=== PATIENT | male | born 1945 | race Caucasian/White ===

== ENCOUNTER 2017-08-16 15:27 | Inpatient (IN) | payer MEDICARE, OTHER ==
[~2017-08-16] VITALS: Ht 177.8 cm; Wt 101.3 kg
[~2017-08-16 15:27] MED LIST: CPR500T PO; HYDR-2997 PO; PHN100C; SIMV40TA4 PO
[2017-08-16 16:07] LABS: BASOPHILS % (AUTO) 0 % (0-10); EOSINOPHILS % (AUTO) 0 % (0-10); LYMPHOCYTES # (AUTO) 1.4 X 10^3 (1.0-4.0); LYMPHOCYTES % (AUTO) 12 % (12-44); MEAN CORPUSCULAR HEMOGLOBIN 36 PG (25-34); MEAN CORPUSCULAR HGB CONC 34 G/DL (32-36); MEAN CORPUSCULAR VOLUME 105 FL (80-99); MEAN PLATELET VOLUME 9.5 FL (7.4-10.4); MONOCYTES # (AUTO) 1.2 X 10^3 (0.0-1.0); MONOCYTES % (AUTO) 10 % (0-12); NEUTROPHILS # (AUTO) 9.4 X 10^3 (1.8-7.8); NEUTROPHILS % (AUTO) 78 % (42-75); PLATELET COUNT 225 10^3/uL (130-400); RED BLOOD COUNT 4.05 10^6/uL (4.35-5.85); RED CELL DISTRIBUTION WIDTH 15.3 % (10.0-14.5); WHITE BLOOD COUNT 12.1 10^3/uL (4.3-11.0)
[2017-08-16 16:14] LABS: INR 1.1 (0.8-1.4); PROTHROMBIN TIME PATIENT 13.9 SEC (12.2-14.7)
[2017-08-16 16:21] LABS: ALANINE AMINOTRANSFERASE 90 U/L (0-55); ALBUMIN 3.1 GM/DL (3.2-4.5); ANION GAP 14 MMOL/L (5-14); ASPARTATE AMINO TRANSFERASE 183 U/L (5-34); BILIRUBIN,TOTAL 1.4 MG/DL (0.1-1.0); BLOOD UREA NITROGEN 30 MG/DL (7-18); BUN/CREATININE RATIO 38; CALCIUM 8.8 MG/DL (8.5-10.1); CARBON DIOXIDE 30 MMOL/L (21-32); CHLORIDE 95 MMOL/L (98-107); CREATINE KINASE 189 U/L (30-200); CREATININE SERUM 0.78 MG/DL (0.60-1.30); GFR ESTIMATED > 60; GLUCOSE 107 MG/DL (70-105); POTASSIUM 2.8 MMOL/L (3.6-5.0); SODIUM 139 MMOL/L (135-145)
[2017-08-16] MEDS ORDERED: NS IV 1000 ML 1,000 ML IV ONE (16:32)
--- NOTE | 2017-08-16 16:48 | Diagnostic Imaging Report ---
INDICATION: Injury from a fall. Portable chest at 4:32 PM FINDINGS: Heart size and pulmonary vascularity are normal. Lungs are clear. There are no effusions or pneumothoraces. IMPRESSION: Negative chest. Dictated by: Dictated on workstation # [id number]
--- NOTE | 2017-08-16 18:46 | ED General ---
General Chief Complaint: Neurological Problems Stated Complaint: WEAKNESS,DIZZINESS Nursing Triage Note: ARRIVED VIA EMS FROM HOME. PT STATES HE FELL AND HAS BEEN ON THE FLOOR FOR 8 DAYS. PT STATES HE HAS BEEN FALLING ALOT RECENTLY. COMPLAINS OF LEFT WRIST PAIN. LEFT WRIST AREA BRUISED. BILAT ABRASIONS NOTED ON KNEES AND ABRASION NOTED RIGHT FOOT. PT A/OX3. Nursing Sepsis Screen: No Definite Risk Source of Information: Patient Exam Limitations: No Limitations (BRANDON CORADO MD) History of Present Illness Time Seen by Provider: 16:00 Initial Comments Here by EMS with report of fall at home and apparently standing on the floor for 8 days. Patient reports that he had to crawl around on his hands and knees. He comes and covered in urine. He states that he was able to access his tea for a while and then bottled water that he had in the refrigerator but has been out of fluids for 2 days. He was able to crawl to different places to eat a little bit in that amount of time as well. Denies any significant medical problems. Arrives with moderate amount of ecchymosis to the area of the left wrist as well as multiple bruises to the elbows and knees in a few scattered abrasions to the knees and elbows and head. Denied loss of consciousness but does report this initially was a result of a fall. This is when he hurt his wrist. Timing/Duration: 1 Week Severity: Moderate Modifying Factors: worse with Movement, improves with Rest Associated Systoms: No Chest Pain, No Cough, No Fever/Chills, No Nausea/ Vomiting, No Shortness of Air, Weakness (BRANDON CORADO MD) Allergies and Home Medications Allergies Coded Allergies: NKANo Known Allergies (Verified Allergy, Unknown, 04/19/06) Home Medications Phenytoin Sodium 100 Mg Cap, (Reported) Simvastatin 40 Mg Tablet, 40 MG PO DAILY, (Reported) Constitutional: see HPI, No chills, No fever EENTM: no symptoms reported Respiratory: no symptoms reported, No cough, No short of breath Cardiovascular: No edema, No palpitations Gastrointestinal: No nausea, No vomiting Genitourinary: decreased output, No dysuria Musculoskeletal: joint pain, muscle pain, muscle stiffness, muscle weakness Skin: see HPI, change in color, lesions, lumps Psychiatric/Neurological: Denies Headache, Weakness Hematologic/Lymphatic: No Symptoms Reported (BRANDON CORADO MD) All Other Systems Reviewed Negative Unless Noted: Yes (BRANDON CORADO MD) Past Zgahkrm-Odaudk-Gvokio Hx Patient Social History Alcohol Use: Rarely Uses Recreational Drug Use: No Smoking Status: Former Smoker Recent Foreign Travel: No Contact w/Someone Who Travel: No Recent Infectious Disease Expo: No Recent Hopitalizations: No (BRANDON CORADO MD) Immunizations Up To Date Date of Pneumonia Vaccine: Sep 01, 2008 Date of Influenza Vaccine: Aug 01, 2012 (BRANDON CORADO MD) Surgeries History of Surgeries: No (BRANDON CORADO MD) Respiratory History of Respiratory Disorde: No (BRANDON CORADO MD) Cardiovascular History of Cardiac Disorders: No (BRANDON CORADO MD) Neurological History of Neurological Disord: Yes Neurological Disorders: Seizure Disorder (BRANDON CORADO MD) Genitourinary History of Genitourinary Disor: No (BRANDON CORADO MD) Gastrointestinal History of Gastrointestinal Di: No (BRANDON CORADO MD) Musculoskeletal History of Musculoskeletal Dis: Yes (ARTHRITIS) (BRANDON CORADO MD) Endocrine History of Endocrine Disorders: No (BRANDON CORADO MD) HEENT History of HEENT Disorders: No (BRANDON CORADO MD) Cancer History of Cancer: No (BRANDON CORADO MD) Psychosocial History of Psychiatric Problem: No (BRANDON CORADO MD) Reviewed Nursing Assessment Reviewed/Agree w Nursing PMH: Yes (BRANDON CORADO MD) Family Medical History Significant Family History: No Pertinent Family Hx (BRANDON CORADO MD) Physical Exam Vital Signs Vital Sign - Last 12Hours 08/16/17 15:27 Temp 98.0 Pulse 120 Resp 18 B/P (MAP) 142/83 Pulse Ox 98 (DEMARIO DAWN) Vital Signs Capillary Refill : Less Than 3 Seconds (BRANDON CORADO MD) General Appearance: WD/WN, Other (moderate overall weakness) HEENT: PERRL/EOMI, TMs Normal, Other (mucous membranes dry. Several abrasions to the forehead.) Neck: Full Range of Motion, Normal Inspection, Non Tender, Supple Respiratory: Lungs Clear, Normal Breath Sounds Cardiovascular: No Murmur, Tachycardia Gastrointestinal: Non Tender, Soft Back: Normal Inspection, No CVA Tenderness, No Vertebral Tenderness Extremity: No Calf Tenderness, No Pedal Edema, Other (several scattered abrasions to the elbows and knees. Multiple contusions to the elbows and knees. Left forearm with moderate ecchymosis from the mid forearm to the wrist with deformity at the left wrist. Distal circulation and sensation intact.) Neurologic/Psychiatric: Alert, Oriented x3, Motor Weakness (global) Skin: Warm/Dry, Ecchymosis (ecchymosis as described above.), Other (multiple abrasions as described above as well as on the forehead.) (BRANDON CORADO MD ) Focused Exam Evaluation Lactate Level Laboratory Tests 08/16/17 15:09: Lactic Acid Level 1.60 (DEMARIO DAWN) Splinting and Joint Reduction : Location: left wrist Pre-Proc Neuro Vasc Exam: normal Post-Proc Neuro Vasc Exam: normal Hand-Made Type: orthoglass Splint Application: Short Arm (sugar tong splint) (DEMARIO DAWN) Progress/Results/Core Measures Results/Orders Lab Results Laboratory Tests Test 08/16/17 15:09 08/16/17 15:38 08/16/17 18:40 Range/Units Lactic Acid Level 1.60 0.50-2.00 MMOL/L White Blood Count 12.1 H 4.3-11.0 10^3/uL Red Blood Count 4.05 L 4.35-5.85 10^6/uL Hemoglobin 14.7 13.3-17.7 G/DL Hematocrit 43 40-54 % Mean Corpuscular Volume 105 H 80-99 FL Mean Corpuscular Hemoglobin 36 H 25-34 PG Mean Corpuscular Hemoglobin Concent 34 32-36 G/DL Red Cell Distribution Width 15.3 H 10.0-14.5 % Platelet Count 225 130-400 10^3/uL Mean Platelet Volume 9.5 7.4-10.4 FL Neutrophils (%) (Auto) 78 H 42-75 % Lymphocytes (%) (Auto) 12 12-44 % Monocytes (%) (Auto) 10 0-12 % Eosinophils (%) (Auto) 0 0-10 % Basophils (%) (Auto) 0 0-10 % Neutrophils # (Auto) 9.4 H 1.8-7.8 X 10^3 Lymphocytes # (Auto) 1.4 1.0-4.0 X 10^3 Monocytes # (Auto) 1.2 H 0.0-1.0 X 10^3 Eosinophils # (Auto) 0.0 0.0-0.3 10^3/uL Basophils # (Auto) 0.0 0.0-0.1 10^3/uL Prothrombin Time 13.9 12.2-14.7 SEC INR Comment 1.1 0.8-1.4 Activated Partial Thromboplast Time 25 24-35 SEC Sodium Level 139 135-145 MMOL/L Potassium Level 2.8 L 3.6-5.0 MMOL/L Chloride Level 95 L 98-107 MMOL/L Carbon Dioxide Level 30 21-32 MMOL/L Anion Gap 14 5-14 MMOL/L Blood Urea Nitrogen 30 H 7-18 MG/DL Creatinine 0.78 0.60-1.30 MG/DL Estimat Glomerular Filtration Rate > 60 BUN/Creatinine Ratio 38 Glucose Level 107 H 70-105 MG/DL Calcium Level 8.8 8.5-10.1 MG/DL Total Bilirubin 1.4 H 0.1-1.0 MG/DL Aspartate Amino Transf (AST/SGOT) 183 H 5-34 U/L Alanine Aminotransferase (ALT/SGPT) 90 H 0-55 U/L Alkaline Phosphatase 75 40-136 U/L Total Creatine Kinase 189 30-200 U/L Total Protein 7.0 6.4-8.2 GM/DL Albumin 3.1 L 3.2-4.5 GM/DL Phenytoin (Dilantin) Level 0.7 L 10.0-20.0 UG/ML Urine Color YELLOW Urine Clarity CLEAR Urine pH 6 5-9 [address] [place] 1.015 L 1.016-1.022 Urine Protein 3+ H NEGATIVE Urine Glucose (UA) NEGATIVE NEGATIVE Urine Ketones 2+ H NEGATIVE Urine Nitrite POSITIVE H NEGATIVE Urine Bilirubin 1+ H NEGATIVE Urine Urobilinogen 8 H NORMAL MG/DL Urine Leukocyte Esterase 3+ H NEGATIVE Urine RBC (Auto) 5+ H NEGATIVE Urine RBC 5-10 H /HPF Urine WBC TNTC H /HPF Urine Crystals NONE /LPF Urine Bacteria LARGE H /HPF Urine Casts NONE /LPF Urine Mucus NEGATIVE /LPF Urine Culture Indicated YES (DEMARIO DAWN) Medications Given in ED Current Medications Medications Dose Ordered Sig/Andrea Route Start Time Stop Time Status Last Admin Dose Admin Ceftriaxone Sodium 1000 mg/ Sodium Chloride 50 ml @ 100 mls/hr ONCE ONCE IV 08/16/17 19:30 08/16/17 19:59 DC 08/16/17 19:34 100 MLS/HR Phenytoin Sodium 400 mg ONCE ONCE PO 08/16/17 19:45 08/16/17 19:46 DC 08/16/17 19:44 400 MG Sodium Chloride 1,000 ml @ 0 mls/hr Q0M ONCE IV 08/16/17 16:32 08/16/17 16:34 DC 08/16/17 16:56 1,000 MLS/HR (DEMARIO DAWN) Vital Signs/I&O Vital Sign - Last 12Hours 08/16/17 15:27 Temp 98.0 Pulse 120 Resp 18 B/P (MAP) 142/83 Pulse Ox 98 Intake and Output 08/17/17 00:00 Intake Total 1000 ml Balance 1000 ml (DEMARIO DAWN) Blood Pressure Mean: 102 Progress Note : Progress Note Seen and evaluated. IV, labs, UA, blood cultures, lactic acid, chest x-ray and left wrist x-ray. EMS initiated 1 L normal saline IV bolus and this was completed. Repeat 1 L normal saline IV bolus. Left wrist fracture noted. This was splinted by MAUREEN Calabrese. CT head ordered. 1907: Significant urinary tract infection noted. Rocephin 1 g IV ordered. I did discuss the case with Dr. Galicia, on-call for hospitalist. She accepts patient for admission, inpatient status. Patient is on Dilantin and reports she has not taken his dose in several days. Dilantin 400 mg every afternoon is his normal dosing. This was ordered. We will continue this. Admit, inpatient status. Patient agrees with plan. (BRANDON CORADO MD) Diagnostic Imaging Diagonstic Imaging: Xray Plain Films/CT/US/NM/MRI: chest Comments NAME: LIZ JUNIOR [facility] REC#: [id number] PT STATUS: REG ER : 1945 PHYSICIAN: BRANDON CORADO MD ADMIT DATE: 08/16/17/ER Signed Date of Exam: 08/16/17 CHEST 1 VIEW, AP/PA ONLY INDICATION: Injury from a fall. Portable chest at 4:32 PM FINDINGS: Heart size and pulmonary vascularity are normal. Lungs are clear. There are no effusions or pneumothoraces. IMPRESSION: Negative chest. Dictated by: Dictated on workstation # [id number] Dict: 08/16/17 1643 Trans: 08/16/171651 Interpreted by: BRANDON HARRIS MD Electronically signed by: BRANDON HARRIS MD 08/16/171651 Diagonstic Imaging: Xray Plain Films/CT/US/NM/MRI: other (wrist) Comments NAME: LIZ JUNIOR [facility] REC#: [id number] PT STATUS: REG ER : 1945 PHYSICIAN: BRANDON CORADO MD ADMIT DATE: 08/16/17/ER Signed Date of Exam: 08/16/17 WRIST, LEFT, 3 VIEWS OR MORE INDICATION: Fall. Pain. COMPARISON: None. EXAMINATION: Three views of the left wrist were obtained. FINDINGS: There is an impacted angulated fracture of the distal radius with intra-articular extension. There is moderate dorsal angulation of the distal fragments. There is also a nondisplaced fracture through the distal ulna. IMPRESSION: Comminuted angulated nondisplaced intra-articular fracture of the distal radius and nondisplaced fracture the distal ulna. Report was called to Dr. Brandon Corado in the [facility], [place] ER at 6:44 p.m., by blake. Dictated by: Dictated on workstation # [id number] Dict: 08/16/171835 Trans: 08/16/171849 Interpreted by: HORTENCIA MALONEY DO Electronically signed by: HORTENCIA MALONEY DO 08/16/171849 Diagonstic Imaging: CT Plain Films/CT/US/NM/MRI: head Comments VIA [facility]. [place], [place] NAME: LIZ JUNIOR [facility] REC#: [id number] PT STATUS: REG ER : 1945 PHYSICIAN: BRANDON CORADO MD ADMIT DATE: 08/16/17/ER Draft Date of Exam:08/16/17 CT HEAD WO PROCEDURE: CT head without contrast. TECHNIQUE: Multiple contiguous axial images were obtained through the brain without the use of intravenous contrast. INDICATION: Head injury/found down. COMPARISON: Correlation is made with MRI of the brain dated 02/21/2014. FINDINGS: Ventricles and sulci are diffusely prominent. Encephalomalacia is again seen within the inferior temporal lobe on the left. No hemorrhage is identified. There is no evidence of an acute infarct. There is mild mural thickening in the right maxillary sinus. The calvarium is intact. 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 There is no CT evidence of an acute intracranial abnormality. Dictated on workstation # [id number] Dict: 08/16/179 Trans: 08/16/171912 [id number] Interpreted by: RAMIN CHOI MD Electronically signed by: (BRANDON CORADO MD) Departure Impression Impression: Primary Impression: Urinary tract infection Qualified Codes: N30.00 - Acute cystitis without hematuria Additional Impressions: Dehydration Closed fracture of left distal radius and ulna Qualified Codes: S52.502A - Unspecified fracture of the lower end of left radius, initial encounter for closed fracture; S52.602A - Unspecified fracture of lower end of left ulna, initial encounter for closed fracture Multiple abrasions Multiple contusions Disposition: ADMITTED INPATIENT Condition: Stable Admissions Decision to Admit Reason: Admit from ER (General) Decision to Admit/Date: Aug 16, 2017 Time/Decision to Admit Time: 19:08 (BRANDON CORADO MD) Departure-Patient Inst. Referrals: MAXWELL ARREOLA (PCP) Primary Care Physician BRANDON CORADO MD Aug 16, 2017 18:46 DEMARIO DAWN Aug 16, 2017 20:06
[2017-08-16 18:49] LABS: KETONES,URINE 2+ (NEGATIVE); LEUKOCYTE ESTERASE ,URINE 3+ (NEGATIVE); NITRITE,URINE POSITIVE (NEGATIVE); PH,URINE 6 (5-9); PROTEIN,URINE 3+ (NEGATIVE); UROBILINOGEN,URINE 8 MG/DL (NORMAL)
[2017-08-16 18:57] LABS: BILIRUBIN,URINE 1+ (NEGATIVE); WBC,URINE TNTC /HPF
--- NOTE | 2017-08-16 19:14 | Diagnostic Imaging Report ---
PROCEDURE: CT head without contrast. TECHNIQUE: Multiple contiguous axial images were obtained through the brain without the use of intravenous contrast. INDICATION: Head injury/found down. COMPARISON: Correlation is made with MRI of the brain dated 02/21/2014. FINDINGS: Ventricles and sulci are diffusely prominent. Encephalomalacia is again seen within the inferior temporal lobe on the left. No hemorrhage is identified. There is no evidence of an acute infarct. There is mild mural thickening in the right maxillary sinus. The calvarium is intact. 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 There is no CT evidence of an acute intracranial abnormality. Dictated by: Dictated on workstation # [id number]
[2017-08-16] MEDS ORDERED: cefTRIAXone INJECTION 1,000 MG in NS (IVPB) 50 ML IV ONE (19:30)
[2017-08-16] MEDS ORDERED: PHENYTOIN 100 MG (DILANTIN) CAP PO ONE (19:45)
[2017-08-16] MEDS ORDERED: CATHETER FLUSH 10 ML SYR IV PRN (21:30)
[2017-08-16] MEDS: POTASSIUM CL 10 MEQ/50 ML IVPB (PRE-MIX) IV SCH ×3 (21:39→23:56)
[2017-08-16] MEDS: NS IV 1000 ML 1,000 ML IV SCH (21:39)
[2017-08-16] MEDS: CATHETER FLUSH 10 ML SYR IV SCH (21:39)
[2017-08-17] VITALS: BP 147/79
[2017-08-17] MEDS: POTASSIUM CL 10 MEQ/50 ML IVPB (PRE-MIX) IV SCH (01:13)
[2017-08-17 04:00] VITALS: BP 138/80
[2017-08-17] MEDS: NS IV 1000 ML 1,000 ML IV SCH ×4 (04:47→23:58)
[2017-08-17] MEDS: CATHETER FLUSH 10 ML SYR IV SCH ×3 (04:47→20:26)
[2017-08-17 05:49] LABS: BASOPHILS % (AUTO) 0 % (0-10); EOSINOPHILS # (AUTO) 0.1 10^3/uL (0.0-0.3); EOSINOPHILS % (AUTO) 1 % (0-10); LYMPHOCYTES # (AUTO) 1.3 X 10^3 (1.0-4.0); LYMPHOCYTES % (AUTO) 12 % (12-44); MEAN CORPUSCULAR HEMOGLOBIN 37 PG (25-34); MEAN CORPUSCULAR HGB CONC 35 G/DL (32-36); MEAN CORPUSCULAR VOLUME 106 FL (80-99); MEAN PLATELET VOLUME 9.1 FL (7.4-10.4); MONOCYTES # (AUTO) 1.2 X 10^3 (0.0-1.0); MONOCYTES % (AUTO) 11 % (0-12); NEUTROPHILS # (AUTO) 8.3 X 10^3 (1.8-7.8); NEUTROPHILS % (AUTO) 77 % (42-75); PLATELET COUNT 206 10^3/uL (130-400); RED BLOOD COUNT 2.81 10^6/uL (4.35-5.85); RED CELL DISTRIBUTION WIDTH 14.9 % (10.0-14.5); WHITE BLOOD COUNT 10.8 10^3/uL (4.3-11.0)
[2017-08-17 06:16] LABS: ALANINE AMINOTRANSFERASE 72 U/L (0-55); ALBUMIN 2.5 GM/DL (3.2-4.5); ANION GAP 10 MMOL/L (5-14); ASPARTATE AMINO TRANSFERASE 153 U/L (5-34); BILIRUBIN,TOTAL 0.9 MG/DL (0.1-1.0); BLOOD UREA NITROGEN 19 MG/DL (7-18); BUN/CREATININE RATIO 31; CALCIUM 7.4 MG/DL (8.5-10.1); CARBON DIOXIDE 24 MMOL/L (21-32); CHLORIDE 99 MMOL/L (98-107); CREATININE SERUM 0.62 MG/DL (0.60-1.30); GFR ESTIMATED > 60; GLUCOSE 99 MG/DL (70-105); POTASSIUM 2.9 MMOL/L (3.6-5.0); SODIUM 133 MMOL/L (135-145); TOTAL PROTEIN 5.7 GM/DL (6.4-8.2)
[2017-08-17] MEDS ORDERED: INFLUENZA TRIvalent 2017-2018 0.5 ML/45 MCG SYR IM ONE (07:30)
[2017-08-17 08:00] VITALS: BP 128/72
--- NOTE | 2017-08-17 09:18 | History & Physical-Hospitalist ---
HPI History of Present Illness: HPI/Chief Complaint this is a 71-year-old white male who had had a severe concussion about 18 years ago. Since that time he has had a precarious loss of balance. Approximately 8 days ago he fell hurting his left wrist and was unable to get up. He was able to get to the refrigerator to get water and tea but has not eaten in 8 days. Blood cultures have grown out gram-negative rods and urine looks like it's Escherichia coli. He has a left fractured wrist as well. otherwise he is without complaint. Source: patient Exam Limitations: no limitations Date Seen 08/17/17 Time Seen by Provider: 09:00 Attending Physician Joseluis Canela MD PCP Krystian Referring Physician Date of Admission Aug 16, 2017 at 20:13 Home Medications & Allergies Home Medications Reviewed patient Home Medication Reconciliation Form Allergies Allergies Coded Allergies NKANo Known Allergies (Verified Allergy, Unknown, 04/19/06) Past Tvbxojs-Qbmnir-Hkmcwl Hx Patient Social History Marrital Status: single Employed/Student: retired Alcohol Use: Rarely Uses Number of Drinks Today: 0 Alcohol Beverage of Choice: Wine Recreational Drug Use: No Smoking Status: Former Smoker Physical Abuse Screen: No Sexual Abuse: No Recent Foreign Travel: No Contact w/other who traveled: No Recent Hopitalizations: No Recent Infectious Disease Expo: No Immunizations Up To Date Date of Pneumonia Vaccine: Sep 01, 2008 Date of Influenza Vaccine: Aug 01, 2012 Seasonal Allergies Seasonal Allergies: No Surgeries No Respiratory No Cardiovascular No Neurological Yes (controlled by Dilantin) Seizure Disorder Reproductive System HIV/AIDS: No Genitourinary No Gastrointestinal No Musculoskeletal Yes (ARTHRITIS) Fractures Endocrine History of Endocrine Disorders: No HEENT History of HEENT Disorders: No Loss of Vision: Denies Hearing Impairment: Denies Cancer No Psychosocial History of Psychiatric Problem: No Integumentary History of Skin or Integumenta: Yes (scalp) Reviewed Nursing Assessment Reviewed/Agree w Nursing PMH: Yes Family Medical History Significant Family History: No Pertinent Family Hx Family Hx: Dementia 19 MOTHER, Onset:Unknown FHx: leukemia 19 FATHER, Onset:Unknown Review of Systems Constitutional: weakness EENTM: no symptoms reported Respiratory: no symptoms reported Cardiovascular: no symptoms reported Gastrointestinal: constipation Genitourinary: decreased output Musculoskeletal: joint swelling (left wrist) Skin: no symptoms reported Psychiatric/Neurological: Seizure, Weakness Physical Exam Physical Exam Vital Signs Vital Sign - Last 12Hours 08/16/17 08/16/17 15:27 20:45 Temp 98.0 Pulse 120 Resp 18 B/P (MAP) 142/83 Pulse Ox 98 O2 Delivery Room Air Capillary Refill : Less Than 3 SecondsLess Than 3 Seconds General Appearance: No Apparent Distress, Other (several bruises and excoriations on his forehead.) Neck: Limited Range of Motion Respiratory: Lungs Clear, Normal Breath Sounds, No Accessory Muscle Use, No Respiratory Distress Cardiovascular: Regular Rate, Rhythm, No Gallop, No Murmur Gastrointestinal: Soft, Abnormal Bowel Sounds, Distended Rectal: Deferred Back: Normal Inspection Extremity: No Calf Tenderness, No Pedal Edema Neurologic/Psychiatric: Alert, Oriented x3, No Motor/Sensory Deficits, Normal Mood/Affect, Other (occasionally slow to answer) Skin: Pallor Lymphatic: No Adenopathy Results Results/Procedures Lab Laboratory Tests 08/16/17 15:38 08/17/17 05:40 Radiology IMPRESSION: Comminuted angulated nondisplaced intra-articular fracture of the distal radius and nondisplaced fracture the distal ulna. Assessment/Plan Admission Diagnosis 1. septicemia secondary to urinary tract infection 2. Urinary Tract infection secondary to Escherichia coli 3. Left wrist fracture 4. Previous concussion with recent decreased functional status 5. Hypokalemia 6. Anemia of uncertain etiology This is day number 2 of Rocephin which should cover the septicemia and urinary tract infection. We'll begin PT and OT to increase the patient's functional status. Orthopedic surgery to see this patient regarding his wrist. Copy Copies To 1: GEOFFREY ESCALERA MD Clinical Quality Measures DVT/VTE Risk/Contraindication: Risk Factor Score Per Nursin RFS Level Per Nursing on Admit: 4+=Very High JOSELUIS CANELA MD Aug 17, 2017 09:18
[2017-08-17] MEDS ORDERED: PHEN100C11 PO (09:20)
[2017-08-17] MEDS: ENOXAPARIN 40 MG/0.4 ML (LOVENOX) SYR SC SCH (09:53)
[2017-08-17] MEDS: KCL 20 MEQ TAB (K-DUR) PO SCH ×3 (09:53→17:06)
[2017-08-17] MEDS ORDERED: ATOR20TA49 PO (10:42)
[2017-08-17] MEDS ORDERED: LISI1TAB10 PO (10:57)
[2017-08-17] MEDS ORDERED: HYDROCHLOROTHIAZIDE 25 MG (HCTZ) TAB PO PRN (11:30)
[2017-08-17 12:00] VITALS: BP 125/61
[2017-08-17] MEDS: PHENYTOIN 100 MG (DILANTIN) CAP PO SCH (12:07)
--- NOTE | 2017-08-17 13:43 | Physical Therapy Evaluation ---
PT Evaluation-General Medical Diagnosis Admission Date Aug 16, 2017 at 20:13 Medical Diagnosis: UTI/DEHYDRATION/LEFT WRIST FRACTURE Onset Date: Aug 09, 2017 Therapy Diagnosis Therapy Diagnosis: impaired mobility/weakness Height/Weight Height (Feet): 5 Height (Inches): 10.00 Weight (Pounds): 223 Weight (Ounces): 4.0 Precautions Precautions/Isolations: Fall Prevention, Standard Precautions Weight Bear Status Right Lower Extremity: Right Full Weight Bearing Left Lower Extremity: Left Full Weight Bearing Referral Physician: Grayson Reason for Referral: Evaluation/Treatment Medical History Pertinent Medical History: Arthritis Additional Medical History seizure disorder severe concussion 19 yrs ago Current History per patient report, he fell 8 days ago resulting in left wrist fracture unable to get up from floor crawled on hands and knees Reviewed History: Yes Social History Home: Single Level Current Living Status: Alone Prior/Core FIM Prior Level of Function Functional [place] Measure 0=Not Assessed/NA 4=Minimal Assistance 1=Total Assistance 5=Supervision or Setup 2=Maximal Assistance 6=Modified Lyons 3=Moderate Assistance 7=Complete Lyons Bed Mobility: 6 Transfers (B,C,W/C) (FIM): 6 Gait: 6 PT Evaluation-Current Subjective Patient states he is very weak and fearful of falling. Pain Numeric Pain Scale: 5-Moderate Pain Location: Left Location Body Site: Wrist Pain Description: Acute Objective Patient Orientation: Normal For Age Problem Solving: Good Attachments: IV ROM/Strength ROM Lower Extremities bilateral LE WNL Strength Lower Extremities left knee flexion/extension 3-/5; hip flexion 3-/5; DF/PF 3-/5 right knee flexion/extension 3-/5; hip flexion 3-/5; DF/PF 3-/5 Integumentary/Posture Integumentary multiple abrasions and contusions Bowel Incontinence: No Bladder Incontinence: No Posture WNL Neuromuscular (Tone, Coordination, Reflexes) diminished coordination with all mobility Sensory Vision: Functional Hearing: Functional Sensation Right Lower Extremit: Intact Sensation Left Lower Extremity: Intact Transfers Functional [place] Measure 0=Not Assessed/NA 4=Minimal Assistance 1=Total Assistance 5=Supervision or Setup 2=Maximal Assistance 6=Modified [place] 3=Moderate Assistance 7=Complete [place] Transfers (B, C, W/C) (FIM): 3 Scootin Rollin Supine to/from Sit: 3 Sit to/from Stand: 3 Gait Mode of Locomotion: Walk Anticipated Mode of Locomotion: Walk Gait (FIM): 2 Distance (FIM): 9=467-66 ft Distance: 75' Gait Level of Assist: 3 Gait Persons Needed: 1 Gait Assistive Device: Walker Victor M Comments/Gait Description antalgic left knee/step to gait sequence Balance Sitting Static: Fair Sitting Dynamic: Fair Standing Static: Fair Standing Dynamic: Fair Assessment/Needs 71 y.o severely debilitated male, will benefit from skilled PT to address functional strength and mobility to improve current LOF. Patient is limited with all gross motor skills and is unsafe to return to home at this time and would benefit from aggressive/intense therapy. From a PT standpoint, patient would benefit from ARU to ensure safe return to home. Rehab Potential: Good PT Resaw Carriage Operator Goals Resaw Carriage Operator Goals PT Resaw Carriage Operator Goals Time Frame: Sep 08, 2017 Transfers (B,C,W/C) (FIM): 6 Gait (FIM): 6 Gait distance (FIM): 3=150 ft Gait Level of Assist: 6 Gait Assistive Device: Walker Platform PT Plan Problem List Problem List: Activity Tolerance, Functional Strength, Safety, Balance, Gait, Transfer, Bed Mobility Treatment/Plan Treatment Plan: Continue Plan of Care Treatment Plan: Bed Mobility, Education, Functional Activity Carlita, Functional Strength, Gait, Safety, Therapeutic Exercise, Transfers Treatment Duration: Sep 08, 2017 Frequency: 11 times per week Estimated Hrs Per Day: .5 hour per day (or PRN) Patient and/or Family Agrees t: Yes Safety Risks/Education Patient Education: Safety Issues Teaching Recipient: Patient Teaching Methods: Discussion Response to Teaching: Return Demonstration Discharge Recommendations Therapy D/C Recommendations: Acute Rehab Time/GCodes Time In: 1255 Time Out: 1314 Total Billed Treatment Time: 19 Total Billed Treatment 1 visit EVMod 19 min G Codes Necessary: GALINA Brower PT Aug 17, 2017 13:43
[2017-08-17 16:16] VITALS: BP 129/70
--- NOTE | 2017-08-17 16:25 | Consultation ---
History of Present Illness History of Present Illness Patient Consulted On(nicola/time) 08/17/17 16:21 Date Seen by Provider: Aug 17, 2017 Time Seen by Provider: 16:00 Reason for Visit: fall History of Present Illness Consult for left wrist pain and fracture after fall. Patient fell undetermined number of days ago secondary to weakness in lower extremities. Hospitalized for dehydration. Deformity of left wrist warranted xrays. Distal left radius and ulna fracture was identified. splints applied. Dr. Dietz was consulted for orthopedic care. Allergies and Home Medications Allergies Coded Allergies: NKANo Known Allergies (Verified Allergy, Unknown, 04/19/06) Home Medications Atorvastatin Calcium 20 Mg Tablet, 10 MG PO HS, (Reported) LAST FILLED #45 04-25-17 TAKES 1/2 (20MG) TABLET Lisinopril/Hydrochlorothiazide 1 Each Tablet, 1 TAB PO DAILY PRN for BLOOD PRESSURE, (Reported) Phenytoin Sodium Extended 100 Mg Capsule, 400 MG PO DAILY, (Reported) TAKES 4 (100MG) CAPSULES Past Lpyjfhm-Rrzszy-Hjijfv Hx Patient Social History Alcohol Use: Rarely Uses Number of Drinks Today: 0 Alcohol Beverage of Choice: Wine Recreational Drug Use: No Smoking Status: Former Smoker Recent Foreign Travel: No Contact w/Someone Who Travel: No Recent Infectious Disease Expo: No Recent Hopitalizations: No Immunizations Up To Date Date of Pneumonia Vaccine: Sep 01, 2008 Date of Influenza Vaccine: Aug 01, 2012 Seasonal Allergies Seasonal Allergies: No Surgeries History of Surgeries: No Respiratory History of Respiratory Disorde: No Cardiovascular History of Cardiac Disorders: No Neurological History of Neurological Disord: Yes (controlled by Dilantin) Neurological Disorders: Seizure Disorder Reproductive System HIV/AIDS: No Genitourinary History of Genitourinary Disor: No Gastrointestinal History of Gastrointestinal Di: No Musculoskeletal History of Musculoskeletal Dis: Yes (ARTHRITIS) Musculoskeletal Disorders: Fractures Endocrine History of Endocrine Disorders: No HEENT History of HEENT Disorders: No Loss of Vision: Denies Hearing Impairment: Denies Cancer History of Cancer: No Psychosocial History of Psychiatric Problem: No Integumentary History of Skin or Integumenta: Yes (scalp) Reviewed Nursing Assessment Reviewed/Agree w Nursing PMH: Yes Family Medical History Significant Family History: No Pertinent Family Hx Family Medial History: Dementia 19 MOTHER, Onset:Unknown FHx: leukemia 19 FATHER, Onset:Unknown Physical Exam-General Problems Physical Exam Vital Signs Vital Sign - Last 12Hours 10/4/17 10/4/17 15:27 20:45 Temp 98.0 Pulse 120 Resp 18 B/P (MAP) 142/83 Pulse Ox 98 O2 Delivery Room Air Capillary Refill : Less Than 3 SecondsLess Than 3 Seconds General Appearance: WD/WN, no apparent distress Extremities: no pedal edema, no calf tenderness, normal capillary refill, other (splint to left wrist) Neurologic/Psychiatric: alert, normal mood/affect, oriented x 3 Skin: normal color, warm/dry Assessment/Plan Assessment/Plan Admission Diagnosis/Plan A: Comminuted angulated displaced intra-articular left distal radius fracture, traumatic nondisplaced ulnar styloid fracture, fall, dehydration P: Continue splint, once medically stable would recommend open reduction internal fixation of left distal radius and ulna fractures. Clinical Quality Measures DVT/VTE Risk/Contraindication: Risk Factor Score Per Nursin RFS Level Per Nursing on Admit: 4+=Very High FARZANA ALCANTAR APRN Aug 17, 2017 4:25 pm
[2017-08-17 20:13] VITALS: BP 133/77
[2017-08-17] MEDS: cefTRIAXone 1 GM/NS 50 ML IVPB IV SCH ×2 (20:26)
[2017-08-17] MEDS: ATORVASTATIN 10 MG (LIPITOR) TABLET PO SCH (20:27)
[2017-08-17] MEDS ORDERED: PHENYTOIN 100 MG (DILANTIN) CAP PO SCH (21:00)
[2017-08-18 00:42] VITALS: BP 132/59
[2017-08-18] MEDS: NS IV 1000 ML 1,000 ML IV SCH ×4 (01:25→23:52)
[2017-08-18 04:30] VITALS: BP 130/58
[2017-08-18 06:03] LABS: BASOPHILS # (AUTO) 0.1 10^3/uL (0.0-0.1); BASOPHILS % (AUTO) 1 % (0-10); EOSINOPHILS # (AUTO) 0.1 10^3/uL (0.0-0.3); EOSINOPHILS % (AUTO) 1 % (0-10); LYMPHOCYTES # (AUTO) 1.4 X 10^3 (1.0-4.0); LYMPHOCYTES % (AUTO) 13 % (12-44); MEAN CORPUSCULAR HEMOGLOBIN 37 PG (25-34); MEAN CORPUSCULAR HGB CONC 35 G/DL (32-36); MEAN CORPUSCULAR VOLUME 107 FL (80-99); MEAN PLATELET VOLUME 9.6 FL (7.4-10.4); MONOCYTES # (AUTO) 1.4 X 10^3 (0.0-1.0); MONOCYTES % (AUTO) 13 % (0-12); NEUTROPHILS # (AUTO) 7.9 X 10^3 (1.8-7.8); NEUTROPHILS % (AUTO) 73 % (42-75); PLATELET COUNT 259 10^3/uL (130-400); RED BLOOD COUNT 3.07 10^6/uL (4.35-5.85); WHITE BLOOD COUNT 10.8 10^3/uL (4.3-11.0)
[2017-08-18 06:13] LABS: INR 1.1 (0.8-1.4); PROTHROMBIN TIME PATIENT 14.5 SEC (12.2-14.7)
[2017-08-18 06:30] LABS: ALANINE AMINOTRANSFERASE 60 U/L (0-55); ALBUMIN 2.5 GM/DL (3.2-4.5); ANION GAP 11 MMOL/L (5-14); ASPARTATE AMINO TRANSFERASE 107 U/L (5-34); BILIRUBIN,TOTAL 0.6 MG/DL (0.1-1.0); BLOOD UREA NITROGEN 9 MG/DL (7-18); BUN/CREATININE RATIO 15; CALCIUM 7.4 MG/DL (8.5-10.1); CARBON DIOXIDE 22 MMOL/L (21-32); CHLORIDE 103 MMOL/L (98-107); GFR ESTIMATED > 60; GLUCOSE 76 MG/DL (70-105); POTASSIUM 2.8 MMOL/L (3.6-5.0); SODIUM 136 MMOL/L (135-145); TOTAL PROTEIN 5.6 GM/DL (6.4-8.2)
[2017-08-18] MEDS: CATHETER FLUSH 10 ML SYR IV SCH ×3 (06:36→22:22)
[2017-08-18] MEDS: KCL 20 MEQ TAB (K-DUR) PO SCH ×4 (06:40→17:12)
[2017-08-18] MEDS ORDERED: KCL 20 MEQ TAB (K-DUR) PO NR (07:30)
[2017-08-18 07:55] VITALS: BP 127/70
[2017-08-18] MEDS: PHENYTOIN 100 MG (DILANTIN) CAP PO SCH (08:17)
[2017-08-18] MEDS: ENOXAPARIN 40 MG/0.4 ML (LOVENOX) SYR SC SCH (08:17)
[2017-08-18] MEDS ORDERED: lisINopril 20 MG (ZESTRIL) TAB PO PRN (09:00)
--- NOTE | 2017-08-18 09:44 | Physical Therapy Daily Note ---
PT Daily Note-Current Subjective Patient reports he is feeling much better today and agrees to PT. Pain Numeric Pain Scale: 0-No Pain Location: No Pain Reported Mental Status Patient Orientation: Normal For Age Transfers Functional [place] Measure 0=Not Assessed/NA 4=Minimal Assistance 1=Total Assistance 5=Supervision or Setup 2=Maximal Assistance 6=Modified [place] 3=Moderate Assistance 7=Complete IndependenceIRFPAI Quality Coding Scale 6 Independent with activity with or without an assistive device 5 Patient requires set up or clean up by helper. Patient completes activity by themselves 4 Supervision or touching assist (CGA). [place] provide cues , steadying assist 3 The helper provides less than half the effort to complete the activity 2 The helper provides more than half the effort to complete the activity 1 Dependent. The helper does all the effort to complete an activity 7 Patient refused to complete or attempt activity 9 The patient did not perform the activity before the current illness or injury 88 Not attempted due to Medical conditions or safety concerns Transfers (B, C, W/C) (FIM): 4 Sit to/from Stand: 4 CGA for safety Weight Bearing Right Lower Extremity: Right Full Weight Bearing Left Lower Extremity: Left Full Weight Bearing Gait Training Gait (FIM): 4 Distance (FIM): 3=150 ft Distance: 175' Gait Level of Assist: 4 Gait Persons Needed: 1 Gait Assistive Device: Walker Victor M slightly unsteady gait sequence, however, improved from yesterday. Step to gait sequence Exercises Seated Therapy Exercises: Ankle pumps, Long arc quads Seated Reps: 20 Assessment Patient ceased treatment due to breakfast. PT to increase activity as tolerated by patient. PT Precision Instrument Maker Goals Longterm Goals PT Precision Instrument Maker Goals Time Frame: Sep 08, 2017 Transfers (B,C,W/C) (FIM): 6 Gait (FIM): 6 Gait distance (FIM): 3=150 ft Gait Level of Assist: 6 Gait Assistive Device: Walker Platform PT Plan Treatment/Plan Treatment Plan: Continue Plan of Care Treatment Plan: Bed Mobility, Education, Functional Activity Carlita, Functional Strength, Gait, Safety, Therapeutic Exercise, Transfers Treatment Duration: Sep 08, 2017 Frequency: 11 times per week Estimated Hrs Per Day: .5 hour per day (or PRN) Patient and/or Family Agrees t: Yes Time/GCodes Time In: 903 Time Out: 915 Total Billed Treatment Time: 12 Total Billed Treatment 1 visit GT 12 min GALINA PICKARD PT Aug 18, 2017 09:44
--- NOTE | 2017-08-18 12:39 | Progress Note-Hospitalist ---
Subjective HPI/CC On Admission Date Seen by Provider: Aug 18, 2017 Time Seen by Provider: 07:30 this is a 71-year-old white male who had had a severe concussion about 18 years ago. Since that time he has had a precarious loss of balance. Approximately 8 days ago he fell hurting his left wrist and was unable to get up. He was able to get to the refrigerator to get water and tea but has not eaten in 8 days. Blood cultures have grown out gram-negative rods and urine looks like it's Escherichia coli. He has a left fractured wrist as well. otherwise he is without complaint. Subjective/Events-last exam Mr. Allen denies forearm pain dysuria or increased urinary frequency or sensation of incomplete evacuation. He denies night sweats fever or shortness of breath or abdominal pain. He does report fear of falling and is very uncomfortable about the prospects of going home and his current condition due to his fear of falling. Objective Exam Vital Signs Vital Sign - Last 12Hours 08/16/17 08/16/17 15:27 20:45 Temp 98.0 Pulse 120 Resp 18 B/P (MAP) 142/83 Pulse Ox 98 O2 Delivery Room Air Capillary Refill : Less Than 3 SecondsLess Than 3 Seconds General Appearance: Anxious, Chronically ill, Obese Respiratory: Chest Non Tender, Lungs Clear, Normal Breath Sounds, No Accessory Muscle Use, No Respiratory Distress Cardiovascular: Regular Rate, Rhythm, No Edema, No Gallop, No JVD, No Murmur, Normal Peripheral Pulses Gastrointestinal: Normal Bowel Sounds, No Organomegaly, No Pulsatile Mass, Non Tender, Soft Extremity: Other (trace edema on the left skin crinkling suggesting it used to be a lot worse. No significant dermatitis is noted. There is hyperpigmentation compatible with chronic venous insufficiency change no edema is noted on the right.) Results/Procedures Lab Laboratory Tests 08/18/17 05:35 Assessment/Plan Assessment and Plan Assess & Plan/Chief Complaint 1. Urinary tract infection due to Escherichia coli sensitive to everything but ampicillin with secondary sepsis improving continue IV antibiotics. 2. Comminuted angulated fracture of the distal forearm orthopedics discussing possibility of reduction. 3. 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 This has been quiescent for many years typical Dilantin levels in the 5-10 range over the years without seizure recurrence. 4. 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 5. Deconditioning multifactorial in my view as well as physical therapy he would be an ideal candidate for acute rehabilitation and is in the process of evaluation. I will tentatively put discharge orders and for Monday and would continue oral antibiotics to at least total of a week of antibiotic therapy. Continue IV Rocephin over the weekend. GEOFFREY SECALERA MD Aug 18, 2017 12:39
[2017-08-18] MEDS ORDERED: ACET325T38 PO (12:44)
[2017-08-18] MEDS ORDERED: CEPH500C PO (12:44)
[2017-08-18] MEDS: POTASSIUM CL 10MEQ/50ML IVPB 50 ML IV SCH ×4 (13:40→16:07)
--- NOTE | 2017-08-18 14:48 | Physical Therapy Daily Note ---
PT Daily Note-Current Subjective Patient agrees to PT. Pain Numeric Pain Scale: 0-No Pain Location: No Pain Reported Mental Status Patient Orientation: Normal For Age Attachments: IV Transfers Functional [place] Measure 0=Not Assessed/NA 4=Minimal Assistance 1=Total Assistance 5=Supervision or Setup 2=Maximal Assistance 6=Modified [place] 3=Moderate Assistance 7=Complete IndependenceIRFPAI Quality Coding Scale 6 Independent with activity with or without an assistive device 5 Patient requires set up or clean up by helper. Patient completes activity by themselves 4 Supervision or touching assist (CGA). [place] provide cues , steadying assist 3 The helper provides less than half the effort to complete the activity 2 The helper provides more than half the effort to complete the activity 1 Dependent. The helper does all the effort to complete an activity 7 Patient refused to complete or attempt activity 9 The patient did not perform the activity before the current illness or injury 88 Not attempted due to Medical conditions or safety concerns Transfers (B, C, W/C) (FIM): 4 Scootin Sit to/from Stand: 4 Weight Bearing Right Lower Extremity: Right Full Weight Bearing Left Lower Extremity: Left Full Weight Bearing Gait Training Gait (FIM): 4 Distance (FIM): 3=150 ft Distance: 175' Gait Level of Assist: 4 Gait Persons Needed: 1 Gait Assistive Device: Walker Victor M slightly unsteady, step to gait sequence Assessment Current Status: Good Progress Patient to have surgery to repair left wrist fracture on 08/21/17 PT Pharmacist'S Aide Goals Fpc Goals PT Fpc Goals Time Frame: Sep 08, 2017 Transfers (B,C,W/C) (FIM): 6 Gait (FIM): 6 Gait distance (FIM): 3=150 ft Gait Level of Assist: 6 Gait Assistive Device: Walker Platform PT Plan Treatment/Plan Treatment Plan: Continue Plan of Care Treatment Plan: Bed Mobility, Education, Functional Activity Carlita, Functional Strength, Gait, Safety, Therapeutic Exercise, Transfers Treatment Duration: Sep 08, 2017 Frequency: 11 times per week Estimated Hrs Per Day: .5 hour per day (or PRN) Patient and/or Family Agrees t: Yes Time/GCodes Time In: 1415 Time Out: 1425 Total Billed Treatment Time: 10 Total Billed Treatment 1 visit GT 10 min GALINA PICKARD PT Aug 18, 2017 14:48
[2017-08-18 16:15] VITALS: BP 123/69
[2017-08-18] MEDS: cefTRIAXone 1 GM/NS 50 ML IVPB IV SCH ×2 (20:39)
[2017-08-18] MEDS: ATORVASTATIN 10 MG (LIPITOR) TABLET PO SCH (20:39)
[2017-08-19] VITALS: BP 117/67
[2017-08-19 04:28] LABS: BASOPHILS # (AUTO) 0.2 10^3/uL (0.0-0.1); BASOPHILS % (AUTO) 2 % (0-10); EOSINOPHILS # (AUTO) 0.2 10^3/uL (0.0-0.3); EOSINOPHILS % (AUTO) 1 % (0-10); LYMPHOCYTES # (AUTO) 1.7 X 10^3 (1.0-4.0); LYMPHOCYTES % (AUTO) 15 % (12-44); MEAN CORPUSCULAR HEMOGLOBIN 37 PG (25-34); MEAN CORPUSCULAR HGB CONC 35 G/DL (32-36); MEAN CORPUSCULAR VOLUME 107 FL (80-99); MEAN PLATELET VOLUME 9.2 FL (7.4-10.4); MONOCYTES # (AUTO) 1.4 X 10^3 (0.0-1.0); MONOCYTES % (AUTO) 12 % (0-12); NEUTROPHILS # (AUTO) 7.8 X 10^3 (1.8-7.8); NEUTROPHILS % (AUTO) 70 % (42-75); PLATELET COUNT 349 10^3/uL (130-400); RED BLOOD COUNT 3.08 10^6/uL (4.35-5.85); RED CELL DISTRIBUTION WIDTH 15.2 % (10.0-14.5); WHITE BLOOD COUNT 11.2 10^3/uL (4.3-11.0)
[2017-08-19 04:46] LABS: ANION GAP 11 MMOL/L (5-14); BLOOD UREA NITROGEN 6 MG/DL (7-18); BUN/CREATININE RATIO 11; CALCIUM 7.3 MG/DL (8.5-10.1); CARBON DIOXIDE 20 MMOL/L (21-32); CHLORIDE 108 MMOL/L (98-107); CREATININE SERUM 0.54 MG/DL (0.60-1.30); GFR ESTIMATED > 60; GLUCOSE 90 MG/DL (70-105); POTASSIUM 3.3 MMOL/L (3.6-5.0); SODIUM 139 MMOL/L (135-145)
[2017-08-19] MEDS: CATHETER FLUSH 10 ML SYR IV SCH ×3 (05:08→20:02)
[2017-08-19] MEDS: KCL 20 MEQ TAB (K-DUR) PO SCH ×2 (06:12→17:04)
[2017-08-19] MEDS: NS IV 1000 ML 1,000 ML IV SCH (06:16)
[2017-08-19 08:00] VITALS: BP 155/67
[2017-08-19] MEDS: ENOXAPARIN 40 MG/0.4 ML (LOVENOX) SYR SC SCH (09:17)
[2017-08-19] MEDS: PHENYTOIN 100 MG (DILANTIN) CAP PO SCH (09:17)
--- NOTE | 2017-08-19 09:45 | Progress Note-Hospitalist ---
Subjective HPI/CC On Admission Date Seen by Provider: Aug 19, 2017 Time Seen by Provider: 09:30 this is a 71-year-old white male who had had a severe concussion about 18 years ago. Since that time he has had a precarious loss of balance. Approximately 8 days ago he fell hurting his left wrist and was unable to get up. He was able to get to the refrigerator to get water and tea but has not eaten in 8 days. Blood cultures have grown out gram-negative rods and urine looks like it's Escherichia coli. He has a left fractured wrist as well. otherwise he is without complaint. Subjective/Events-last exam reports feeling well. Has minimal pain in wrist, mostly soreness. No other concerns. Objective Exam Vital Signs Vital Sign - Last 12Hours 08/16/17 08/16/17 15:27 20:45 Temp 98.0 Pulse 120 Resp 18 B/P (MAP) 142/83 Pulse Ox 98 O2 Delivery Room Air Capillary Refill : Less Than 3 SecondsLess Than 3 Seconds General Appearance: No Apparent Distress, WD/WN Respiratory: Lungs Clear, Normal Breath Sounds, No Accessory Muscle Use Cardiovascular: Regular Rate, Rhythm, No Murmur Gastrointestinal: Normal Bowel Sounds, Non Tender, Soft Extremity: Other (left wrist wrapped in [place] bandages, sensation in tact in fingers/cap refill <2s) Neurologic/Psychiatric: Alert, Oriented x3 Results/Procedures Lab Laboratory Tests 08/19/17 04:12 Assessment/Plan Assessment and Plan Assess & Plan/Chief Complaint E coli bacteremia Diagnosis/Problems Diagnosis/Problems (1) Bacteremia due to Escherichia coli Assessment & Plan: Urine culture grew e coli as well Continue on Rocephin, day 4 (sensitive) (2) Closed fracture of left distal radius and ulna Status: Acute Assessment & Plan: Dr. Dietz consulted, appreciate recs Plan for OR early next week Qualifiers: Qualified Codes: S52.502A - Unspecified fracture of the lower end of left radius, initial encounter for closed fracture; S52.602A - Unspecified fracture of lower end of left ulna, initial encounter for closed fracture (3) Metabolic acidosis Status: Acute Assessment & Plan: [place], likley iatrogenic from IVF Will DC fluids as tolerating diet (4) Normocytic anemia Assessment & Plan: Very mild, trend (5) Essential (primary) hypertension Status: Chronic Assessment & Plan: Continue on home meds (6) Prophylactic measure Assessment & Plan: Lovenox Reg Diet Saline Lock HERVE MENESES MD Aug 19, 2017 09:45
--- NOTE | 2017-08-19 10:07 | Physical Therapy Daily Note ---
PT Daily Note-Current Subjective Pt. up in chair, agrees to therapy and has no c/o pain. He reports he is having surgery on his wrist on Monday. Mental Status Patient Orientation: Person, Place, Time, Situation Attachments: IV Transfers Functional [place] Measure 0=Not Assessed/NA 4=Minimal Assistance 1=Total Assistance 5=Supervision or Setup 2=Maximal Assistance 6=Modified [place] 3=Moderate Assistance 7=Complete IndependenceIRFPAI Quality Coding Scale 6 Independent with activity with or without an assistive device 5 Patient requires set up or clean up by helper. Patient completes activity by themselves 4 Supervision or touching assist (CGA). [place] provide cues , steadying assist 3 The helper provides less than half the effort to complete the activity 2 The helper provides more than half the effort to complete the activity 1 Dependent. The helper does all the effort to complete an activity 7 Patient refused to complete or attempt activity 9 The patient did not perform the activity before the current illness or injury 88 Not attempted due to Medical conditions or safety concerns Transfers (B, C, W/C) (FIM): 4 Sit to/from Stand: 4 Weight Bearing Right Lower Extremity: Right Full Weight Bearing Left Lower Extremity: Left Full Weight Bearing Gait Training Gait (FIM): 4 Distance (FIM): 3=150 ft Distance: 250 ft Gait Level of Assist: 4 Gait Persons Needed: 1 Gait Assistive Device: Walker Victor M Treatments gait Assessment Current Status: Good Progress Pt. did well with ambulation, able to increase distance without issue but fatigued post session. Pt. needed min A with sit to stand from chair today. He returned to chair post session with call light and all needs met. PT Front End Java Developer Goals Nursing Home Goals PT Front End Java Developer Goals Time Frame: Sep 08, 2017 Transfers (B,C,W/C) (FIM): 6 Gait (FIM): 6 Gait distance (FIM): 3=150 ft Gait Level of Assist: 6 Gait Assistive Device: Walker Platform PT Plan Treatment/Plan Treatment Plan: Continue Plan of Care Treatment Plan: Bed Mobility, Education, Functional Activity Carlita, Functional Strength, Gait, Safety, Therapeutic Exercise, Transfers Treatment Duration: Sep 08, 2017 Frequency: 11 times per week Estimated Hrs Per Day: .5 hour per day (or PRN) Patient and/or Family Agrees t: Yes Time/GCodes Time In: 846 Time Out: 900 Total Billed Treatment Time: 14 Total Billed Treatment 1, GT 14' HAMIDA,NHI PT Aug 19, 2017 10:07
--- NOTE | 2017-08-19 12:44 | Occupational Therapy Eval ---
OT Evaluation-General/PLF Medical Diagnosis Admission Date Aug 16, 2017 at 20:13 Medical Diagnosis: UTI/DEHYDRATION/LEFT WRIST FRACTURE Onset Date: Aug 09, 2017 Therapy Diagnosis Therapy Diagnosis: decreased self care skills Height/Weight Height (Feet): 5 Height (Inches): 10.00 Weight (Pounds): 223 Weight (Ounces): 4.0 Precautions Precautions/Isolations: Fall Prevention, Standard Precautions Safety Interventions: None Referral Physician: Gr[place] Medical History Pertinent Medical History: Arthritis Additional Medical History Severe concussion, seizures Current History Pt admitted with UTI, left wrist fracture, and dehydration. Pt to go to OR on Monday for surgical intervention on left wrist. Reviewed History: Yes Social History Home: Single Level Current Living Status: Alone Entry Into Home: Stairs With Railing Steps Into Home: 5 ADL-Prior Level of Function ADL PLOF Comments Pt reports being independent with self care and mobility. States he uses a cane first thing in the morning, but then does not use an AD for the rest of the day. DME/Equipment: Bath Chair, Grab Bars, Tub/Shower Drive Self: Yes OT Current Status Subjective Pt sitting in chair, agrees to treatment. Pt has no c/o pain. Mental Status/Objective Patient Orientation: Person, Place, Situation Attachments: IV Current Glasses/Contacts: Yes Hearing Aids: No Dentures/Partials: Yes (partial) Upper Extremity ROM Right UE WFL Left UE not formally assessed. Pt actively moves left shoulder, but elbow and wrist are splinted secondary to fracture Upper Extremity Coordination Right UE grossly functional Upper Extremity Strength Right UE grossly 4/5. Left UE not assessed. ADL-Treatment ADL-Current Pt sit to stand with minimal assistance. Pt had smear of BM on pad in chair. Pt stood with CGA for balance while pad was changed. Pt then performed hygiene with SBA. Pt demonstrated ability to perform transfers with minimal assistance using ana walker. Pt returned to chair, sitting with needs met after session. Pt states he will be going to rehab next week after surgery prior to return home. Functional [place] Measure 0=Not Assessed/NA 4=Minimal Assistance 1=Total Assistance 5=Supervision or Setup 2=Maximal Assistance 6=Modified [place] 3=Moderate Assistance 7=Complete IndependenceIRFPAI Quality Coding Scale 6 Independent with activity with or without an assistive device 5 Patient requires set up or clean up by helper. Patient completes activity by themselves 4 Supervision or touching assist (CGA). [place] provide cues , steadying assist 3 The helper provides less than half the effort to complete the activity 2 The helper provides more than half the effort to complete the activity 1 Dependent. The helper does all the effort to complete an activity 7 Patient refused to complete or attempt activity 9 The patient did not perform the activity before the current illness or injury 88 Not attempted due to Medical conditions or safety concerns Education OT Patient Education: Rehab process Teaching Recipient: Patient Teaching Methods: Discussion Response to Teaching: Verbalize Understanding OT Short Term Goals Short Term Goals 1=Demonstrate adherence to instructed precautions during ADL tasks. 2=Patient will verbalize/demonstrate understanding of assistive devices/ modifications for ADL. 3=Patient will improve strength/tolerance for activity to enable patient to perform ADL's. OT Fdc Goals Fdc Goals Time Frame: Sep 09, 2017 Eating (FIM): 6 Grooming(FIM): 6 Bathing(FIM): 5 Upper Body Dressing(FIM): 6 Lower Body Dressing(FIM): 6 Toileting(FIM): 6 Toilet/Commode Transfer(FIM): 6 Additional Goals: 1-Demonstrate ADL Tasks, 2-Verbalize Understanding, 3- ImproveStrength/Carlita 1=Demonstrate adherence to instructed precautions during ADL tasks. 2=Patient will verbalize/demonstrate understanding of assistive devices/ modifications for ADL. 3=Patient will improve strength/tolerance for activity to enable patient to perform ADL's. OT Education/Plan Problem List/Assessment Assessment: Decreased UE Strength, Dependent Transfers, Impaired Funct Balance , Impaired I ADL's, Impaired Self-Care Skills Pt to benefit from skilled OT intervention for ADL training, transfers, strengthening, and safety education to maximize level of function and allow safe return home. Discharge Recommendations Plan/Recommendations: Continue POC Treatment Plan/Plan of Care Treatment,Training & Education: Yes Patient would benefit from OT for education, treatment and training to promote independence in ADL's, mobility, safety and/or upper extremity function for ADL' s. Plan of Care: ADL Retraining, Functional Mobility, UE Funct Exercise/Act Treatment Duration: Sep 09, 2017 Frequency: 5 times per week Estimated Hrs Per Day: .25 hour per day Rehab Potential: Good Time/GCodes Start Time: 12:10 Stop Time: 12:30 Total Time Billed (hr/min): 20 Billed Treatment Time 1 visit, EVL(20minutes) RACIEL MARSHALL OT Aug 19, 2017 12:44
[2017-08-19 16:00] VITALS: BP 128/72
[2017-08-19] MEDS: ATORVASTATIN 10 MG (LIPITOR) TABLET PO SCH (20:02)
[2017-08-19] MEDS: cefTRIAXone 1 GM/NS 50 ML IVPB IV SCH ×2 (20:02)
[2017-08-19 23:40] VITALS: BP 136/78
[2017-08-20 05:16] LABS: BASOPHILS # (AUTO) 0.2 10^3/uL (0.0-0.1); BASOPHILS % (AUTO) 2 % (0-10); EOSINOPHILS # (AUTO) 0.2 10^3/uL (0.0-0.3); EOSINOPHILS % (AUTO) 1 % (0-10); LYMPHOCYTES # (AUTO) 1.9 X 10^3 (1.0-4.0); LYMPHOCYTES % (AUTO) 17 % (12-44); MEAN CORPUSCULAR HEMOGLOBIN 37 PG (25-34); MEAN CORPUSCULAR HGB CONC 34 G/DL (32-36); MEAN CORPUSCULAR VOLUME 107 FL (80-99); MEAN PLATELET VOLUME 8.9 FL (7.4-10.4); MONOCYTES # (AUTO) 1.3 X 10^3 (0.0-1.0); MONOCYTES % (AUTO) 11 % (0-12); NEUTROPHILS # (AUTO) 7.7 X 10^3 (1.8-7.8); NEUTROPHILS % (AUTO) 69 % (42-75); PLATELET COUNT 503 10^3/uL (130-400); RED BLOOD COUNT 3.27 10^6/uL (4.35-5.85); RED CELL DISTRIBUTION WIDTH 15.5 % (10.0-14.5); WHITE BLOOD COUNT 11.2 10^3/uL (4.3-11.0)
[2017-08-20] MEDS: CATHETER FLUSH 10 ML SYR IV SCH ×3 (05:54→20:29)
[2017-08-20] MEDS: KCL 20 MEQ TAB (K-DUR) PO SCH ×3 (05:54→17:34)
[2017-08-20 06:03] LABS: ANION GAP 10 MMOL/L (5-14); BLOOD UREA NITROGEN 5 MG/DL (7-18); BUN/CREATININE RATIO 9; CALCIUM 7.5 MG/DL (8.5-10.1); CARBON DIOXIDE 24 MMOL/L (21-32); CHLORIDE 107 MMOL/L (98-107); CREATININE SERUM 0.55 MG/DL (0.60-1.30); GFR ESTIMATED > 60; GLUCOSE 101 MG/DL (70-105); POTASSIUM 2.8 MMOL/L (3.6-5.0); SODIUM 141 MMOL/L (135-145)
[2017-08-20] MEDS: PHENYTOIN 100 MG (DILANTIN) CAP PO SCH (08:05)
[2017-08-20 08:34] VITALS: BP 148/82
[2017-08-20] MEDS: ENOXAPARIN 40 MG/0.4 ML (LOVENOX) SYR SC SCH ×2 (08:36→09:24)
--- NOTE | 2017-08-20 10:03 | Progress Note-Hospitalist ---
Subjective HPI/CC On Admission Date Seen by Provider: Aug 20, 2017 Time Seen by Provider: 09:45 this is a 71-year-old white male who had had a severe concussion about 18 years ago. Since that time he has had a precarious loss of balance. Approximately 8 days ago he fell hurting his left wrist and was unable to get up. He was able to get to the refrigerator to get water and tea but has not eaten in 8 days. Blood cultures have grown out gram-negative rods and urine looks like it's Escherichia coli. He has a left fractured wrist as well. otherwise he is without complaint. Subjective/Events-last exam Reports feeling okay today. Ready for OR tomorrow. Discussed with nurse. Lovenox already held. NPO tonight. Objective Exam Vital Signs Vital Sign - Last 12Hours 08/16/17 08/16/17 15:27 20:45 Temp 98.0 Pulse 120 Resp 18 B/P (MAP) 142/83 Pulse Ox 98 O2 Delivery Room Air Capillary Refill : Less Than 3 SecondsLess Than 3 Seconds General Appearance: No Apparent Distress, WD/WN Respiratory: Lungs Clear, Normal Breath Sounds, No Accessory Muscle Use Cardiovascular: Regular Rate, Rhythm, No JVD, No Murmur Gastrointestinal: Normal Bowel Sounds, Non Tender, Soft Extremity: Non Tender, No Calf Tenderness Neurologic/Psychiatric: Alert, Oriented x3, No Motor/Sensory Deficits, Normal Mood/Affect Results/Procedures Lab Laboratory Tests 08/20/17 04:50 Assessment/Plan Assessment and Plan Assess & Plan/Chief Complaint E coli bacteremia Diagnosis/Problems Diagnosis/Problems (1) Bacteremia due to Escherichia coli Assessment & Plan: Urine culture grew e coli as well Continue on Rocephin, day 5/7 (sensitive) (2) Closed fracture of left distal radius and ulna Status: Acute Assessment & Plan: Dr. Dietz consulted, appreciate recs Plan for OR tomorrow NPO after midinight, will hold Lovenox Qualifiers: Qualified Codes: S52.502A - Unspecified fracture of the lower end of left radius, initial encounter for closed fracture; S52.602A - Unspecified fracture of lower end of left ulna, initial encounter for closed fracture (3) Hypokalemia Status: Chronic Assessment & Plan: Potassium decreased Monday but remains low, will increase to 20meq TID Will check Mag (4) Normocytic anemia Assessment & Plan: Very mild, trend (5) Essential (primary) hypertension Status: Chronic Assessment & Plan: Continue on home meds (6) Metabolic acidosis Status: Resolved Assessment & Plan: Resolved with DCing fluids (7) Prophylactic measure Assessment & Plan: Lovenox, hold tomorrow's dose Reg Diet, NPO after midnight Saline Lock HERVE MENESES MD Aug 20, 2017 10:03
[2017-08-20] MEDS: MAGNESIUM 1 GM/100 ML IVPB 100 ML IV SCH ×2 (13:46→14:45)
[2017-08-20 16:00] VITALS: BP 107/65
[2017-08-20] MEDS: cefTRIAXone 1 GM/NS 50 ML IVPB IV SCH ×2 (20:29)
[2017-08-20] MEDS: ATORVASTATIN 10 MG (LIPITOR) TABLET PO SCH (20:29)
[2017-08-21] VITALS: BP 137/63
[2017-08-21 06:23] LABS: BASOPHILS # (AUTO) 0.2 10^3/uL (0.0-0.1); BASOPHILS % (AUTO) 2 % (0-10); EOSINOPHILS # (AUTO) 0.1 10^3/uL (0.0-0.3); EOSINOPHILS % (AUTO) 1 % (0-10); LYMPHOCYTES % (AUTO) 18 % (12-44); MEAN CORPUSCULAR HEMOGLOBIN 37 PG (25-34); MEAN CORPUSCULAR HGB CONC 35 G/DL (32-36); MEAN CORPUSCULAR VOLUME 106 FL (80-99); MONOCYTES # (AUTO) 1.4 X 10^3 (0.0-1.0); MONOCYTES % (AUTO) 12 % (0-12); NEUTROPHILS # (AUTO) 7.6 X 10^3 (1.8-7.8); NEUTROPHILS % (AUTO) 68 % (42-75); PLATELET COUNT 624 10^3/uL (130-400); RED BLOOD COUNT 3.25 10^6/uL (4.35-5.85); RED CELL DISTRIBUTION WIDTH 15.5 % (10.0-14.5); WHITE BLOOD COUNT 11.2 10^3/uL (4.3-11.0)
[2017-08-21 06:32] LABS: PROTHROMBIN TIME PATIENT 13.1 SEC (12.2-14.7)
[2017-08-21] MEDS: KCL 20 MEQ TAB (K-DUR) PO SCH ×3 (06:35→15:32)
[2017-08-21] MEDS: CATHETER FLUSH 10 ML SYR IV SCH ×3 (06:35→22:46)
[2017-08-21 06:43] LABS: ANION GAP 10 MMOL/L (5-14); BLOOD UREA NITROGEN 4 MG/DL (7-18); BUN/CREATININE RATIO 7; CALCIUM 8.2 MG/DL (8.5-10.1); CARBON DIOXIDE 25 MMOL/L (21-32); CHLORIDE 105 MMOL/L (98-107); CREATININE SERUM 0.59 MG/DL (0.60-1.30); GFR ESTIMATED > 60; GLUCOSE 94 MG/DL (70-105); SODIUM 140 MMOL/L (135-145)
[2017-08-21 06:53] LABS: ANISOCYTOSIS SLIGHT; BAND NEUTROPHILS 9 %; EOSINOPHILS % (MANUAL) 1 %; LYMPHOCYTES % (MANUAL) 5 %; METAMYELOCYTES % 7 %; NEUTROPHILS % (MANUAL) 68 %
[2017-08-21 08:00] VITALS: BP 117/56
--- NOTE | 2017-08-21 08:16 | Progress Note-Hospitalist ---
Subjective HPI/CC On Admission Date Seen by Provider: Aug 21, 2017 Time Seen by Provider: 08:00 this is a 71-year-old white male who had had a severe concussion about 18 years ago. Since that time he has had a precarious loss of balance. Approximately 8 days ago he fell hurting his left wrist and was unable to get up. He was able to get to the refrigerator to get water and tea but has not eaten in 8 days. Blood cultures have grown out gram-negative rods and urine looks like it's Escherichia coli. He has a left fractured wrist as well. otherwise he is without complaint. Subjective/Events-last exam Pt reports feeling well. Ready to go to OR this morning. No other concerns. Objective Exam Vital Signs Vital Sign - Last 12Hours 08/16/17 08/16/17 15:27 20:45 Temp 98.0 Pulse 120 Resp 18 B/P (MAP) 142/83 Pulse Ox 98 O2 Delivery Room Air Capillary Refill : Less Than 3 SecondsLess Than 3 Seconds General Appearance: No Apparent Distress, WD/WN Respiratory: Lungs Clear, No Respiratory Distress Cardiovascular: Regular Rate, Rhythm, No Murmur Gastrointestinal: Normal Bowel Sounds, Non Tender, Soft Extremity: Other (left wrist wrapped in bandage, sensation intact) Neurologic/Psychiatric: Alert, Oriented x3 Results/Procedures Lab Laboratory Tests 08/21/17 05:49 Assessment/Plan Assessment and Plan Assess & Plan/Chief Complaint E coli bacteremia Diagnosis/Problems Diagnosis/Problems (1) Bacteremia due to Escherichia coli Assessment & Plan: Urine culture grew e coli as well Continue on Rocephin, day 6/7 (sensitive) Afebrile (2) Closed fracture of left distal radius and ulna Status: Acute Assessment & Plan: Dr. Ditez consulted, appreciate recs Plan for OR today Lovenox held, NPO Qualifiers: Qualified Codes: S52.502A - Unspecified fracture of the lower end of left radius, initial encounter for closed fracture; S52.602A - Unspecified fracture of lower end of left ulna, initial encounter for closed fracture (3) Hypokalemia Status: Chronic Assessment & Plan: Potassium decreased Monday but remains low, will increase to 30meq TID mag was low yesterday so replaced, normal today (4) Normocytic anemia Assessment & Plan: Very mild, trend (5) Essential (primary) hypertension Status: Chronic Assessment & Plan: Continue on home meds (6) Metabolic acidosis Status: Resolved Assessment & Plan: Resolved with DCing fluids (7) Prophylactic measure Assessment & Plan: SCDs for OR today NPO Saline Lock Place to DC to IRU tomorrow HERVE MENESES MD Aug 21, 2017 08:15
[2017-08-21] MEDS: PHENYTOIN 100 MG (DILANTIN) CAP PO SCH (09:11)
[2017-08-21] MEDS ORDERED: BUPIVACAINE 0.5% 30 ML (SENSORCAINE) VIAL ONE (09:38)
[2017-08-21] MEDS ORDERED: NEO/POLY/BAC (NEOSPORIN) OINT 15 GM TUBE ONE (09:38)
[2017-08-21] MEDS ORDERED: proPOfol 200 MG/20 ML (DIPRIVAN) VIAL IV ONE (09:58)
[2017-08-21] MEDS ORDERED: fentaNYL INJECTION 250 MCG/5 ML AMP ONE (09:58)
[2017-08-21] MEDS: LACTATED RINGERS 1,000 ML IV PRN ×2 (10:50→12:38)
[2017-08-21] MEDS ORDERED: ceFAZolin 1,000 MG (ANCEF) VIAL ONE (11:05)
--- NOTE | 2017-08-21 11:12 | Progress Note-Pre Operative ---
Pre-Operative Progress Note H&P Reviewed The H&P was reviewed, patient examined and no changes noted. Date Seen by Provider: Aug 21, 2017 Time Seen by Provider: 11:10 Date H&P Reviewed: Aug 21, 2017 Time H&P Reviewed: 11:10 Pre-Operative Diagnosis: Displaced comminuted left distal radius fracture CHARLA MCKEON DO Aug 21, 2017 11:12 am
--- NOTE | 2017-08-21 11:51 | Physical Therapy Progress Note ---
Therapy Progress Note Surgery to repair left wrist fracture this fei PT to resume in p.ranjan. GALINA PICKARD PT Aug 21, 2017 11:51
[2017-08-21] MEDS ORDERED: LACTATED RINGERS 1,000 ML IV SCH (12:00)
[2017-08-21] MEDS ORDERED: DEXAMETHASONE 10 MG/ML (DECADRON) 1 ML VIAL ONE ×2 (12:22)
[2017-08-21] MEDS ORDERED: ONDANSETRON 4 MG/2 ML (SDV) Z0FRAN ONE (12:22)
[2017-08-21] MEDS ORDERED: SEVOFLURANE (ULTANE) 15 ML INHAL SOLN ONE ×3 (12:22→12:53)
--- NOTE | 2017-08-21 13:08 | Progress Note-Post Operative ---
Post-Operative Progess Note Surgeon (s)/Wildlife Refuge Manager (s) Surgeon CHARLA MCKEON DO Wildlife Refuge Manager: Dariusz Anthony FUEL CELL TECHNICIANJose Martin Pre-Operative Diagnosis Displaced comminuted left distal radius fracture Post-Operative Diagnosis same Procedure & Operative Findings Date of Procedure 08/21/17 Procedure Performed/Findings ORIF displaced left distal radius fracture Anesthesia Type General Estimated Blood Loss Estimated blood loss (mL): minimal Specimens/Packing Specimens Removed none CHARLA MCKEON DO Aug 21, 2017 1:08 pm
--- NOTE | 2017-08-21 13:28 | Occ Therapy Progress Note ---
Therapy Progress Note Pt had surgery to repair left wrist fracture this date. OT to check on pt tomorrow. LAST TERRAZAS FORMULA MAKER Aug 21, 2017 13:28
[2017-08-21] MEDS ORDERED: ONDANSETRON 4 MG/2 ML (SDV) Z0FRAN IVP PRN (13:30)
[2017-08-21] MEDS ORDERED: HYDROmorphone (DILAUDID) 2 MG/ML VIAL IVP PRN (13:30)
[2017-08-21] MEDS ORDERED: morphine INJ 10 MG/ML 1ML (SYR OR VIAL) IVP PRN (13:30)
[2017-08-21] MEDS ORDERED: KETOROLAC 30 MG/ML VIAL IVP ONE (13:30)
[2017-08-21] MEDS ORDERED: morphine INJ 10 MG/ML 1ML (SYR OR VIAL) ONE (13:32)
--- NOTE | 2017-08-21 13:36 | Diagnostic Imaging Report ---
EXAMINATION: Intraoperative radiographs of the left forearm. INDICATION: Internal fixation of the radius fracture. FLUOROSCOPY TIME: 26 seconds of fluoroscopy time was provided to the OR. IMPRESSION: The provided images demonstrate internal fixation with a plate and screws through the distal radius fracture in good alignment. Dictated by: Dictated on workstation # [id number]
[2017-08-21 14:15] VITALS: BP 131/59
--- NOTE | 2017-08-21 14:47 | Physical Therapy Progress Note ---
Therapy Progress Note Patient just returned from surgery and is too sedated for safe, OOB activity at this time. PT to resume. Probable admit to ARU in a.m. 1 visit GALINA PICKARD PT Aug 21, 2017 14:47
[2017-08-21 15:42] VITALS: BP 115/55
[2017-08-21] MEDS: cefTRIAXone 1 GM/NS 50 ML IVPB IV SCH ×2 (19:55)
[2017-08-21] MEDS: ATORVASTATIN 10 MG (LIPITOR) TABLET PO SCH (19:55)
[2017-08-22 00:40] VITALS: BP 134/64
[2017-08-22] MEDS: CATHETER FLUSH 10 ML SYR IV SCH (05:29)
[2017-08-22] MEDS: KCL 20 MEQ TAB (K-DUR) PO SCH (05:30)
[2017-08-22 08:00] VITALS: BP 138/78
[2017-08-22] MEDS: PHENYTOIN 100 MG (DILANTIN) CAP PO SCH (08:50)
[2017-08-22] MEDS: ENOXAPARIN 40 MG/0.4 ML (LOVENOX) SYR SC SCH (08:54)
--- NOTE | 2017-08-22 09:37 | Discharge Summary-Hospitalist ---
Diagnosis/Chief Complaint Date of Admission Aug 16, 2017 at 20:13 Date of Discharge Discharge Date: Aug 22, 2017 Admission Diagnosis 1. septicemia secondary to urinary tract infection 2. Urinary Tract infection secondary to Escherichia coli 3. Left wrist fracture 4. Previous concussion with recent decreased functional status 5. Hypokalemia 6. Anemia of uncertain etiology This is day number 2 of Rocephin which should cover the septicemia and urinary tract infection. We'll begin PT and OT to increase the patient's functional status. Orthopedic surgery to see this patient regarding his wrist. Discharge Diagnosis 1. Urinary tract infection due to Escherichia coli sensitive to everything but ampicillin with secondary sepsis improving continue IV antibiotics. 2. Comminuted angulated fracture of the distal forearm orthopedics discussing possibility of reduction. 3. 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 This has been quiescent for many years typical Dilantin levels in the 5-10 range over the years without seizure recurrence. 4. 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 5. Deconditioning multifactorial in my view as well as physical therapy he would be an ideal candidate for acute rehabilitation and is in the process of evaluation. I will tentatively put discharge orders and for Monday and would continue oral antibiotics to at least total of a week of antibiotic therapy. Continue IV Rocephin over the weekend. (1) Bacteremia due to Escherichia coli Assessment & Plan: Urine culture grew e coli as well Continue on Rocephin, day 04/19 (sensitive) Afebrile (2) Closed fracture of left distal radius and ulna Status: Acute Assessment & Plan: Dr. Dietz consulted, appreciate recs Plan for OR today Lovenox held, NPO (3) Hypokalemia Status: Chronic Assessment & Plan: Potassium decreased Monday but remains low, will increase to 30meq TID mag was low yesterday so replaced, normal today (4) Normocytic anemia Assessment & Plan: Very mild, trend (5) Essential (primary) hypertension Status: Chronic Assessment & Plan: Continue on home meds (6) Metabolic acidosis Status: Resolved Assessment & Plan: Resolved with DCing fluids (7) Prophylactic measure Assessment & Plan: SCDs for OR today NPO Saline Lock [facility] to DC to IRU tomorrow Discharge Summary Discharge Physical Examination Allergies: Coded Allergies: NKANo Known Allergies (Verified Allergy, Unknown, 04/19/06) Vitals & I&Os Vital Signs Date Time Temp Pulse Resp B/P (MAP) Pulse Ox O2 Delivery O2 Flow Rate FiO2 08/22/17 08:00 98.3 80 20 138/78 100 Room Air Hospital Course Mr. Allen is a frail 71-year-old white male who is fallen a week prior to discharge. He was likely confused at the time due to urinary tract infection. He presented emergency room with hypotension in a confused state and ultimately found to have urinary tract infection with sepsis due to Escherichia coli. The organism is sensitive to all antibiotics except for ampicillin. He was noted to have a left Colles' fracture as result of this fall as well it was comminuted significant angulated and closed. Rocephin and IV fluid resuscitation was initiated with rather quick improvement in condition considering his frail stature. He has a past history of mild cognitive impairment at baseline due to previous traumatic brain injury as a result of a fall many years ago. He is still quite weak and unstable aggravated by his fracture. On the he did undergo open reduction and internal fixation with hardware as he is left handed.he is being discharged today to acute rehabilitation where he will continue oral antibiotics physical and occupational therapy with reasonable goal of returning home to independent living. Secondary to his traumatic brain injury he also has history of seizure disorder despite the fact that he is been subtherapeutic on Dilantin his level is coming up and it is been many years since his last seizure. Labs (last 24 hrs) Microbiology 08/16/17 Blood Culture - Final, Complete Escherichia Coli 08/20/17 MRSA Screen - Final, Complete MRSA not isolated 08/16/17 Urine Culture - Final, Complete Escherichia Coli Discharge Home Medications: Active Scripts Active Tylenol (Acetaminophen) 325 Mg Tablet 650 Mg PO Q6H PRN 7 Days Cephalexin 500 Mg Capsule 500 Mg PO QIDACHS 5 Days Reported Lisinopril-Hctz 20-25 mg Tab (Lisinopril/Hydrochlorothiazide) 1 Each Tablet 1 Tab PO DAILY PRN Lipitor (Atorvastatin Calcium) 20 Mg Tablet 10 Mg PO HS LAST FILLED #45 04-25-17 TAKES 1/2 (20MG) TABLET Phenytoin Sodium Extended 100 Mg Capsule 400 Mg PO DAILY TAKES 4 (100MG) CAPSULES Instructions to patient/family Please see electronic discharge instructions given to patient. Clinical Quality Measures DVT/VTE Risk/Contraindication: Risk Factor Score Per Nursin RFS Level Per Nursing on Admit: 4+=Very High Problem Qualifiers (1) Closed fracture of left distal radius and ulna: Encounter type: initial encounter Qualified Codes: S52.502A - Unspecified fracture of the lower end of left radius, initial encounter for closed fracture ; S52.602A - Unspecified fracture of lower end of left ulna, initial encounter for closed fracture GEOFFREY ESCALERA MD Aug 22, 2017 09:37
--- NOTE | 2017-08-23 18:14 | OPERATIVE REPORT ---
DATE OF SERVICE: 08/21/2017 PREOPERATIVE DIAGNOSIS: Comminuted displaced intraarticular left distal radius fracture. POSTOPERATIVE DIAGNOSIS: Comminuted displaced intraarticular left distal radius fracture. PROCEDURES: Open reduction and internal fixation, comminuted intraarticular and displaced left distal radius fracture. SURGEON: Maninder Mckeon DO CONSTRUCTION RECRUITER: MAIA Evangelista. FIREFIGHTING EQUIPMENT SPECIALIST DUTIES: Dariusz Anthony, surgical first aid attendant and was utilized throughout the entire procedure for patient positioning, retraction of soft tissues, placement of metallic implants, wound closure, splint application, and patient transfer. ANESTHESIA: General. INDICATIONS: The patient is a 71-year-old male who was found in home unresponsive. He had slipped and fallen days prior to his hospital admission. On admission, he had a deformity of his left wrist. X-rays were obtained. A comminuted displaced intraarticular fracture of the left distal radius was noted along with the ulnar styloid avulsion fracture. The patient was splinted. He was stabilized in the hospital. He was taken to surgery on today's date where an open reduction and internal fixation of his left distal radius fracture was performed utilizing Synthes distal radius plate. This plate was a 2 column 2.4 mm distal radius plate. Four locking screws were placed in the distal fracture fragment and three bicortical screws were placed in the proximal fracture fragment. PROCEDURE IN DETAIL: The patient was transferred to the operating room, placed supine upon the operating table and a general inhalation anesthetic was administered down. The patient's long arm splints were removed. The volar surface on the left forearm was shaved and the entire arm was cleansed with alcohol. A well-padded pneumatic tourniquet was placed about the upper aspect of the left arm. A ChloraPrep and sterile drape of left upper extremity was performed. The left arm was elevated, exsanguinated, and the tourniquet was inflated to 250 mmHg pressure. A longitudinal incision was made over the volar radial aspect of the wrist, adjust radial to the flexor carpi radialis tendon. Incision was deepened under loupe magnification visualization through the FTR sheath. Incision was deepened down to the pronator quadratus, which was reflected from the radial aspect of the distal radius with periosteal elevator. There was a comminuted fracture extending into the joint along with the longitudinal fracture involving the joint of radial styloid. The fracture hematoma was irrigated throughout and the fracture was reduced. A guide pin was placed fluoroscopically through the tip of the radial styloid into the shaft of the distal radius. The distal radius plate was then obtained. This was secured with K wires over the bony surface of the distal radius and a C-arm again was used to verify satisfactory fracture reduction and satisfactory positioning of the plate over the volar cortex of the distal radius. Using locking screw, 2 screws were placed in the radial styloid, 2 screws were placed in the distal radius including one screw through the intraarticular fragment along the ulnar aspect of the distal radius fracture. The plate was then sutured to the proximal radial fracture with 2 bicortical screws. The pin was removed from radial styloid. Repeat x-rays shows satisfactory position alignment with a fracture reduction plate and screw fixation. The tourniquet was released. The wound was irrigated extensively with normal saline solution. The subcutaneous tissues were closed with interrupted 3-0 Vicryl suture. The skin was closed with a running suture of 0 nylon and a Neosporin bulky dressing was placed over the left wrist with dorsal fiberglass short-arm splint incorporated within the dressing. The patient was awakened and was transported to postop recovery with anesthesia personnel present in satisfactory condition. Job ID: [id number] DocumentID: [id number] Dictated Date: 08/22/2017 17:02:00 Automation Tech Date: 08/23/2017 05:33:50 Dictated By: MANINDER MCKEON DO
== END 2017-08-22 11:18 | DRG 854 ==
LOC: ER 15:27 → EDUNIT# 15:27 → 4TH 20:13
PROVIDERS: ADMIT Internal Medicine; ATTEND Internal Medicine
PROC: 0PSJ04Z Reposition Left Radius with Internal Fixation Device, Open Approach (ICD-10-PCS; principal; 2017-08-21 11:16)
DX: A41.51 Sepsis due to Escherichia coli [E. coli] (principal); N39.0 Urinary tract infection, site not specified; E86.0 Dehydration; S52.502A Unspecified fracture of the lower end of left radius, initial encounter for closed fracture; S52.612A Displaced fracture of left ulna styloid process, initial encounter for closed fracture; S90.811A Abrasion, right foot, initial encounter; S00.81XA Abrasion of other part of head, initial encounter; S50.01XA Contusion of right elbow, initial encounter; S50.02XA Contusion of left elbow, initial encounter; S80.01XA Contusion of right knee, initial encounter; S80.02XA Contusion of left knee, initial encounter; G40.909 Epilepsy, unspecified, not intractable, without status epilepticus; E87.6 Hypokalemia; D64.9 Anemia, unspecified; G31.84 Mild cognitive impairment of uncertain or unknown etiology; S09.90XS Unspecified injury of head, sequela; E87.2 Acidosis; I10 Essential (primary) hypertension; W19.XXXA Unspecified fall, initial encounter; Y92.009 Unspecified place in unspecified non-institutional (private) residence as the place of occurrence of the external cause; X58.XXXS Exposure to other specified factors, sequela
CPT/HCPCS: 29125; 36415; 70450; 71010; 73110; 80048; 80053; 80185; 81000; 82550; 83605; 83735; 85007; 85025; 85027; 85610; 85730; 87040; 87077; 87081; 87088; 87186; 96361; 96365

== ENCOUNTER 2017-08-22 11:19 | Inpatient (IN) | payer MEDICARE, OTHER ==
[~2017-08-22] VITALS: Ht 177.8 cm; Wt 103.2 kg
[~2017-08-22 11:19] MED LIST changes: +ACET325T38 PO; +ATOR20TA49 PO; +CEPH500C PO; +LISI1TAB10 PO; +PHEN100C11 PO
[2017-08-22 12:28] VITALS: BP 142/76
--- NOTE | 2017-08-22 12:51 | Anesthesia-General Post-Op ---
General Patient Condition Mental Status/LOC: Same as Preop Cardiovascular: Satisfactory Nausea/Vomiting: Absent Respiratory: Satisfactory Pain: Controlled Complications: Absent Post Op Complications Complications None Follow Up Care/Instructions Patient Instructions None needed. Anesthesia/Patient Condition Patient Condition Patient is doing well, no complaints, stable vital signs, no apparent adverse anesthesia problems. No complications reported per nursing. D/C home per [facility] Criteria: No SHANEKA SHELL CRNA Aug 22, 2017 12:51
--- NOTE | 2017-08-22 13:05 | PM&R Post Admission Assessment ---
Post Admission Physician Asses The preadmission screen agrees with the post admission assessment that the patient is a good candidate for inpatient rehabilitation. The patient will have a comprehensive program of inpatient rehabilitation with a goal of maximizing level of functional independence prior to discharge home with [facility]. The patient will have PT/OT ninety minutes per day, each discipline , five days a week for gait, strengthening, conditioning, balance, ADLs, any patient/family/caregiver training as necessary. Speech therapy to do cognitive assessment and treat as indicated. Rehabilitation nursing to assist with bowel, bladder, skin, wound care/cast care, medication administration, pain management. Marine Services Technician to assist with discharge planning, community reentry. SCD's for DVT prophylaxis. He appears to be well motivated to participate in three hours of therapy a day. He should be able to tolerate three hours of therapy a day from a medical and surgical standpoint. He should benefit from the three hours of therapy a day. He has a reasonable discharge plan, reasonable discharge rehabilitation goals and a supportive family. He has various comorbidities that need to be closely monitored with medications and treatments adjusted on a daily basis as needed. 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, so as to lessen the burden of the caregivers. Risks for this patient include: 1. Fall 2. Fracture 3. DVT 4. Pulmonary embolism 5. Wound infection 6. Skin breakdown 7. Contractures 8. Poorly controlled pain 9. Urinary retention 10. Recurrent UTI 11. Respiratory infection 12. Aspiration Estimated Length of Stay: 14 days Prognosis: Rehab prognosis appears good for goal of discharge home with [facility] modified independent to supervision for ADLs and mobility skills. TRE BRANNON MD Aug 22, 2017 13:05
[2017-08-22] MEDS ORDERED: INFLUENZA TRIvalent 2017-2018 0.5 ML/45 MCG SYR IM ONE (13:15)
--- NOTE | 2017-08-22 13:29 | HISTORY AND PHYSICAL ---
DATE OF SERVICE: CHIEF COMPLAINT: Difficulty with walking. HISTORY OF PRESENT ILLNESS: The patient is a 71-year-old male who fell at home and sustained a left wrist fracture. He had repair with orthopedics after being admitted to [facility] on 08/16. He was found to have sepsis secondary to UTI, which delayed his orthopedic operation somewhat. That has now improved. He has a history of balance disorder with a prior concussion when he fell off some sort of golf cart while at [employer] in [place], [place] with a resulting concussion and coma with rehab at [facility] in [place], [place] years ago. Since that time he has had problems with his balance. He was also found to have hypokalemia and anemia of uncertain etiology. This was treated. His H and H on 08/17 was 10.4/30, WBC 10.8, platelet count 206k, potassium level 2.9. The patient is being followed by the hospitalist service and orthopedics as well as his PCP Dr. Boland, who is also a hospitalist. Currently he requires assistance for his ADLs and ability skills and has a cast on the left wrist. He had been living alone and was independent. He is now referred to inpatient rehabilitation here for ongoing therapies.Please see OT and PT for current functional level Prior level of function modified independent with a cane or walker. PAST MEDICAL HISTORY: Concussion, coma with long-standing balance issues since then. PAST SURGICAL HISTORY: As per above. ALLERGIES: No known medication allergies. FAMILY HISTORY: Noncontributory. 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 He lives in [place], [place]. REVIEW OF SYSTEMS: A ten-point review of systems is significant for gait imbalance, falls. MEDICATIONS: He has just been weaned from O2 postoperatively. Lipitor 10 mg p.o. at bedtime. Dilantin 400 mg p.o. daily. Lisinopril 20 mg p.o. daily p.r.n. elevated blood pressure. KCl 20 mEq p.o. t.i.d. a.c. Cephalexin 500 mg p.o. q.i.d. x5 days. Tylenol 650 mg p.o. q. 6 hours p.r.n. pain. PHYSICAL EXAMINATION: GENERAL: Significant for a pleasant, somewhat obese male appearing his stated age, sitting up in chair in no acute distress. VITAL SIGNS: He is afebrile, pulse 101, respirations 18, blood pressure 142/76. O2 sat 99% on room air. HEENT: Vision, speech and hearing grossly intact. No oral lesion is noted. NECK: Supple without mass. HEART: Regular rhythm. LUNGS: Clear. ABDOMEN: Soft and nontender. Bowel sounds present. EXTREMITIES: No leg edema, no calf tenderness. MUSCULOSKELETAL: The patient has functional and active range of motion both lower extremities and right upper extremity, left wrist in cast. He is able to move his fingers. He has functional strength at the elbow and shoulder. NEUROLOGIC: Sensation is grossly intact to touch. He has mildly impaired dynamic standing balance. Strength is functional other than at the left wrist. Cognition appears intact. IMPRESSION: 1. Ambulatory dysfunction secondary to fall with resulting left wrist fracture status post repair by orthopedics, in cast. 2. Long-standing gait imbalance due to a concussion and coma from head injury, treated at [facility] in [place], [place] several years ago. 3. Obesity. 4. Hypokalemia, treated. 5. Anemia. 6. Urinary tract infection, completing course of p.o. antibiotic. PLAN: The patient will undergo a comprehensive program of inpatient rehabilitation and goal of maximizing level of functional independence prior to discharge home with home health care. The patient will have PT and OT 90 minutes per day each discipline 5 days a week for 2 weeks for gait, strengthening and conditioning balance. ADLs and any patient, family caregiver training as necessary.ANY Adaptive equipment and training as necessary. Speech therapy to do cognitive assessment and treat as indicated. Rehabilitation nursing to assist with bowel, bladder, skin care, medications administration, cast care and pain management. youth services specialist to assist with discharge planning and community reentry: Followup with hospitalist service Dr Bryant and orthopedics as per their schedule. DIET: Regular. CODE STATUS: Full code. ESTIMATED LENGTH OF STAY: Two weeks. PROGNOSIS: Rehab prognosis appears good for goal of discharging home modified independent to supervision with home health care. Job ID: [id number] DocumentID: [id number] Dictated Date: 08/22/2017 13:01:57 Kettle Chipper Date: 08/22/2017 13:28:32 Dictated By: TRE BRANNON MD [facility]
--- NOTE | 2017-08-22 14:44 | Occupational Therapy Eval ---
OT Evaluation-General/PLF Medical Diagnosis Admission Date Aug 22, 2017 at 11:19 Medical Diagnosis: fx L distal radius and ulna, septicemia, UTI Onset Date: Aug 16, 2017 Therapy Diagnosis Therapy Diagnosis: decr self care, decr funct mobility, decr activity andreina, decr funct use L UE Height/Weight Height (Feet): 5 Height (Inches): 10.00 Weight (Pounds): 223 Weight (Ounces): 4.0 Precautions Precautions/Isolations: Fall Prevention, Standard Precautions Referral Physician: Ronak Referral Reason: Evaluation/Treatment Medical History Pertinent Medical History: Arthritis Additional Medical History Seizure disorder after "concussion" 18 years ago. Pt reported he has not had a seizure in 10 years. Decreased balance Current History Pt fell at home and was on the floor 8 days. Fx L distal radius and ulna, with ORIF on 08-21-17. Reviewed History: Yes Social History Home: Single Level Current Living Status: Alone Steps Into Home: 5 ADL-Prior Level of Function ADL PLOF Comments Pt reported that he has been able to manage his basic self care needs and drive. 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 He likes to play golf. He is retired from [employer] Undergar[employer] DME/Equipment: Bath Chair, Grab Bars, Shower Hose Fund Development Manager, Tub/Shower Occupation: retired from [employer] Drive Self: Yes OT Current Status Subjective Pt seen in room, up in recliner, agreeable to OT. Pt reported he doesn't have any pain but has some discomfort now and then. Appearance Alert, cooperative. Mental Status/Objective Patient Orientation: Person, Place, Time, Situation Attachments: Saline Lock, Other-See Comments (plaster cast with jon wraps L forearm) Current Glasses/Contacts: Yes Hearing Aids: No Dentures/Partials: Yes (partial) Hand Dominance: Left Upper Extremity ROM Grossly WFL bilat (did not assess L forearm). L wrist is positioned in flexion which makes it difficult for him to make full fist Upper Extremity Strength Grossly 4/5 on R UE and L UE at shoulder and elbow. Unable to assess L forearm, wrist and hand Edema: Pt has mild edema in L fingers, distal to plaster cast. Jon wrap adjusted ADL-Treatment Functional [place] Measure 0=Not Assessed/NA 4=Minimal Assistance 1=Total Assistance 5=Supervision or Setup 2=Maximal Assistance 6=Modified [place] 3=Moderate Assistance 7=Complete IndependenceIRFPAI Quality Coding Scale 6 Independent with activity with or without an assistive device 5 Patient requires set up or clean up by helper. Patient completes activity by themselves 4 Supervision or touching assist (CGA). [place]en provide cues , steadying assist 3 The helper provides less than half the effort to complete the activity 2 The helper provides more than half the effort to complete the activity 1 Dependent. The helper does all the effort to complete an activity 7 Patient refused to complete or attempt activity 9 The patient did not perform the activity before the current illness or injury 88 Not attempted due to Medical conditions or safety concerns Eating (FIM): 5 (setup. Pt reported that he is able to eat anything without his partial) Eating (QC): 5 Toileting (FIM): 3 (Pt able to get pants down but needed help to get them up on L side. Able to manage hygiene. 67%) Toileting Hygiene (QC): 3 Toilet/Commode Transfer (FIM): 3 (Struggled to pull up with R hand on grab bar which is on his L side. Min assist up. Unable to grasp bar with L hand) Toilet Transfer (QC): 3 Other Treatments Pt left up in recliner, all needs met. Education OT Patient Education: Modified ADL techniques, Purpose of tx/functional activities, Rehab process, Transfer techniques Teaching Recipient: Patient Teaching Methods: Discussion Response to Teaching: Verbalize Understanding OT Short Term Goals Short Term Goals Time Frame: Aug 29, 2017 Eating(FIM): 7 Toilet/Commode Transfer(FIM): 5 Additional Short Term Goals: 2-Verbalize Understanding, 3-ImproveStrength/Carlita 1=Demonstrate adherence to instructed precautions during ADL tasks. 2=Patient will verbalize/demonstrate understanding of assistive devices/ modifications for ADL. 3=Patient will improve strength/tolerance for activity to enable patient to perform ADL's. OT Tinning Machine Set Up Operator Goals Tinning Machine Set Up Operator Goals Time Frame: Sep 12, 2017 Eating (FIM): 7 Eating (QC): 6 Groomin Oral Hygiene (QC): 6 Bathing(FIM): 6 Shower/Bathe Self (QC): 6 Upper Body Dressing(FIM): 6 Upper Body Dressing (QC): 6 Lower Body Dressing(FIM): 6 Lower Body Dressing (QC): 6 On/Off Footwear (QC): 6 Toileting(FIM): 66 Toileting Hygiene (QC): 6 Toilet/Commode Transfer(FIM): 6 Toilet/Commode Transfer (QC): 6 Shower Transfer(FIM): 6 Additional Goals: 2-Verbalize Understanding, 3-ImproveStrength/Carlita 1=Demonstrate adherence to instructed precautions during ADL tasks. 2=Patient will verbalize/demonstrate understanding of assistive devices/ modifications for ADL. 3=Patient will improve strength/tolerance for activity to enable patient to perform ADL's. OT Education/Plan Problem List/Assessment Assessment: Decreased Activ Tolerance, Decreased UE Strength, Dependent Transfers, Impaired Funct Balance, Impaired Self-Care Skills, Restricted Funct UE ROM Pt would benefit from skilled OT to increase his independence in basic self care to allow him to safely return to his home to live alone. Discharge Recommendations Plan/Recommendations: Continue POC Target Placement home Treatment Plan/Plan of Care Treatment,Training & Education: Yes Patient would benefit from OT for education, treatment and training to promote independence in ADL's, mobility, safety and/or upper extremity function for ADL' s. Plan of Care: ADL Retraining, Functional Mobility, Group Exercise/Act as Ind ( exercise, education, activ tolerance, funct mobility, socialization), UE Funct Exercise/Act, UE Neuromus Re-Ed/Coord Treatment Duration: Sep 12, 2017 Frequency: At least 5 of 7 days/Wk (IRF) Estimated Hrs Per Day: 1.5 hours per day Agreement: Yes Rehab Potential: Good Time/GCodes Start Time: 11:20 Stop Time: 12:05 Total Time Billed (hr/min): 45 Billed Treatment Time visit, evaluation moderate intensity 20 minutes, ADL 25 minutes DANIELA HOLDER OT Aug 22, 2017 14:44
--- NOTE | 2017-08-22 14:44 | Occupational Ther Daily Note ---
OT Current Status-Daily Note Subjective Pt seen in room, up in recliner, agreeable to OT. Reports zero pain. Appearance Alert, cooperative. Mental Status/Objective Functional [place] Measure 0=Not Assessed/NA 4=Minimal Assistance 1=Total Assistance 5=Supervision or Setup 2=Maximal Assistance 6=Modified [place] 3=Moderate Assistance 7=Complete [place] Pt was reported impulsive in acute care and had chair alarm ADL-Treatment Pt instructed that he needed to call for helep to go to the bathroom due to unsteadiness with gait. Chair alarm in place and on at end of tx. Pt left up in recliner, L forearm elevated on pillow. Pt educ on techniques to help decr edema and increase funct use L UE. All needs met. Functional [place] Measure 0=Not Assessed/NA 4=Minimal Assistance 1=Total Assistance 5=Supervision or Setup 2=Maximal Assistance 6=Modified [place] 3=Moderate Assistance 7=Complete IndependenceIRFPAI Quality Coding Scale 6 Independent with activity with or without an assistive device 5 Patient requires set up or clean up by helper. Patient completes activity by themselves 4 Supervision or touching assist (CGA). [place] provide cues , steadying assist 3 The helper provides less than half the effort to complete the activity 2 The helper provides more than half the effort to complete the activity 1 Dependent. The helper does all the effort to complete an activity 7 Patient refused to complete or attempt activity 9 The patient did not perform the activity before the current illness or injury 88 Not attempted due to Medical conditions or safety concerns Grooming (FIM): 5 (SBA to stand at sink to brush teeth and hair. Washed face and R hand in shower (L hand covered due to cast)) Oral Hygiene (QC): 4 Bathing (FIM): 5 (Pt was able to wash and dry all parts except back (L forearm covered in plastic due to cast). Shower bench, grab bar, hand held shower) Shower/Bathe Self (QC): 5 Lower Body Dressing (FIM): 3 (Unable to get slipper socks on and difficulty getting them off. Help to get R foot into pants leg. Help to pull pants up over L hip and to tie them.) Lower Body Dressing (QC): 3 On/Off Footwear (QC): 3 Toilet/Commode Transfer (FIM): 5 (BSC placed over toilet and he was able to push up from arm rest. SBA) Toilet Transfer (QC): 5 Shower Transfer(FIM): 5 (Shower bench, grab bar) Education OT Patient Education: Instructions don/doff splint/brace, Other (edema management) Teaching Methods: Demonstration, Discussion Response to Teaching: Verbalize Understanding, Return Demonstration OT Short Term Goals Short Term Goals 1=Demonstrate adherence to instructed precautions during ADL tasks. 2=Patient will verbalize/demonstrate understanding of assistive devices/ modifications for ADL. 3=Patient will improve strength/tolerance for activity to enable patient to perform ADL's. OT [facility] Goals [facility] Goals Eating (FIM): 6 Toileting(FIM): 6 1=Demonstrate adherence to instructed precautions during ADL tasks. 2=Patient will verbalize/demonstrate understanding of assistive devices/ modifications for ADL. 3=Patient will improve strength/tolerance for activity to enable patient to perform ADL's. OT Education/Plan Discharge Recommendations Plan/Recommendations: Continue POC Treatment Plan/Plan of Care Patient would benefit from OT for education, treatment and training to promote independence in ADL's, mobility, safety and/or upper extremity function for ADL' s. Treatment Duration: Sep 12, 2017 Frequency: At least 5 of 7 days/Wk (IRF) Estimated Hrs Per Day: 1.5 hours per day Agreement: Yes Rehab Potential: Good Time/GCodes Start Time: 13:45 Stop Time: 14:35 Total Time Billed (hr/min): 50 Billed Treatment Time visit, 50 minutes ADL DANIELA HOLDER OT Aug 22, 2017 14:44
[2017-08-22] MEDS ORDERED: lisINopril 20 MG (ZESTRIL) TAB PO PRN (14:47)
[2017-08-22] MEDS ORDERED: HYDROCHLOROTHIAZIDE 25 MG (HCTZ) TAB PO PRN (14:47)
--- NOTE | 2017-08-22 14:57 | ST Cognitive Linguistic Eval ---
Speech Evaluation-General Medical Diagnosis Left Upper Extremity Fx Therapy Diagnosis Therapy Diagnosis: Cognitive Linguistic Skills WNL Precautions Precautions/Isolations: Fall Prevention, Standard Precautions Referral Referring Physician: Dr. Masood Simons Reason for Referral: Evaluation/Treatment Cognitive Evaluation Medical History Pertinent Medical History: Arthritis Reviewed History: Yes Speech PLF-Current Status Prior Level of Function The patient denied prior challenges with speech, language, or cognition before recent admission. Subjective The patient was recently admitted to [facility] with a diagnosis of left upper extremity fracture. The patient greeted the clinician appropriately and was agreeable to participation in the cognitive evaluation. Language Eval: Auditory Comprehends Simple Yes/No Ques: Functional Indent/Objects Multiple [place]: Functional Ident/Pics in Multiple Thomas: Functional Follows 1-Step Commands: Functional Follows Complex Directions: Functional Follows General Conversations: Functional Language Eval: Verbal Language Completes Spontaneous Greeting: Functional Produces Auto, Serial Info: Functional Imitates Simple Words/Phrases: Functional Word Finding: Functional Requests Basic Needs: Functional States Basic Personal Info: Functional Expresses Complex Ideas: Functional Cognitive Patient Orientation The patient is oriented to month, date, day of week, and year (independently). Objective Cognitive Domain Attention: WNL Memory: WNL Problem Solving: Functional Executive Functions: WNL Objective Impression The patient displayed cognitive linguistic skills WNL and appropriate for completion of ADL's. Communication/Social Cognition Comprehension: 6 Expression: 6 Social Interaction: 7 Problem Solvin Memory: 6 Speech Patient Assess Expression of Ideas/Wants: Expression (4) Understanding [place] Content: Understands (4) Brief Interview-Mental Status: Yes Repetition of Three Words: Three (3) Temporal Orientation: Year: Correct (3) Temporal Orientation: Month: Accurate within 5 days(2) Temporal Orientation: Day: Correct (1) Recall : Wear to say "Sock": No, could not recall (0) Recall : Color: Yes, no cue required (2) Recall : Bed: Yes, no cue required (2) Speech-Plan Treatment Plan Speech Therapy Treatment Plan: Discontinue ST Evaluation, only. Frequency: Modified Program (IRF) (Evaluation, only.) Estimated Hrs Per Day: Other (Evaluation, only.) Rehab Potential: Good Safety Risks/Education Teaching Recipient: Patient Teaching Methods: Discussion Response to Teaching: Verbalize Understanding Education Topics Provided: Results, Recommendations, Plan of Care Time Speech Therapy Time In: 14:35 Speech Therapy Time Out: 14:50 Total Billed Time: 15 Billed Treatment Time 1, KARLA LEDBETTER Aug 22, 2017 14:57
[2017-08-22] MEDS ORDERED: ACETAMINOPHEN 325 MG TABLET/CAPLET (TYLENOL) PO PRN (15:00)
--- NOTE | 2017-08-22 15:07 | Physical Therapy Evaluation ---
PT Evaluation-General Medical Diagnosis Admission Date Aug 22, 2017 at 11:19 Medical Diagnosis: Left wrist fracture Onset Date: Aug 09, 2017 Therapy Diagnosis Therapy Diagnosis: generalized weakness Height/Weight Height (Feet): 5 Height (Inches): 10.00 Weight (Pounds): 223 Weight (Ounces): 4.0 Precautions Precautions/Isolations: Fall Prevention, Standard Precautions Weight Bear Status Right Lower Extremity: Right Full Weight Bearing Left Lower Extremity: Left Full Weight Bearing Referral Physician: Ronak Reason for Referral: Evaluation/Treatment Medical History Pertinent Medical History: Arthritis Current History Patient fell in home and fractured left wrist. Reviewed History: Yes Social History Home: Single Level Current Living Status: Alone Entry Into Home: Stairs With Railing PT Steps Into Home: 5 PT Steps Inside Home: 0 Prior/Core FIM Prior Level of Function Functional [place] Measure 0=Not Assessed/NA 4=Minimal Assistance 1=Total Assistance 5=Supervision or Setup 2=Maximal Assistance 6=Modified [place] 3=Moderate Assistance 7=Complete [place] Bed Mobility: 6 Transfers (B,C,W/C) (FIM): 6 Gait: 6 Locomotion: 6 Pt states he used cane/walker sometimes in the morning "until he got woken up". Patient was driving and walking short distances out in the community prior to admission. PT Evaluation-Current Subjective Pt was in hospital room prior to tx, pt was just discharged from hospital and is being admitted into ARU. Pt reports no current pain, but general feelings of soreness/weakness. Pain Numeric Pain Scale: 0-No Pain Location: No Pain Reported Pt/Family Goals to return home with prior level of function Objective Patient Orientation: Normal For Age cast left arm/wrist ROM/Strength ROM Lower Extremities WFL Strenght Lower Extremities Right (dorsiflexion 4+/5, knee extension 4/5, knee flexion 3+/5, hip flexion 3+/ 5) Left (dorsiflexion 4+/5, knee extension 4-/5, knee flexion 3+/5, hip flexion 3+/ 5) Integumentary/Posture Integumentary refer to nursing note Neuromuscular (Tone, Coordination, Reflexes) not tested Sensory Vision: Functional Hearing: Functional Sensation Right Upper Extremit: Intact Sensation Left Upper Extremity: Intact Sensation Right Lower Extremit: Intact Sensation Left Lower Extremity: Intact Sensation Lower Extremities Pt reports he can feel light touch in LEs bilaterally, but that his sensation in his feet has decreased over the last few years. Transfers Functional [place] Measure 0=Not Assessed/NA 4=Minimal Assistance 1=Total Assistance 5=Supervision or Setup 2=Maximal Assistance 6=Modified [place] 3=Moderate Assistance 7=Complete IndependenceIRFPAI Quality Coding Scale 6 Independent with activity with or without an assistive device 5 Patient requires set up or clean up by helper. Patient completes activity by themselves 4 Supervision or touching assist (CGA). [place] provide cues , steadying assist 3 The helper provides less than half the effort to complete the activity 2 The helper provides more than half the effort to complete the activity 1 Dependent. The helper does all the effort to complete an activity 7 Patient refused to complete or attempt activity 9 The patient did not perform the activity before the current illness or injury 88 Not attempted due to Medical conditions or safety concerns Transfers (B, C, W/C) (FIM): 4 Scootin Rollin Roll Left to Right (QC): 4 Supine to/from Sit: 5 Sit to/from Stand: 4 Sit to Lying (QC): 4 Lying to Sitting/Side of Bed(Q: 4 Sit to Stand (QC): 4 Chair/Bvf-br-Umwwk Xfer(QC): 4 Pt can completes bed mobility (rolling, scooting, sit<>supine) with supervision for safety. Pt completes stand pivot transfers with CGA for safety. Pt requires verbal cues for safety. Gait Does the Patient Walk?: Yes Mode of Locomotion: Walk Anticipated Mode of Locomotion: Walk Gait (FIM): 4 Distance (FIM): 3=150 ft Walk 10 feet (QC): 4 Walk 50 ft with 2 Turns(QC): 4 Walk 150 ft (QC): 4 Walking 10ft/uneven surface-QC: 4 Distance: 150'x2 Gait Level of Assist: 4 Gait Persons Needed: 1 Gait Assistive Device: Cane Large Base Quad Comments/Gait Description Pt ambulates with LQB cane and CGA for safety. Pt takes small steps, appears steady on feet and has no LOB. Wheelchair Training Does the Pt Use a Wheelchair?: No Stairs Stairs (FIM): 2 #of Steps: 4 Level of Assist: 4 1 Step (curb) (QC): 4 4 Steps (QC): 4 12 Steps (QC): 88 Pt completes 4 stairs with 1 handrail and close CGA for safety using a step to pattern. Balance Sitting Static: Good Sitting Dynamic: Good Standing Static: Good Standing Dynamic: Fair Picking up an Object (QC): 4 Treatment Pt completes gait training and tx on Nustep (15 minutes, workload of 6) to increase functional LE strength and endurance. Assessment/Needs Pt is slightly anxious with movements, reports he gets nervous with stairs. Pt also reports he has difficulty ambulating on uneven terrain outside. Pt has decreased activity tolerance, gait, transfers, and bed mobility, decreased strength, balance, and safety. Rehab Potential: Good PT Short Term Goals Short Term Goals Time Frame: Aug 29, 2017 Transfers (B,C,W/C) (FIM): 5 Gait (FIM): 5 Distance (FIM): 3=150 ft Gait Distance Comment: 200' Gait Level of Assist: 5 Gait Assistive Device: Cane Single Point PT Detention Goals Dry Box Operator Goals PT Detention Goals Time Frame: Sep 12, 2017 Transfers (B,C,W/C) (FIM): 6 Sit to Lying (QC): 6 Lying-Sitting on Side/Bed(QC): 6 Sit to Stand (QC): 6 Rollin Roll Left to Right (QC): 6 Chair/Mtp-zg-Hxige Xfer(QC): 6 Car Transfer (QC): 4 Does the Patient Walk: Yes Gait (FIM): 6 Gait distance (FIM): 3=150 ft Distance: 300' Walk 10 feet (QC): 6 Walk 10ft-Uneven Surface(QC): 6 Walk 50ft with 2 Turns (QC): 6 Walk 150 ft (QC): 6 Gait Level of Assist: 6 Gait Assistive Device: Cane Single Point Stairs (FIM): 4 # of Steps: 12 1 Step (curb) (QC): 4 4 Steps (QC): 4 12 Steps (QC): 4 Stairs Level Of Assist: 4 Picking up an Object (QC): 4 PT Plan Problem List Problem List: Activity Tolerance, Functional Strength, Safety, Balance, Gait, Transfer, Bed Mobility, ROM Treatment/Plan Treatment Plan: Continue Plan of Care Treatment Plan: Bed Mobility, Education, Functional Activity Carlita, Functional Strength, Group Therapy, Gait, Safety, Therapeutic Exercise, Transfers Treatment Duration: Sep 12, 2017 Frequency: At least 5 of 7 days/Wk (IRF) Estimated Hrs Per Day: 1.5 hours per day Patient and/or Family Agrees t: Yes Safety Risks/Education Patient Education: Gait Training, Transfer Techniques, Steps, Reviewed Precautions, Correct Positioning, Safety Issues Teaching Recipient: Patient Teaching Methods: Demonstration, Discussion Response to Teaching: Verbalize Understanding, Reinforcement Needed Discharge Recommendations Plan Patient will perform bed mobility and transfer training, balance and endurance training, functional strengthening, stair training, gait training, and education , to improve functional mobility and independence at home. Therapy D/C Recommendations: Home w/ Family Support Time/GCodes Time In: 1035 Time Out: 1120 Total Billed Treatment Time: 45 Total Billed Treatment 1 visit 15 EVL 15 GT 15 EX SU BUSH PT Aug 22, 2017 15:07
--- NOTE | 2017-08-22 15:27 | Physical Therapy Daily Note ---
PT Daily Note-Current Subjective Pt is sitting in chair prior to tx and agreeable to PT. Pt has no complaints of pain. Pt is sitting in chair with nurse call, phone, tray, all needs met post tx. Pain Numeric Pain Scale: 0-No Pain Location: No Pain Reported Mental Status Patient Orientation: Normal For Age Transfers Functional [place] Measure 0=Not Assessed/NA 4=Minimal Assistance 1=Total Assistance 5=Supervision or Setup 2=Maximal Assistance 6=Modified [place] 3=Moderate Assistance 7=Complete IndependenceIRFPAI Quality Coding Scale 6 Independent with activity with or without an assistive device 5 Patient requires set up or clean up by helper. Patient completes activity by themselves 4 Supervision or touching assist (CGA). [place] provide cues , steadying assist 3 The helper provides less than half the effort to complete the activity 2 The helper provides more than half the effort to complete the activity 1 Dependent. The helper does all the effort to complete an activity 7 Patient refused to complete or attempt activity 9 The patient did not perform the activity before the current illness or injury 88 Not attempted due to Medical conditions or safety concerns Transfers (B, C, W/C) (FIM): 4 Sit to/from Stand: 4 Pt completes sit<>stand with CGA. Pt requires verbal cues for hand placement and safety. Gait Training Does the Patient Walk?: Yes Gait (FIM): 4 Distance (FIM): 3=150 ft Distance: 75', 150' Gait Level of Assist: 4 Gait Persons Needed: 1 Gait Assistive Device: Cane Single Point Pt ambulates with single point cane and CGA for safety. Pt gets fatigued at end of gait training and has decreased safety and left knee instability, tries to sit in chair hurriedly, requires verbal cues for positioning and safety. Exercises Seated Therapy Exercises: Ankle pumps, Long arc quads, Hip flexion, Hamstring Curls, Hip abd/add Seated Reps: 15 Standing: Sit to Stand (10x3), Stepping over objects Standing Reps: 10 Treatments Pt completes gait training with emphasis on stepping over objects to increase functional mobility. Pt completes seated exercises with theraband for functional LE strengthening. Pt completes sit<>stands and stepping up on step for functional mobility and strengthening. Assessment Current Status: Good Progress Pt ambulation is increasing. PT Short Term Goals Short Term Goals Time Frame: Aug 29, 2017 Transfers (B,C,W/C) (FIM): 5 Gait (FIM): 5 Distance (FIM): 3=150 ft Gait Distance Comment: 200' Gait Level of Assist: 5 Gait Assistive Device: Cane Single Point PT [facility] Goals Combat Control Manager Goals PT Combat Control Manager Goals Time Frame: Sep 12, 2017 Transfers (B,C,W/C) (FIM): 6 Sit to Lying (QC): 6 Lying-Sitting on Side/Bed(QC): 6 Sit to Stand (QC): 6 Rollin Roll Left to Right (QC): 6 Chair/Vvr-eo-Lkihk Xfer(QC): 6 Does the Patient Walk: Yes Gait (FIM): 6 Gait distance (FIM): 3=150 ft Distance: 300' Walk 10 feet (QC): 6 Walk 10ft-Uneven Surface(QC): 6 Walk 50ft with 2 Turns (QC): 6 Walk 150 ft (QC): 6 Gait Level of Assist: 6 Gait Assistive Device: Cane Single Point Stairs (FIM): 2 # of Steps: 8 Stairs Level Of Assist: 4 PT Plan Problem List Problem List: Activity Tolerance, Functional Strength, Safety, Balance, Gait, Transfer, Bed Mobility, ROM Treatment/Plan Treatment Plan: Continue Plan of Care Treatment Plan: Bed Mobility, Education, Functional Activity Carlita, Functional Strength, Group Therapy, Gait, Safety, Therapeutic Exercise, Transfers Treatment Duration: Sep 12, 2017 Frequency: At least 5 of 7 days/Wk (IRF) Estimated Hrs Per Day: 1.5 hours per day Patient and/or Family Agrees t: Yes Safety Risks/Education Patient Education: Gait Training, Transfer Techniques, Reviewed Precautions, Correct Positioning, Safety Issues Teaching Recipient: Patient Teaching Methods: Demonstration, Discussion Response to Teaching: Verbalize Understanding, Reinforcement Needed Time/GCodes Time In: 1300 Time Out: 1345 Total Billed Treatment Time: 45 Total Billed Treatment 1 visit 15 EX 15 GT 15 FA SU BUSH PT Aug 22, 2017 15:27
[2017-08-22] MEDS: CEPHALEXIN 250 MG (KEFLEX) CAP PO SCH ×2 (16:09→20:13)
[2017-08-22] MEDS: KCL 20 MEQ TAB (K-DUR) PO SCH (16:09)
[2017-08-22 18:24] VITALS: BP 104/56
[2017-08-22] MEDS: ATORVASTATIN 10 MG (LIPITOR) TABLET PO SCH (20:13)
[2017-08-23 05:01] VITALS: BP 145/77
[2017-08-23] MEDS: KCL 20 MEQ TAB (K-DUR) PO SCH ×3 (06:19→17:29)
[2017-08-23] MEDS: CEPHALEXIN 250 MG (KEFLEX) CAP PO SCH ×4 (08:11→20:51)
[2017-08-23] MEDS: PHENYTOIN 100 MG (DILANTIN) CAP PO SCH (08:11)
--- NOTE | 2017-08-23 09:44 | Occupational Ther Daily Note ---
OT Current Status-Daily Note Subjective Pt seen in room, up in recliner, agreeable to OT. No pain reported. Pt had L UE elevated on pillow to help decrease edema. Appearance Alert, cooperative Mental Status/Objective Functional [place] Measure 0=Not Assessed/NA 4=Minimal Assistance 1=Total Assistance 5=Supervision or Setup 2=Maximal Assistance 6=Modified [place] 3=Moderate Assistance 7=Complete [place] ADL-Treatment Pt was moved to a different room because this newer room has grab bars on the right side of the toilet instead of the left side and he can use them with his good R UE. He also doesn't need the BSC over toilet and finds the taller toilet seat more comfortable. Pt was able to walk to bathroom with close SBA (he said that he is more unsteady in the mornings), stand at the sink to brush his teeth and wash face and hands, then toilet with SBA, getting on and off tall toilet with SBA and grab bar. Functional [place] Measure 0=Not Assessed/NA 4=Minimal Assistance 1=Total Assistance 5=Supervision or Setup 2=Maximal Assistance 6=Modified [place] 3=Moderate Assistance 7=Complete IndependenceIRFPAI Quality Coding Scale 6 Independent with activity with or without an assistive device 5 Patient requires set up or clean up by helper. Patient completes activity by themselves 4 Supervision or touching assist (CGA). [place] provide cues , steadying assist 3 The helper provides less than half the effort to complete the activity 2 The helper provides more than half the effort to complete the activity 1 Dependent. The helper does all the effort to complete an activity 7 Patient refused to complete or attempt activity 9 The patient did not perform the activity before the current illness or injury 88 Not attempted due to Medical conditions or safety concerns Grooming (FIM): 5 (SBA, standing at the sink, using the countertop for balance. ) Toileting (FIM): 5 (Able to manage clothing and hygiene, standing SBA with grab bar for balance if needed) Toilet/Commode Transfer (FIM): 5 (On/off tall toilet with SBA, using grab bar on R side) Other Treatment Pt walked with SBA and SPC to gym and was able to sit in chair with arms with SBA. No LOB observed. Pt did 12 minutes of bilat UE exercise on arm bike set at 15W resistance, taking only one brief recovery break about midpoint. This is to work on activity tolerance as well as strengthen R arm to be more secure with SPC. He was unable to grasp handle of arm bike with L hand due to position of wrist. Pt also did 15 sets intrinsic exercises with L hand, to prevent contractures and stiffness. He was able to lift his L thumb and flex it a little but unable to oppose any fingers due to position in cast. Pt provided with pink foam sponge (medium resistance) which he was able to hold into place with R hand and squeeze X 15 reps L hand. Gentle retrograde massage done to fingers for about 3 minutes to help mobilize edema in fingers. Edge of splint adjusted slightly where it was pressing on thumb. Care transferred to PT. Education OT Patient Education: Exercise program (intrinsic exercises), Other (edema massage) Teaching Recipient: Patient Teaching Methods: Demonstration, Discussion Response to Teaching: Verbalize Understanding, Return Demonstration, Reinforcement Needed OT Short Term Goals Short Term Goals Time Frame: Aug 29, 2017 Eating(FIM): 7 Transfers (B,C,W/C) (FIM): 5 Toilet/Commode Transfer(FIM): 5 Additional Short Term Goals: 2-Verbalize Understanding, 3-ImproveStrength/Carlita 1=Demonstrate adherence to instructed precautions during ADL tasks. 2=Patient will verbalize/demonstrate understanding of assistive devices/ modifications for ADL. 3=Patient will improve strength/tolerance for activity to enable patient to perform ADL's. OT [facility] Goals Bridge Design Engineer Goals Time Frame: Sep 12, 2017 Eating (FIM): 7 Eating (QC): 6 Groomin Oral Hygiene (QC): 6 Bathing(FIM): 6 Shower/Bathe Self (QC): 6 Upper Body Dressing(FIM): 6 Upper Body Dressing (QC): 6 Lower Body Dressing(FIM): 6 Lower Body Dressing (QC): 6 On/Off Footwear (QC): 6 Toileting(FIM): 66 Toileting Hygiene (QC): 6 Toilet/Commode Transfer(FIM): 6 Toilet/Commode Transfer (QC): 6 Shower Transfer(FIM): 6 Additional Goals: 2-Verbalize Understanding, 3-ImproveStrength/Carlita 1=Demonstrate adherence to instructed precautions during ADL tasks. 2=Patient will verbalize/demonstrate understanding of assistive devices/ modifications for ADL. 3=Patient will improve strength/tolerance for activity to enable patient to perform ADL's. OT Education/Plan Problem List/Assessment Pt would benefit from skilled OT to increase his independence in basic self care to allow him to safely return to his home to live alone. Discharge Recommendations Plan/Recommendations: Continue POC Treatment Plan/Plan of Care Patient would benefit from OT for education, treatment and training to promote independence in ADL's, mobility, safety and/or upper extremity function for ADL' s. Plan of Care: ADL Retraining, Functional Mobility, Group Exercise/Act as Ind ( exercise, education, activ tolerance, funct mobility, socialization), UE Funct Exercise/Act, UE Neuromus Re-Ed/Coord Treatment Duration: Sep 12, 2017 Frequency: At least 5 of 7 days/Wk (IRF) Estimated Hrs Per Day: 1.5 hours per day Agreement: Yes Rehab Potential: Good Time/GCodes Start Time: 08:30 Stop Time: 09:30 Total Time Billed (hr/min): 60 Billed Treatment Time visit, ADL 30 minutes, 30 minutes exercise DANIELA HOLDER OT Aug 23, 2017 09:44
--- NOTE | 2017-08-23 10:33 | Physical Therapy Daily Note ---
PT Daily Note-Current Subjective Pt sitting in Therapy Gym with OT just finishing upon arrival. Pt agrees to PT. Pain Location: No Pain Reported Comment: Pt reports no pain, just weakness in BLE. Mental Status Patient Orientation: Person, Place, Time, Situation Transfers Functional [place] Measure 0=Not Assessed/NA 4=Minimal Assistance 1=Total Assistance 5=Supervision or Setup 2=Maximal Assistance 6=Modified [place] 3=Moderate Assistance 7=Complete IndependenceIRFPAI Quality Coding Scale 6 Independent with activity with or without an assistive device 5 Patient requires set up or clean up by helper. Patient completes activity by themselves 4 Supervision or touching assist (CGA). [place] provide cues , steadying assist 3 The helper provides less than half the effort to complete the activity 2 The helper provides more than half the effort to complete the activity 1 Dependent. The helper does all the effort to complete an activity 7 Patient refused to complete or attempt activity 9 The patient did not perform the activity before the current illness or injury 88 Not attempted due to Medical conditions or safety concerns Scootin Sit to/from Stand: 5 Sit to Stand (QC): 5 Weight Bearing Right Lower Extremity: Right Full Weight Bearing Left Lower Extremity: Left Full Weight Bearing Gait Training Does the Patient Walk?: Yes Distance (FIM): 3=150 ft Distance: 200' Walk 10 feet (QC): 5 Walk 50 ft with 2 Turns(QC): 5 Walk 150 ft (QC): 5 Gait Level of Assist: 5 Gait Persons Needed: 1 Gait Assistive Device: Cane Single Point Pt walks with slow but steady moshe, no LOB. Pt fatigues easy and needs rest breaks due to weakness in LE. Wheelchair Training Does the Pt Use a Wheelchair?: No Exercises Seated Therapy Exercises: Ankle pumps, Long arc quads, Hip flexion, Kicking activity Seated Reps: 20 Treatments Pt transfers from chair and ambulates using SPC to NuStep and completes 15m at Workload 5. Pt then completes Seated Ex before short rest and ambulation in hallway using SPC at close SBA. Pt returns to room at end of tx to use restroom and rest in recliner with all needs met. Assessment Current Status: Good Progress Pt is improving with independence and safety of transfers and ambulation. PT Short Term Goals Short Term Goals Time Frame: Aug 29, 2017 Transfers (B,C,W/C) (FIM): 5 Gait (FIM): 5 Distance (FIM): 3=150 ft Gait Distance Comment: 200' Gait Level of Assist: 5 Gait Assistive Device: Cane Single Point PT Engraving Press Operator Goals Prison Goals PT Engraving Press Operator Goals Time Frame: Sep 12, 2017 Transfers (B,C,W/C) (FIM): 6 Sit to Lying (QC): 6 Lying-Sitting on Side/Bed(QC): 6 Sit to Stand (QC): 6 Rollin Roll Left to Right (QC): 6 Chair/Izr-vx-Imlip Xfer(QC): 6 Car Transfer (QC): 4 Does the Patient Walk: Yes Gait (FIM): 6 Gait distance (FIM): 3=150 ft Distance: 300' Walk 10 feet (QC): 6 Walk 10ft-Uneven Surface(QC): 6 Walk 50ft with 2 Turns (QC): 6 Walk 150 ft (QC): 6 Gait Level of Assist: 6 Gait Assistive Device: Cane Single Point Stairs (FIM): 4 # of Steps: 12 1 Step (curb) (QC): 4 4 Steps (QC): 4 12 Steps (QC): 4 Stairs Level Of Assist: 4 Picking up an Object (QC): 4 PT Plan Problem List Problem List: Activity Tolerance, Functional Strength, Gait Treatment/Plan Treatment Plan: Continue Plan of Care Treatment Plan: Bed Mobility, Education, Functional Activity Carlita, Functional Strength, Group Therapy, Gait, Safety, Therapeutic Exercise, Transfers Treatment Duration: Sep 12, 2017 Frequency: At least 5 of 7 days/Wk (IRF) Estimated Hrs Per Day: 1.5 hours per day Patient and/or Family Agrees t: Yes Safety Risks/Education Patient Education: Gait Training, Transfer Techniques, Correct Positioning, Safety Issues Teaching Recipient: Patient Teaching Methods: Discussion Response to Teaching: Verbalize Understanding Time/GCodes Time In: 930 Time Out: 1028 Total Billed Treatment Time: 58 Total Billed Treatment visit, EX x2 (30m), GT (15m) & FA (13m) INA BORREGO CHRISTIAN COUNSELOR Aug 23, 2017 10:33
--- NOTE | 2017-08-23 14:35 | Therapy Group Daily Note ---
Therapy Daily Group Note Patient Education Topic Fall Prevention Exercises LE Seated Exercise, UE Exercise Other/Notes Pt was an active participant in OT/PT group. He introduced himself by sharing a story about a personal fall. He contributed to education/discussion about fall risks and ways to prevent falls. At the end of the group, he was able to identify steps he will take to be safer from falls when he goes home. He also did seated UE and LE exercises to strengthen arms and legs for decreasing risks of falling. He walked back to his room with SBA, SPC and was left up in recliner , chair alarm on, all needs met.. Start Time: 13:00 Stop Time: 14:20 Total Billed Treatment Time: 80 Total Billed Treatment visit, 80 minutes group DANIELA HOLDER OT Aug 23, 2017 14:34
--- NOTE | 2017-08-23 16:52 | Individualized Plan of Care ---
Individualized Plan of Care Rehab Nursing IPOC Order Admission Date Aug 22, 2017 at 11:19 Current Orders Orders General/Regular (08/22/17 Lunch) Admission (Physician Order) (08/22/17 12:08) Code/Resuscitation (08/22/17 12:08) Initiate Admission Nursing Pro .admission (08/22/17 12:08) Isolation Central Supply Req (08/22/17 12:08) Request Ot Evaluate & Treat (08/22/17 12:16) Code/Resuscitation (08/22/17 12:22) Initiate Admission Nursing Pro .admission (08/22/17 12:22) Oxygen-Administer 07,19 (08/22/17 12:22) Sequential Compression Device 08,20 (08/22/17 12:22) Vital Signs: Routine 08,16,00 (08/22/17 12:22) Weight Bearing Status (08/22/17 12:22) Consult Physician (08/22/17 12:22) Influenza Vac Order Indicated (08/22/17 12:22) Rt Request For Service (08/22/17 12:22) Ambulate TID (08/22/17 12:31) Dvt/Vte Risk - Notifiy Physici (08/22/17 12:31) Influenza Trivalent [id number] (Afluria (08/22/17 13:15) Consult Physician (08/22/17 14:34) Atorvastatin Tablet (Lipitor Tablet) (08/22/17 14:47) Phenytoin Capsule (Dilantin Capsule) (08/22/17 14:47) Lisinopril Tablet (Zestril Tablet) (08/22/17 14:47) Hydrochlorothiazide Cap/Tablet (Hctz Cap (08/22/17 14:47) Potassium Chloride (Tablet) (K Dur Table (08/22/17 14:47) Cephalexin Capsule (Keflex Capsule) (08/22/17 17:00) Acetaminophen Tablet/Caplet (Tylenol T (08/22/17 15:00) Patient Visit (08/22/17 ) Speech Sound Lang Comp (08/22/17 ) Patient Visit (08/22/17 ) Pt Eval Low Complexity (08/22/17 ) Gait Training, Ea 15 Min (08/22/17 ) Exercise Therap, Ea 15 Min (08/22/17 ) Functional Activities, Ea 15 (08/22/17 ) Transfer - Room Transfer (08/22/17 16:36) Pt Evaluate/Treat Request (08/23/17 10:53) Request For Cognitive Services (08/23/17 10:53) Patient Visit (08/23/17 ) Exercise Therap, Ea 15 Min (08/23/17 ) Gait Training, Ea 15 Min (08/23/17 ) Functional Activities, Ea 15 (08/23/17 ) Other Nursing Orders: Monitor for any postop constipation or urinary retention Intensity of Therapy to be met Patient to be seen: Min.3h per day/5 of 7d PT IPOC Problem List: Activity Tolerance, Functional Strength, Gait Treatment Plan: Continue Plan of Care Bed Mobility, Education, Functional Activity Carlita, Functional Strength, Group Therapy, Gait, Safety, Therapeutic Exercise, Transfers Treatment Duration: Sep 12, 2017 Frequency: At least 5 of 7 days/Wk (IRF) Estimated Hrs Per Day: 1.5 hours per day OT IPOC Problems: Decreased Activ Tolerance, Decreased UE Strength, Dependent Transfers , Impaired Funct Balance, Impaired Self-Care Skills, Restricted Funct UE ROM OT Treatment, Training and Edu: Yes OT Problems Pt would benefit from skilled OT to increase his independence in basic self care to allow him to safely return to his home to live alone. Plan of Care: ADL Retraining, Functional Mobility, Group Exercise/Act as Ind ( exercise, education, activ tolerance, funct mobility, socialization), UE Funct Exercise/Act, UE Neuromus Re-Ed/Coord Treatment Duration: Sep 12, 2017 Frequency: At least 5 of 7 days/Wk (IRF) Estimated Hrs Per Day: 1.[address] IPOC Speech Therapy Treatment Plan: Discontinue ST Treatment Duration: Aug 23, 2017 Frequency: Modified Program (IRF) (Evaluation, only.) Estimated Hrs Per Day: Other (Evaluation, only.) Gerontology Aide/Case Mgmt Gerontology Aide/Case Managemen: Discharge Planning, Patient/Family Counseling Physician IPOC Medical Issues being managed closely and that require the 24 hour availability of a physician:pain management UTI Medical Issues: Bowel/Bladder Function, DVT Prophylaxis, Falls Precautions, Infection Protection, Pain Management, Weight Bearing Precautions, Wound Care, Other (List) (as per above) Brief Synthesis of Preadmission Screen, Post-Admission Evaluation, and Therapy Evaluations:71 yo male who haad been living modified independent with cane due to balance issues secondary to head trauma several years ago who fwll sustaing a left wrist fractrue whic was associated with confusion due to an uTi under treatment. Medical Prognosis: good Anticipated Length of Stay: 09-12-17 Rehab Goals Modified Independent to supervision for adls and mobility skills Anticipated discharge destinat: Home with [facility] TRE BRANNON MD Aug 23, 2017 16:52
[2017-08-23 17:58] VITALS: BP 119/72
[2017-08-23] MEDS: ATORVASTATIN 10 MG (LIPITOR) TABLET PO SCH (20:51)
[2017-08-24 04:44] VITALS: BP 145/72
[2017-08-24] MEDS: KCL 20 MEQ TAB (K-DUR) PO SCH ×3 (05:49→18:20)
[2017-08-24] MEDS: PHENYTOIN 100 MG (DILANTIN) CAP PO SCH (08:53)
[2017-08-24] MEDS: CEPHALEXIN 250 MG (KEFLEX) CAP PO SCH ×4 (08:53→20:22)
[2017-08-24 09:50] VITALS: BP 122/74
--- NOTE | 2017-08-24 10:49 | Occupational Ther Daily Note ---
OT Current Status-Daily Note Subjective Pt seen in room, up in recliner, agreeable to OT. No pain mentioned. Appearance Alert, cooperative Mental Status/Objective Functional [place] Measure 0=Not Assessed/NA 4=Minimal Assistance 1=Total Assistance 5=Supervision or Setup 2=Maximal Assistance 6=Modified [place] 3=Moderate Assistance 7=Complete [place] ADL-Treatment Pt was pleased that he was able to use fingers on L hand more - has gross grasp but only a little lateral pinch due to thumb position in cast. L hand covered with glove and L forearm covered with plastic. IV covered. Functional [place] Measure 0=Not Assessed/NA 4=Minimal Assistance 1=Total Assistance 5=Supervision or Setup 2=Maximal Assistance 6=Modified [place] 3=Moderate Assistance 7=Complete IndependenceIRFPAI Quality Coding Scale 6 Independent with activity with or without an assistive device 5 Patient requires set up or clean up by helper. Patient completes activity by themselves 4 Supervision or touching assist (CGA). [place] provide cues , steadying assist 3 The helper provides less than half the effort to complete the activity 2 The helper provides more than half the effort to complete the activity 1 Dependent. The helper does all the effort to complete an activity 7 Patient refused to complete or attempt activity 9 The patient did not perform the activity before the current illness or injury 88 Not attempted due to Medical conditions or safety concerns Grooming (FIM): 5 (SBA at sink to brush teeth and comb hair. Washed face and hands in shower. balanced with countertop) Bathing (FIM): 5 (Pt washed and dried all parts except back, with setup to cover cast on L forearm and IV in R UE. Pt turned water on and off and retrieved towel from bar. Shower bench, grab bar, hand held shower) Upper Body (FIM): 5 (Pt doffed and donned shirt with setup) Lower Body Dressing (FIM): 5 (Doffed socks with dressing stick, put shoes on without help (velcro closures). Doffed and donned shorts with SBA and was able to pull them up on both sides.) Shower Transfer(FIM): 5 (On and off shower bench, using grab bar) Other Treatment Pt walked to and from bathroom with SBA, SPC, with no LOB. Also walked to gym. Pt observed to use modified technique for getting up from chair by pushing L arm on L thigh and pushing up from arm on chair with R UE. In gym, he did 14 minutes bilat UE exercise with arm bike set at 15-20W resistance, taking one brief recovery period about midpoint. Used R arm for about half the time and both UEs for the rest. Able to lightly grasp arm bike handle with L hand. Did arc activity x 2 sets with short extension with 1# weight on R UE but no added resistance on L. Also did 1 set with medium extension. Did nuts and bolts with both hands, using available lateral pinch on L Hand. Exercise to strengthen arms to help with transfers and ADLs and to increase functional use L UE within its restrictions. Pt walked back to room with SBA, SPC, with no LOB. left up in recliner, all needs met, chair alarm on. Education OT Patient Education: Exercise program, Progress toward Goal/Update tx plan, Purpose of tx/functional activities, Transfer techniques, Use of adapted equipment Teaching Recipient: Patient Teaching Methods: Discussion Response to Teaching: Verbalize Understanding OT Short Term Goals Short Term Goals Time Frame: Aug 29, 2017 Eating(FIM): 7 Transfers (B,C,W/C) (FIM): 5 Toilet/Commode Transfer(FIM): 5 Additional Short Term Goals: 2-Verbalize Understanding, 3-ImproveStrength/Carlita 1=Demonstrate adherence to instructed precautions during ADL tasks. 2=Patient will verbalize/demonstrate understanding of assistive devices/ modifications for ADL. 3=Patient will improve strength/tolerance for activity to enable patient to perform ADL's. OT Diversity Specialist Goals Prison Goals Time Frame: Sep 12, 2017 Eating (FIM): 7 Eating (QC): 6 Groomin Oral Hygiene (QC): 6 Bathing(FIM): 6 Shower/Bathe Self (QC): 6 Upper Body Dressing(FIM): 6 Upper Body Dressing (QC): 6 Lower Body Dressing(FIM): 6 Lower Body Dressing (QC): 6 On/Off Footwear (QC): 6 Toileting(FIM): 66 Toileting Hygiene (QC): 6 Toilet/Commode Transfer(FIM): 6 Toilet/Commode Transfer (QC): 6 Shower Transfer(FIM): 6 Additional Goals: 2-Verbalize Understanding, 3-ImproveStrength/Carlita 1=Demonstrate adherence to instructed precautions during ADL tasks. 2=Patient will verbalize/demonstrate understanding of assistive devices/ modifications for ADL. 3=Patient will improve strength/tolerance for activity to enable patient to perform ADL's. OT Education/Plan Problem List/Assessment Pt would benefit from skilled OT to increase his independence in basic self care to allow him to safely return to his home to live alone. Discharge Recommendations Plan/Recommendations: Continue POC Treatment Plan/Plan of Care Patient would benefit from OT for education, treatment and training to promote independence in ADL's, mobility, safety and/or upper extremity function for ADL' s. Plan of Care: ADL Retraining, Functional Mobility, Group Exercise/Act as Ind ( exercise, education, activ tolerance, funct mobility, socialization), UE Funct Exercise/Act, UE Neuromus Re-Ed/Coord Treatment Duration: Sep 12, 2017 Frequency: At least 5 of 7 days/Wk (IRF) Estimated Hrs Per Day: 1.5 hours per day Agreement: Yes Rehab Potential: Good Time/GCodes Start Time: 09:00 Stop Time: 10:30 Total Time Billed (hr/min): 90 Billed Treatment Time visit, 50 minutes ADL, 40 minutes exercise DANIELA HOLDER OT Aug 24, 2017 10:49
--- NOTE | 2017-08-24 10:49 | Physical Therapy Daily Note ---
PT Daily Note-Current Subjective Pt sitting in recliner upon arrival. Pt agrees to PT. Mental Status Patient Orientation: Person, Place, Time, Situation Transfers Functional [place] Measure 0=Not Assessed/NA 4=Minimal Assistance 1=Total Assistance 5=Supervision or Setup 2=Maximal Assistance 6=Modified [place] 3=Moderate Assistance 7=Complete IndependenceIRFPAI Quality Coding Scale 6 Independent with activity with or without an assistive device 5 Patient requires set up or clean up by helper. Patient completes activity by themselves 4 Supervision or touching assist (CGA). [place] provide cues , steadying assist 3 The helper provides less than half the effort to complete the activity 2 The helper provides more than half the effort to complete the activity 1 Dependent. The helper does all the effort to complete an activity 7 Patient refused to complete or attempt activity 9 The patient did not perform the activity before the current illness or injury 88 Not attempted due to Medical conditions or safety concerns Scootin Sit to/from Stand: 5 Sit to Stand (QC): 5 Weight Bearing Right Lower Extremity: Right Full Weight Bearing Left Lower Extremity: Left Full Weight Bearing Gait Training Does the Patient Walk?: Yes Distance (FIM): 3=150 ft Distance: 200' Walk 10 feet (QC): 5 Walk 50 ft with 2 Turns(QC): 5 Walk 150 ft (QC): 5 Gait Level of Assist: 5 Gait Persons Needed: 1 Gait Assistive Device: Cane Single Point Wheelchair Training Does the Pt Use a Wheelchair?: No Stair Training Stair Training: Handrails/: 2 handrails #of Steps: 8 1 Step (curb) (QC): 5 4 Steps (QC): 5 Stairs: Pattern: Step to Level of Assist: 5 Exercises Standing: Hamstring curls, 3 way Ex=Flex, Abd, Ext, Weight shifts Standing Reps: 15 NuStep Minutes: 15 NuStep Workload: 5 Treatments Pt transfers from recliner to standing using SPC at SBA. Pt ambulates using Cane at SBA. Pt uses NuStep for 15m at Workload 5. Pt also completes Standing Ex at //bars. Pt returns to room to use restroom and rest in recliner end of tx with all needs met. Assessment Current Status: Good Progress Pt is making improvements with independence and safety of transfers and ambulation. PT Short Term Goals Short Term Goals Time Frame: Aug 29, 2017 Transfers (B,C,W/C) (FIM): 5 Gait (FIM): 5 Distance (FIM): 3=150 ft Gait Distance Comment: 200' Gait Level of Assist: 5 Gait Assistive Device: Cane Single Point PT Alf Goals Reconciliation Specialist Goals PT Reconciliation Specialist Goals Time Frame: Sep 12, 2017 Transfers (B,C,W/C) (FIM): 6 Sit to Lying (QC): 6 Lying-Sitting on Side/Bed(QC): 6 Sit to Stand (QC): 6 Rollin Roll Left to Right (QC): 6 Chair/Ghh-lq-Rrnbh Xfer(QC): 6 Car Transfer (QC): 4 Does the Patient Walk: Yes Gait (FIM): 6 Gait distance (FIM): 3=150 ft Distance: 300' Walk 10 feet (QC): 6 Walk 10ft-Uneven Surface(QC): 6 Walk 50ft with 2 Turns (QC): 6 Walk 150 ft (QC): 6 Gait Level of Assist: 6 Gait Assistive Device: Cane Single Point Stairs (FIM): 4 # of Steps: 12 1 Step (curb) (QC): 4 4 Steps (QC): 4 12 Steps (QC): 4 Stairs Level Of Assist: 4 Picking up an Object (QC): 4 PT Plan Problem List Problem List: Activity Tolerance, Functional Strength, Gait Treatment/Plan Treatment Plan: Continue Plan of Care Treatment Plan: Bed Mobility, Education, Functional Activity Carlita, Functional Strength, Group Therapy, Gait, Safety, Therapeutic Exercise, Transfers Treatment Duration: Sep 12, 2017 Frequency: At least 5 of 7 days/Wk (IRF) Estimated Hrs Per Day: 1.5 hours per day Patient and/or Family Agrees t: Yes Safety Risks/Education Patient Education: Gait Training, Transfer Techniques, Correct Positioning, Safety Issues Teaching Recipient: Patient Teaching Methods: Discussion Response to Teaching: Verbalize Understanding Time/GCodes Time In: 815 Time Out: 900 Total Billed Treatment Time: 45 Total Billed Treatment visit, GT (15m) & EX x2 (30m) IAN BORREGO TUBE LANCER Aug 24, 2017 10:49
[2017-08-24] MEDS ORDERED: POLYETHYLENE GLYCOL 17 GM (MIRALAX) PACK PO NR (12:00)
--- NOTE | 2017-08-24 13:58 | Physical Therapy Daily Note ---
PT Daily Note-Current Subjective Pt sitting in recliner upon arrival. Pt agrees to PT. Pain Location: No Pain Reported Mental Status Patient Orientation: Person, Place, Time, Situation Transfers Functional [place] Measure 0=Not Assessed/NA 4=Minimal Assistance 1=Total Assistance 5=Supervision or Setup 2=Maximal Assistance 6=Modified [place] 3=Moderate Assistance 7=Complete IndependenceIRFPAI Quality Coding Scale 6 Independent with activity with or without an assistive device 5 Patient requires set up or clean up by helper. Patient completes activity by themselves 4 Supervision or touching assist (CGA). [place] provide cues , steadying assist 3 The helper provides less than half the effort to complete the activity 2 The helper provides more than half the effort to complete the activity 1 Dependent. The helper does all the effort to complete an activity 7 Patient refused to complete or attempt activity 9 The patient did not perform the activity before the current illness or injury 88 Not attempted due to Medical conditions or safety concerns Scootin Sit to/from Stand: 5 Sit to Stand (QC): 5 Weight Bearing Right Lower Extremity: Right Full Weight Bearing Left Lower Extremity: Left Full Weight Bearing Gait Training Does the Patient Walk?: Yes Distance (FIM): 3=150 ft Distance: 250' Walk 10 feet (QC): 5 Walk 50 ft with 2 Turns(QC): 5 Walk 150 ft (QC): 5 Gait Level of Assist: 5 Gait Persons Needed: 1 Gait Assistive Device: Cane Single Point Exercises Seated Therapy Exercises: Ankle pumps, Long arc quads, Hip flexion, Kicking activity Seated Reps: 15 Treatments Pt transfers from recliner to standing using SPC at [facility]. Pt uses restroom then ambulates in hallway using SPC at [facility]. Pt takes a couple of rest breaks. Pt returns to room and completes Seated Ex in recliner. Pt rests at end of tx with all needs met. Assessment Current Status: Good Progress Pt has improved with transfers and ambulation. PT Short Term Goals Short Term Goals Time Frame: Aug 29, 2017 Transfers (B,C,W/C) (FIM): 5 Gait (FIM): 5 Distance (FIM): 3=150 ft Gait Distance Comment: 200' Gait Level of Assist: 5 Gait Assistive Device: Cane Single Point PT Manual Training Teacher Goals Nursing Home Goals PT Manual Training Teacher Goals Time Frame: Sep 12, 2017 Transfers (B,C,W/C) (FIM): 6 Sit to Lying (QC): 6 Lying-Sitting on Side/Bed(QC): 6 Sit to Stand (QC): 6 Rollin Roll Left to Right (QC): 6 Chair/Vxl-tz-Hnfpl Xfer(QC): 6 Car Transfer (QC): 4 Does the Patient Walk: Yes Gait (FIM): 6 Gait distance (FIM): 3=150 ft Distance: 300' Walk 10 feet (QC): 6 Walk 10ft-Uneven Surface(QC): 6 Walk 50ft with 2 Turns (QC): 6 Walk 150 ft (QC): 6 Gait Level of Assist: 6 Gait Assistive Device: Cane Single Point Stairs (FIM): 4 # of Steps: 12 1 Step (curb) (QC): 4 4 Steps (QC): 4 12 Steps (QC): 4 Stairs Level Of Assist: 4 Picking up an Object (QC): 4 PT Plan Problem List Problem List: Activity Tolerance, Functional Strength, Gait Treatment/Plan Treatment Plan: Continue Plan of Care Treatment Plan: Bed Mobility, Education, Functional Activity Carlita, Functional Strength, Group Therapy, Gait, Safety, Therapeutic Exercise, Transfers Treatment Duration: Sep 12, 2017 Frequency: At least 5 of 7 days/Wk (IRF) Estimated Hrs Per Day: 1.5 hours per day Patient and/or Family Agrees t: Yes Safety Risks/Education Patient Education: Gait Training, Transfer Techniques, Correct Positioning, Safety Issues Teaching Recipient: Patient Teaching Methods: Discussion Response to Teaching: Verbalize Understanding Time/GCodes Time In: 1130 Time Out: 1215 Total Billed Treatment Time: 45 Total Billed Treatment visit, GT x2 (30m) & FA (15m) INA B[employer]REGO [employer]ICAL [employer] WORKER Aug 24, 2017 13:58
--- NOTE | 2017-08-24 15:43 | Progress Note-Hospitalist ---
Subjective HPI/CC On Admission Date Seen by Provider: Aug 24, 2017 Time Seen by Provider: 15:20 Subjective/Events-last exam Pt reports doing well. Able to move fingers much more freely. Pain controlled. Only 1 BM since admission. Objective Exam Vital Signs Vital Sign - Last 12Hours 08/22/17 12:28 Temp 97.6 Pulse 101 Resp 18 B/P (MAP) 142/76 Pulse Ox 99 O2 Delivery Room Air Capillary Refill : Less Than 3 Seconds General Appearance: No Apparent Distress, WD/WN Respiratory: Lungs Clear, No Respiratory Distress Cardiovascular: No Murmur Gastrointestinal: Normal Bowel Sounds, Non Tender, Soft Extremity: Non Tender, No Calf Tenderness, Other (left forearm wrapped in splint) Neurologic/Psychiatric: Alert, Oriented x3 Assessment/Plan Assessment and Plan Assess & Plan/Chief Complaint Left Wrist Fracture Diagnosis/Problems Diagnosis/Problems (1) Bacteremia due to Escherichia coli Assessment & Plan: Continue on Keflex until 08/27 Symptoms resolved, afebrile Doing well (2) Essential (primary) hypertension Status: Chronic Assessment & Plan: Within goal for age Continue Lisinopril/HCTZ (3) TBI (traumatic brain injury) Status: Chronic Assessment & Plan: Remote history On Dilantin for seizures 2/2 TBI Continue current dose Level on 08/21 2.8 (up from 0.7 on 08/16) will not adjust Qualifiers: Qualified Codes: S06.9X9S - Unspecified intracranial injury with loss of consciousness of unspecified duration, sequela (4) Left wrist fracture Status: Acute Assessment & Plan: Continue rehab per primary team Qualifiers: Qualified Codes: S62.102D - Fracture of unspecified carpal bone, left wrist , subsequent encounter for fracture with routine healing HERVE MENESES MD Aug 24, 2017 15:43
[2017-08-24 18:34] VITALS: BP 115/70
--- NOTE | 2017-08-24 19:03 | Progress Note (SOAP) ---
Subjective Time Seen by Provider: 19:00 Subjective/Events-last exam UTI. Dehydration. Fractured left wrist. Constipation. Impaired balance. Decreased safety awareness Objective Exam Vital Signs Date Time Temp Pulse Resp B/P (MAP) Pulse Ox O2 Delivery O2 Flow Rate FiO2 08/24/17 18:34 99.2 88 16 115/70 100 Room Air 08/24/17 09:50 89 20 122/74 08/24/17 04:44 98.6 77 18 145/72 96 Room Air I & O 08/25/17 07:00 Intake Total 1050 ml Balance 1050 ml Capillary Refill : Less Than 3 Seconds General Appearance: No Apparent Distress, WD/WN HEENT: Normal ENT Inspection Neck: Full Range of Motion, Normal Inspection Respiratory: Chest Non Tender, Lungs Clear, No Accessory Muscle Use, No Respiratory Distress Cardiovascular: Regular Rate, Rhythm, No Murmur Assessment/Plan Assessment/Plan Assess & Plan/Chief Complaint UTI. Fractured left wrist. Constipation. Impaired balance. Clinical Quality Measures DVT/VTE Risk/Contraindication: Risk Factor Score Per Nursin RFS Level Per Nursing on Admit: 4+=Very High DARCI REDD DO Aug 24, 2017 19:03
[2017-08-24] MEDS: ATORVASTATIN 10 MG (LIPITOR) TABLET PO SCH (20:22)
[2017-08-24] MEDS: POLYETHYLENE GLYCOL 17 GM (MIRALAX) PACK PO SCH (20:22)
[2017-08-25 05:05] VITALS: BP 144/75
[2017-08-25 05:09] LABS: BILIRUBIN,URINE NEGATIVE (NEGATIVE); KETONES,URINE NEGATIVE (NEGATIVE); LEUKOCYTE ESTERASE ,URINE 2+ (NEGATIVE); NITRITE,URINE NEGATIVE (NEGATIVE); PH,URINE 8 (5-9); PROTEIN,URINE NEGATIVE (NEGATIVE); UROBILINOGEN,URINE NORMAL (NORMAL)
[2017-08-25 05:20] LABS: SQUAMOUS EPITHELIAL CELL,UR RARE /HPF
[2017-08-25 05:20] LABS: MEAN PLATELET VOLUME 8.8 FL (7.4-10.4); RED BLOOD COUNT 3.37 10^6/uL (4.35-5.85); RED CELL DISTRIBUTION WIDTH 15.1 % (10.0-14.5); WHITE BLOOD COUNT 11.1 10^3/uL (4.3-11.0)
[2017-08-25] MEDS: KCL 20 MEQ TAB (K-DUR) PO SCH ×3 (05:37→16:40)
[2017-08-25 06:09] LABS: ALANINE AMINOTRANSFERASE 35 U/L (0-55); ALBUMIN 3.2 GM/DL (3.2-4.5); ANION GAP 11 MMOL/L (5-14); ASPARTATE AMINO TRANSFERASE 51 U/L (5-34); BILIRUBIN,TOTAL 0.5 MG/DL (0.1-1.0); BLOOD UREA NITROGEN 7 MG/DL (7-18); BUN/CREATININE RATIO 10; CALCIUM 9.4 MG/DL (8.5-10.1); CARBON DIOXIDE 25 MMOL/L (21-32); CHLORIDE 102 MMOL/L (98-107); CREATININE SERUM 0.68 MG/DL (0.60-1.30); GFR ESTIMATED > 60; GLUCOSE 93 MG/DL (70-105); POTASSIUM 3.8 MMOL/L (3.6-5.0); SODIUM 138 MMOL/L (135-145); TOTAL PROTEIN 7.6 GM/DL (6.4-8.2)
--- NOTE | 2017-08-25 08:19 | Progress Note (SOAP) ---
Subjective Time Seen by Provider: 08:15 Subjective/Events-last exam UTI. Dehydration. Left wrist fracture. Patient feels he is doing better and getting stronger and getting around better Objective Exam Vital Signs Date Time Temp Pulse Resp B/P (MAP) Pulse Ox O2 Delivery O2 Flow Rate FiO2 08/25/17 05:05 97.9 96 16 144/75 96 Room Air 08/24/17 18:34 99.2 88 16 115/70 100 Room Air 08/24/17 09:50 98.1 89 20 122/74 97 Room Air Capillary Refill : Less Than 3 Seconds General Appearance: No Apparent Distress, WD/WN Results Lab Laboratory Tests 08/25/17 04:50: Urine Color YELLOW, Urine Clarity CLEAR, Urine pH 8, Urine Specific [place] 1.010L, Urine Protein NEGATIVE, Urine Glucose (UA) NEGATIVE, Urine Ketones NEGATIVE, Urine Nitrite NEGATIVE, Urine Bilirubin NEGATIVE, Urine Urobilinogen NORMAL, Urine Leukocyte Esterase 2+H, Urine RBC (Auto) NEGATIVE, Urine RBC NONE , Urine WBC 2-5, Urine Squamous Epithelial Cells RARE, Urine Crystals NONE, Urine Bacteria TRACE, Urine Casts NONE, Urine Mucus NEGATIVE, Urine Culture Indicated NO 08/25/17 05:07: White Blood Count 11.1H, Red Blood Count 3.37L, Hemoglobin 12.5L, Hematocrit 36L , Mean Corpuscular Volume 107H, Mean Corpuscular Hemoglobin 37H, Mean Corpuscular Hemoglobin Concent 35, Red Cell Distribution Width 15.1H, Platelet Count 601H, Mean Platelet Volume 8.8, Sodium Level 138, Potassium Level 3.8, Chloride Level 102, Carbon Dioxide Level 25, Anion Gap 11, Blood Urea Nitrogen 7 , Creatinine 0.68, Estimat Glomerular Filtration Rate > 60, BUN/Creatinine Ratio 10, Glucose Level 93, Calcium Level 9.4, Total Bilirubin 0.5, Aspartate Amino Transf (AST/SGOT) 51H, Alanine Aminotransferase (ALT/SGPT) 35, Alkaline Phosphatase 120, Total Protein 7.6, Albumin 3.2 Assessment/Plan Assessment/Plan Assess & Plan/Chief Complaint UTI. Fractured left wrist. Constipation. Impaired balance.. . 08/25/17. UTI. Fractured left wrist. constipation. Impaired balance. Patient feels he is getting stronger and doing better Clinical Quality Measures DVT/VTE Risk/Contraindication: Risk Factor Score Per Nursin RFS Level Per Nursing on Admit: 4+=Very High DARCI REDD DO Aug 25, 2017 08:19
[2017-08-25] MEDS: PHENYTOIN 100 MG (DILANTIN) CAP PO SCH (08:58)
[2017-08-25] MEDS: CEPHALEXIN 250 MG (KEFLEX) CAP PO SCH ×4 (08:59→20:56)
--- NOTE | 2017-08-25 09:00 | Physical Therapy Daily Note ---
PT Daily Note-Current Subjective Pt is sitting in chair prior to tx and agreeable to PT. Pt has no complaints of pain. Pt is sitting in chair with nurse call, phone, tray, all needs met post tx. Pain Numeric Pain Scale: 0-No Pain Location: No Pain Reported Mental Status Patient Orientation: Normal For Age Transfers Functional [place] Measure 0=Not Assessed/NA 4=Minimal Assistance 1=Total Assistance 5=Supervision or Setup 2=Maximal Assistance 6=Modified [place] 3=Moderate Assistance 7=Complete IndependenceIRFPAI Quality Coding Scale 6 Independent with activity with or without an assistive device 5 Patient requires set up or clean up by helper. Patient completes activity by themselves 4 Supervision or touching assist (CGA). [place] provide cues , steadying assist 3 The helper provides less than half the effort to complete the activity 2 The helper provides more than half the effort to complete the activity 1 Dependent. The helper does all the effort to complete an activity 7 Patient refused to complete or attempt activity 9 The patient did not perform the activity before the current illness or injury 88 Not attempted due to Medical conditions or safety concerns Transfers (B, C, W/C) (FIM): 5 Sit to/from Stand: 5 Pt transfers with supervision for safety. Needs occasional verbal cues for hand placement with sit<>stand. Gait Training Does the Patient Walk?: Yes Gait (FIM): 4 Distance (FIM): 1=096-96 ft Distance: 150'x2 Gait Level of Assist: 4 Gait Persons Needed: 1 Gait Assistive Device: Cane Single Point Pt ambulates with single point cane and CGA for safety. Pt tends to not use cane , lifts and carries it beside him, requires verbal cues for safety. Stair Training Stair Training: Handrails/: 1 handrail #of Steps: 8 Stairs: Pattern: Step to Level of Assist: 4 CGA for safety Exercises Seated Therapy Exercises: Ankle pumps, Long arc quads, Hip flexion, Hamstring Curls, Hip abd/add Seated Reps: 20 Standing: Mini squats, Sit to Stand Standing Reps: 25 NuStep Minutes: 15 NuStep Workload: 7 Treatments Pt completes seated and standing exercises in parallel bars and on Nustep to increase functional LE strengthening using theraband for resistance. Pt completes stair and gait training to increase functional mobility and independence. Assessment Current Status: Fair Progress Pt endurance and strength are increasing. PT Short Term Goals Short Term Goals Time Frame: Aug 29, 2017 Transfers (B,C,W/C) (FIM): 5 Gait (FIM): 5 Distance (FIM): 3=150 ft Gait Distance Comment: 200' Gait Level of Assist: 5 Gait Assistive Device: Cane Single Point PT Shirt Folding Machine Operator Goals Jail Goals PT Jail Goals Time Frame: Sep 12, 2017 Transfers (B,C,W/C) (FIM): 6 Sit to Lying (QC): 6 Lying-Sitting on Side/Bed(QC): 6 Sit to Stand (QC): 6 Rollin Roll Left to Right (QC): 6 Chair/Cyk-np-Piuqb Xfer(QC): 6 Car Transfer (QC): 4 Does the Patient Walk: Yes Gait (FIM): 6 Gait distance (FIM): 3=150 ft Distance: 300' Walk 10 feet (QC): 6 Walk 10ft-Uneven Surface(QC): 6 Walk 50ft with 2 Turns (QC): 6 Walk 150 ft (QC): 6 Gait Level of Assist: 6 Gait Assistive Device: Cane Single Point Stairs (FIM): 4 # of Steps: 12 1 Step (curb) (QC): 4 4 Steps (QC): 4 12 Steps (QC): 4 Stairs Level Of Assist: 4 Picking up an Object (QC): 4 PT Plan Problem List Problem List: Activity Tolerance, Functional Strength, Safety, Balance, Gait, Transfer, Bed Mobility, ROM Treatment/Plan Treatment Plan: Continue Plan of Care Treatment Plan: Bed Mobility, Education, Functional Activity Carlita, Functional Strength, Group Therapy, Gait, Safety, Therapeutic Exercise, Transfers Treatment Duration: Sep 12, 2017 Frequency: At least 5 of 7 days/Wk (IRF) Estimated Hrs Per Day: 1.5 hours per day Patient and/or Family Agrees t: Yes Safety Risks/Education Patient Education: Gait Training, Transfer Techniques, Steps, Reviewed Precautions, Correct Positioning, Safety Issues Teaching Recipient: Patient Teaching Methods: Demonstration, Discussion Response to Teaching: Verbalize Understanding, Reinforcement Needed Time/GCodes Time In: 800 Time Out: 859 Total Billed Treatment Time: 59 Total Billed Treatment 1 visit 44 EX 15 GT SU BUSH PT Aug 25, 2017 09:00
[2017-08-25] MEDS: MILK OF MAGNESIA 400 MG/5 ML 30 ML UDC PO PRN (09:58)
--- NOTE | 2017-08-25 11:10 | Occupational Ther Daily Note ---
OT Current Status-Daily Note Subjective Pt seen in room, up in recliner, agreeable to OT. No pain reported. Mental Status/Objective Functional [place] Measure 0=Not Assessed/NA 4=Minimal Assistance 1=Total Assistance 5=Supervision or Setup 2=Maximal Assistance 6=Modified [place] 3=Moderate Assistance 7=Complete [place] ADL-Treatment Pt declined showering and changing clothes today. Pt encouraged to do ADLs over weekend with nursing SBA. Functional [place] Measure 0=Not Assessed/NA 4=Minimal Assistance 1=Total Assistance 5=Supervision or Setup 2=Maximal Assistance 6=Modified [place] 3=Moderate Assistance 7=Complete IndependenceIRFPAI Quality Coding Scale 6 Independent with activity with or without an assistive device 5 Patient requires set up or clean up by helper. Patient completes activity by themselves 4 Supervision or touching assist (CGA). [place] provide cues , steadying assist 3 The helper provides less than half the effort to complete the activity 2 The helper provides more than half the effort to complete the activity 1 Dependent. The helper does all the effort to complete an activity 7 Patient refused to complete or attempt activity 9 The patient did not perform the activity before the current illness or injury 88 Not attempted due to Medical conditions or safety concerns Other Treatment Pt walked to gym with SBA for safety, SPC. Able to get up and down from chair with arms with occas cue for hand placement and SBA. Can only push up from chair with R arm due to cast on L forearm and wrist. He did 15 minutes exercise on arm bike set at 20W resistance (increased time and resistance), with L UE helping at times. Took only one brief recovery break and otherwise worked at steady pace. Also did peg activity and graded clothespins with 1# weight on R arm. With L UE worked on grasping, holding and placing pegs but had some difficulty due to limited wrist movement and ability to position peg. Also able to pinch graded clothespins with lateral pinch L hand (10 reps, working on yellow, red and green ones with increasing resistance), with R hand assisting with placement of pin. Did 10 reps at shoulder and 15 reps elbow, forearm and wrist R UE exercise with 2# weight. 10 reps at shoulder, 15 at elbow L UE with 1 # weight on forearm. Unable to hold theraband with L hand but did R UE theraband exercises x 15 reps, working on shoulder and elbow. All exercisers are to strengthen R UE to help with transfers and ADLs, increase functional use L UE and increase activity tolerance for ADLs. Pt walked back to room with SBA for safety, SPC, no LOB observed. Pt left up in recliner, all needs met. Education OT Patient Education: Exercise program, Progress toward Goal/Update tx plan, Purpose of tx/functional activities Teaching Recipient: Patient Teaching Methods: Discussion Response to Teaching: Verbalize Understanding OT Short Term Goals Short Term Goals Time Frame: Aug 29, 2017 Eating(FIM): 7 Transfers (B,C,W/C) (FIM): 5 Toilet/Commode Transfer(FIM): 5 Additional Short Term Goals: 2-Verbalize Understanding, 3-ImproveStrength/Carlita 1=Demonstrate adherence to instructed precautions during ADL tasks. 2=Patient will verbalize/demonstrate understanding of assistive devices/ modifications for ADL. 3=Patient will improve strength/tolerance for activity to enable patient to perform ADL's. OT Teacher Hearing Impaired Goals Halfway Goals Time Frame: Sep 12, 2017 Eating (FIM): 7 Eating (QC): 6 Groomin Oral Hygiene (QC): 6 Bathing(FIM): 6 Shower/Bathe Self (QC): 6 Upper Body Dressing(FIM): 6 Upper Body Dressing (QC): 6 Lower Body Dressing(FIM): 6 Lower Body Dressing (QC): 6 On/Off Footwear (QC): 6 Toileting(FIM): 66 Toileting Hygiene (QC): 6 Toilet/Commode Transfer(FIM): 6 Toilet/Commode Transfer (QC): 6 Shower Transfer(FIM): 6 Additional Goals: 2-Verbalize Understanding, 3-ImproveStrength/Carlita 1=Demonstrate adherence to instructed precautions during ADL tasks. 2=Patient will verbalize/demonstrate understanding of assistive devices/ modifications for ADL. 3=Patient will improve strength/tolerance for activity to enable patient to perform ADL's. OT Education/Plan Problem List/Assessment Pt would benefit from skilled OT to increase his independence in basic self care to allow him to safely return to his home to live alone. Discharge Recommendations Plan/Recommendations: Continue POC Treatment Plan/Plan of Care Patient would benefit from OT for education, treatment and training to promote independence in ADL's, mobility, safety and/or upper extremity function for ADL' s. Plan of Care: ADL Retraining, Functional Mobility, Group Exercise/Act as Ind ( exercise, education, activ tolerance, funct mobility, socialization), UE Funct Exercise/Act, UE Neuromus Re-Ed/Coord Treatment Duration: Sep 12, 2017 Frequency: At least 5 of 7 days/Wk (IRF) Estimated Hrs Per Day: 1.5 hours per day Agreement: Yes Rehab Potential: Good Time/GCodes Start Time: 09:00 Stop Time: 10:30 Total Time Billed (hr/min): 90 Billed Treatment Time visit, 90 minutes exercise DANIELA HOLDER OT Aug 25, 2017 11:10
--- NOTE | 2017-08-25 14:01 | Physical Therapy Daily Note ---
PT Daily Note-Current Subjective Pt is sitting in chair prior to tx and agreeable to PT. Pt reports no pain. Pt is sitting in chair with nurse call, phone, tray in reach, all needs met post tx. Pain Numeric Pain Scale: 0-No Pain Location: No Pain Reported Mental Status Patient Orientation: Normal For Age Transfers Functional [place] Measure 0=Not Assessed/NA 4=Minimal Assistance 1=Total Assistance 5=Supervision or Setup 2=Maximal Assistance 6=Modified [place] 3=Moderate Assistance 7=Complete IndependenceIRFPAI Quality Coding Scale 6 Independent with activity with or without an assistive device 5 Patient requires set up or clean up by helper. Patient completes activity by themselves 4 Supervision or touching assist (CGA). [place] provide cues , steadying assist 3 The helper provides less than half the effort to complete the activity 2 The helper provides more than half the effort to complete the activity 1 Dependent. The helper does all the effort to complete an activity 7 Patient refused to complete or attempt activity 9 The patient did not perform the activity before the current illness or injury 88 Not attempted due to Medical conditions or safety concerns Transfers (B, C, W/C) (FIM): 5 Scootin Rollin Supine to/from Sit: 4 Sit to/from Stand: 5 Pt completes bed mobility and sit<>stand with supervision for safety. Pt requires min assist with sit<>supine. Gait Training Does the Patient Walk?: Yes Gait (FIM): 4 Distance (FIM): 3=150 ft Distance: 150'x2 Gait Level of Assist: 4 Gait Persons Needed: 1 Gait Assistive Device: Cane Single Point Pt ambulates 150'x2 with SPC and CGA for safety. Pt is steady on feet, takes short steps. Exercises Supine Ex: Bridging, Ankle pumps, Quad Set, Glut sets, Heel Slides, Short Arc Quads, Resisted flex/ext, Straight leg raise, Hip abd/add Supine Reps: 20 Treatments Pt completes supine exercises on mat to increase functional LE strength. Pt completes gait training to increase mobility and independence. Assessment Current Status: Good Progress Pt ambulation is increasing. PT Short Term Goals Short Term Goals Time Frame: Aug 29, 2017 Transfers (B,C,W/C) (FIM): 5 Gait (FIM): 5 Distance (FIM): 3=150 ft Gait Distance Comment: 200' Gait Level of Assist: 5 Gait Assistive Device: Cane Single Point PT Geothermal Installer Goals Retirement Goals PT Retirement Goals Time Frame: Sep 12, 2017 Transfers (B,C,W/C) (FIM): 6 Sit to Lying (QC): 6 Lying-Sitting on Side/Bed(QC): 6 Sit to Stand (QC): 6 Rollin Roll Left to Right (QC): 6 Chair/Bvx-sw-Xydfk Xfer(QC): 6 Car Transfer (QC): 4 Does the Patient Walk: Yes Gait (FIM): 6 Gait distance (FIM): 3=150 ft Distance: 300' Walk 10 feet (QC): 6 Walk 10ft-Uneven Surface(QC): 6 Walk 50ft with 2 Turns (QC): 6 Walk 150 ft (QC): 6 Gait Level of Assist: 6 Gait Assistive Device: Cane Single Point Stairs (FIM): 4 # of Steps: 12 1 Step (curb) (QC): 4 4 Steps (QC): 4 12 Steps (QC): 4 Stairs Level Of Assist: 4 Picking up an Object (QC): 4 PT Plan Problem List Problem List: Activity Tolerance, Functional Strength, Safety, Balance, Gait, Transfer, Bed Mobility, ROM Treatment/Plan Treatment Plan: Continue Plan of Care Treatment Plan: Bed Mobility, Education, Functional Activity Carlita, Functional Strength, Group Therapy, Gait, Safety, Therapeutic Exercise, Transfers Treatment Duration: Sep 12, 2017 Frequency: At least 5 of 7 days/Wk (IRF) Estimated Hrs Per Day: 1.5 hours per day Patient and/or Family Agrees t: Yes Safety Risks/Education Patient Education: Gait Training, Transfer Techniques, Reviewed Precautions, Correct Positioning, Safety Issues Teaching Recipient: Patient Teaching Methods: Demonstration, Discussion Response to Teaching: Verbalize Understanding, Reinforcement Needed Time/GCodes Time In: 1330 Time Out: 1401 Total Billed Treatment Time: 31 Total Billed Treatment 1 visit 16 EX 15 GT SU BUSH PT Aug 25, 2017 14:01
[2017-08-25 18:43] VITALS: BP 129/73
[2017-08-25] MEDS: ATORVASTATIN 10 MG (LIPITOR) TABLET PO SCH (20:56)
[2017-08-25] MEDS: POLYETHYLENE GLYCOL 17 GM (MIRALAX) PACK PO SCH (20:59)
[2017-08-26 06:07] VITALS: BP 129/59
[2017-08-26] MEDS: KCL 20 MEQ TAB (K-DUR) PO SCH ×3 (06:27→16:53)
[2017-08-26] MEDS: MILK OF MAGNESIA 400 MG/5 ML 30 ML UDC PO PRN (06:27)
[2017-08-26] MEDS: PHENYTOIN 100 MG (DILANTIN) CAP PO SCH (08:15)
[2017-08-26] MEDS: CEPHALEXIN 250 MG (KEFLEX) CAP PO SCH ×4 (08:16→20:55)
--- NOTE | 2017-08-26 12:47 | Physical Therapy Daily Note ---
PT Daily Note-Current Subjective Pt in good spirits and eager to get out of his room. He requests to have more freedom to move about the rehab without supervision. Mental Status Patient Orientation: Person, Place, Time, Situation Transfers Functional [place] Measure 0=Not Assessed/NA 4=Minimal Assistance 1=Total Assistance 5=Supervision or Setup 2=Maximal Assistance 6=Modified [place] 3=Moderate Assistance 7=Complete IndependenceIRFPAI Quality Coding Scale 6 Independent with activity with or without an assistive device 5 Patient requires set up or clean up by helper. Patient completes activity by themselves 4 Supervision or touching assist (CGA). [place] provide cues , steadying assist 3 The helper provides less than half the effort to complete the activity 2 The helper provides more than half the effort to complete the activity 1 Dependent. The helper does all the effort to complete an activity 7 Patient refused to complete or attempt activity 9 The patient did not perform the activity before the current illness or injury 88 Not attempted due to Medical conditions or safety concerns Gait Training Gait Assistive Device: Cane Single Point Ambulated 4 trials of 150ft using a single point cane. Pt instructed on safety during turns and monitoring surroundings. Assessment Pt is showing progress with gait stability and activity tolerance. PT Short Term Goals Short Term Goals Time Frame: Aug 29, 2017 Transfers (B,C,W/C) (FIM): 5 Gait (FIM): 5 Distance (FIM): 3=150 ft Gait Distance Comment: 200' Gait Level of Assist: 5 Gait Assistive Device: Cane Single Point PT Cigar Making Machine Supervisor Goals Cigar Making Machine Supervisor Goals PT Cigar Making Machine Supervisor Goals Time Frame: Sep 12, 2017 Transfers (B,C,W/C) (FIM): 6 Sit to Lying (QC): 6 Lying-Sitting on Side/Bed(QC): 6 Sit to Stand (QC): 6 Rollin Roll Left to Right (QC): 6 Chair/Wdf-xo-Zadzj Xfer(QC): 6 Car Transfer (QC): 4 Does the Patient Walk: Yes Gait (FIM): 6 Gait distance (FIM): 3=150 ft Distance: 300' Walk 10 feet (QC): 6 Walk 10ft-Uneven Surface(QC): 6 Walk 50ft with 2 Turns (QC): 6 Walk 150 ft (QC): 6 Gait Level of Assist: 6 Gait Assistive Device: Cane Single Point Stairs (FIM): 4 # of Steps: 12 1 Step (curb) (QC): 4 4 Steps (QC): 4 12 Steps (QC): 4 Stairs Level Of Assist: 4 Picking up an Object (QC): 4 PT Plan Treatment/Plan Treatment Plan: Continue Plan of Care Treatment Plan: Bed Mobility, Education, Functional Activity Carlita, Functional Strength, Group Therapy, Gait, Safety, Therapeutic Exercise, Transfers Treatment Duration: Sep 12, 2017 Frequency: At least 5 of 7 days/Wk (IRF) Estimated Hrs Per Day: 1.5 hours per day Patient and/or Family Agrees t: Yes Time/GCodes Time In: 917 Time Out: 09 Total Billed Treatment Time: 17 Total Billed Treatment visit, gait 17 minutes PAULA BECK PT Aug 26, 2017 12:47
--- NOTE | 2017-08-26 14:02 | Progress Note-Hospitalist ---
Progress Note Progress Notes/Assess & Plan Date Seen 08/26/17 VERA PRICE DO Aug 26, 2017 14:02
[2017-08-26 17:52] VITALS: BP 118/71
[2017-08-26] MEDS: ATORVASTATIN 10 MG (LIPITOR) TABLET PO SCH (20:55)
[2017-08-26] MEDS: POLYETHYLENE GLYCOL 17 GM (MIRALAX) PACK PO SCH (20:55)
[2017-08-27 05:25] VITALS: BP 129/77
[2017-08-27] MEDS: KCL 20 MEQ TAB (K-DUR) PO SCH ×3 (06:31→15:31)
[2017-08-27] MEDS: PHENYTOIN 100 MG (DILANTIN) CAP PO SCH (08:16)
[2017-08-27] MEDS: CEPHALEXIN 250 MG (KEFLEX) CAP PO SCH ×2 (08:16→12:47)
[2017-08-27 17:56] VITALS: BP 128/74
[2017-08-27] MEDS: ATORVASTATIN 10 MG (LIPITOR) TABLET PO SCH (20:57)
[2017-08-27] MEDS: POLYETHYLENE GLYCOL 17 GM (MIRALAX) PACK PO SCH (20:57)
[2017-08-28 05:54] VITALS: BP 135/79
[2017-08-28] MEDS: KCL 20 MEQ TAB (K-DUR) PO SCH ×3 (06:11→16:50)
--- NOTE | 2017-08-28 08:14 | Progress Note (SOAP) ---
Subjective Time Seen by Provider: 08:11 Subjective/Events-last exam Patient feels he is doing better. Weakness and fatigue is improving. Left wrist fracture. UTI history. Dehydration. Patient walking by himself Objective Exam Vital Signs Date Time Temp Pulse Resp B/P (MAP) Pulse Ox O2 Delivery O2 Flow Rate FiO2 08/28/17 05:54 99.2 103 18 135/79 96 Room Air 08/27/17 17:56 98.7 79 16 128/74 97 Room Air 08/27/17 08:18 Room Air Capillary Refill : Less Than 3 Seconds General Appearance: No Apparent Distress, WD/WN Assessment/Plan Assessment/Plan Assess & Plan/Chief Complaint UTI. Fractured left wrist. Constipation. Impaired balance.. . 08/25/17. UTI. Fractured left wrist. constipation. Impaired balance. Patient feels he is getting stronger and doing better. . 08/28/17. UTI. Fractured left wrist. Impaired balance improving. Patient getting stronger and walking by himself today Clinical Quality Measures DVT/VTE Risk/Contraindication: Risk Factor Score Per Nursin RFS Level Per Nursing on Admit: 4+=Very High DARCI REDD DO Aug 28, 2017 08:14
[2017-08-28] MEDS: PHENYTOIN 100 MG (DILANTIN) CAP PO SCH (08:30)
--- NOTE | 2017-08-28 09:01 | Physical Therapy Daily Note ---
PT Daily Note-Current Subjective Pt sitting in recliner upon arrival. Pt reports feeling a little tight and would like to walk since didn't get to much this weekend. Pt agreed to PT. Pain Location: No Pain Reported Mental Status Patient Orientation: Person, Place, Time, Situation Transfers Functional [place] Measure 0=Not Assessed/NA 4=Minimal Assistance 1=Total Assistance 5=Supervision or Setup 2=Maximal Assistance 6=Modified [place] 3=Moderate Assistance 7=Complete IndependenceIRFPAI Quality Coding Scale 6 Independent with activity with or without an assistive device 5 Patient requires set up or clean up by helper. Patient completes activity by themselves 4 Supervision or touching assist (CGA). [place] provide cues , steadying assist 3 The helper provides less than half the effort to complete the activity 2 The helper provides more than half the effort to complete the activity 1 Dependent. The helper does all the effort to complete an activity 7 Patient refused to complete or attempt activity 9 The patient did not perform the activity before the current illness or injury 88 Not attempted due to Medical conditions or safety concerns Scootin Sit to/from Stand: 5 Sit to Stand (QC): 5 Weight Bearing Right Lower Extremity: Right Full Weight Bearing Left Lower Extremity: Left Full Weight Bearing Gait Training Does the Patient Walk?: Yes Distance (FIM): 3=150 ft Distance: 350' Walk 10 feet (QC): 5 Walk 50 ft with 2 Turns(QC): 5 Walk 150 ft (QC): 5 Gait Level of Assist: 5 Gait Persons Needed: 1 Gait Assistive Device: None Pt walked w/o AD today. Pt fatigues but recognizes it and rest occasionally when needed. Pt walks with normalized gait, no LOB. Wheelchair Training Does the Pt Use a Wheelchair?: No Stair Training Stair Training: Handrails/: 2 handrails #of Steps: 8 1 Step (curb) (QC): 5 4 Steps (QC): 5 Stairs: Pattern: Step to Exercises NuStep Minutes: 15 NuStep Workload: 6 Treatments Pt transfers from recliner to standing using SPC at SBA. Pt ambulates at SBA and tries w/o AD. Pt uses NuStep for 15m at Workload 6 as well as 2 sets of 4 stairs. Pt ambulates more in hallway before returning to room to rest in recliner at end of tx. Pt has all needs met and Nurse is given meds at end of tx. Assessment Current Status: Good Progress Pt is improving on independence and safety of transfers and especially with ambulation. Pt was able to walk w/o AD today and maintain good balance. PT Short Term Goals Short Term Goals Time Frame: Aug 29, 2017 Transfers (B,C,W/C) (FIM): 5 Gait (FIM): 5 Distance (FIM): 3=150 ft Gait Distance Comment: 200' Gait Level of Assist: 5 Gait Assistive Device: Cane Single Point PT Shelter Goals Fitness Services Manager Goals PT Fitness Services Manager Goals Time Frame: Sep 12, 2017 Transfers (B,C,W/C) (FIM): 6 Sit to Lying (QC): 6 Lying-Sitting on Side/Bed(QC): 6 Sit to Stand (QC): 6 Rollin Roll Left to Right (QC): 6 Chair/Vyc-jp-Eexjz Xfer(QC): 6 Car Transfer (QC): 4 Does the Patient Walk: Yes Gait (FIM): 6 Gait distance (FIM): 3=150 ft Distance: 300' Walk 10 feet (QC): 6 Walk 10ft-Uneven Surface(QC): 6 Walk 50ft with 2 Turns (QC): 6 Walk 150 ft (QC): 6 Gait Level of Assist: 6 Gait Assistive Device: Cane Single Point Stairs (FIM): 4 # of Steps: 12 1 Step (curb) (QC): 4 4 Steps (QC): 4 12 Steps (QC): 4 Stairs Level Of Assist: 4 Picking up an Object (QC): 4 PT Plan Problem List Problem List: Activity Tolerance, Functional Strength Treatment/Plan Treatment Plan: Continue Plan of Care Treatment Plan: Bed Mobility, Education, Functional Activity Carlita, Functional Strength, Group Therapy, Gait, Safety, Therapeutic Exercise, Transfers Treatment Duration: Sep 12, 2017 Frequency: At least 5 of 7 days/Wk (IRF) Estimated Hrs Per Day: 1.5 hours per day Patient and/or Family Agrees t: Yes Safety Risks/Education Patient Education: Gait Training, Correct Positioning, Safety Issues Teaching Recipient: Patient Teaching Methods: Discussion Response to Teaching: Verbalize Understanding Time/GCodes Time In: 800 Time Out: 900 Total Billed Treatment Time: 60 Total Billed Treatment visit, EX (15m), GT x2 (30m) & FA (15m) INA BORREGO PTA Aug 28, 2017 09:01
--- NOTE | 2017-08-28 11:26 | Occupational Ther Daily Note ---
OT Current Status-Daily Note Appearance Pt seen in room, up in recliner, agreeable to OT. Pt did not report any pain. Mental Status/Objective Functional [place] Measure 0=Not Assessed/NA 4=Minimal Assistance 1=Total Assistance 5=Supervision or Setup 2=Maximal Assistance 6=Modified [place] 3=Moderate Assistance 7=Complete [place] Attachments: Other-See Comments (cast L forearm) ADL-Treatment Pt got in/out of recliner with SBA for safety, no AD. Walked to bathroom to toilet, shower, groom with SBA for walking components. Pt returned to recliner to finish dressing. Functional [place] Measure 0=Not Assessed/NA 4=Minimal Assistance 1=Total Assistance 5=Supervision or Setup 2=Maximal Assistance 6=Modified [place] 3=Moderate Assistance 7=Complete IndependenceIRFPAI Quality Coding Scale 6 Independent with activity with or without an assistive device 5 Patient requires set up or clean up by helper. Patient completes activity by themselves 4 Supervision or touching assist (CGA). [place] provide cues , steadying assist 3 The helper provides less than half the effort to complete the activity 2 The helper provides more than half the effort to complete the activity 1 Dependent. The helper does all the effort to complete an activity 7 Patient refused to complete or attempt activity 9 The patient did not perform the activity before the current illness or injury 88 Not attempted due to Medical conditions or safety concerns Grooming (FIM): 5 (SBA at sink to brush teeth and comb hair. Washed face and hands in shower. Uses electric razor) Bathing (FIM): 5 (Washed and dried all parts except back. Turned water on and off and retrieved towel from bar. Shower bench, grab bar, hand held shower. Setup due to covering cast) Upper Body (FIM): 6 (Pt got own clothes out prior to dressing. Doffed and donned shirt without difficulty) Lower Body Dressing (FIM): 6 (Set out clean clothes and put dirty ones away. Doffed and donned underwear and shorts without assistance, including shoes. Mild safety concerns with balance) Toileting (FIM): 6 (Managed clothing and hygiene without assistance or LOB. Tall toilet, grab bar) Toilet/Commode Transfer (FIM): 6 (On and off toilet without assistance or LOB. Tall toilet, grab bar) Shower Transfer(FIM): 6 (On/off shower bench, grab bar. Pt is careful to dry feet) Other Treatment Pt walked to gym with SBA, no AD, no LOB observed. Got in/out of chair with arms with extra time, L hand on thigh to help push up. Pt did 15 minutes bilat UE exercise with arm bike set at 20-25W resistance (increased resistance), to strengthen arms to help with transfers. Did some with R hand only due to decreased grasp L hand (in wrist flexion in cast). Also did tabletop activities with arc activity, graded clothespins and nuts/bolts with 2# weight on R UE and 1# weight on L UE (increased weight on both arms). Able to grasp yellow, red and green pins with L hand but with difficulty placing them on base (due to cast ). Also did R UE ex with red theraband, 20 reps (increased reps). All exercise to increase activity tolerance and to strengthen arms to help with transfers and ADLs. Pt walked back to room with SBA for safety, no LOB observed. Pt left up in recliner, all needs met. Education OT Patient Education: Exercise program, Progress toward Goal/Update tx plan, Purpose of tx/functional activities Teaching Recipient: Patient Teaching Methods: Discussion Response to Teaching: Verbalize Understanding OT Short Term Goals Short Term Goals Time Frame: Aug 29, 2017 Eating(FIM): 7 Transfers (B,C,W/C) (FIM): 5 Toilet/Commode Transfer(FIM): 5 Additional Short Term Goals: 2-Verbalize Understanding, 3-ImproveStrength/Carlita 1=Demonstrate adherence to instructed precautions during ADL tasks. 2=Patient will verbalize/demonstrate understanding of assistive devices/ modifications for ADL. 3=Patient will improve strength/tolerance for activity to enable patient to perform ADL's. OT Medical Underwriter Goals Medical Underwriter Goals Time Frame: Sep 12, 2017 Eating (FIM): 7 Eating (QC): 6 Groomin Oral Hygiene (QC): 6 Bathing(FIM): 6 Shower/Bathe Self (QC): 6 Upper Body Dressing(FIM): 6 Upper Body Dressing (QC): 6 Lower Body Dressing(FIM): 6 Lower Body Dressing (QC): 6 On/Off Footwear (QC): 6 Toileting(FIM): 66 Toileting Hygiene (QC): 6 Toilet/Commode Transfer(FIM): 6 Toilet/Commode Transfer (QC): 6 Shower Transfer(FIM): 6 Additional Goals: 2-Verbalize Understanding, 3-ImproveStrength/Carlita 1=Demonstrate adherence to instructed precautions during ADL tasks. 2=Patient will verbalize/demonstrate understanding of assistive devices/ modifications for ADL. 3=Patient will improve strength/tolerance for activity to enable patient to perform ADL's. OT Education/Plan Problem List/Assessment Pt would benefit from skilled OT to increase his independence in basic self care to allow him to safely return to his home to live alone. Discharge Recommendations Plan/Recommendations: Continue POC Treatment Plan/Plan of Care Patient would benefit from OT for education, treatment and training to promote independence in ADL's, mobility, safety and/or upper extremity function for ADL' s. Plan of Care: ADL Retraining, Functional Mobility, Group Exercise/Act as Ind ( exercise, education, activ tolerance, funct mobility, socialization), UE Funct Exercise/Act, UE Neuromus Re-Ed/Coord Treatment Duration: Sep 12, 2017 Frequency: At least 5 of 7 days/Wk (IRF) Estimated Hrs Per Day: 1.5 hours per day Agreement: Yes Rehab Potential: Good Time/GCodes Start Time: 09:20 Stop Time: 10:50 Total Time Billed (hr/min): 90 Billed Treatment Time visit, 27 minutes ADL, 63 minutes exercise DANIELA HOLDER OT Aug 28, 2017 11:26
--- NOTE | 2017-08-28 13:32 | Physical Therapy Daily Note ---
PT Daily Note-Current Subjective Pt sitting in recliner upon arrival. Pt agreed to PT. Pain Location: No Pain Reported Mental Status Patient Orientation: Person, Place, Time, Situation Transfers Functional [place] Measure 0=Not Assessed/NA 4=Minimal Assistance 1=Total Assistance 5=Supervision or Setup 2=Maximal Assistance 6=Modified [place] 3=Moderate Assistance 7=Complete IndependenceIRFPAI Quality Coding Scale 6 Independent with activity with or without an assistive device 5 Patient requires set up or clean up by helper. Patient completes activity by themselves 4 Supervision or touching assist (CGA). [place] provide cues , steadying assist 3 The helper provides less than half the effort to complete the activity 2 The helper provides more than half the effort to complete the activity 1 Dependent. The helper does all the effort to complete an activity 7 Patient refused to complete or attempt activity 9 The patient did not perform the activity before the current illness or injury 88 Not attempted due to Medical conditions or safety concerns Scootin Sit to/from Stand: 5 Sit to Stand (QC): 5 Weight Bearing Right Lower Extremity: Right Full Weight Bearing Left Lower Extremity: Left Full Weight Bearing Gait Training Does the Patient Walk?: Yes Distance (FIM): 3=150 ft Distance: 300' Walk 10 feet (QC): 5 Walk 50 ft with 2 Turns(QC): 5 Walk 150 ft (QC): 5 Gait Level of Assist: 5 Gait Persons Needed: 1 Gait Assistive Device: None Pt walks w/o AD at close SBA due to fatigue. Pt has normalized gait and activity tolerance is improving. Wheelchair Training Does the Pt Use a Wheelchair?: No Treatments Pt transfers from recliner to standing w/o AD at SBA. Pt ambulates in hallway and in [facility]. Pt fatigues so takes a few short rest breaks during ambulation. Pt returns to room to rest in recliner at end of tx with all needs met. Assessment Current Status: Good Progress Pt is making improvements with independence and safety of ambulation during tx but still needs rest breaks due to fatigue. PT Short Term Goals Short Term Goals Time Frame: Aug 29, 2017 Transfers (B,C,W/C) (FIM): 5 Gait (FIM): 5 Distance (FIM): 3=150 ft Gait Distance Comment: 200' Gait Level of Assist: 5 Gait Assistive Device: Cane Single Point PT Mcc Goals Student Services Counselor Goals PT Student Services Counselor Goals Time Frame: Sep 12, 2017 Transfers (B,C,W/C) (FIM): 6 Sit to Lying (QC): 6 Lying-Sitting on Side/Bed(QC): 6 Sit to Stand (QC): 6 Rollin Roll Left to Right (QC): 6 Chair/Cpo-dg-Jfmhp Xfer(QC): 6 Car Transfer (QC): 4 Does the Patient Walk: Yes Gait (FIM): 6 Gait distance (FIM): 3=150 ft Distance: 300' Walk 10 feet (QC): 6 Walk 10ft-Uneven Surface(QC): 6 Walk 50ft with 2 Turns (QC): 6 Walk 150 ft (QC): 6 Gait Level of Assist: 6 Gait Assistive Device: Cane Single Point Stairs (FIM): 4 # of Steps: 12 1 Step (curb) (QC): 4 4 Steps (QC): 4 12 Steps (QC): 4 Stairs Level Of Assist: 4 Picking up an Object (QC): 4 PT Plan Problem List Problem List: Activity Tolerance, Functional Strength, Gait Treatment/Plan Treatment Plan: Continue Plan of Care Treatment Plan: Bed Mobility, Education, Functional Activity Carlita, Functional Strength, Group Therapy, Gait, Safety, Therapeutic Exercise, Transfers Treatment Duration: Sep 12, 2017 Frequency: At least 5 of 7 days/Wk (IRF) Estimated Hrs Per Day: 1.5 hours per day Patient and/or Family Agrees t: Yes Safety Risks/Education Patient Education: Gait Training, Correct Positioning, Safety Issues Teaching Recipient: Patient Teaching Methods: Discussion Response to Teaching: Verbalize Understanding Time/GCodes Time In: 1300 Time Out: 1330 Total Billed Treatment Time: 30 Total Billed Treatment visit, GT x2 (30m) INA BORREGO DISTANCE LEARNING COORDINATOR Aug 28, 2017 13:32
[2017-08-28 18:59] VITALS: BP 123/76
[2017-08-28] MEDS: ATORVASTATIN 10 MG (LIPITOR) TABLET PO SCH (20:20)
[2017-08-28] MEDS: POLYETHYLENE GLYCOL 17 GM (MIRALAX) PACK PO SCH (20:20)
[2017-08-29 06:00] VITALS: BP 115/73
[2017-08-29] MEDS: KCL 20 MEQ TAB (K-DUR) PO SCH ×3 (06:19→16:19)
[2017-08-29] MEDS: PHENYTOIN 100 MG (DILANTIN) CAP PO SCH (08:15)
--- NOTE | 2017-08-29 10:01 | Physical Therapy Daily Note ---
PT Daily Note-Current Subjective Pt sitting in recliner upon arrival. Pt agrees to PT. Pain Location: No Pain Reported Mental Status Patient Orientation: Person, Place, Time, Situation Transfers Functional [place] Measure 0=Not Assessed/NA 4=Minimal Assistance 1=Total Assistance 5=Supervision or Setup 2=Maximal Assistance 6=Modified [place] 3=Moderate Assistance 7=Complete IndependenceIRFPAI Quality Coding Scale 6 Independent with activity with or without an assistive device 5 Patient requires set up or clean up by helper. Patient completes activity by themselves 4 Supervision or touching assist (CGA). [place] provide cues , steadying assist 3 The helper provides less than half the effort to complete the activity 2 The helper provides more than half the effort to complete the activity 1 Dependent. The helper does all the effort to complete an activity 7 Patient refused to complete or attempt activity 9 The patient did not perform the activity before the current illness or injury 88 Not attempted due to Medical conditions or safety concerns Scootin Sit to/from Stand: 5 Sit to Stand (QC): 5 Weight Bearing Right Lower Extremity: Right Full Weight Bearing Left Lower Extremity: Left Full Weight Bearing Gait Training Does the Patient Walk?: Yes Distance (FIM): 3=150 ft Distance: 300' Walk 10 feet (QC): 5 Walk 50 ft with 2 Turns(QC): 5 Walk 150 ft (QC): 5 Gait Level of Assist: 5 Gait Assistive Device: None Pt is Wheelchair Training Does the Pt Use a Wheelchair?: No Exercises NuStep Minutes: 15 NuStep Workload: 6 Treatments Pt transfers from recliner to standing w/o AD at [facility]. Pt ambulates in hallway w /o AD at [facility]. Pt completes 15m on NuStep at Workload 6. Pt also completes 3 sets of 4 stairs followed by more ambulation then returns to room to rest at end of tx with all needs met. Assessment Current Status: Good Progress Pt continues to ambulate better everyday and requires less frequent rest breaks. PT Short Term Goals Short Term Goals Time Frame: Aug 29, 2017 Transfers (B,C,W/C) (FIM): 5 Gait (FIM): 5 Distance (FIM): 3=150 ft Gait Distance Comment: 200' Gait Level of Assist: 5 Gait Assistive Device: Cane Single Point PT Detention Goals Highway Worker Goals PT Detention Goals Time Frame: Sep 12, 2017 Transfers (B,C,W/C) (FIM): 6 Sit to Lying (QC): 6 Lying-Sitting on Side/Bed(QC): 6 Sit to Stand (QC): 6 Rollin Roll Left to Right (QC): 6 Chair/Bpi-oa-Ihfcp Xfer(QC): 6 Car Transfer (QC): 4 Does the Patient Walk: Yes Gait (FIM): 6 Gait distance (FIM): 3=150 ft Distance: 300' Walk 10 feet (QC): 6 Walk 10ft-Uneven Surface(QC): 6 Walk 50ft with 2 Turns (QC): 6 Walk 150 ft (QC): 6 Gait Level of Assist: 6 Gait Assistive Device: Cane Single Point Stairs (FIM): 4 # of Steps: 12 1 Step (curb) (QC): 4 4 Steps (QC): 4 12 Steps (QC): 4 Stairs Level Of Assist: 4 Picking up an Object (QC): 4 PT Plan Problem List Problem List: Activity Tolerance, Gait Treatment/Plan Treatment Plan: Continue Plan of Care Treatment Plan: Bed Mobility, Education, Functional Activity Carlita, Functional Strength, Group Therapy, Gait, Safety, Therapeutic Exercise, Transfers Treatment Duration: Sep 12, 2017 Frequency: At least 5 of 7 days/Wk (IRF) Estimated Hrs Per Day: 1.5 hours per day Patient and/or Family Agrees t: Yes Safety Risks/Education Patient Education: Gait Training, Correct Positioning, Safety Issues Teaching Recipient: Patient Teaching Methods: Discussion Response to Teaching: Verbalize Understanding Time/GCodes Time In: 803 Time Out: 900 Total Billed Treatment Time: 57 Total Billed Treatment visit, GT x2 (30m), FA (12m) & EX (15m) INA BORREGO MACHINE PRECISION ENGRAVER Aug 29, 2017 10:01
--- NOTE | 2017-08-29 10:10 | Progress Note-Hospitalist ---
Subjective HPI/CC On Admission Date Seen by Provider: Aug 29, 2017 Time Seen by Provider: 09:50 patient reports feeling better with no significant wrist pain. Stamina is slowly improving and balance reportedly is improving. He does report nocturia several times a night with slow stream but he feels as though he is emptying his bladder completely and denies dysuria. Objective Exam Vital Signs Vital Sign - Last 12Hours 08/23/17 05:01 Temp 99.3 Pulse 104 Resp 18 B/P (MAP) 145/77 Pulse Ox 97 O2 Delivery Room Air Capillary Refill : Less Than 3 Seconds General Appearance: No Apparent Distress, Chronically ill Respiratory: Chest Non Tender, Lungs Clear, Normal Breath Sounds, No Accessory Muscle Use, No Respiratory Distress Cardiovascular: Regular Rate, Rhythm, No Edema, No Gallop, No JVD, No Murmur, Normal Peripheral Pulses Extremity: Other (trace bilateral edema with chronic venous insufficiency changes noted evidence for ulceration is noted. Skin is slightly dry) Neurologic/Psychiatric: Alert Assessment/Plan Assessment and Plan Assess & Plan/Chief Complaint 1. Recent urosepsis secondary to Escherichia coli resolved. 2. Deconditioning multifactorial improving with physical therapy and improve nutrition. 3. Macrocytic anemia we'll check B12 level there is likely reactive thrombocytosis we will also check iron studies. Tentative discharge later this week. 4. Colles' fracture left wrist status post open reduction internal fixation doing well. GEOFFREY ESCALERA MD Aug 29, 2017 10:10
--- NOTE | 2017-08-29 12:48 | Occupational Ther Daily Note ---
OT Current Status-Daily Note Subjective Pt seen in room, up in recliner, agreeable to OT. No pain mentioned. Appearance Alert, cooperative Mental Status/Objective Functional [place] Measure 0=Not Assessed/NA 4=Minimal Assistance 1=Total Assistance 5=Supervision or Setup 2=Maximal Assistance 6=Modified [place] 3=Moderate Assistance 7=Complete [place] ADL-Treatment Pt got up out of recliner with just a little difficulty. Walked to and from bathroom with SBA, no AD, no LOB observed. Mild safety concerns Functional [place] Measure 0=Not Assessed/NA 4=Minimal Assistance 1=Total Assistance 5=Supervision or Setup 2=Maximal Assistance 6=Modified [place] 3=Moderate Assistance 7=Complete IndependenceIRFPAI Quality Coding Scale 6 Independent with activity with or without an assistive device 5 Patient requires set up or clean up by helper. Patient completes activity by themselves 4 Supervision or touching assist (CGA). [place] provide cues , steadying assist 3 The helper provides less than half the effort to complete the activity 2 The helper provides more than half the effort to complete the activity 1 Dependent. The helper does all the effort to complete an activity 7 Patient refused to complete or attempt activity 9 The patient did not perform the activity before the current illness or injury 88 Not attempted due to Medical conditions or safety concerns Grooming (FIM): 5 (SBA at sink to brush teeth and hair. Washed face and hands in shower) Bathing (FIM): 5 (Setup required to cover cast. Pt washed and dried all parts, using shower bench, grab bars, hand held shower. ) Upper Body (FIM): 6 (Doffed and donned clothing without help. Retrieved clean clothes and put dirty ones away) Lower Body Dressing (FIM): 6 (Doffed and donned clothing without assistance, including shoes with velcro closures. Retrieved clean clothes and put dirty ones away. Mild safety concerns) Toileting (FIM): 6 (Managed clothing and hygiene. Tall toilet, grab bars) Toilet/Commode Transfer (FIM): 6 (On and off tall toilet, grab bar) Shower Transfer(FIM): 6 (On, off shower bench with grab bar) Other Treatment Pt walked with SBA to gym and then to [facility] area. Stood to do nuts and bolts activity, tolerating standing about 5 minutes before needing to sit to rest. Stood times two. Standing to help with activity tolerance for ADLs and also IADLs such as preparing meals. Pt educ on pacing himself for energy conservation. Pt walked back to room, SBA with no LOB observed, and was left up in recliner, all needs met. Education OT Patient Education: Energy conservation, Progress toward Goal/Update tx plan , Purpose of tx/functional activities Teaching Recipient: Patient Teaching Methods: Discussion Response to Teaching: Verbalize Understanding OT Short Term Goals Short Term Goals Time Frame: Aug 29, 2017 Eating(FIM): 7 Transfers (B,C,W/C) (FIM): 5 Toilet/Commode Transfer(FIM): 5 Additional Short Term Goals: 2-Verbalize Understanding, 3-ImproveStrength/Carlita 1=Demonstrate adherence to instructed precautions during ADL tasks. 2=Patient will verbalize/demonstrate understanding of assistive devices/ modifications for ADL. 3=Patient will improve strength/tolerance for activity to enable patient to perform ADL's. OT Shelter Goals Wheel And Axle Inspector Goals Time Frame: Sep 12, 2017 Eating (FIM): 7 Eating (QC): 6 Groomin Oral Hygiene (QC): 6 Bathing(FIM): 6 Shower/Bathe Self (QC): 6 Upper Body Dressing(FIM): 6 Upper Body Dressing (QC): 6 Lower Body Dressing(FIM): 6 Lower Body Dressing (QC): 6 On/Off Footwear (QC): 6 Toileting(FIM): 66 Toileting Hygiene (QC): 6 Toilet/Commode Transfer(FIM): 6 Toilet/Commode Transfer (QC): 6 Shower Transfer(FIM): 6 Additional Goals: 2-Verbalize Understanding, 3-ImproveStrength/Carlita 1=Demonstrate adherence to instructed precautions during ADL tasks. 2=Patient will verbalize/demonstrate understanding of assistive devices/ modifications for ADL. 3=Patient will improve strength/tolerance for activity to enable patient to perform ADL's. OT Education/Plan Problem List/Assessment Pt would benefit from skilled OT to increase his independence in basic self care to allow him to safely return to his home to live alone. Discharge Recommendations Plan/Recommendations: Continue POC Treatment Plan/Plan of Care Patient would benefit from OT for education, treatment and training to promote independence in ADL's, mobility, safety and/or upper extremity function for ADL' s. Plan of Care: ADL Retraining, Functional Mobility, Group Exercise/Act as Ind ( exercise, education, activ tolerance, funct mobility, socialization), UE Funct Exercise/Act, UE Neuromus Re-Ed/Coord Treatment Duration: Sep 12, 2017 Frequency: At least 5 of 7 days/Wk (IRF) Estimated Hrs Per Day: 1.5 hours per day Agreement: Yes Rehab Potential: Good Time/GCodes Start Time: 09:00 Stop Time: 10:00 Total Time Billed (hr/min): 60 Billed Treatment Time visit, 35 min ADL, 25 funct activity DANIELA HOLDER OT Aug 29, 2017 12:48
--- NOTE | 2017-08-29 14:46 | Therapy Group Daily Note ---
Therapy Daily Group Note Exercises LE Seated Exercise, UE Exercise Other/Notes Pt was an active participant in OT/PT group. He introduced himself by identifying states that he has visited. He contributed to group discussion during [place] history and geography activity. He did seated UE and LE exercises, modifying them as needed because of his injury. He walked back to his room with SBA and was left up in recliner, all needs met. Start Time: 13:00 Stop Time: 14:05 Total Billed Treatment Time: 65 Total Billed Treatment visit, group 65 minutes DANIELA HOLDER OT Aug 29, 2017 14:46
[2017-08-29 18:14] VITALS: BP 120/57
--- NOTE | 2017-08-29 19:58 | PM & R (SOAP) Progress Note ---
Subjective Time Seen by Provider: 19:50 Subjective/Events-last exam Patient was seen in his room this evening Progressing well with therapies Patient to see Dr Dietz ortho tomorrow Patient SBA for transfers Objective Exam Last Set of Vital Signs Vital Signs Date Time Temp Pulse Resp B/P (MAP) Pulse Ox O2 Delivery O2 Flow Rate FiO2 08/29/17 18:14 99.0 90 16 120/57 91 Room Air Capillary Refill : Less Than 3 Seconds I&O Intake and Output 08/30/17 00:00 Intake Total 1860 ml Balance 1860 ml Intake Oral 1860 ml # Voids 9 # Bowel Movements 2 General: Alert, Oriented X3, Cooperative, No Acute Distress HEENT: Atraumatic, PERRLA, EOMI, Mucous Memb Moist/[place] Neck: Supple, No JVD Lungs: Clear to Auscultation Heart: Regular Rate Abdomen: Normal Bowel Sounds, Soft, No Tenderness Extremities: No Edema, Other (cast left wrist) Neuro: Other (Strength improving) Results Lab Laboratory Tests 08/29/17 11:39: Assessment/Plan Assessment Fall with left colles frx s/p orif DR Dietz UTI treated 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 TRE BRANNON MD Aug 29, 2017 19:58
[2017-08-29] MEDS: POLYETHYLENE GLYCOL 17 GM (MIRALAX) PACK PO SCH (20:22)
[2017-08-29] MEDS: ATORVASTATIN 10 MG (LIPITOR) TABLET PO SCH (20:22)
[2017-08-30] MEDS: KCL 20 MEQ TAB (K-DUR) PO SCH ×3 (05:03→17:06)
[2017-08-30 05:34] VITALS: BP 119/74
[2017-08-30] MEDS: PHENYTOIN 100 MG (DILANTIN) CAP PO SCH (07:54)
--- NOTE | 2017-08-30 08:57 | Physical Therapy Daily Note ---
PT Daily Note-Current Subjective Pt sitting in recliner upon arrival. Pt agrees to PT. Pt & PT discuss that Pt is having appt with Dr Dietz today at 1515. Pain Numeric Pain Scale: 3 Location: Left Location Body Site: Knee Pain Description: Tightness Mental Status Patient Orientation: Person, Place, Time, Situation Transfers Functional [place] Measure 0=Not Assessed/NA 4=Minimal Assistance 1=Total Assistance 5=Supervision or Setup 2=Maximal Assistance 6=Modified [place] 3=Moderate Assistance 7=Complete IndependenceIRFPAI Quality Coding Scale 6 Independent with activity with or without an assistive device 5 Patient requires set up or clean up by helper. Patient completes activity by themselves 4 Supervision or touching assist (CGA). [place] provide cues , steadying assist 3 The helper provides less than half the effort to complete the activity 2 The helper provides more than half the effort to complete the activity 1 Dependent. The helper does all the effort to complete an activity 7 Patient refused to complete or attempt activity 9 The patient did not perform the activity before the current illness or injury 88 Not attempted due to Medical conditions or safety concerns Scootin Sit to/from Stand: 6 Sit to Stand (QC): 6 Weight Bearing Right Lower Extremity: Right Full Weight Bearing Left Lower Extremity: Left Full Weight Bearing Gait Training Does the Patient Walk?: Yes Distance (FIM): 3=150 ft Distance: 350' Walk 10 feet (QC): 5 Walk 50 ft with 2 Turns(QC): 5 Walk 150 ft (QC): 5 Gait Level of Assist: 5 Gait Persons Needed: 1 Gait Assistive Device: None Pt walks with normalized gait and no AD. Pt needs occasional rest break due to fatigue. Wheelchair Training Does the Pt Use a Wheelchair?: No Stair Training Stair Training: Handrails/: 1 handrail #of Steps: 12 1 Step (curb) (QC): 5 4 Steps (QC): 5 12 Steps (QC): 5 Stairs: Pattern: Step to Level of Assist: 5 Exercises NuStep Minutes: 15 NuStep Workload: 7 Treatments Pt transfers from recliner to standing w/o AD at Mod I. Pt ambulates in hallway w/o AD at SBA due to fatigue and reports that pt feels L knee has more give today than yesterday. Pt ambulates 3 sets of 4 stairs. Pt completes NuStep for 15m at Workload 7. Pt returns to room at end of tx to rest in recliner with all needs met. Assessment Current Status: Good Progress Pt continues to improve with transfers and independence and safety of ambulation. Pt fatigue but is able to quickly recover. PT Short Term Goals Short Term Goals Time Frame: Aug 29, 2017 Transfers (B,C,W/C) (FIM): 5 Gait (FIM): 5 Distance (FIM): 3=150 ft Gait Distance Comment: 200' Gait Level of Assist: 5 Gait Assistive Device: Cane Single Point PT Software Support Representative Goals Software Support Representative Goals PT Software Support Representative Goals Time Frame: Sep 12, 2017 Transfers (B,C,W/C) (FIM): 6 Sit to Lying (QC): 6 Lying-Sitting on Side/Bed(QC): 6 Sit to Stand (QC): 6 Rollin Roll Left to Right (QC): 6 Chair/Yrq-fa-Sxykr Xfer(QC): 6 Car Transfer (QC): 4 Does the Patient Walk: Yes Gait (FIM): 6 Gait distance (FIM): 3=150 ft Distance: 300' Walk 10 feet (QC): 6 Walk 10ft-Uneven Surface(QC): 6 Walk 50ft with 2 Turns (QC): 6 Walk 150 ft (QC): 6 Gait Level of Assist: 6 Gait Assistive Device: Cane Single Point Stairs (FIM): 4 # of Steps: 12 1 Step (curb) (QC): 4 4 Steps (QC): 4 12 Steps (QC): 4 Stairs Level Of Assist: 4 Picking up an Object (QC): 4 PT Plan Problem List Problem List: Activity Tolerance Treatment/Plan Treatment Plan: Continue Plan of Care Treatment Plan: Bed Mobility, Education, Functional Activity Carlita, Functional Strength, Group Therapy, Gait, Safety, Therapeutic Exercise, Transfers Treatment Duration: Sep 12, 2017 Frequency: At least 5 of 7 days/Wk (IRF) Estimated Hrs Per Day: 1.5 hours per day Patient and/or Family Agrees t: Yes Safety Risks/Education Patient Education: Gait Training, Transfer Techniques, Correct Positioning, Safety Issues Teaching Recipient: Patient Teaching Methods: Discussion Response to Teaching: Verbalize Understanding Time/GCodes Time In: 800 Time Out: 845 Total Billed Treatment Time: 45 Total Billed Treatment visit, GT x2 (30m) & EX (15m) INA BORREGO PUBLIC HEALTH INSPECTOR Aug 30, 2017 08:57
--- NOTE | 2017-08-30 10:43 | PM & R (SOAP) Progress Note ---
Subjective Time Seen by Provider: 08:35 Subjective/Events-last exam Patient was seen in his room this AM Dressing adls completed with OT Progressing well with therapies .To see DR Dietz later today. Patient SBA for transfers. Objective Exam Last Set of Vital Signs Vital Signs Date Time Temp Pulse Resp B/P (MAP) Pulse Ox O2 Delivery O2 Flow Rate FiO2 08/30/17 05:34 98.9 92 18 119/74 95 Room Air Capillary Refill : Less Than 3 Seconds I&O Intake and Output 08/31/17 00:00 Intake Total 720 ml Balance 720 ml Intake Oral 720 ml # Voids 4 # Bowel Movements 3 General: Alert, Oriented X3, Cooperative, No Acute Distress HEENT: Atraumatic, PERRLA, EOMI, Mucous Memb Moist/[place] Neck: Supple, No JVD Lungs: Clear to Auscultation Heart: Regular Rate Abdomen: Normal Bowel Sounds, Soft, No Tenderness Extremities: No Edema, Other (cast left wrist) Neuro: Other (Strength improving) Results Lab Laboratory Tests 08/29/17 11:39: Iron Level 53, Total Iron Binding Capacity 287, Unsaturated Iron Binding Capacity 234, Transferrin % Saturation 18, Ferritin 1743.0H, Vitamin B12 Level 540 Assessment/Plan Assessment Fall with left colles frx s/p orif DR Dietz UTI treated 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 Team Conference to be held later today-See report for full functional update and POC and to confirm Date of Discharge. Appreciate TRE Mclean MD Aug 30, 2017 10:43
--- NOTE | 2017-08-30 11:33 | Occupational Ther Daily Note ---
OT Current Status-Daily Note Subjective Pt seen in room, up in recliner, agreeable to OT. No pain mentioned. pt anticipating DC to home on Monday Appearance Alert, cooperative Mental Status/Objective Functional [place] Measure 0=Not Assessed/NA 4=Minimal Assistance 1=Total Assistance 5=Supervision or Setup 2=Maximal Assistance 6=Modified [place] 3=Moderate Assistance 7=Complete [place] ADL-Treatment Pt was made up ad suzan in his room after observing toilet transfers and other ADLs, in consultation with PT and nursing, with mild safety concerns due to fatigue. Functional [place] Measure 0=Not Assessed/NA 4=Minimal Assistance 1=Total Assistance 5=Supervision or Setup 2=Maximal Assistance 6=Modified [place] 3=Moderate Assistance 7=Complete IndependenceIRFPAI Quality Coding Scale 6 Independent with activity with or without an assistive device 5 Patient requires set up or clean up by helper. Patient completes activity by themselves 4 Supervision or touching assist (CGA). [address] provide cues , steadying assist 3 The helper provides less than half the effort to complete the activity 2 The helper provides more than half the effort to complete the activity 1 Dependent. The helper does all the effort to complete an activity 7 Patient refused to complete or attempt activity 9 The patient did not perform the activity before the current illness or injury 88 Not attempted due to Medical conditions or safety concerns Upper Body (FIM): 6 (Doffed and donned shirt without assistance, getting clean one out) Lower Body Dressing (FIM): 6 (Doffed and donned shorts and shoes, with no LOB, getting clean clothes out) Toilet/Commode Transfer (FIM): 6 (On/off tall toilet, using grab bars, no LOB) Pt gathered up his laundry and carried it with no LOB to laundry room. He stood to put clothes in washer and managed all the settings and soap. He walked without assistance to commons area and sat at table for pt education and discussion on energy conservation and ADLs, IADLs at home. He may have difficulty getting up into his pickup due to its height and limitations with grasp L hand. He is also interested in getting a medical alarm and discussed getting a cart to use to move items around in his home. pt returned to room, up in recliner, all needs met. Education OT Patient Education: Energy conservation, Purpose of tx/functional activities Teaching Recipient: Patient Teaching Methods: Discussion Response to Teaching: Verbalize Understanding OT Short Term Goals Short Term Goals Time Frame: Aug 29, 2017 Eating(FIM): 7 Transfers (B,C,W/C) (FIM): 5 Toilet/Commode Transfer(FIM): 5 Additional Short Term Goals: 2-Verbalize Understanding, 3-ImproveStrength/Carlita 1=Demonstrate adherence to instructed precautions during ADL tasks. 2=Patient will verbalize/demonstrate understanding of assistive devices/ modifications for ADL. 3=Patient will improve strength/tolerance for activity to enable patient to perform ADL's. OT Chcf Goals Chcf Goals Time Frame: Sep 12, 2017 Eating (FIM): 7 Eating (QC): 6 Groomin Oral Hygiene (QC): 6 Bathing(FIM): 6 Shower/Bathe Self (QC): 6 Upper Body Dressing(FIM): 6 Upper Body Dressing (QC): 6 Lower Body Dressing(FIM): 6 Lower Body Dressing (QC): 6 On/Off Footwear (QC): 6 Toileting(FIM): 66 Toileting Hygiene (QC): 6 Toilet/Commode Transfer(FIM): 6 Toilet/Commode Transfer (QC): 6 Shower Transfer(FIM): 6 Additional Goals: 2-Verbalize Understanding, 3-ImproveStrength/Carlita 1=Demonstrate adherence to instructed precautions during ADL tasks. 2=Patient will verbalize/demonstrate understanding of assistive devices/ modifications for ADL. 3=Patient will improve strength/tolerance for activity to enable patient to perform ADL's. OT Education/Plan Problem List/Assessment Pt would benefit from skilled OT to increase his independence in basic self care to allow him to safely return to his home to live alone. Discharge Recommendations Plan/Recommendations: Continue POC Treatment Plan/Plan of Care Patient would benefit from OT for education, treatment and training to promote independence in ADL's, mobility, safety and/or upper extremity function for ADL' s. Plan of Care: ADL Retraining, Functional Mobility, Group Exercise/Act as Ind ( exercise, education, activ tolerance, funct mobility, socialization), UE Funct Exercise/Act, UE Neuromus Re-Ed/Coord Treatment Duration: Sep 12, 2017 Frequency: At least 5 of 7 days/Wk (IRF) Estimated Hrs Per Day: 1.5 hours per day Agreement: Yes Rehab Potential: Good Time/GCodes Start Time: 09:00 Stop Time: 10:00 Total Time Billed (hr/min): 60 Billed Treatment Time visit, 60 minutes ADL DANIELA HOLDER OT Aug 30, 2017 11:33
--- NOTE | 2017-08-30 15:40 | Therapy Group Daily Note ---
Therapy Daily Group Note Patient Education Topic Other List Below (Memory Strategies ) Exercises LE Seated Exercise, UE Exercise Other/Notes Pt ambulated to PT/OT Group w/o AD at [facility]. Group consisted of Introductions ( Name, Where you live & What you have not done in your life that you would want to do), Socialization, UE & LE Seated EX, Memory Strategies and Activity as well as giving an Inspirational Word of Encouragement. Pt participated in Group by Identifying a Personal Memory Strategy that they use as well as an Inspirational Word and completing both UE & LE Ex. Pt returned to room to rest at end of Group with all needs met Start Time: 13:00 Stop Time: 14:20 Total Billed Treatment Time: 80 Total Billed Treatment 1, GRP INA BORREGO CHANNEL SALES MANAGER Aug 30, 2017 15:40
[2017-08-30] MEDS: POLYETHYLENE GLYCOL 17 GM (MIRALAX) PACK PO SCH (21:37)
[2017-08-30] MEDS: ATORVASTATIN 10 MG (LIPITOR) TABLET PO SCH (21:37)
[2017-08-31 06:00] VITALS: BP 116/66
[2017-08-31] MEDS: KCL 20 MEQ TAB (K-DUR) PO SCH ×3 (06:23→16:32)
--- NOTE | 2017-08-31 08:52 | Physical Therapy Daily Note ---
PT Daily Note-Current Subjective Pt sitting in recliner upon arrival. Pt agrees to PT. Pt to return to Dr Dietz next week after ARU discharge per pt. Pain Location: No Pain Reported Mental Status Patient Orientation: Person, Place, Time, Situation Transfers Functional [place] Measure 0=Not Assessed/NA 4=Minimal Assistance 1=Total Assistance 5=Supervision or Setup 2=Maximal Assistance 6=Modified [place] 3=Moderate Assistance 7=Complete IndependenceIRFPAI Quality Coding Scale 6 Independent with activity with or without an assistive device 5 Patient requires set up or clean up by helper. Patient completes activity by themselves 4 Supervision or touching assist (CGA). [place] provide cues , steadying assist 3 The helper provides less than half the effort to complete the activity 2 The helper provides more than half the effort to complete the activity 1 Dependent. The helper does all the effort to complete an activity 7 Patient refused to complete or attempt activity 9 The patient did not perform the activity before the current illness or injury 88 Not attempted due to Medical conditions or safety concerns Transfers (B, C, W/C) (FIM): 6 Scootin Rollin Roll Left to Right (QC): 6 Supine to/from Sit: 6 Sit to/from Stand: 6 Sit to Lying (QC): 6 Sit to Stand (QC): 6 Chair/Yfy-lu-Itgps Xfer(QC): 6 Bed to/from Chair: 6 Weight Bearing Right Lower Extremity: Right Full Weight Bearing Left Lower Extremity: Left Full Weight Bearing Gait Training Does the Patient Walk?: Yes Distance (FIM): 3=150 ft Distance: 250' Walk 10 feet (QC): 6 Walk 50 ft with 2 Turns(QC): 6 Walk 150 ft (QC): 6 Walking 10ft/uneven surface-QC: 6 Gait Level of Assist: 6 Gait Assistive Device: None Pt walks with slow but steady moshe, no LOB. Pt fatigues and needs occasional rest breaks but quickly recovers. Wheelchair Training Does the Pt Use a Wheelchair?: No Stair Training Stair Training: Handrails/: 1 handrail Stairs (FIM): 6 #of Steps: 12 1 Step (curb) (QC): 6 4 Steps (QC): 6 Stairs: Pattern: Step to Level of Assist: 6 Exercises NuStep Minutes: 5 Treatments Pt transfers from recliner w/o AD at [facility] I. Pt ambualtes in hallway w/o AD at Mod I Assessment Current Status: Good Progress Pt has made improvements with strength, activity tolerance as well as independence and safety of transfers and ambulation. Pt will have occasions of SOB and fatigue but recovers quickly. PT Short Term Goals Short Term Goals Time Frame: Aug 29, 2017 Transfers (B,C,W/C) (FIM): 5 Gait (FIM): 5 Distance (FIM): 3=150 ft Gait Distance Comment: 200' Gait Level of Assist: 5 Gait Assistive Device: Cane Single Point PT Fuel Agent Goals Fuel Agent Goals PT [facility] Goals Time Frame: Sep 12, 2017 Transfers (B,C,W/C) (FIM): 6 Sit to Lying (QC): 6 Lying-Sitting on Side/Bed(QC): 6 Sit to Stand (QC): 6 Rollin Roll Left to Right (QC): 6 Chair/Ces-lg-Akqwe Xfer(QC): 6 Car Transfer (QC): 4 Does the Patient Walk: Yes Gait (FIM): 6 Gait distance (FIM): 3=150 ft Distance: 300' Walk 10 feet (QC): 6 Walk 10ft-Uneven Surface(QC): 6 Walk 50ft with 2 Turns (QC): 6 Walk 150 ft (QC): 6 Gait Level of Assist: 6 Gait Assistive Device: Cane Single Point Stairs (FIM): 4 # of Steps: 12 1 Step (curb) (QC): 4 4 Steps (QC): 4 12 Steps (QC): 4 Stairs Level Of Assist: 4 Picking up an Object (QC): 4 PT Plan Problem List Problem List: Activity Tolerance Treatment/Plan Treatment Plan: Continue Plan of Care Treatment Plan: Bed Mobility, Education, Functional Activity Carlita, Functional Strength, Group Therapy, Gait, Safety, Therapeutic Exercise, Transfers Treatment Duration: Sep 12, 2017 Frequency: At least 5 of 7 days/Wk (IRF) Estimated Hrs Per Day: 1.5 hours per day Patient and/or Family Agrees t: Yes Safety Risks/Education Patient Education: Gait Training, Correct Positioning, Safety Issues Teaching Recipient: Patient Teaching Methods: Discussion Response to Teaching: Verbalize Understanding Time/GCodes Time In: 800 Time Out: 845 Total Billed Treatment Time: 45 Total Billed Treatment visit, GT (15m), EX (15m) & FA (15m) INA BORREGO TRANSIT MIXER DRIVER Aug 31, 2017 08:52
[2017-08-31] MEDS: PHENYTOIN 100 MG (DILANTIN) CAP PO SCH (09:06)
--- NOTE | 2017-08-31 10:34 | PM & R (SOAP) Progress Note ---
Subjective Time Seen by Provider: 10:00 Subjective/Events-last exam Patient was seen in Gym this AM Patient Modified Independent in room for mobility and transfers Saw DR Dietz yesterday He indicates that he will see him again next week on an outpatient basis.Current meds reviewed Not using anything for pain. Objective Exam Last Set of Vital Signs Vital Signs Date Time Temp Pulse Resp B/P (MAP) Pulse Ox O2 Delivery O2 Flow Rate FiO2 08/31/17 06:00 98.8 86 18 116/66 96 Room Air Capillary Refill : Less Than 3 Seconds I&O Intake and Output 09/01/17 00:00 Intake Total 300 ml Balance 300 ml Intake Oral 300 ml # Voids 3 General: Alert, Oriented X3, Cooperative, No Acute Distress HEENT: Atraumatic, PERRLA, EOMI, Mucous Memb Moist/[place] Neck: Supple, No JVD Lungs: Clear to Auscultation Heart: Regular Rate Abdomen: Normal Bowel Sounds, Soft, No Tenderness Extremities: No Edema, Other (cast left wrist) Neuro: Other (Strength improving) Results Lab Laboratory Tests 08/29/17 11:39: Iron Level 53, Total Iron Binding Capacity 287, Unsaturated Iron Binding Capacity 234, Transferrin % Saturation 18, Ferritin 1743.0H, Vitamin B12 Level 540 Assessment/Plan Assessment Fall with left colles frx s/p orif DR Dietz UTI treated 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 TRE BRANNON MD Aug 31, 2017 10:34
--- NOTE | 2017-08-31 12:03 | Physical Therapy Daily Note ---
PT Daily Note-Current Subjective No complaints. Ready to go home tomorrow. Pain Numeric Pain Scale: 0-No Pain Location: No Pain Reported Mental Status Patient Orientation: Person, Place, Time, Situation Transfers Functional [place] Measure 0=Not Assessed/NA 4=Minimal Assistance 1=Total Assistance 5=Supervision or Setup 2=Maximal Assistance 6=Modified [place] 3=Moderate Assistance 7=Complete IndependenceIRFPAI Quality Coding Scale 6 Independent with activity with or without an assistive device 5 Patient requires set up or clean up by helper. Patient completes activity by themselves 4 Supervision or touching assist (CGA). [place] provide cues , steadying assist 3 The helper provides less than half the effort to complete the activity 2 The helper provides more than half the effort to complete the activity 1 Dependent. The helper does all the effort to complete an activity 7 Patient refused to complete or attempt activity 9 The patient did not perform the activity before the current illness or injury 88 Not attempted due to Medical conditions or safety concerns Car Transfer (QC): 5 Weight Bearing Right Lower Extremity: Right Full Weight Bearing Left Lower Extremity: Left Full Weight Bearing Gait Training Does the Patient Walk?: Yes Gait (FIM): 7 Distance (FIM): 3=150 ft Gait in hospital on tile floor as well as outdoors on cement, boardwalk, up/ down slope. Gait >1000 ft with a few rest breaks without aD, without LOB or safety concern. Pt does ambulate with decreased step length and decreased heel strike and toe off, and wide MAYRA but seems this is a chronic walking pattern. Pt able to perform all transfers without assist. Pt Performed standing ther ex in // bars to increase functional activity tolerance and leg strength for community ambulation. Ex included calf raises, hip abduct, marching and ham curls x 15 each. Pt in room post treatment with needs met. Assessment Current Status: Excellent Progress PT Short Term Goals Short Term Goals Time Frame: Aug 29, 2017 Transfers (B,C,W/C) (FIM): 5 (met) Gait (FIM): 5 (met) Distance (FIM): 3=150 ft Gait Distance Comment: 200' Gait Level of Assist: 5 Gait Assistive Device: Cane Single Point PT Book Trimmer Goals Senior Care Goals PT Senior Care Goals Time Frame: Sep 12, 2017 Transfers (B,C,W/C) (FIM): 6 (met) Sit to Lying (QC): 6 (met) Lying-Sitting on Side/Bed(QC): 6 Sit to Stand (QC): 6 (met) Rollin Roll Left to Right (QC): 6 (met) Chair/Noc-qs-Ogtmb Xfer(QC): 6 (met) Car Transfer (QC): 4 (met; exceeded) Does the Patient Walk: Yes Gait (FIM): 6 (met) Gait distance (FIM): 3=150 ft Distance: 300' Walk 10 feet (QC): 6 (met) Walk 10ft-Uneven Surface(QC): 6 (met) Walk 50ft with 2 Turns (QC): 6 (met) Walk 150 ft (QC): 6 (met) Gait Level of Assist: 6 Gait Assistive Device: Cane Single Point Stairs (FIM): 4 # of Steps: 12 1 Step (curb) (QC): 4 4 Steps (QC): 4 12 Steps (QC): 4 Stairs Level Of Assist: 4 Picking up an Object (QC): 4 PT Plan Problem List Problem List: Safety Treatment/Plan Treatment Plan: Continue Plan of Care Treatment Plan: Bed Mobility, Education, Functional Activity Carlita, Functional Strength, Group Therapy, Gait, Safety, Therapeutic Exercise, Transfers Treatment Duration: Sep 12, 2017 Frequency: At least 5 of 7 days/Wk (IRF) Estimated Hrs Per Day: 1.5 hours per day Patient and/or Family Agrees t: Yes Safety Risks/Education Patient Education: Safety Issues Teaching Recipient: Patient Teaching Methods: Discussion Response to Teaching: Verbalize Understanding Discharge Recommendations Plan Plan dc tomorrow. Time/GCodes Time In: 1105 Time Out: 1151 Total Billed Treatment Time: 46 Total Billed Treatment visit EX 15 GT 31 LAST ELIZALDE PT Aug 31, 2017 12:02
--- NOTE | 2017-08-31 12:43 | Occupational Ther Daily Note ---
OT Current Status-Daily Note Subjective Pt in recliner at beginning of tx. Agreed to shower and dress as part of therapy. Appearance Pt up, awake, and ready for therapy. Mental Status/Objective Functional [place] Measure 0=Not Assessed/NA 4=Minimal Assistance 1=Total Assistance 5=Supervision or Setup 2=Maximal Assistance 6=Modified [place] 3=Moderate Assistance 7=Complete [place] ADL-Treatment Mild safety concerns for walking and standing during ADLs due to fatigue. No LOB observed Functional [place] Measure 0=Not Assessed/NA 4=Minimal Assistance 1=Total Assistance 5=Supervision or Setup 2=Maximal Assistance 6=Modified [place] 3=Moderate Assistance 7=Complete IndependenceIRFPAI Quality Coding Scale 6 Independent with activity with or without an assistive device 5 Patient requires set up or clean up by helper. Patient completes activity by themselves 4 Supervision or touching assist (CGA). [place] provide cues , steadying assist 3 The helper provides less than half the effort to complete the activity 2 The helper provides more than half the effort to complete the activity 1 Dependent. The helper does all the effort to complete an activity 7 Patient refused to complete or attempt activity 9 The patient did not perform the activity before the current illness or injury 88 Not attempted due to Medical conditions or safety concerns Eating (FIM): 7 (No dentures. Able to open packages, cut food and feed himself) Eating (QC): 6 Grooming (FIM): 6 (Pt completed brushing teeth and hair independently. Washed face and hands in shower. Accessible sink. Chose not to shave) Oral Hygiene (QC): 6 Bathing (FIM): 5 (Pt showered with no assistance but needed to have cast wrapped prior to shower (setup). Shower bench, grab bars, wrapping for cast, hand held shower. Turned water on and off and retrieved towel from bar) Bathing Location: L Arm, R Arm, L Upper Leg, R Upper Leg, L Lower Leg ( including foot), R Lower Leg (including foot), Chest, Abdomen, Buttocks, Perineal Area Shower/Bathe Self (QC): 5 (setup) Upper Body (FIM): 6 (Pt retrieved clothing from closet and dressed independently with no observed LOB. ) Upper Body Dressing (QC): 6 Lower Body Dressing (FIM): 6 (Pt retrieved clothing from closet and dressed independently, including shoes. ) Lower Body Dressing (QC): 6 On/Off Footwear (QC): 6 Toileting (FIM): 6 (Pt has been toileting himself, managing clothing and hygiene. Tall toilet, grab bar) Toileting Hygiene (QC): 6 Toilet/Commode Transfer (FIM): 6 (Pt has been toileting himself, up ad suzan in room. Tall toilet, grab bar) Toilet Transfer (QC): 6 Shower Transfer(FIM): 6 (Pt transferred standing <> shower chair with no assistance and no observed LOB. shower bench, grab bars) Other Treatment Pt walked without assistance to and from gym, no LOB observed. Pt participated in therapeutic exercise of hand bike for 15 minutes at 25 roach (increase of 5 roach), using B UE for at least 10 minutes (increased from one handed use due to cast), and in hand manipulation of small items with bolts/nuts with 1# weight on LUE, 2# weight on RUE. Pt's left hand was recasted at doctor's appt yesterday and has more opposition so has better pinch and grasp. Exercise to increase L hand function during ADLs and to increase activity tolerance. Pt left in chair in room, all needs met. Education OT Patient Education: Purpose of tx/functional activities, Safety issues Teaching Recipient: Patient Teaching Methods: Discussion Response to Teaching: Verbalize Understanding OT Short Term Goals Short Term Goals Time Frame: Aug 29, 2017 Eating(FIM): 7 Transfers (B,C,W/C) (FIM): 5 (met) Toilet/Commode Transfer(FIM): 5 Additional Short Term Goals: 2-Verbalize Understanding, 3-ImproveStrength/Carlita 1=Demonstrate adherence to instructed precautions during ADL tasks. 2=Patient will verbalize/demonstrate understanding of assistive devices/ modifications for ADL. 3=Patient will improve strength/tolerance for activity to enable patient to perform ADL's. OT Group Home Goals Prosthetics Lab Technician Goals Time Frame: Sep 12, 2017 Eating (FIM): 7 (met --17) Eating (QC): 6 (met --17) Groomin (met --17) Oral Hygiene (QC): 6 (met 10-19-17) Bathing(FIM): 6 (not met due to setup required for cast) Shower/Bathe Self (QC): 6 (not met) Upper Body Dressing(FIM): 6 (met 08-31-17) Upper Body Dressing (QC): 6 (met 08-31-17) Lower Body Dressing(FIM): 6 (met 08-31-17) Lower Body Dressing (QC): 6 (met 08-31-17) On/Off Footwear (QC): 6 (met 08-31-17) Toileting(FIM): 6 (met 08-31-17) Toileting Hygiene (QC): 6 (met 08-31-17) Toilet/Commode Transfer(FIM): 6 (met 08-31-17) Toilet/Commode Transfer (QC): 6 (met 08-31-17) Shower Transfer(FIM): 6 (met 08-31-17) Additional Goals: 2-Verbalize Understanding, 3-ImproveStrength/Carlita 1=Demonstrate adherence to instructed precautions during ADL tasks. 2=Patient will verbalize/demonstrate understanding of assistive devices/ modifications for ADL. 3=Patient will improve strength/tolerance for activity to enable patient to perform ADL's. OT Education/Plan Problem List/Assessment Pt would benefit from skilled OT to increase his independence in basic self care to allow him to safely return to his home to live alone. Discharge Recommendations Plan/Recommendations: Continue POC (anticipate DC 09-01-17) Treatment Plan/Plan of Care Patient would benefit from OT for education, treatment and training to promote independence in ADL's, mobility, safety and/or upper extremity function for ADL' s. Plan of Care: ADL Retraining, Functional Mobility, Group Exercise/Act as Ind ( exercise, education, activ tolerance, funct mobility, socialization), UE Funct Exercise/Act, UE Neuromus Re-Ed/Coord Treatment Duration: Sep 12, 2017 Frequency: At least 5 of 7 days/Wk (IRF) Estimated Hrs Per Day: 1.5 hours per day Agreement: Yes Rehab Potential: Good Time/GCodes Start Time: 09:00 Stop Time: 10:02 Total Time Billed (hr/min): 62 Billed Treatment Time visit, 35 minutes ADL, 27 minutes exercise DANIELA HOLDER OT Aug 31, 2017 12:43
--- NOTE | 2017-08-31 14:39 | Occupational Ther Daily Note ---
OT Current Status-Daily Note Subjective Pt seen in room, up in recliner, agreeable to OT. No pain mentioned. Appearance Alert, cooperative Mental Status/Objective Functional [place] Measure 0=Not Assessed/NA 4=Minimal Assistance 1=Total Assistance 5=Supervision or Setup 2=Maximal Assistance 6=Modified [place] 3=Moderate Assistance 7=Complete [place] ADL-Treatment Pt walked to gym, then to shower room to practice dry transfer with transfer tub bench. He was able to get on/off bench and recognized its increased safety compared to stepping in/out of tub/shower, especially with decreased functional use L UE. He was concerned about being able to get feet over his tub, which he thought was taller. pt walked to apartment and safely completed dry transfer on transfer tub bench on taller tub. He then walked back to his room and OT notified SW that pt would like a tr tub bench for home. Also recommended OT. Functional [place] Measure 0=Not Assessed/NA 4=Minimal Assistance 1=Total Assistance 5=Supervision or Setup 2=Maximal Assistance 6=Modified [place] 3=Moderate Assistance 7=Complete IndependenceIRFPAI Quality Coding Scale 6 Independent with activity with or without an assistive device 5 Patient requires set up or clean up by helper. Patient completes activity by themselves 4 Supervision or touching assist (CGA). [place] provide cues , steadying assist 3 The helper provides less than half the effort to complete the activity 2 The helper provides more than half the effort to complete the activity 1 Dependent. The helper does all the effort to complete an activity 7 Patient refused to complete or attempt activity 9 The patient did not perform the activity before the current illness or injury 88 Not attempted due to Medical conditions or safety concerns Other Treatment Pt did 15 reps R UE exercise with 2# weight and 15 reps L UE ex with 1# weight strapped on cast. To strengthen arms to help with activity tolerance and ADLs. Discussed items pt could use to continue exercising at home. Also discussed Wellness program as a way to maintain strength and endurance gained. Pt was unable to hold theraband in L UE and stretch it but he could hold it on chest with L hand to work on R elbow extension. pt left up in recliner, all needs met. Education OT Patient Education: Exercise program, Progress toward Goal/Update tx plan, Purpose of tx/functional activities Teaching Recipient: Patient Teaching Methods: Demonstration, Discussion Response to Teaching: Verbalize Understanding, Return Demonstration OT Short Term Goals Short Term Goals Time Frame: Aug 29, 2017 Eating(FIM): 7 Transfers (B,C,W/C) (FIM): 5 (met) Toilet/Commode Transfer(FIM): 5 Additional Short Term Goals: 2-Verbalize Understanding, 3-ImproveStrength/Carlita 1=Demonstrate adherence to instructed precautions during ADL tasks. 2=Patient will verbalize/demonstrate understanding of assistive devices/ modifications for ADL. 3=Patient will improve strength/tolerance for activity to enable patient to perform ADL's. OT Retirement Goals Awning Finisher Goals Time Frame: Sep 12, 2017 Eating (FIM): 7 Eating (QC): 6 Groomin Oral Hygiene (QC): 6 Bathing(FIM): 6 Shower/Bathe Self (QC): 6 Upper Body Dressing(FIM): 6 Upper Body Dressing (QC): 6 Lower Body Dressing(FIM): 6 Lower Body Dressing (QC): 6 On/Off Footwear (QC): 6 Toileting(FIM): 66 Toileting Hygiene (QC): 6 Toilet/Commode Transfer(FIM): 6 Toilet/Commode Transfer (QC): 6 Shower Transfer(FIM): 6 Additional Goals: 2-Verbalize Understanding, 3-ImproveStrength/Carlita 1=Demonstrate adherence to instructed precautions during ADL tasks. 2=Patient will verbalize/demonstrate understanding of assistive devices/ modifications for ADL. 3=Patient will improve strength/tolerance for activity to enable patient to perform ADL's. OT Education/Plan Problem List/Assessment Pt would benefit from skilled OT to increase his independence in basic self care to allow him to safely return to his home to live alone. Discharge Recommendations Plan/Recommendations: Continue POC Treatment Plan/Plan of Care Patient would benefit from OT for education, treatment and training to promote independence in ADL's, mobility, safety and/or upper extremity function for ADL' s. Plan of Care: ADL Retraining, Functional Mobility, Group Exercise/Act as Ind ( exercise, education, activ tolerance, funct mobility, socialization), UE Funct Exercise/Act, UE Neuromus Re-Ed/Coord Treatment Duration: Sep 12, 2017 Frequency: At least 5 of 7 days/Wk (IRF) Estimated Hrs Per Day: 1.5 hours per day Agreement: Yes Rehab Potential: Good Time/GCodes Start Time: 13:00 Stop Time: 13:30 Total Time Billed (hr/min): 30 Billed Treatment Time visit, 15 minutes ADL, 15 minutes exercise DANIELA HOLDER OT Aug 31, 2017 14:39
[2017-08-31 18:52] VITALS: BP 136/75
[2017-08-31] MEDS: ATORVASTATIN 10 MG (LIPITOR) TABLET PO SCH (20:57)
[2017-08-31] MEDS: POLYETHYLENE GLYCOL 17 GM (MIRALAX) PACK PO SCH (20:57)
[2017-09-01 05:00] VITALS: BP 125/76
[2017-09-01] MEDS: KCL 20 MEQ TAB (K-DUR) PO SCH ×2 (06:16→11:30)
[2017-09-01] MEDS: PHENYTOIN 100 MG (DILANTIN) CAP PO SCH (09:00)
--- NOTE | 2017-09-01 09:21 | PM & R (SOAP) Progress Note ---
Subjective Time Seen by Provider: 07:55 Subjective/Events-last exam Patient was seen in his room this AM Has progressed well Objective Exam Last Set of Vital Signs Vital Signs Date Time Temp Pulse Resp B/P (MAP) Pulse Ox O2 Delivery O2 Flow Rate FiO2 09/01/17 05:00 98.9 71 14 125/76 95 Room Air Capillary Refill : Less Than 3 Seconds I&O Intake and Output 09/02/17 00:00 Intake Total 400 ml Balance 400 ml Intake Oral 400 ml # Voids 2 General: Alert, Oriented X3, Cooperative, No Acute Distress HEENT: Atraumatic, PERRLA, EOMI, Mucous Memb Moist/[place] Neck: Supple, No JVD Lungs: Clear to Auscultation Heart: Regular Rate Abdomen: Normal Bowel Sounds, Soft, No Tenderness Extremities: No Edema, Other (cast left wrist) Neuro: Other (Strength improving) Results Lab Laboratory Tests 08/29/17 11:39: Iron Level 53, Total Iron Binding Capacity 287, Unsaturated Iron Binding Capacity 234, Transferrin % Saturation 18, Ferritin 1743.0H, Vitamin B12 Level 540 Assessment/Plan Assessment Fall with left colles frx s/p orif DR Dietz UTI treated 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 TRE BRANNON MD Sep 01, 2017 09:21
--- NOTE | 2017-09-01 11:21 | Progress Note-Hospitalist ---
Subjective HPI/CC On Admission Date Seen by Provider: Sep 01, 2017 Time Seen by Provider: 10:30 patient reports feeling better with no significant wrist pain. Stamina is slowly improving and balance reportedly is improving. He does report nocturia several times a night with slow stream but he feels as though he is emptying his bladder completely and denies dysuria. Subjective/Events-last exam Mr. Allen reports he feels well and is set up for discharge later today. We discussed longer term game plans with the importance of continued exercise after home care physical therapy is over. The goal was to get him in the wellness program and he plans on selling his current house and getting into a smaller place where he is not responsible for upkeep. He denies chest pain shortness of breath orthopnea PND with stable trace pedal edema. Objective Exam Vital Signs Vital Sign - Last 12Hours 08/26/17 06:07 Temp 98.0 Pulse 96 Resp 18 B/P (MAP) 129/59 Pulse Ox 96 O2 Delivery Room Air Capillary Refill : Less Than 3 Seconds General Appearance: No Apparent Distress, Obese Respiratory: Chest Non Tender, Lungs Clear, Normal Breath Sounds, No Accessory Muscle Use, No Respiratory Distress Cardiovascular: Regular Rate, Rhythm, No Edema, No Gallop, No JVD, No Murmur, Normal Peripheral Pulses Extremity: Pedal Edema (East bilateral lower tibia without evidence for dermatitis. Skin is slightly dry) Assessment/Plan Assessment and Plan Assess & Plan/Chief Complaint 1. Recent urosepsis secondary to Escherichia coli resolved. 2. Deconditioning multifactorial improving with physical therapy and improved nutrition. Patient to be discharged on home care with physical therapy with future game plan of becoming involved with regular exercise through our wellness Center. 3. Macrocytic anemia we'll check B12 level there is likely reactive thrombocytosis we will also check iron studies. Tentative discharge later this week. 4. Colles' fracture left wrist status post open reduction internal fixation doing well. He does have 1 screw that has migrated. It is not causing him any pain but he is scheduled to return to work before states for removal. I will see him back in follow-up in 1-2 weeks. We'll repeat a CBC and a Dilantin level as well as basic metabolic panel at that time. Charge medications reviewed and discussed with the patient. Urge medications to include Dilantin 400 mg daily, atorvastatin 10 mg daily and lisinopril HCT 20/25. Copy Copies To 2: GEOFFREY ESCALERA MD, MARK D MD Sep 01, 2017 11:21
[2017-09-01 13:05] VITALS: BP 119/72
--- NOTE | 2017-09-04 14:26 | Therapy Team Discharge Summary ---
Therapy Discharge Summary Discharge Recommendations Date of Discharge Sep 01, 2017 at 13:05 Therapy D/C Recommendations: Home w/ Family Support Physical Therapy This patient has been seen for skilled PT intervention post fall at home in which he sustained a left wrist fracture. Upon admission, he required min assist iwth transfers, walked 150 ft with min-CGA and scored a 2 on the stairs. Treatment focused on functional strength and mobility as well as safety for return home. He did make excellent progress, achieving all goals. At discharge , he is mod indep with transfers, gait, stairs and is returning to his home as before. Recommend [facility] to follow for continued care in his home setting. DC PT. Occupational Therapy Decreased Activ Tolerance, Decreased UE Strength, Impaired Funct Balance, Impaired Self-Care Skills, Restricted Funct UE ROM PT Halfway Goals Picker / Packer Goals PT Halfway Goals Time Frame: Sep 12, 2017 Transfers (B,C,W/C) (FIM): 6 (met) Roll Left to Right (QC): 6 (met) Sit to Lying (QC): 6 (met) Lying-Sitting on Side/Bed(QC): 6 (met) Sit to Stand (QC): 6 (met) Chair/Wld-jn-Sfitc Xfer(QC): 6 (met) Car Transfer (QC): 4 (met; exceeded) Does the Patient Walk: Yes Gait (FIM): 6 (met) Gait distance (FIM): 3=150 ft Distance: 300' Walk 10 feet (QC): 6 (met) Walk 10ft-Uneven Surface(QC): 6 (met) Walk 50ft with 2 Turns (QC): 6 (met) Walk 150 ft (QC): 6 (met) Gait Level of Assist: 6 Gait Assistive Device: Cane Single Point Stairs (FIM): 4 (exceeded) # of Steps: 12 1 Step (curb) (QC): 4 4 Steps (QC): 4 12 Steps (QC): 4 Stairs Level Of Assist: 4 Picking up an Object (QC): 4 OT Halfway Goals Picker / Packer Goals Time Frame: Sep 12, 2017 Eating (FIM): 7 (met 10-19-17) Eating (QC): 6 (met 10-19-17) Oral Hygiene (QC): 6 (met 10-19-17) Grooming(FIM): 6 (met 10-19-17) Bathing(FIM): 6 (not met due to setup required for cast) Shower/Bathe Self (QC): 6 (not met) Upper Body Dressing(FIM): 6 (met 08-31-17) Upper Body Dressing (QC): 6 (met 08-31-17) Lower Body Dressing(FIM): 6 (met 08-31-17) Lower Body Dressing (QC): 6 (met 08-31-17) On/Off Footwear (QC): 6 (met 08-31-17) Toileting(FIM): 6 (met 08-31-17) Toileting Hygiene (QC): 6 (met 08-31-17) Toilet/Commode Transfer(FIM): 6 (met 08-31-17) Toilet/Commode Transfer (QC): 6 (met 08-31-17) Shower Transfer(FIM): 6 (met 08-31-17) Additional Goals: 2-Verbalize Understanding, 3-ImproveStrength/Carlita 1=Demonstrate adherence to instructed precautions during ADL tasks. 2=Patient will verbalize/demonstrate understanding of assistive devices/ modifications for ADL. 3=Patient will improve strength/tolerance for activity to enable patient to perform ADL's. LAST ELIZALDE PT Sep 04, 2017 14:26
--- NOTE | 2017-09-05 08:59 | Therapy Team Discharge Summary ---
Therapy Discharge Summary Discharge Recommendations Date of Discharge Sep 01, 2017 at 13:05 Therapy D/C Recommendations: Home w/ Family Support, Occupational Therapy Home Care Occupational Therapy Pt was seen for skilled OT to increase his independence in basic self care to allow him to safely return to his home to live alone after a fall and L forearms fractures which limited use of L UE. On admission he needed setup for eating, bathing, upper body dressing, supervision for grooming at sink and mod assist for lower body dressing and toileting/toilet transfers. by discharge he had improved to independent for eating, mod I for all other ADLs except setup for bathing due to covering cast. He used grab bars, tall toilet, hand held shower and shower bench. He would benefit from a transfer tub bench for home and home health OT. See tx plan for goals met. DC OT. Decreased Activ Tolerance, Decreased UE Strength, Impaired Funct Balance, Impaired Self-Care Skills, Restricted Funct UE ROM PT Moose Hunter Goals Halfway Goals PT Moose Hunter Goals Time Frame: Sep 12, 2017 Transfers (B,C,W/C) (FIM): 6 (met) Roll Left to Right (QC): 6 (met) Sit to Lying (QC): 6 (met) Lying-Sitting on Side/Bed(QC): 6 (met) Sit to Stand (QC): 6 (met) Chair/Flc-fo-Tmemw Xfer(QC): 6 (met) Car Transfer (QC): 4 (met; exceeded) Does the Patient Walk: Yes Gait (FIM): 6 (met) Gait distance (FIM): 3=150 ft Distance: 300' Walk 10 feet (QC): 6 (met) Walk 10ft-Uneven Surface(QC): 6 (met) Walk 50ft with 2 Turns (QC): 6 (met) Walk 150 ft (QC): 6 (met) Gait Level of Assist: 6 Gait Assistive Device: Cane Single Point Stairs (FIM): 4 (exceeded) # of Steps: 12 1 Step (curb) (QC): 4 4 Steps (QC): 4 12 Steps (QC): 4 Stairs Level Of Assist: 4 Picking up an Object (QC): 4 OT Moose Hunter Goals Halfway Goals Time Frame: Sep 12, 2017 Eating (FIM): 7 (met 10-) Eating (QC): 6 (met 08-31-17) Oral Hygiene (QC): 6 (met 08-31-17) Grooming(FIM): 6 (met 08-31-17) Bathing(FIM): 6 (not met due to setup required for cast) Shower/Bathe Self (QC): 6 (not met) Upper Body Dressing(FIM): 6 (met 08-31-17) Upper Body Dressing (QC): 6 (met 08-31-17) Lower Body Dressing(FIM): 6 (met 08-31-17) Lower Body Dressing (QC): 6 (met 08-31-17) On/Off Footwear (QC): 6 (met 08-31-17) Toileting(FIM): 6 (met 08-31-17) Toileting Hygiene (QC): 6 (met 08-31-17) Toilet/Commode Transfer(FIM): 6 (met 08-31-17) Toilet/Commode Transfer (QC): 6 (met 08-31-17) Shower Transfer(FIM): 6 (met 08-31-17) Additional Goals: 2-Verbalize Understanding, 3-ImproveStrength/Carlita 1=Demonstrate adherence to instructed precautions during ADL tasks. 2=Patient will verbalize/demonstrate understanding of assistive devices/ modifications for ADL. 3=Patient will improve strength/tolerance for activity to enable patient to perform ADL's. DANIELA HOLDER OT Sep 05, 2017 08:59
== END 2017-09-01 13:05 | disposition home health service (06) | DRG 560 ==
PROVIDERS: ADMIT Physical Medicine & Rehabilitation; ATTEND Physical Medicine & Rehabilitation
DX: S52.502D Unspecified fracture of the lower end of left radius, subsequent encounter for closed fracture with routine healing (principal); S52.602D Unspecified fracture of lower end of left ulna, subsequent encounter for closed fracture with routine healing; S06.9X9S Unspecified intracranial injury with loss of consciousness of unspecified duration, sequela; R26.81 Unsteadiness on feet; N39.0 Urinary tract infection, site not specified; G40.909 Epilepsy, unspecified, not intractable, without status epilepticus; E87.6 Hypokalemia; I10 Essential (primary) hypertension; D53.9 Nutritional anemia, unspecified; K59.00 Constipation, unspecified
CPT/HCPCS: 36415; 80053; 81000; 82607; 82728; 83540; 85027

== ENCOUNTER 2017-11-14 10:11 | Outpatient (RCR) | payer MEDICARE, OTHER | END 2017-11-28 09:00 | disposition home or self-care (01) | PROVIDERS: ATTEND Internal Medicine | DX: S62.102D Fracture of unspecified carpal bone, left wrist, subsequent encounter for fracture with routine healing (principal); R53.81 Other malaise; R29.6 Repeated falls; W19.XXXD Unspecified fall, subsequent encounter ==

== ENCOUNTER 2017-12-05 10:30 | Outpatient (RCR) | payer MEDICARE, OTHER | END 2017-12-19 15:17 | disposition home or self-care (01) | PROVIDERS: ATTEND Nurse Practitioner Family | DX: S62.102D Fracture of unspecified carpal bone, left wrist, subsequent encounter for fracture with routine healing (principal); W19.XXXD Unspecified fall, subsequent encounter; G56.02 Carpal tunnel syndrome, left upper limb ==

== ENCOUNTER 2019-09-12 11:15 | Outpatient (CLI) | payer MEDICARE, OTHER ==
[~2019-09-12] VITALS: Ht 177 cm; Wt 104.5 kg
== END 2019-09-12 11:55 | disposition home or self-care (01) ==
LOC: PREOP 11:15
PROVIDERS: ATTEND Internal Medicine
DX: Z01.818 Encounter for other preprocedural examination (principal)

== ENCOUNTER → 2020-01-09 | Outpatient (CLI) | payer MEDICARE, OTHER ==
[~2020-01-09] MED LIST changes: -LISI1TAB10 PO; +LISI1TAB26 PO
--- NOTE | 2020-01-09 09:37 | Diagnostic Imaging Report ---
INDICATION: LEUKOCYTOSIS COUGH COMPARISON: 08/16/2017 FINDINGS: Frontal and lateral views of the chest demonstrate normal heart size and pulmonary vascularity. The lungs are clear. There are no signs of infiltrate, pleural effusions or pneumothoraces. The visualized osseous structures show no acute abnormalities. IMPRESSION: 1. No acute process. No signs of infiltrates, effusions or pneumothoraces. Dictated by: Dictated on workstation # [id number]
== END ==
LOC: RAD 09:17
PROVIDERS: ATTEND Internal Medicine
DX: D72.829 Elevated white blood cell count, unspecified (principal); R05 Cough
CPT/HCPCS: 71046

== ENCOUNTER → 2020-04-14 | Outpatient (RCR) | payer MEDICARE, OTHER | END | disposition home or self-care (01) | PROVIDERS: ATTEND Internal Medicine | DX: M54.2 Cervicalgia (principal) ==

== ENCOUNTER 2020-04-28 08:00 | Outpatient (RCR) | payer MEDICARE, OTHER | END 2020-06-09 08:13 | disposition home or self-care (01) | PROVIDERS: ATTEND Internal Medicine | DX: M54.2 Cervicalgia (principal); R26.89 Other abnormalities of gait and mobility; I10 Essential (primary) hypertension; Z87.820 Personal history of traumatic brain injury ==

== ENCOUNTER 2021-05-25 05:49 | Outpatient (CLI) | payer MEDICARE ==
[~2021-05-25] VITALS: Ht 177.8 cm; Wt 109.1 kg
== END 2021-05-25 15:21 | disposition home or self-care (01) ==
LOC: PREOP 05:49
PROVIDERS: ATTEND Specialist
DX: Z01.818 Encounter for other preprocedural examination (principal)

== ENCOUNTER 2021-05-28 10:54 | Day surgery (SDC) | payer MEDICARE, OTHER ==
[~2021-05-28] VITALS: Ht 177.8 cm; Wt 109.1 kg
[2021-05-28] MEDS: TETRACAINE 0.5% OPHTH SOLN 4 ML BTL (SINGLE DOSE ONLY) OU PRN ×4 (11:10→11:28)
[2021-05-28] MEDS ORDERED: POVIDONE (BETADINE) OPHTH SOLN 5% 30 ML OP ONE (11:15)
[2021-05-28] MEDS ORDERED: MOXIFLOXACIN OPHTH SOLN 5 MG/ML 0.3 ML SYRINGE OP ONE (11:15)
[2021-05-28] MEDS ORDERED: TIMOLOL MALEATE 0.5% 5 ML (TIMOPTIC) BTL OU PRN (11:15)
[2021-05-28] MEDS ORDERED: LIDOCAINE PF 1% 2 ML VIAL IR PRN (11:15)
[2021-05-28 11:16] VITALS: BP 144/68
[2021-05-28] MEDS: PHENYLEPHRINE 10% OPHTH (NEO-SYN) 5 ML BTL OU SCH ×3 (11:18→11:28)
[2021-05-28] MEDS: TROPICAMIDE 1% OPH SOLN (MYDRIACYL) 15 ML BTL OP SCH ×3 (11:18→11:28)
[2021-05-28] MEDS ORDERED: MIDAZOLAM 2 MG/2 ML (VERSED) VIAL ONE (11:45)
--- NOTE | 2021-05-28 11:47 | Ophthalmologist Pre-Op Note ---
Pre-Operative Progress Note H&P Reviewed The H&P was reviewed, patient examined and no changes noted. Date H&P Reviewed: May 28, 2021 Time H&P Reviewed: 11:47 Pre-Op Dx Cataract, Right Eye TRISTEN RODRIGUEZ MD May 28, 2021 11:47
--- NOTE | 2021-05-28 12:15 | Ophthalmology Operative Report ---
Cataract, Miotic Pupil PREOPERATIVE DIAGNOSIS: 1. Cataract Right Eye 2. Miotic Pupil POSTOPERATIVE DIAGNOSIS: 1. Cataract Right Eye 2. Miotic Pupil PROCEDURE: 1. Cataract removal and placement of posterior chamber implant, right eye 2. Pupillary expansion with malyugin ring SURGEON: Lyle Rodriguez ANESTHESIA: Topical with sedation COMPLICATIONS: None ESTIMATED BLOOD LOSS: Minimal DESCRIPTION OF PROCEDURE: After proper informed consent was obtained, the patient, a 75 male, was taken to the Operating Room and the right eye was anesthetized with Tetracaine. The eye was then prepped and draped in the usual manner. A wire lid speculum was placed. A paracentesis was made at the left hand position. Preservative free lidocaine was injected into anterior chamber followed by viscoelastic. A clear corneal incision was made in the temporal position. The malyugin ring was injected into the anterior chamber and the pupil was dilated. A capsulorrhexis was preformed and the central nuclear and cortical material were removed. The posterior capsule was polished and Weston 20.0 [id number] IOL was placed into the capsular bag. The malyugin ring was removed. The residual viscoelastic was aspirated and the balanced saline solution was injected into the anterior chamber. Moxifloxacin was injected into the anterior chamber. The wound was checked and found to be water tight. The patient tolerated the procedure well without complications. LYLE RODRIGUEZ MD May 28, 2021 12:15
[2021-05-28 12:20] VITALS: BP 116/62
[2021-05-28] MEDS ORDERED: acetaZOLAMIDE ER 500 MG CAP (DIAMOX SEQUELS) PO ONE (12:30)
--- NOTE | 2021-05-28 13:23 | Anesthesia-General Post-Op ---
MAC Patient Condition Mental Status/LOC: Same as Preop Cardiovascular: Satisfactory Nausea/Vomiting: Absent Respiratory: Satisfactory Pain: Controlled Complications: Absent Post Op Complications Complications None Follow Up Care/Instructions Patient Instructions None needed. Anesthesiology Discharge Order Discharge Order Patient was doing well after the procedure with no complaints, stable vital signs, no apparent adverse anesthesia problems. VIOLETA ARGUETA DO May 28, 2021 13:23
== END 2021-05-28 12:21 ==
LOC: SDC 10:54
PROVIDERS: ATTEND Specialist
DX: H25.11 Age-related nuclear cataract, right eye (principal); H57.03 Miosis; I10 Essential (primary) hypertension; R56.9 Unspecified convulsions; Z79.899 Other long term (current) drug therapy; Z87.891 Personal history of nicotine dependence

== ENCOUNTER 2021-06-18 07:41 | Day surgery (SDC) | payer OTHER ==
[~2021-06-18] VITALS: Ht 177.8 cm; Wt 109.1 kg
[2021-06-18] MEDS ORDERED: LIDOCAINE PF 1% 2 ML VIAL IR PRN (07:45)
[2021-06-18] MEDS ORDERED: POVIDONE (BETADINE) OPHTH SOLN 5% 30 ML OP ONE (07:45)
[2021-06-18] MEDS ORDERED: TIMOLOL MALEATE 0.5% 5 ML (TIMOPTIC) BTL OU PRN (07:45)
[2021-06-18] MEDS ORDERED: MOXIFLOXACIN OPHTH SOLN 5 MG/ML 0.3 ML SYRINGE OP ONE (07:45)
[2021-06-18] MEDS: TETRACAINE 0.5% OPHTH SOLN 4 ML BTL (SINGLE DOSE ONLY) OU PRN ×3 (07:57→08:14)
[2021-06-18 08:01] VITALS: BP 126/64
[2021-06-18] MEDS: PHENYLEPHRINE 10% OPHTH (NEO-SYN) 5 ML BTL OU SCH ×2 (08:17→08:18)
[2021-06-18] MEDS: TROPICAMIDE 1% OPH SOLN (MYDRIACYL) 15 ML BTL OP SCH ×2 (08:18→08:19)
--- NOTE | 2021-06-18 08:38 | Ophthalmologist Pre-Op Note ---
Pre-Operative Progress Note H&P Reviewed The H&P was reviewed, patient examined and no changes noted. Date H&P Reviewed: Jun 18, 2021 Time H&P Reviewed: 08:38 Pre-Op Dx Cataract, Left Eye TRISTEN RODRIGUEZ MD Jun 18, 2021 08:38
[2021-06-18] MEDS ORDERED: acetaZOLAMIDE ER 500 MG CAP (DIAMOX SEQUELS) PO ONE (09:00)
--- NOTE | 2021-06-18 09:04 | Ophthalmology Operative Report ---
Cataract, Miotic Pupil PREOPERATIVE DIAGNOSIS: 1. Cataract Left Eye 2. Miotic Pupil POSTOPERATIVE DIAGNOSIS: 1. Cataract Left Eye 2. Miotic Pupil PROCEDURE: 1. Cataract removal and placement of posterior chamber implant, left eye 2. Pupillary expansion with malyugin ring SURGEON: Lyle Rodriguez ANESTHESIA: Topical with sedation COMPLICATIONS: None ESTIMATED BLOOD LOSS: Minimal DESCRIPTION OF PROCEDURE: After proper informed consent was obtained, the patient, a 75 male, was taken to the Operating Room and the left eye was anesthetized with Tetracaine. The eye was then prepped and draped in the usual manner. A wire lid speculum was placed. A paracentesis was made at the left hand position. Preservative free lid ocaine was injected into anterior chamber followed by viscoelastic. A clear corneal incision was made in the temporal position. The malyugin ring was injected into the anterior chamber and the pupil was dilated. A capsulorrhexis was preformed and the central nuclear and cortical material were removed. The posterior capsule was polished and Weston 21.0 AU00T0 IOL was placed into the capsular bag. The myalgian ring was removed. The residual viscoelastic was aspirated and the balanced saline solution was injected into the anterior chamber. Moxifloxacin was injected into the anterior chamber. The wound was checked and found to be water tight. The patient tolerated the procedure well without complications. [Limbal Relaxing Incision placed ] [ ]mm at [ ]. LYLE RODRIGUEZ MD Jun 18, 2021 09:04
[2021-06-18 09:08] VITALS: BP 123/58
--- NOTE | 2021-06-18 12:46 | Anesthesia-General Post-Op ---
MAC Patient Condition Mental Status/LOC: Same as Preop Cardiovascular: Satisfactory Nausea/Vomiting: Absent Respiratory: Satisfactory Pain: Controlled Complications: Absent Post Op Complications Complications None Follow Up Care/Instructions Patient Instructions None needed. Anesthesiology Discharge Order Discharge Order Patient is doing well, no complaints, stable vital signs, no apparent adverse anesthesia problems. No complications reported per nursing. ABDIEL MARTINEZ CRNA Jun 18, 2021 12:46
== END 2021-06-18 09:25 ==
LOC: SDC 07:41
PROVIDERS: ATTEND Specialist
DX: H25.12 Age-related nuclear cataract, left eye (principal); H57.03 Miosis; I10 Essential (primary) hypertension; R56.9 Unspecified convulsions; Z87.891 Personal history of nicotine dependence

== ENCOUNTER 2021-08-10 09:51 | Emergency (ER) | payer OTHER ==
[~2021-08-10] VITALS: Ht 177 cm; Wt 102.0 kg
--- NOTE | 2021-08-10 10:30 | ED Back Pain ---
General Chief Complaint: Back Problems Stated Complaint: BACK PAIN Nursing Triage Note: TO ROOM PER EMS FROM HOME REPORTS THAT HAS CHRONIC PAIN IN BACK ALL SUMMER HAS NOT SEEN A DR FOR. HE FELL ON MONDAY GETTING OUT OF TUB TODAY PAIN WORSE GOING DOWN L LEG REPORTS UNABLE TO WALK. Source of Information: Patient Exam Limitations: No Limitations (KYAW NORRIS STUDENT) History of Present Illness Date Seen by Provider: Aug 10, 2021 Time Seen by Provider: 09:55 Initial Comments This is Ebenezer a 75 yo male that presented to the ER via EMS with the chief complaint of lumbar back pain that he placed at a 2-3 on the pain scale. Pt described experiencing lower back pain that would radiate down his right leg throughout the summer causing his knees to feel weak and sometimes give out but denies seeking medical treatment. The pain has continued to progress, greatly effecting his ability to ambulate. He stated that Monday morning he fell after getting out of the shower. He admits to hitting the posterior right side of his head but stated that he caught most of the impact with his right hand. He has been unable to walk due to instability and proceeded to fall 4 more times since the initial event. He stating that he hasn't been able to eat because he can't make it to the fridge so he has snacks and a large bottle of water beside his bed. He has tried heating pad, exercise, stretching, walker, and ibuprofen since the symptoms began and none have helped. Laying or sitting down is the only thing that eases the pain, while walking makes it much worse. Pt lives alone. PMH is significant for TBI that he described as a severe concussion that required a week long coma effecting his frontal lobe and his ability to walk. After relearning to walk he admits to not being as stable as before the accident. Pt denies alcohol, drug, or tobacco use. Only other symptom that he stated was constipation. Last BM was last . Location: Lumbar Spine Timing/Duration: Getting Worse Severity: Moderate Pain/Injury Location: Back Radiation: Lower Legs (right) Method of Injury: Unknown Modifying Factors: Improves With Immobilization (makes it better), Improves With Movement (makes it worse) Associated Symptoms: lower back pain; No loss of bladder control, No loss of bowel control (KYAW NORRIS STUDENT) Allergies and Home Medications Allergies Coded Allergies: No Known Drug Allergies (Unverified , 10/31/19) Patient Home Medication List Home Medication List Reviewed: Yes (BOBBY GOSS MD) Cyclobenzaprine HCl (Cyclobenzaprine HCl) 10 Mg Tablet, 10 MG PO TID PRN for SPASMS Prescribed by: BOBBY ABREU on 08/10/21 1631 Docusate Sodium (Colace) 100 Mg Capsule, 1-2 CAP PO DAILY Prescribed by: BOBBY ABREU on 08/10/21 1635 Hydrocodone/Acetaminophen (Hydrocodone-Acetamin 5-325 mg) 1 Each Tablet, 1 TAB PO Q4H PRN for PAIN-MODERATE (5-7) Prescribed by: BOBBY ABREU on 08/10/21 1632 Lisinopril/Hydrochlorothiazide (Lisinopril-Hctz 20-25 mg Tab) 1 Each Tablet, 1 TAB PO DAILY PRN for BLOOD PRESSURE, (Reported) Entered as Reported by: MARGARITO BARRETT on 08/17/17 1057 Phenytoin Sodium Extended (Phenytoin Sodium Extended) 100 Mg Capsule, 400 MG PO DAILY, (Reported) Entered as Reported by: MARGARITO BARRETT on 08/17/17 0920 Prednisone (Prednisone) 20 Mg Tab, 40 MG PO DAILY Prescribed by: BOBBY ABREU on 08/10/21 1631 Review of Systems Constitutional: No dizziness, No fever, No malaise EENTM: vision loss; No ear pain, No blurred vision, No eye pain, No throat pain Respiratory: cough; No short of breath Cardiovascular: No chest pain, No edema Gastrointestinal: No abdominal pain; constipation; No diarrhea, No hematemesis, No nausea; vomiting Genitourinary: No hematuria, No incontinence, No pain Musculoskeletal: back pain Skin: change in color (bruising to dorsal right hand), dryness; No rash Psychiatric/Neurological: Denies Headache, Denies Weakness (KYAW NORRIS STUDENT) Past Pkyypnb-Pwepsx-Sjglve Hx Patient Social History Tobacco Use?: No Substance use?: No Pt feels they are or have been: No (KYAW NORRIS STUDENT) Immunizations Up To Date Tetanus Booster (TDap): Unknown First/Initial COVID19 Vaccinat: DEC Second COVID19 Vaccination Dennis: JANUARY COVID19 Vaccine Faculty Member: [employer] (KYAW NORRIS [employer]) Seasonal Allergies Seasonal Allergies: No ([employer] STUDENT) Past Medical History Surgeries: Yes (Left wrist) Respiratory: No Cardiac: Yes High Cholesterol, Hypertension Neurological: Yes (controlled with Dilantin, NO SEIZURES FOR OVER 15YRS) Seizure Disorder Sexually Transmitted Disease: No HIV/AIDS: No Genitourinary: No Gastrointestinal: Yes (MILD) Chronic Constipation Musculoskeletal: Yes Arthritis, Fractures Endocrine: No HEENT: No (GLASSES, PARTIAL DENTURE) Loss of Vision: Denies Hearing Impairment: Denies Cancer: No Psychosocial: No Integumentary: No Eczema Blood Disorders: No Adverse Reaction/Blood Tranf: No (N/A) (KYAW NORRIS [employer] STUDENT) Family Medical History Dementia 19 MOTHER, Onset:Unknown FHx: leukemia 19 FATHER, Onset:Unknown No Pertinent Family Hx (KYAW NORRIS [employer] STUDENT) Physical Exam Vital Signs Vital Signs - First Documented 08/10/21 10:00 Temp 36.0 Pulse 96 Resp 18 B/P (MAP) 165/85 (111) Pulse Ox 99 O2 Delivery Room Air (BOBBY GOSS MD) Vital Signs Capillary Refill : Less Than 3 Seconds (KYAW NORRIS [employer] STUDENT) Height, Weight, BMI Height: 5'10.00" Weight: 227lbs. 7.0oz. [id number]; 32.00 BMI Method:Stated General Appearance: WD/WN, Moderate Distress, Obese HEENT: PERRL/EOMI, Moist Mucous Membranes Neck: Normal Inspection, Non Tender, Supple Cardiovascular: Regular Rate, Rhythm, No Edema, No Gallop, No Murmur, Normal Peripheral Pulses Respiratory: Chest Non Tender, Lungs Clear, Normal Breath Sounds, No Accessory Muscle Use, No Respiratory Distress Gastrointestinal: No Pulsatile Mass, Non Tender, Soft, Abnormal Bowel Sounds (decreased) Back: Vertebral Tenderness (lumbar) Extremity: Normal Capillary Refill, Normal Inspection, Non Tender, No Calf Tenderness, No Pedal Edema Neurologic/Psychiatric: Alert, Oriented x3, Normal Mood/Affect Skin: Normal Color, Warm/Dry (KYAW NORRIS [employer] STUDENT) Progress/Results/Core Measures Results/Orders Lab Results Laboratory Tests Test 08/10/21 11:54 Range/Units Urine Color YELLOW Urine Clarity CLEAR Urine pH 6.5 5-9 Urine Specific [place] <=1.005 1.016-1.022 Urine Protein NEGATIVE NEGATIVE Urine Glucose (UA) NEGATIVE NEGATIVE Urine Ketones NEGATIVE NEGATIVE Urine Nitrite NEGATIVE NEGATIVE Urine Bilirubin NEGATIVE NEGATIVE Urine Urobilinogen 0.2 < = 1.0 MG/DL Urine Leukocyte Esterase TRACE H NEGATIVE Urine RBC (Auto) 3+ H NEGATIVE Urine RBC 5-10 H /HPF Urine WBC RARE /HPF Urine Squamous Epithelial Cells RARE /HPF Urine Crystals NONE /LPF Urine Bacteria NEGATIVE /HPF Urine Casts NONE /LPF Urine Mucus NEGATIVE /LPF Urine Culture Indicated NO (BOBBY GOSS MD) My Orders Orders - BOBBY GOSS MD Mri Lumbar Spine W/O Contrast (08/10/21 11:52) Ua Culture If Indicated (08/10/21 11:52) Orphenadrine Inj (Ed Only) (Norflex Inje (08/10/21 13:15) Ketorolac Injection (Toradol Injection) (08/10/21 13:15) Ekg Tracing (08/10/21 16:16) Prednisone Tablet (Deltasone Tablet) (08/10/21 16:30) Hydrocodone/Apap 5/325 Tablet (Lortab 5 (08/10/21 16:30) (BOBBY GOSS MD) Medications Given in ED Current Medications Medications Dose Ordered Sig/Andrea Route Start Time Stop Time Status Last Admin Dose Admin Acetaminophen/ Hydrocodone Bitart 1 ea ONCE ONCE PO 08/10/21 16:30 08/10/21 16:31 DC 08/10/21 16:54 1 EA Ketorolac Tromethamine 30 mg ONCE ONCE IM 08/10/21 13:15 08/10/21 13:16 DC 08/10/21 13:25 30 MG Orphenadrine Citrate 30 mg ONCE ONCE IM 08/10/21 13:15 08/10/21 13:16 DC 08/10/21 13:25 30 MG Prednisone 40 mg ONCE ONCE PO 08/10/21 16:30 08/10/21 16:31 DC 08/10/21 16:55 40 MG (BOBBY GOSS MD) Vital Signs/I&O 08/10/21 08/10/21 10:00 17:05 Temp 36.0 Pulse 96 82 Resp 18 18 B/P (MAP) 165/85 (111) 134/79 Pulse Ox 99 96 O2 Delivery Room Air Room Air (BOBBY GOSS MD) Blood Pressure Mean: 111 Progress Progress Note : Time: 15:50 Progress Note 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 Because of his frequent falls over the past week and instability with gait accompanying this back pain, urgent MRI was deemed appropriate. MRI was obtained and showed numerous pathologies in the lumbar spine including disc herniation, disc bulging, spinal stenosis, and neural foraminal stenosis. Patient was treated with Toradol and Norflex. He was able to ambulate some but does not feel or seem safe to return home by himself without supportive care. He presently lives alone. We are investigating alternatives. The acute rehab unit was contacted but they have a long waiting list. Social work was consulted and believed home health might be his best option at this time. In his current condition, patient would be homebound without assistance. We are working with Dr. Boland to make arrangements for home health care. Patient denies cauda equina symptoms of saddle paresthesia, chiquis lower extremity weakness, or bowel or bladder control problems. He states his constipation is chronic and unchanged. He does however seem to have some features of bilateral radiculopathy. As we make definite arrangements for him to return home, prescriptions will be provided for pain management and treatment of muscle spasms. I will also be recommending a short course of steroids and referral to a spine surgeon. (BOBBY GOSS MD) Initial ECG Impression Date: Aug 10, 2021 Initial ECG Impression Time: 16:25 Initial ECG Rate: 90 Initial ECG Rhythm: Normal Sinus Comment Sinus rhythm with no ST elevation or depression. No abnormal intervals or axis deviation. (BOBBY GOSS MD) Departure Impression Primary Impression: Lumbar spinal stenosis Qualified Codes: M48.062 - Spinal stenosis, lumbar region with neurogenic claudication Additional Impressions: Bulging lumbar disc Low back pain Qualified Codes: M54.42 - Lumbago with sciatica, left side; M54.41 - Lumbago with sciatica, right side Frequent falls Lives alone without help available Disposition: 01 HOME, SELF-CARE Condition: Stable Departure-Patient Inst. Referrals: GEOFFREY BOLAND MD (PCP/Family) Primary Care Physician LUCIEN RICE BRIAN J MD Patient Instructions: Spinal Stenosis Add. Discharge Instructions: Please get up and walking very carefully. Use a supportive device such as a cane or a walker. Social work and at Dr. Boland's office are working to get you some home health services. If you do not hear from them in the next 24 hours, please call Dr. Boland's office. You may continue using ibuprofen up to 600 mg every 6 hours as needed for pain. Add hydrocodone as prescribed for pain not controlled by ibuprofen. You should use Colace stool softener or a gentle laxative such as MiraLAX to help prevent constipation while on hydrocodone. Also drink plenty of clear liquids to stay well-hydrated as this should help prevent constipation. Follow-up with Dr. Boland as soon as possible. Seek referral to a spine surgeon for evaluation of your back. Take prednisone as prescribed. Take this with food or milk to avoid stomach upset. Take prednisone early in the day to avoid sleep disturbance. Return to the emergency room if you have worsening symptoms. Return to the ER or call 911 if you develop notable weakness in your legs, bowel or bladder control problems, or numbness in your groin. There was an abnormal heart rhythm noted on the cardiac cath rn while you were in the ER. This abnormal rhythm was not captured on the EKG. Please call this to Dr. Boland's attention and have him reassess your heart rhythm in the clinic. Call with questions or concerns. All discharge instructions reviewed with patient and/or family. Voiced understanding. Scripts Docusate Sodium (Colace) 100 Mg Capsule 1-2 CAP PO DAILY, #30 CAP Take one cap once or twice daily. Prov: BOBBY GOSS MD 08/10/21 Cyclobenzaprine HCl (Cyclobenzaprine HCl) 10 Mg Tablet 10 MG PO TID PRN for SPASMS, #10 TAB Prov: BOBBY GOSS MD 08/10/21 Hydrocodone/Acetaminophen (Hydrocodone-Acetamin 5-325 mg) 1 Each Tablet 1 TAB PO Q4H PRN for PAIN-MODERATE (5-7), #20 TAB Prov: BOBBY GOSS MD 08/10/21 Prednisone (Prednisone) 20 Mg Tab 40 MG PO DAILY, #6 TAB 0 Refills Prov: BOBBY GOSS MD 08/10/21 Medical Student Attestation and Attending Note: I have personally interviewed and examined this patient along with BELLA Boateng. I have reviewed student documentation including history, physical, and assessments. I agree with the documentation except where otherwise noted. Exam: General: Alert, oriented, mild distress, well developed HEENT: Normocephalic and atraumatic Heart: Regular rate and rhythm without murmur Lungs: Clear to auscultation bilaterally with normal effort Abdomen: Soft, nontender, nondistended, normal bowel sounds Back: Tenderness over the lower lumbar spine Extremities: No significant edema, no injury, ambulatory difficulty secondary to back pain Neuropsych: Alert, oriented, no focal deficits Skin: Warm and dry without rashes (BOBBY GOSS MD) Copy Copies To 1: GEOFFREY BOLAND MD, DYLAN MED STUDENT Aug 10, 2021 10:30 BOBBY GOSS MD Aug 10, 2021 15:13
[2021-08-10 12:19] LABS: BILIRUBIN,URINE NEGATIVE (NEGATIVE); CLARITY,URINE CLEAR; COLOR,URINE YELLOW; GLUCOSE, URINE (UA) NEGATIVE (NEGATIVE); KETONES,URINE NEGATIVE (NEGATIVE); LEUKOCYTE ESTERASE ,URINE TRACE (NEGATIVE); NITRITE,URINE NEGATIVE (NEGATIVE); PH,URINE 6.5 (5-9); PROTEIN,URINE NEGATIVE (NEGATIVE)
[2021-08-10 12:29] LABS: BACTERIA,URINE NEGATIVE /HPF; SQUAMOUS EPITHELIAL CELL,UR RARE /HPF; WBC,URINE RARE /HPF
--- NOTE | 2021-08-10 12:40 | Diagnostic Imaging Report ---
PROCEDURE: MRI lumbar spine. TECHNIQUE: Multiplanar, multisequence MRI of the lumbar spine was performed without contrast. INDICATION: Leg weakness, low back pain, history of falls. EXAMINATION: MRI lumbar spine without contrast 08/10/2021 FINDINGS: There is normal height and alignment of the vertebral bodies. No acute fractures appreciated. Tip of the conus is unremarkable in appearance and location. Heterogeneity of the bone marrow signal appears to represent fatty infiltration. Mild Modic type I findings seen along the endplates at L5-S1. L1-L2: There is bilateral facet and ligamentum flavum hypertrophy. No central stenosis. There is mild bilateral neural foraminal narrowing. L2-L3: There is bilateral facet and ligamentum flavum hypertrophy. There is no central narrowing. There is moderate bilateral neural foraminal narrowing. L3-L4: There is bilateral facet and ligamentum flavum hypertrophy. There is a mild broad-based bulging disc with mild central stenosis. Mild narrowing of the left lateral recess is noted. There is moderate to severe left neural foraminal narrowing. Moderate narrowing is seen on the right. L4-L5: There is bilateral facet and ligamentum flavum hypertrophy. There is a broad-based bulging disc right paracentral. Findings cause near severe central stenosis with narrowing of the lateral recesses bilaterally. There is severe bilateral neural foraminal stenosis. L5-S1: There is disc desiccation with central disc protrusion containing an annular tear. Bilateral facet and ligamentum flavum hypertrophy is noted left greater than right. There is secondary moderate central stenosis with narrowing of the left lateral recess. There is moderate bilateral neural foraminal narrowing left greater than right. Visualized intra-abdominal structures unremarkable. There is diffuse atrophy and fatty infiltration within the paraspinal musculature. IMPRESSION: 1. Multilevel diffuse degenerative disease as described above. Dictated by: Dictated on workstation # [id number]
[2021-08-10] MEDS ORDERED: ORPHENADRINE 60 MG/2 ML (NORFLEX) AMP (ED ONLY) IM ONE (13:15)
[2021-08-10] MEDS ORDERED: KETOROLAC 30 MG/ML VIAL IM ONE (13:15)
[2021-08-10] MEDS ORDERED: HYDROcodone/APAP 5 MG/325 MG (LORTAB) TAB PO ONE (16:30)
[2021-08-10] MEDS ORDERED: predniSONE 20 MG TAB PO ONE (16:30)
[2021-08-10] MEDS ORDERED: PRD20T PO (16:31)
[2021-08-10] MEDS ORDERED: ACHD5005 PO (16:31)
[2021-08-10] MEDS ORDERED: CYCL10TA9 PO (16:31)
[2021-08-10] MEDS ORDERED: DOCU-143 PO (16:35)
[2021-08-10 17:05] VITALS: BP 134/79
== END 2021-08-10 16:56 | disposition home or self-care (01) ==
LOC: ER 09:52
DX: M48.061 Spinal stenosis, lumbar region without neurogenic claudication (principal); M51.36 Other intervertebral disc degeneration, lumbar region; R29.6 Repeated falls; E66.9 Obesity, unspecified; I10 Essential (primary) hypertension; G40.909 Epilepsy, unspecified, not intractable, without status epilepticus; Z60.2 Problems related to living alone; Z68.32 Body mass index [BMI] 32.0-32.9, adult; Z79.899 Other long term (current) drug therapy
CPT/HCPCS: 72148; 81000; 93005

== ENCOUNTER 2021-09-16 08:52 | Outpatient (RCR) | payer MEDICARE, OTHER ==
[~2021-09-16 08:52] MED LIST changes: +ACHD5005 PO; +CYCL10TA25 PO; +DOCU-143 PO; -LISI1TAB26 PO; +LISI1TAB48 PO; +PRD20T PO
[2021-09-20] MEDS ORDERED: DOCU100T7 PO (15:10)
[2021-09-20] MEDS ORDERED: IBUP-2185 PO (15:10)
[2021-09-20] MEDS ORDERED: ATOR20TA66 PO (15:10)
[2021-09-20] MEDS ORDERED: BISA5TAB49 PO (15:10)
[2021-09-27] MEDS ORDERED: APIX5TAB PO (10:27)
[2021-09-27] MEDS ORDERED: MTP25TSR PO ×2 (10:27→13:20)
[2021-09-27] MEDS ORDERED: CEFD300C3 PO (10:27)
== END 2021-10-06 13:40 | disposition home or self-care (01) ==
PROVIDERS: ATTEND Internal Medicine
DX: M48.00 Spinal stenosis, site unspecified (principal)

== ENCOUNTER 2021-09-19 12:20 | Inpatient (IN) | payer MEDICARE ==
[~2021-09-19] VITALS: Ht 177.8 cm; Wt 103.2 kg
[~2021-09-19 12:20] MED LIST changes: -CYCL10TA25 PO; +CYCL10TA9 PO; +LISI1TAB26 PO; -LISI1TAB48 PO
[2021-09-19 12:44] LABS: BASOPHILS % (AUTO) 0 % (0-10); EOSINOPHILS % (AUTO) 0 % (0-10); HEMATOCRIT 40 % (40-54); HEMOGLOBIN 13.4 g/dL (13.3-17.7); LYMPHOCYTES # (AUTO) 1.7 10^3/uL (1.0-4.0); LYMPHOCYTES % (AUTO) 10 % (12-44); MEAN CORPUSCULAR HEMOGLOBIN 32 pg (25-34); MEAN CORPUSCULAR HGB CONC 34 g/dL (32-36); MEAN CORPUSCULAR VOLUME 95 fL (80-99); MEAN PLATELET VOLUME 10.5 fL (9.0-12.2); MONOCYTES # (AUTO) 1.4 10^3/uL (0.0-1.0); MONOCYTES % (AUTO) 8 % (0-12); NEUTROPHILS % (AUTO) 80 % (42-75); PLATELET COUNT 256 10^3/uL (130-400); WHITE BLOOD COUNT 17.4 10^3/uL (4.3-11.0)
[2021-09-19 12:46] LABS: BILIRUBIN,URINE NEGATIVE (NEGATIVE); CLARITY,URINE CLOUDY; COLOR,URINE YELLOW; GLUCOSE, URINE (UA) NEGATIVE (NEGATIVE); KETONES,URINE 1+ (NEGATIVE); LEUKOCYTE ESTERASE ,URINE 2+ (NEGATIVE); NITRITE,URINE POSITIVE (NEGATIVE); PH,URINE 6.5 (5-9); PROTEIN,URINE 3+ (NEGATIVE)
[2021-09-19 12:54] LABS: INR 1.1 (0.8-1.4)
[2021-09-19 13:01] LABS: BACTERIA,URINE LARGE /HPF; RBC,URINE TNTC /HPF; SQUAMOUS EPITHELIAL CELL,UR 0-2 /HPF; WBC,URINE 25-50 /HPF
[2021-09-19 13:09] LABS: ALANINE AMINOTRANSFERASE 19 U/L (0-55); ALBUMIN 3.4 GM/DL (3.2-4.5); ALKALINE PHOSPHATASE 88 U/L (40-136); BUN/CREATININE RATIO 16; CALCIUM 8.7 MG/DL (8.5-10.1); CARBON DIOXIDE 17 MMOL/L (21-32); CHLORIDE 99 MMOL/L (98-107); CREATININE SERUM 0.96 MG/DL (0.60-1.30); GFR ESTIMATED 76; GLUCOSE 138 MG/DL (70-105); POTASSIUM 2.9 MMOL/L (3.6-5.0); SODIUM 133 MMOL/L (135-145); TOTAL PROTEIN 7.2 GM/DL (6.4-8.2)
[2021-09-19 13:11] LABS: ANISOCYTOSIS SLIGHT; BASOPHILS % (MANUAL) 1 %; LYMPHOCYTES % (MANUAL) 9 %; MICROCYTOSIS SLIGHT; MONOCYTES % (MANUAL) 8 %; NEUTROPHILS % (MANUAL) 82 %; POLYCHROMASIA SLIGHT
[2021-09-19] MEDS ORDERED: CEFEPIME INJECTION 1,000 MG in WATER (STERILE) FOR INJECTION 10 ML IV ONE (13:15)
[2021-09-19] MEDS: NS IV 1000 ML 1,000 ML IV SCH ×3 (13:16→22:58)
[2021-09-19] MEDS: POTASSIUM CL 10MEQ/50ML IVPB 50 ML IV SCH ×2 (13:20→14:39)
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
[2021-09-19] MEDS ORDERED: NS IV 1000 ML 1,000 ML IV SCH (14:00)
--- NOTE | 2021-09-19 14:28 | Diagnostic Imaging Report ---
EXAMINATION: Chest 1 view HISTORY: Sepsis. Back pain. COMPARISON: 08/16/2017. FINDINGS: The lung volumes are normal. No focal consolidation is seen. Patchy right basilar opacities are present. No large pleural effusion or pneumothorax is seen. The cardiomediastinal silhouette is normal in size and contour. No acute osseous abnormality is seen. IMPRESSION: 1. Patchy right basilar opacities, favored to represent atelectasis. Dictated by: Dictated on workstation # [id number]
--- NOTE | 2021-09-19 14:33 | Diagnostic Imaging Report ---
PROCEDURE: CT urinary tract, rule out kidney stone. TECHNIQUE: Multiple contiguous axial images were obtained through the abdomen and pelvis without the use of intravenous contrast. Auto Exposure Controls were utilized during the CT exam to meet ALARA standards for radiation dose reduction. INDICATION: Flank pain. COMPARISON: None available. FINDINGS: Small dependently layering bilateral pleural effusions. Calcified granuloma identified within the bilateral lower lobes. Additional noncalcified sub 0.4 cm pulmonary nodules are present bilaterally. Cholelithiasis. No significant inflammatory stranding about the gallbladder. Subcentimeter hypodensity is present within the anterior aspect of the left hepatic lobe, incompletely evaluated on this examination. The unenhanced liver is otherwise unremarkable. The unenhanced spleen is unremarkable. The adrenal glands are unremarkable. The unenhanced pancreas is unremarkable. Significant mural thickening of the urinary bladder is identified with associated adjacent inflammatory stranding. Bilateral perinephric fat stranding is present. No evidence of hydroureteronephrosis. Exophytic left renal cyst. Retroaortic left renal vein. The prostate gland is mildly enlarged. Mild prostatic calcifications. Small fat-containing left inguinal hernia. No bowel obstruction or pneumatosis. No significant adenopathy, free air, or free fluid within the abdomen or pelvis. Significant scattered osseous degenerative changes without acute osseous abnormality. IMPRESSION: Significant mural thickening and inflammatory stranding associated with the urinary bladder. This suggests underlying cystitis. Mild bilateral perinephric fat stranding. This is nonspecific and could relate to underlying chronic renal disease, though findings are suspicious for underlying pyelonephritis. No evidence of hydroureteronephrosis. Cholelithiasis. Evidence of chronic granulomatous disease. Multiple sub 0.4 cm noncalcified bilateral pulmonary nodules. These are favored to relate to noncalcified granuloma. Follow-up CT of the chest in one year is recommended. Dictated by: Dictated on workstation # [id number]
[2021-09-19] MEDS ORDERED: cefTRIAXone 2,000 MG in WATER (STERILE) FOR INJECTION 20 ML IV ONE (15:30)
[2021-09-19 20:02] VITALS: BP 158/67
[2021-09-19] MEDS ORDERED: ACETAMINOPHEN 325 MG TABLET ONE (20:42)
[2021-09-19] MEDS: ACETAMINOPHEN 325 MG TABLET PO PRN (22:58)
[2021-09-19] MEDS ORDERED: ONDANSETRON 4 MG/2 ML (SDV) Z0FRAN IVP PRN (23:00)
[2021-09-20] VITALS (7 sets, daily range): BP systolic 118–143; BP diastolic 60–75
[2021-09-20] MEDS ORDERED: CIPROFLOXACIN IV 400MG/200ML 200 ML IV SCH (01:30)
[2021-09-20] MEDS: ACETAMINOPHEN 325 MG TABLET PO PRN ×2 (05:05→12:14)
[2021-09-20 06:50] LABS: BASOPHILS % (AUTO) 0 % (0-10); EOSINOPHILS % (AUTO) 0 % (0-10); HEMATOCRIT 36 % (40-54); HEMOGLOBIN 11.9 g/dL (13.3-17.7); LYMPHOCYTES # (AUTO) 1.5 10^3/uL (1.0-4.0); LYMPHOCYTES % (AUTO) 9 % (12-44); MEAN CORPUSCULAR HEMOGLOBIN 32 pg (25-34); MEAN CORPUSCULAR HGB CONC 33 g/dL (32-36); MEAN CORPUSCULAR VOLUME 97 fL (80-99); MEAN PLATELET VOLUME 10.8 fL (9.0-12.2); MONOCYTES # (AUTO) 1.7 10^3/uL (0.0-1.0); MONOCYTES % (AUTO) 11 % (0-12); NEUTROPHILS # (AUTO) 12.6 10^3/uL (1.8-7.8); NEUTROPHILS % (AUTO) 79 % (42-75); PLATELET COUNT 209 10^3/uL (130-400); WHITE BLOOD COUNT 15.9 10^3/uL (4.3-11.0)
[2021-09-20 07:10] LABS: POTASSIUM 2.8 MMOL/L (3.6-5.0)
[2021-09-20 07:11] LABS: CALCIUM 7.8 MG/DL (8.5-10.1)
[2021-09-20 07:15] LABS: CREATININE SERUM 0.83 MG/DL (0.60-1.30)
[2021-09-20] MEDS: POTASSIUM CL 10MEQ/50ML IVPB 50 ML IV SCH ×4 (08:10→11:55)
[2021-09-20] MEDS: NS IV 1000 ML 1,000 ML IV SCH ×3 (08:10→20:07)
[2021-09-20] MEDS: CEFEPIME 1,000 MG/SWFI 10 ML IV PUSH IV SCH ×6 (08:10→20:07)
[2021-09-20] MEDS: lisINopril 20 MG (PRINIVIL) TABLET PO SCH (08:10)
[2021-09-20] MEDS: PHENYTOIN 100 MG (DILANTIN) CAP PO SCH (08:16)
--- NOTE | 2021-09-20 09:20 | Physical Therapy Evaluation ---
PT Evaluation-General Medical Diagnosis Admission Date Sep 19, 2021 at 15:30 Medical Diagnosis: Fall, Back pain Onset Date: Sep 19, 2021 Therapy Diagnosis Therapy Diagnosis: Gait deficit, strength deficit Height/Weight Height (Feet): 5 Height (Inches): 10.00 Weight (Pounds): 227 Weight (Ounces): 7.0 Precautions Precautions/Isolations: Seizure, Fall Prevention, Standard Precautions Referral Physician: Dilcia Mcdermott Reason for Referral: Evaluation/Treatment Medical History Pertinent Medical History: Arthritis Social History Home: Single Level Current Living Status: Alone Entry Into Home: Stairs With Railing PT Steps Into Home: 5 Prior Prior Level of Function SCALE: Activities may be completed with or without assistive devices. 4-Ahhtlclwpi-etbpsnt completes the activity by him/herself with no assistance from a helper. 5-Set-up or Clean-up Assistance-helper sets up or cleans up; patient completes activity. [place] assists only prior to or following the activity. 4-Supervision or Touching Assistance-helper provides verbal cues and/or touching/steadying and/or contact guard assistance as patient completes activity. Assistance may be provided throughout the activity or intermittently. 3-Partial/Moderate Assistance-helper does LESS THAN HALF the effort. [place] lifts, holds or supports trunk or limbs, but provides less than half the effort. 2-Substantial/Maximal Assistance-helper does MORE THAN HALF the effort. [place] lifts or holds trunk or limbs and provides more than half the effort. 8-Oqmvovncb-epkqhg does ALL the effort. Patient does none of the effort to complete the activity. Or, the assistance of 2 or more helpers is required for the patient to complete the activity. If activity was not attempted, code reason: 7-Patient Refused. 9-Not Applicable-not attempted and the patient did not perform the activity before the current illness, exacerbation or injury. 10-Not Attempted due to Environmental Limitations-(lack of equipment, weather restraints, etc.). 88-Not Attempted due to Medical Conditions or Safety Concerns. Bed Mobility: 6 Transfers (B,C,W/C): 6 Gait: 6 Stairs: 6 Indoor Mobility (Ambulation): Independent Stairs: Independent Prior Device Use: Cane Patient reports he has a cane, FWW, Shower chair and grab bars in the bathroom at home. PT Evaluation-Current Subjective Patient reports he hasn't been up out of bed much the past few days. Rates pain at 5/10 currently in his low back. Objective Patient Orientation: Person, Place, Time, Situation Attachments: IV ROM/Strength ROM Lower Extremities WFLs all plane in hip, knee, and ankle bilaterally Strength Lower Extremities 3+/5 bilaterally all planes hip, knee and ankle Sensory Vision: Functional Hearing: Functional Sensation Right Lower Extremit: Intact Sensation Left Lower Extremity: Intact Transfers Roll Left to Right (QC): 4 Sit to Lying (QC): 4 Lying to Sitting/Side of Bed(Q: 4 Sit to Stand (QC): 3 Chair/Veu-qp-Fhoke Xfer(QC): 3 Toilet Transfer (QC): 3 Gait Does the Patient Walk?: Yes Mode of Locomotion: Walk Anticipated Mode of Locomotion: Walk Walk 10 feet (QC): 88 Distance: 5 feet Gait Assistive Device: FWW Wheelchair Training Does the Pt Use a Wheelchair?: No Balance Sitting Static: Good Sitting Dynamic: Good Standing Static: Fair Standing Dynamic: Fair Assessment/Needs Patient tolerated treatment fair. Patient lying supine in bed upon PT arrival, agreeable to treatment. Requires SBA for all observed bed mobility and mod a for all transfers. Patient ambulates 5 feet with FWW, with min A and verbal cues for safety, progression, posture. Patient demonstrates poor balance during gait, shortened stride length and tends to keep his right knee bent without obtaining full TKE. Patient in the chair post treatment with all needs met, nursing notified, call light in reach. Rehab Potential: Fair PT Bark Spudder Goals Bark Spudder Goals PT Bark Spudder Goals Time Frame: Oct 06, 2021 Roll Left & Right (QC): 6 Sit to Lying (QC): 6 Lying-Sitting on Side/Bed(QC): 6 Sit to Stand (QC): 6 Chair/Lmv-kx-[place] Xfer(QC): 6 Toilet Transfer (QC): 6 Does the Patient Walk: Yes Walk 10 feet (QC): 5 Walk 50ft with 2 Turns (QC): 5 Walk 150 ft (QC): 5 Walking 10ft on Uneven Surface: 5 1 Step (curb) (QC): 5 4 Steps (QC): 5 12 Steps (QC): 5 Picking up an Object (QC): 5 Does the Pt use WC or Scooter?: No PT Plan Problem List Problem List: Activity Tolerance, Functional Strength, Safety, Balance, Gait, Transfer, Bed Mobility, ROM Treatment/Plan Treatment Plan: Continue Plan of Care Treatment Plan: Bed Mobility, Education, Functional Activity Carltia, Functional Strength, Group Therapy, Gait, Safety, Therapeutic Exercise, Transfers Treatment Duration: Nov 10, 2021 Frequency: 6 times per week Estimated Hrs Per Day: .25 hour per day Patient and/or Family Agrees t: Yes Safety Risks/Education Patient Education: Gait Training, Transfer Techniques Teaching Recipient: Patient Teaching Methods: Demonstration, Discussion Response to Teaching: Verbalize Understanding, Reinforcement Needed Discharge Recommendations Target Placement Post Acute Placement recommended Time/GCodes Time In: 0844 Time Out: 914 Total Billed Treatment Time: 31 Total Billed Treatment Visit, SHAJI Kumar JOHN A PT Sep 20, 2021 09:20
--- NOTE | 2021-09-20 10:19 | History & Physical-Hospitalist ---
History of Present Illness HPI/Chief Complaint Patient is a 75-year-old male with past medical history of seizure disorder chronic back pain who presented to the emergency department due to worsening back pain, chills and urinary incontinence. He states that his symptoms started on the fourth of the fifth when he was chilling profusely. He states he was unable to get warm. He had just seen his primary care doctor but had not told him about any other symptoms besides his back pain. Over the weekend this continued and he started to feel weak. Yesterday he fell prompting his evaluation in the emergency department. He was found to have a urinary t ract infection and meets severe sepsis criteria. He was admitted for IV antibiotics. This morning he states that he is feeling better though he still has back pain. Source: patient Date Seen 09/20/21 Time Seen by a Provider: 10:18 Attending Physician Ana Clavo MD PCP Geoffrey Boland MD Referring Physician Date of Admission Sep 19, 2021 at 15:30 Home Medications & Allergies Home Medications Reviewed patient Home Medication Reconciliation performed by pharmacy medication reconciliations wind technician and/or nursing. Patients Allergies have been reviewed. Allergies Allergies Coded Allergies No Known Drug Allergies (Hreuqmbcgj79/7/21) Past Ebnczhs-Lspzxk-Svwchp Hx Patient Social History Employed/Student: retired Tobacco Use?: No Smokeless Tobacco Frequency: Never a User Use of E-Cig and/or Vaping dev: No Substance use?: No Alcohol Use?: No Pt feels they are or have been: No Immunizations Up To Date Date of Influenza Vaccine: Sep 16, 2021 First/Initial COVID19 Vaccinat: Dec 2020 Second COVID19 Vaccination Dennis: January 2021 Tetanus Booster (TDap): Less Than 5 Years Hepatitis A: Yes Hepatitis B: Yes Date of Pneumonia Vaccine: Sep 01, 2008 Seasonal Allergies Seasonal Allergies: No Current Status Advance Directives: Yes Advance Directive Location: Home Communicates: Verbally Primary Language: British Preferred Spoken Language: British Implanted or Applied Medical D: Orthopedic hardware Past Medical History High Cholesterol, Hypertension Seizure Disorder Sexually Transmitted Disease: No HIV/AIDS: No Chronic Constipation Arthritis, Chronic Back Pain, Fractures Loss of Vision: Denies Hearing Impairment: Denies Eczema Blood Disorders: No Adverse Reaction/Blood Tranf: No (N/A) Family Medical History Reviewed Nursing Family Hx Dementia 19 MOTHER, Onset:Unknown FHx: leukemia 19 FATHER, Onset:Unknown No Pertinent Family Hx Review of Systems Constitutional: chills, fever, malaise, weakness EENTM: no symptoms reported Respiratory: no symptoms reported Cardiovascular: No chest pain, No edema, No palpitations Gastrointestinal: constipation Genitourinary: No dysuria; frequency, hesitancy, incontinence Musculoskeletal: back pain Skin: no symptoms reported Psychiatric/Neurological: No Symptoms Reported Physical Exam Physical Exam Vital Signs Vital Signs - First Documented 09/19/21 12:20 Temp 37.5 Pulse 124 Resp 22 B/P (MAP) 162/73 (102) Pulse Ox 94 O2 Delivery Room Air Capillary Refill : Less Than 3 Seconds Height, Weight, BMI Height: 5'10.00" Weight: 227lbs. 7.0oz. 103.804868dh; 34.57 BMI Method:Stated General Appearance: No Apparent Distress, WD/WN, Obese HEENT: PERRL/EOMI, Moist Mucous Membranes Neck: Normal Inspection, Supple Respiratory: Lungs Clear, No Accessory Muscle Use, No Respiratory Distress Cardiovascular: Regular Rate, Rhythm, No Murmur Gastrointestinal: Normal Bowel Sounds, Non Tender, Soft Extremity: No Calf Tenderness, No Pedal Edema Neurologic/Psychiatric: Alert, Oriented x3 Skin: Normal Color, Warm/Dry Results Results/Procedures Labs Laboratory Tests 09/19/21 12:28 09/20/21 05:56 Patient resulted labs reviewed. Imaging: Reviewed Imaging Report Imaging [facility], [place] NAME: LIZ JUNIOR [facility] REC#: [id number] PT STATUS: REG ER : 1945 PHYSICIAN: JESSICA BUENO ADMIT DATE: 09/19/21/ER Signed Date of Exam:09/19/21 CHEST 1 VIEW, AP/PA ONLY EXAMINATION: Chest 1 view HISTORY: Sepsis. Back pain. COMPARISON: 08/16/2017. FINDINGS: The lung volumes are normal. No focal consolidation is seen. Patchy right basilar opacities are present. No large pleural effusion or pneumothorax is seen. The cardiomediastinal silhouette is normal in size and contour. No acute osseous abnormality is seen. IMPRESSION: 1. Patchy right basilar opacities, favored to represent atelectasis. Dictated by: Dictated on workstation # [id number] Dict: 09/19/21 1406 Trans: 09/19/21 1430 AS6 [id number] Interpreted by: ALEJANDRO JOSE DO Electronically signed by: ALEJANDRO JOSE DO 09/19/21 143 [facility], [place] NAME: LIZ JUNIOR [facility] REC#: [id number] PT STATUS: ADM Linda : 1945 PHYSICIAN: JESSICA BUENO ADMIT DATE: 09/19/21 Signed Date of Exam:09/19/21 CT ABD/PELVIS WO(KIDNEY STONE) PROCEDURE: CT urinary tract, rule out kidney stone. TECHNIQUE: Multiple contiguous axial images were obtained through the abdomen and pelvis without the use of intravenous contrast. Auto Exposure Controls were utilized during the CT exam to meet ALARA standards for radiation dose reduction. INDICATION: Flank pain. COMPARISON: None available. FINDINGS: Small dependently layering bilateral pleural effusions. Calcified granuloma identified within the bilateral lower lobes. Additional noncalcified sub 0.4 cm pulmonary nodules are present bilaterally. Cholelithiasis. No significant inflammatory stranding about the gallbladder. Subcentimeter hypodensity is present within the anterior aspect of the left hepatic lobe, incompletely evaluated on this examination. The unenhanced liver is otherwise unremarkable. The unenhanced spleen is unremarkable. The adrenal glands are unremarkable. The unenhanced pancreas is unremarkable. Significant mural thickening of the urinary bladder is identified with associated adjacent inflammatory stranding. Bilateral perinephric fat stranding is present. No evidence of hydroureteronephrosis. Exophytic left renal cyst. Retroaortic left renal vein. The prostate gland is mildly enlarged. Mild prostatic calcifications. Small fat-containing left inguinal hernia. No bowel obstruction or pneumatosis. No significant adenopathy, free air, or free fluid within the abdomen or pelvis. Significant scattered osseous degenerative changes without acute osseous abnormality. IMPRESSION: Significant mural thickening and inflammatory stranding associated with the urinary bladder. This suggests underlying cystitis. Mild bilateral perinephric fat stranding. This is nonspecific and could relate to underlying chronic renal disease, though findings are suspicious for underlying pyelonephritis. No evidence of hydroureteronephrosis. Cholelithiasis. Evidence of chronic granulomatous disease. Multiple sub 0.4 cm noncalcified bilateral pulmonary nodules. These are favored to relate to noncalcified granuloma. Follow-up CT of the chest in one year is recommended. Dictated by: Dictated on workstation # [id number] Dict: 09/19/21 1406 Trans: 09/19/219 AS6 [id number] Interpreted by: CHARLENE BOLANOS MD Electronically signed by: CHARLENE BOLANOS MD 09/19/219 Assessment/Plan Admission Diagnosis Severe Sepsis Admission Status: Inpatient Order (span 2 midnights) Reason for Inpatient Admission: see below Assessment and Plan Severe Sepsis- POA UTI GNR bacteremai Continue IV abx but switch to cefepime as still fevering this AM Await c/s Lactic acidosis resolved Hypokalemia DC HCTZ as BP well controlled replace check mag, replace if low Chronic back pain PT Continue lortab for pain HTN Continue lisinopril DVT ppx: Lovenox Diagnosis/Problems Diagnosis/Problems (1) Severe sepsis Status: Acute (2) Bacteremia Status: Acute (3) Lumbar spinal stenosis Status: Acute Qualifiers: Neurogenic claudication status: unspecified Qualified Codes: M48.061 - Spinal stenosis, lumbar region without neurogenic claudication (4) Frequent falls Status: Acute (5) Urinary tract infection Status: Acute Qualifiers: Urinary tract infection type: acute cystitis Hematuria presence: with hematuria Qualified Codes: N30.01 - Acute cystitis with hematuria (6) Hypokalemia Status: Chronic (7) Essential (primary) hypertension Status: Chronic (8) Low back pain Status: Acute Qualifiers: Chronicity: chronic Back pain laterality: midline Sciatica presence: with sciatica Sciatica laterality: bilateral sciatica Qualified Codes: M54.41 - Lumbago with sciatica, right side; M54.42 - Lumbago with sciatica, left side; G89.29 - Other chronic pain Copy Copies To 1: GEOFFREY BOLAND MD, KATELYN M MD Sep 20, 2021 10:19
[2021-09-20] MEDS: HYDROcodone/APAP 5 MG/325 MG (LORTAB) TAB PO PRN ×2 (12:14→20:07)
[2021-09-20] MEDS: CYCLOBENZAPRINE 10 MG (FLEXERIL) TAB PO PRN (12:14)
[2021-09-20] MEDS: MAGNESIUM 1 GM/100 ML IVPB 100 ML IV SCH ×2 (12:14→13:26)
[2021-09-20] MEDS ORDERED: ATOR20TA66 PO (15:10)
[2021-09-20] MEDS ORDERED: BISA5TAB49 PO (15:10)
[2021-09-20] MEDS ORDERED: DOCU100T7 PO (15:10)
[2021-09-20] MEDS ORDERED: IBUP-2185 PO (15:10)
[2021-09-20] MEDS ORDERED: cefTRIAXone 1,000 MG/SWFI 10 ML IV PUSH IV SCH ×2 (16:00)
[2021-09-21] MEDS: CEFEPIME 1,000 MG/SWFI 10 ML IV PUSH IV SCH ×4 (02:13→09:11)
[2021-09-21] MEDS: CYCLOBENZAPRINE 10 MG (FLEXERIL) TAB PO PRN (02:13)
[2021-09-21] MEDS: HYDROcodone/APAP 5 MG/325 MG (LORTAB) TAB PO PRN ×2 (02:13→14:53)
[2021-09-21 04:00] VITALS: BP 123/69
[2021-09-21] MEDS: NS IV 1000 ML 1,000 ML IV SCH ×2 (04:50→14:54)
[2021-09-21 06:34] LABS: HEMATOCRIT 34 % (40-54); HEMOGLOBIN 11.3 g/dL (13.3-17.7); MEAN CORPUSCULAR HEMOGLOBIN 32 pg (25-34); MEAN CORPUSCULAR HGB CONC 33 g/dL (32-36); MEAN CORPUSCULAR VOLUME 96 fL (80-99); MEAN PLATELET VOLUME 10.8 fL (9.0-12.2); PLATELET COUNT 213 10^3/uL (130-400); WHITE BLOOD COUNT 11.1 10^3/uL (4.3-11.0)
[2021-09-21 06:48] LABS: POTASSIUM 2.7 MMOL/L (3.6-5.0)
[2021-09-21 06:49] LABS: CALCIUM 7.9 MG/DL (8.5-10.1)
[2021-09-21 06:53] LABS: CREATININE SERUM 0.75 MG/DL (0.60-1.30)
[2021-09-21 08:23] VITALS: BP 151/72
--- NOTE | 2021-09-21 08:41 | Physical Therapy Daily Note ---
PT Daily Note-Current Subjective Patient lying supine in bed upon PT arrival, agreeable to treatment. Patient incontinent of urine and bed and gown saturated. Patient unaware, states "My iv leaked last night." Mental Status Patient Orientation: Person Attachments: IV Transfers SCALE: Activities may be completed with or without assistive devices. 9-Lbcwzkzsvy-ngqjiuo completes the activity by him/herself with no assistance from a helper. 5-Set-up or Clean-up Assistance-helper sets up or cleans up; patient completes activity. [place] assists only prior to or following the activity. 4-Supervision or Touching Assistance-helper provides verbal cues and/or touching/steadying and/or contact guard assistance as patient completes activity. Assistance may be provided throughout the activity or intermittently. 3-Partial/Moderate Assistance-helper does LESS THAN HALF the effort. [place] lifts, holds or supports trunk or limbs, but provides less than half the effort. 2-Substantial/Maximal Assistance-helper does MORE THAN HALF the effort. [place] lifts or holds trunk or limbs and provides more than half the effort. 6-Xoiaaiaxk-otimkx does ALL the effort. Patient does none of the effort to complete the activity. Or, the assistance of 2 or more helpers is required for the patient to complete the activity. If activity was not attempted, code reason: 7-Patient Refused. 9-Not Applicable-not attempted and the patient did not perform the activity before the current illness, exacerbation or injury. 10-Not Attempted due to Environmental Limitations-(lack of equipment, weather restraints, etc.). 88-Not Attempted due to Medical Conditions or Safety Concerns. Roll Left & Right (QC): 4 Sit to Lying (QC): 4 Lying to Sitting/Side of Bed(Q: 4 Sit to Stand (QC): 3 Chair/Wxp-vk-Deert Xfer(QC): 3 Gait Training Does the Patient Walk?: Yes Distance: 5 Walk 10 feet (QC): 88 Gait Persons Needed: 1 Gait Assistive Device: FWW Exercises Seated Therapy Exercises: Ankle pumps, Long arc quads, Hip flexion, Kicking activity, Hip abd/add, Glut set Seated Reps: 20 Assessment Current Status: Fair Progress Patient lying supine in bed upon PT arrival, tolerates treatment fair. Patient reports he continues to feel very weak, however demonstrates minimal improvement in functional strength. Patient performs all observed bed mobility and transfers with CGA/min A. Patient performs LE therapeutic exercise as listed above while sitting in the chair. Patient in the chair post treatment with all needs met, nursing notified, call light in reach. PT Usp Goals Stock Trader Goals PT Usp Goals Time Frame: Oct 06, 2021 Roll Left & Right (QC): 6 Sit to Lying (QC): 6 Lying-Sitting on Side/Bed(QC): 6 Sit to Stand (QC): 6 Chair/Piv-qd-Nthpg Xfer(QC): 6 Toilet Transfer (QC): 6 Does the Patient Walk: Yes Walk 10 feet (QC): 5 Walk 50ft with 2 Turns (QC): 5 Walk 150 ft (QC): 5 Walking 10ft on Uneven Surface: 5 1 Step (curb) (QC): 5 4 Steps (QC): 5 12 Steps (QC): 5 Picking up an Object (QC): 5 Does the Pt use WC or Scooter?: No PT Plan Treatment/Plan Treatment Plan: Continue Plan of Care Treatment Plan: Bed Mobility, Education, Functional Activity Carlita, Functional Strength, Group Therapy, Gait, Safety, Therapeutic Exercise, Transfers Treatment Duration: Nov 10, 2021 Frequency: 6 times per week Estimated Hrs Per Day: .25 hour per day Patient and/or Family Agrees t: Yes Safety Risks/Education Patient Education: Transfer Techniques Teaching Recipient: Patient Teaching Methods: Demonstration, Discussion Response to Teaching: Verbalize Understanding, Reinforcement Needed Time/GCodes Time In: 08 Time Out: 0843 Total Billed Treatment Time: 30 Total Billed Treatment Visit, FA, ROLANDO ABBASI PT Sep 21, 2021 08:41
[2021-09-21] MEDS ORDERED: MAGNESIUM 1 GM/100 ML IVPB 100 ML IV ONE (09:00)
[2021-09-21] MEDS: lisINopril 20 MG (PRINIVIL) TABLET PO SCH (09:11)
[2021-09-21] MEDS: PHENYTOIN 100 MG (DILANTIN) CAP PO SCH (09:11)
[2021-09-21] MEDS: POTASSIUM CL 10MEQ/50ML IVPB 50 ML IV SCH ×5 (09:12→14:19)
--- NOTE | 2021-09-21 09:17 | Progress Note - Hospitalist ---
Subjective HPI/CC On Admission Date Seen by Provider: Sep 21, 2021 Time Seen by Provider: 09:14 Patient is a 75-year-old male with past medical history of seizure disorder chronic back pain who presented to the emergency department due to worsening back pain, chills and urinary incontinence. He states that his symptoms started on the fourth of the fifth when he was chilling profusely. He states he was unable to get warm. He had just seen his primary care doctor but had not told him about any other symptoms besides his back pain. Over the weekend this continued and he started to feel weak. Yesterday he fell prompting his evaluation in the emergency department. He was found to have a urinary tract infection and meets severe sepsis criteria. He was admitted for IV antibiotics. This morning he states that he is feeling better though he still has back pain. Subjective/Events-last exam Pt reports doing well today but still weaker than normal. Just up to chair with PT but PT plans to come back. Discussed discharge options once sensitivities back and he is interested in IRF as he has been there before. Focused Exam Lactate Level 09/19/21 12:28: Lactic Acid Level 3.99*H 09/19/21 15:28: Lactic Acid Level 1.99 Time of Focused Exam: 15:00 Objective Exam Vital Signs Vital Signs Date Time Temp Pulse Resp B/P (MAP) Pulse Ox O2 Delivery O2 Flow Rate FiO2 09/21/21 08:23 37.3 84 18 151/72 (98) 95 Room Air Capillary Refill : Less Than 3 Seconds General Appearance: No Apparent Distress, Obese Respiratory: Lungs Clear, No Respiratory Distress Cardiovascular: Regular Rate, Rhythm, No Murmur Neurologic/Psychiatric: Alert, Oriented x3 Results/Procedures Lab Laboratory Tests 09/21/21 05:55 Patient resulted labs reviewed. Imaging: Reviewed Imaging Report Assessment/Plan Assessment and Plan Assess & Plan/Chief Complaint Severe Sepsis- POA- improving UTI GNR bacteremia Continue Cefepime until sensitivities back Await c/s e coli on urine culture HTN Hypokalemia Hypomagnesemia DC HCTZ as BP well controlled- BP well controlled with just lisinopril replace per protocol Chronic back pain Debility Patient relays multiple falls at home- consider IRF PT Continue lortab for pain DVT ppx: Lovenox Diagnosis/Problems Diagnosis/Problems (1) Severe sepsis Status: Acute (2) Bacteremia Status: Acute (3) Lumbar spinal stenosis Status: Acute Qualifiers: Neurogenic claudication status: unspecified Qualified Codes: M48.061 - Spinal stenosis, lumbar region without neurogenic claudication (4) Frequent falls Status: Acute (5) Urinary tract infection Status: Acute Qualifiers: Urinary tract infection type: acute cystitis Hematuria presence: with hematuria Qualified Codes: N30.01 - Acute cystitis with hematuria (6) Hypokalemia Status: Chronic (7) Essential (primary) hypertension Status: Chronic (8) Low back pain Status: Acute Qualifiers: Chronicity: chronic Back pain laterality: midline Sciatica presence: with sciatica Sciatica laterality: bilateral sciatica Qualified Codes: M54.41 - Lumbago with sciatica, right side; M54.42 - Lumbago with sciatica, left side; G89.29 - Other chronic pain HERVE MENESES MD Sep 21, 2021 09:17
[2021-09-21 11:32] VITALS: BP 137/71
--- NOTE | 2021-09-21 11:58 | Occupational Therapy Eval ---
OT Evaluation-General/PLF Medical Diagnosis Admission Date Sep 19, 2021 at 15:30 Medical Diagnosis: Fall, Back pain Onset Date: Sep 19, 2021 Therapy Diagnosis Therapy Diagnosis: decreased ADL status Height/Weight Height (Feet): 5 Height (Inches): 10.00 Weight (Pounds): 227 Weight (Ounces): 7.0 Precautions Precautions/Isolations: Seizure, Fall Prevention, Standard Precautions Referral Physician: Umesh Referral Reason: Evaluation/Treatment Medical History Pertinent Medical History: Arthritis Additional Medical History seizure disorder, chronic back pain, HTN, arthritis, fractures, eczema Current History ED due to worsening back pain, chills, and urinary incontinence Social History Home: Single Level Current Living Status: Alone Entry Into Home: Stairs With Railing Steps Into Home: 5 ADL-Prior Level of Function SCALE: Activities may be completed with or without assistive devices. 6-Pkrrhcxecn-mhzxvtr completes the activity by him/herself with no assistance from a helper. 5-Set-up or Clean-up Assistance-helper sets up or cleans up; patient completes activity. [place] assists only prior to or following the activity. 4-Supervision or Touching Assistance-helper provides verbal cues and/or touching/steadying and/or contact guard assistance as patient completes activity. Assistance may be provided throughout the activity or intermittently. 3-Partial/Moderate Assistance-helper does LESS THAN HALF the effort. [place] lifts, holds or supports trunk or limbs, but provides less than half the effort. 2-Substantial/Maximal Assistance-helper does MORE THAN HALF the effort. [place] lifts or holds trunk or limbs and provides more than half the effort. 2-Dcyaseaal-zhefnq does ALL the effort. Patient does none of the effort to complete the activity. Or, the assistance of 2 or more helpers is required for the patient to complete the activity. If activity was not attempted, code reason: 7-Patient Refused. 9-Not Applicable-not attempted and the patient did not perform the activity before the current illness, exacerbation or injury. 10-Not Attempted due to Environmental Limitations-(lack of equipment, weather restraints, etc.). 88-Not Attempted due to Medical Conditions or Safety Concerns. ADL PLOF Comments Pt reports IND with ADLs and functional mobility using cane. He has a tub/shower with a shower chair and grab bars. Self Care: Independent Functional Cognition: Independent DME/Equipment: Bath Chair, Grab Bars, Shower OT Current Status Subjective Pt in recliner, agreeable to OT Tx. Mental Status/Objective Patient Orientation: Person, Place, Situation Attachments: IV Current Upper Extremity ROM WFL during ADLs. ADL-Treatment Eating (QC): 6 (Per pt report.) Oral Hygiene (QC): 5 (based on clinical judgment) Shower/Bathe Self (QC): 3 (Min A with L foot. Pt able to wash/dry other parts.) Upper Body Dressing (QC): 3 (Min A with hospital gown due to IV) Lower Body Dressing (QC): 3 (Min A with threading LLE into brief.) On/Off Footwear (QC): 4 (SBA, pt able to doff/don gripper socks.) Toileting Hygiene (QC): 3 (Min A with using urinal.) Other Treatments Pt in recliner, agreeable to OT tx. [facility] min- mod A sit to supervising fire marshal order to wash buttocks and manage LE clothing. Pt able to doff/don bilateral gripper socks with increased time. He reports not wearing socks at home and wears slip on shoes or velcro shoes. After completing sponge bath, UE/LE dressing and footwear, pt states need to use urinal. OT handed pt urinal and assisted with moving clothing out of the way, pt then able to place urinal and complete task. OT emptied urinal after. Pt required min encouragement to participate in tx, and encouragement to attempt various tasks. At end of session, pt states he did better than he thought he would. Post tx, pt in recliner, call light in reach and all needs met. Education OT Patient Education: Correct positioning, Energy conservation, Modified ADL techniques, Progress toward Goal/Update tx plan, Purpose of tx/functional activities, Safety issues, Transfer techniques Teaching Recipient: Patient Teaching Methods: Discussion OT Usp Goals Issuing Operator Goals Time Frame: Oct 01, 2021 Eating (QC): 6 Oral Hygiene (QC): 6 Toileting Hygiene (QC): 6 Shower/Bathe Self (QC): 6 Upper Body Dressing (QC): 6 Lower Body Dressing (QC): 6 On/Off Footwear (QC): 6 Additional Goals: 1-Demonstrate ADL Tasks, 2-Verbalize Understanding, 3-Im proveStrength/Carlita 1=Demonstrate adherence to instructed precautions during ADL tasks. 2=Patient will verbalize/demonstrate understanding of assistive devices/modifications for ADL. 3=Patient will improve strength/tolerance for activity to enable patient to perform ADL's. OT Education/Plan Problem List/Assessment Assessment: Decreased Activ Tolerance, Decreased UE Strength, Impaired Funct Balance, Impaired I ADL's, Impaired Self-Care Skills Discharge Recommendations Plan/Recommendations: Continue POC Treatment Plan/Plan of Care Patient would benefit from OT for education, treatment and training to promote independence in ADL's, mobility, safety and/or upper extremity function for ADL's. Plan of Care: ADL Retraining, Functional Mobility, UE Funct Exercise/Act Treatment Duration: Oct 01, 2021 Frequency: 5 times per week Estimated Hrs Per Day: .25 hour per day Rehab Potential: Fair Time/GCodes Start Time: 10:53 Stop Time: 11:20 Total Time Billed (hr/min): 27 Billed Treatment Time 1, EVM (10'), ADL (17') MISAEL LAINEZ OT Sep 21, 2021 11:58
[2021-09-21 16:00] VITALS: BP 139/65
[2021-09-21] MEDS ORDERED: cefTRIAXone 1,000 MG in WATER (STERILE) FOR INJECTION 10 ML IV SCH (16:00)
[2021-09-21] MEDS: LACTOBACILLUS ACIDOPHILUS (PROBIOTIC) CAPSULE PO SCH (19:04)
[2021-09-21 19:34] VITALS: BP 130/67
[2021-09-22] MEDS: ACETAMINOPHEN 325 MG TABLET PO PRN (00:18)
[2021-09-22] MEDS: NS IV 1000 ML 1,000 ML IV SCH ×2 (00:18→18:27)
[2021-09-22] MEDS: CYCLOBENZAPRINE 10 MG (FLEXERIL) TAB PO PRN (00:18)
[2021-09-22 00:45] VITALS: BP 132/64
[2021-09-22 04:05] VITALS: BP 110/68
[2021-09-22 07:47] LABS: CALCIUM 8.2 MG/DL (8.5-10.1); CREATININE SERUM 0.74 MG/DL (0.60-1.30); MAGNESIUM 2.3 MG/DL (1.6-2.4); POTASSIUM 2.7 MMOL/L (3.6-5.0)
[2021-09-22 08:00] VITALS: BP 129/61
[2021-09-22] MEDS: MAGNESIUM 1 GM/100 ML IVPB 100 ML IV SCH (09:18)
[2021-09-22] MEDS: POTASSIUM CL 10MEQ/50ML IVPB 50 ML IV SCH (09:18)
[2021-09-22] MEDS: KCL 20 MEQ TAB (K-DUR) PO SCH (09:23)
[2021-09-22] MEDS: LACTOBACILLUS ACIDOPHILUS (PROBIOTIC) CAPSULE PO SCH ×3 (09:23→18:22)
[2021-09-22] MEDS: lisINopril 20 MG (PRINIVIL) TABLET PO SCH (09:24)
[2021-09-22] MEDS: PHENYTOIN 100 MG (DILANTIN) CAP PO SCH (09:24)
--- NOTE | 2021-09-22 09:51 | Physical Therapy Daily Note ---
PT Daily Note-Current Subjective Pt laying R sidelying in bed upon arrival. Pt agrees to PT. Pt reports breakfast is coming and doesn't want to work right now. Nursing asks for assistance in repositioning pt. Pain Location: No Pain Reported Mental Status Patient Orientation: Person, Confused, Place Attachments: IV Transfers SCALE: Activities may be completed with or without assistive devices. 9-Uupszxtcdj-lhgbbyu completes the activity by him/herself with no assistance from a helper. 5-Set-up or Clean-up Assistance-helper sets up or cleans up; patient completes activity. [place] assists only prior to or following the activity. 4-Supervision or Touching Assistance-helper provides verbal cues and/or touching/steadying and/or contact guard assistance as patient completes activity. Assistance may be provided throughout the activity or intermittently. 3-Partial/Moderate Assistance-helper does LESS THAN HALF the effort. [place] lifts, holds or supports trunk or limbs, but provides less than half the effort. 2-Substantial/Maximal Assistance-helper does MORE THAN HALF the effort. [place] lifts or holds trunk or limbs and provides more than half the effort. 9-Irkxolxpu-gzmrqs does ALL the effort. Patient does none of the effort to complete the activity. Or, the assistance of 2 or more helpers is required for the patient to complete the activity. If activity was not attempted, code reason: 7-Patient Refused. 9-Not Applicable-not attempted and the patient did not perform the activity before the current illness, exacerbation or injury. 10-Not Attempted due to Environmental Limitations-(lack of equipment, weather restraints, etc.). 88-Not Attempted due to Medical Conditions or Safety Concerns. Treatments EVP GENERAL COUNSEL assists in scooting pt up as well as positioning pt to comfort for eating before breakfast arrives. Pt is given call light and has all needs met at end of tx. Nurse still present. Assessment Current Status: Fair Progress Pt is reluctant for tx and focus on breakfast during tx. PT Cooling Pan Tender Goals Fdc Goals PT Cooling Pan Tender Goals Time Frame: Oct 06, 2021 Roll Left & Right (QC): 6 Sit to Lying (QC): 6 Lying-Sitting on Side/Bed(QC): 6 Sit to Stand (QC): 6 Chair/Mza-ma-Jpluz Xfer(QC): 6 Toilet Transfer (QC): 6 Does the Patient Walk: Yes Walk 10 feet (QC): 5 Walk 50ft with 2 Turns (QC): 5 Walk 150 ft (QC): 5 Walking 10ft on Uneven Surface: 5 1 Step (curb) (QC): 5 4 Steps (QC): 5 12 Steps (QC): 5 Picking up an Object (QC): 5 Does the Pt use WC or Scooter?: No PT Plan Problem List Problem List: Activity Tolerance, Functional Strength, Bed Mobility Treatment/Plan Treatment Plan: Continue Plan of Care Treatment Plan: Bed Mobility, Education, Functional Activity Carlita, Functional Strength, Group Therapy, Gait, Safety, Therapeutic Exercise, Transfers Treatment Duration: Nov 10, 2021 Frequency: 6 times per week Estimated Hrs Per Day: .25 hour per day Patient and/or Family Agrees t: Yes Safety Risks/Education Patient Education: Transfer Techniques, Correct Positioning Teaching Recipient: Patient Teaching Methods: Discussion Response to Teaching: Verbalize Understanding Time/GCodes Time In: 910 Time Out: 920 Total Billed Treatment Time: 10 Total Billed Treatment 1, FA (10m) INA BORREGO EVP GENERAL COUNSEL Sep 22, 2021 09:51
--- NOTE | 2021-09-22 10:04 | Progress Note - Hospitalist ---
Subjective HPI/CC On Admission Date Seen by Provider: Sep 22, 2021 Time Seen by Provider: 10:02 Patient is a 75-year-old male with past medical history of seizure disorder chronic back pain who presented to the emergency department due to worsening back pain, chills and urinary incontinence. He states that his symptoms started on the fourth of the fifth when he was chilling profusely. He states he was unable to get warm. He had just seen his primary care doctor but had not told him about any other symptoms besides his back pain. Over the weekend this continued and he started to feel weak. Yesterday he fell prompting his evaluation in the emergency department. He was found to have a urinary tract infection and meets severe sepsis criteria. He was admitted for IV antibiotics. This morning he states that he is feeling better though he still has back pain. Subjective/Events-last exam Pt reports feeling better today and just needing to work on his strength. Discussed plan for IRU if insurance accepts. Focused Exam Lactate Level 09/19/21 12:28: Lactic Acid Level 3.99*H 09/19/21 15:28: Lactic Acid Level 1.99 Time of Focused Exam: 15:00 Objective Exam Vital Signs Vital Signs Date Time Temp Pulse Resp B/P (MAP) Pulse Ox O2 Delivery O2 Flow Rate FiO2 09/22/21 08:00 36.2 94 20 129/61 (83) 95 Room Air Capillary Refill : Less Than 3 Seconds General Appearance: No Apparent Distress, WD/WN, Chronically ill, Obese Respiratory: Lungs Clear, No Respiratory Distress Cardiovascular: Regular Rate, Rhythm, No Murmur Neurologic/Psychiatric: Alert, Oriented x3 Results/Procedures Lab Laboratory Tests 09/22/21 06:19 Patient resulted labs reviewed. Imaging: Reviewed Imaging Report Assessment/Plan Assessment and Plan Assess & Plan/Chief Complaint Severe Sepsis- POA- improving UTI GNR bacteremia Continue Rocephin e coli on urine culture HTN Hypokalemia Hypomagnesemia DC HCTZ as BP well controlled- BP well controlled with just lisinopril replace per protocol Reviewed records, chronically hypokalemic Will add daily supplement Chronic back pain Debility Patient relays multiple falls at home PT/OT Continue lortab for pain IRF evaluated and accepted, awaiting insurance approval DVT ppx: Lovenox Diagnosis/Problems Diagnosis/Problems (1) Severe sepsis Status: Acute (2) Bacteremia Status: Acute (3) Lumbar spinal stenosis Status: Acute Qualifiers: Neurogenic claudication status: unspecified Qualified Codes: M48.061 - Spinal stenosis, lumbar region without neurogenic claudication (4) Frequent falls Status: Acute (5) Urinary tract infection Status: Acute Qualifiers: Urinary tract infection type: acute cystitis Hematuria presence: with hematuria Qualified Codes: N30.01 - Acute cystitis with hematuria (6) Hypokalemia Status: Chronic (7) Essential (primary) hypertension Status: Chronic (8) Low back pain Status: Acute Qualifiers: Chronicity: chronic Back pain laterality: midline Sciatica presence: with sciatica Sciatica laterality: bilateral sciatica Qualified Codes: M54.41 - Lumbago with sciatica, right side; M54.42 - Lumbago with sciatica, left side; G89.29 - Other chronic pain HERVE MENESES MD Sep 22, 2021 10:04
[2021-09-22] MEDS ORDERED: KCL 20 MEQ TAB (K-DUR) PO ONE ×2 (11:30→13:30)
[2021-09-22 12:00] VITALS: BP 142/83
[2021-09-22] MEDS: [UNRECOGNIZED DRUG - OTHER] IV SCH (14:10)
[2021-09-22] MEDS: CEFTRIAXONE IV SCH (14:10)
--- NOTE | 2021-09-22 14:22 | Occupational Ther Daily Note ---
OT Current Status-Daily Note Subjective Pt alert, lying in bed. Pt agrees to therapy. No c/o pain. Mental Status/Objective Patient Orientation: Person, Place, Time, Situation Attachments: IV ADL-Treatment Pt agrees to get into recliner. AGUDELO and nrsg assisted pt from supine to EOB then to recliner. Mod A for supine to EOB. CGA to min A for safety while using FWW to ambulate from EOB to recliner. Pt required verbal and physical cues to stand up in walker, tendency to bend over and lean towards L side. After session, pt sitting in recliner with call light/phone in reach. Nrsg in room. Therapy Code Descriptions/Definitions Functional [place] Measure: 0=Not Assessed/NA 4=Minimal Assistance 1=Total Assistance 5=Supervision or Setup 2=Maximal Assistance 6=Modified [place] 3=Moderate Assistance 7=Complete IndependenceSCALE: Activities may be completed with or without assistive devices. 5-Cxriwdtixy-dgpzjbx completes the activity by him/herself with no assistance from a helper. 5-Set-up or Clean-up Assistance-helper sets up or cleans up; patient completes activity. [place] assists only prior to or following the activity. 4-Supervision or Touching Assistance-helper provides verbal cues and/or touching/steadying and/or contact guard assistance as patient completes activity. Assistance may be provided throughout the activity or intermittently. 3-Partial/Moderate Assistance-helper does LESS THAN HALF the effort. [place] lifts, holds or supports trunk or limbs, but provides less than half the effort. 2-Substantial/Maximal Assistance-helper does MORE THAN HALF the effort. [place] lifts or holds trunk or limbs and provides more than half the effort. 9-Zeaqprxml-qbibqv does ALL the effort. Patient does none of the effort to complete the activity. Or, the assistance of 2 or more helpers is required for the patient to complete the activity. If activity was not attempted, code reason: 7-Patient Refused. 9-Not Applicable-not attempted and the patient did not perform the activity before the current illness, exacerbation or injury. 10-Not Attempted due to Environmental Limitations-(lack of equipment, weather restraints, etc.). 88-Not Attempted due to Medical Conditions or Safety Concerns. Other Treatment Pt given light resistance theraband and HEP for use in room to strengthen B UE's for daily functional tasks. Pt only completed B shldr abd/add 1 set 10 reps before nrsg came in and pt agreed to get OOB. Skilled instruction required for exercises for correct technique. OT Rack Pusher Goals Rack Pusher Goals Time Frame: Oct 01, 2021 Eating (QC): 6 Oral Hygiene (QC): 6 Toileting Hygiene (QC): 6 Shower/Bathe Self (QC): 6 Upper Body Dressing (QC): 6 Lower Body Dressing (QC): 6 On/Off Footwear (QC): 6 Additional Goals: 1-Demonstrate ADL Tasks, 2-Verbalize Understanding, 3- ImproveStrength/Carlita 1=Demonstrate adherence to instructed precautions during ADL tasks. 2=Patient will verbalize/demonstrate understanding of assistive devices/modifications for ADL. 3=Patient will improve strength/tolerance for activity to enable patient to perform ADL's. OT Education/Plan Problem List/Assessment Assessment: Decreased Activ Tolerance, Decreased UE Strength, Impaired Funct Balance, Impaired Self-Care Skills Discharge Recommendations Plan/Recommendations: Continue POC Treatment Plan/Plan of Care Patient would benefit from OT for education, treatment and training to promote independence in ADL's, mobility, safety and/or upper extremity function for ADL's. Plan of Care: ADL Retraining, Functional Mobility, UE Funct Exercise/Act Treatment Duration: Oct 01, 2021 Frequency: 5 times per week Estimated Hrs Per Day: .25 hour per day Rehab Potential: Fair Time/GCodes Start Time: 13:10 Stop Time: 13:30 Total Time Billed (hr/min): 20 Billed Treatment Time 1 visit-EX 1 (20 min) LAST TERRAZAS Sep 22, 2021 14:21
[2021-09-22 16:00] VITALS: BP 130/68
[2021-09-22 19:22] LABS: CALCIUM 8.6 MG/DL (8.5-10.1); CREATININE SERUM 0.76 MG/DL (0.60-1.30); POTASSIUM 3.7 MMOL/L (3.6-5.0)
[2021-09-22 20:00] VITALS: BP 125/64
[2021-09-23] VITALS: BP 139/71
[2021-09-23] MEDS: NS IV 1000 ML 1,000 ML IV SCH ×2 (03:28→15:32)
[2021-09-23 06:09] LABS: CALCIUM 8.6 MG/DL (8.5-10.1)
[2021-09-23 06:14] LABS: CREATININE SERUM 0.62 MG/DL (0.60-1.30)
[2021-09-23 06:16] LABS: MAGNESIUM 1.6 MG/DL (1.6-2.4)
[2021-09-23] MEDS: POTASSIUM CL 10MEQ/50ML IVPB 50 ML IV SCH (06:47)
[2021-09-23] MEDS: KCL 20 MEQ TAB (K-DUR) PO SCH ×2 (06:52→07:17)
[2021-09-23] MEDS: MAGNESIUM 1 GM/100 ML IVPB 100 ML IV SCH ×3 (06:53→09:01)
[2021-09-23] MEDS ORDERED: KCL 20 MEQ TAB (K-DUR) PO ONE ×3 (07:00→11:00)
[2021-09-23 08:00] VITALS: BP 152/78
[2021-09-23] MEDS: PHENYTOIN 100 MG (DILANTIN) CAP PO SCH (09:01)
[2021-09-23] MEDS: lisINopril 20 MG (PRINIVIL) TABLET PO SCH (09:01)
[2021-09-23] MEDS: LACTOBACILLUS ACIDOPHILUS (PROBIOTIC) CAPSULE PO SCH ×3 (09:02→17:35)
--- NOTE | 2021-09-23 09:58 | Physical Therapy Daily Note ---
PT Daily Note-Current Subjective Patient reports he is feeling much better. Agrees to PT. Mental Status Patient Orientation: Normal For Age Attachments: IV Transfers SCALE: Activities may be completed with or without assistive devices. 9-Lspskfsmze-cyorzsx completes the activity by him/herself with no assistance from a helper. 5-Set-up or Clean-up Assistance-helper sets up or cleans up; patient completes activity. [place] assists only prior to or following the activity. 4-Supervision or Touching Assistance-helper provides verbal cues and/or touching/steadying and/or contact guard assistance as patient completes activity. Assistance may be provided throughout the activity or intermittently. 3-Partial/Moderate Assistance-helper does LESS THAN HALF the effort. [place] lifts, holds or supports trunk or limbs, but provides less than half the effort. 2-Substantial/Maximal Assistance-helper does MORE THAN HALF the effort. [place] lifts or holds trunk or limbs and provides more than half the effort. 7-Ymoqwcysi-srmtgs does ALL the effort. Patient does none of the effort to complete the activity. Or, the assistance of 2 or more helpers is required for the patient to complete the activity. If activity was not attempted, code reason: 7-Patient Refused. 9-Not Applicable-not attempted and the patient did not perform the activity before the current illness, exacerbation or injury. 10-Not Attempted due to Environmental Limitations-(lack of equipment, weather restraints, etc.). 88-Not Attempted due to Medical Conditions or Safety Concerns. Lying to Sitting/Side of Bed(Q: 4 (SBA) Sit to Stand (QC): 4 (CGA) Chair/Coq-so-Nervw Xfer(QC): 4 (CGA) CGA for safety Gait Training Does the Patient Walk?: Yes Distance: 200' Walk 10 feet (QC): 4 Walk 50 ft with 2 Turns(QC): 4 Walk 150 ft (QC): 4 Gait Assistive Device: FWW slow, steady, VC's for body placement in FWW and posture Exercises Supine Ex: Ankle pumps, Quad Set, Heel Slides Supine Reps: 15 Seated Therapy Exercises: Long arc quads Seated Reps: 15 Assessment Patient progressing with treatment plan. PT to increase activity as tolerated by patient. Patient motivated with progress. PT Rail Transportation Tabeler Goals Rail Transportation Tabeler Goals PT Rail Transportation Tabeler Goals Time Frame: Oct 06, 2021 Roll Left & Right (QC): 6 Sit to Lying (QC): 6 Lying-Sitting on Side/Bed(QC): 6 Sit to Stand (QC): 6 Chair/Bsn-zq-Fdvxv Xfer(QC): 6 Toilet Transfer (QC): 6 Does the Patient Walk: Yes Walk 10 feet (QC): 5 Walk 50ft with 2 Turns (QC): 5 Walk 150 ft (QC): 5 Walking 10ft on Uneven Surface: 5 1 Step (curb) (QC): 5 4 Steps (QC): 5 12 Steps (QC): 5 Picking up an Object (QC): 5 Does the Pt use WC or Scooter?: No PT Plan Treatment/Plan Treatment Plan: Continue Plan of Care Treatment Plan: Bed Mobility, Education, Functional Activity Carlita, Functional Strength, Group Therapy, Gait, Safety, Therapeutic Exercise, Transfers Treatment Duration: Nov 10, 2021 Frequency: 6 times per week Estimated Hrs Per Day: .25 hour per day Patient and/or Family Agrees t: Yes Time/GCodes Time In: 800 Time Out: 824 Total Billed Treatment Time: 24 Total Billed Treatment 1 visit EX 10 min GT 14 min GALINA PICKARD PT Sep 23, 2021 09:58
--- NOTE | 2021-09-23 11:33 | Occupational Ther Daily Note ---
OT Current Status-Daily Note Subjective Pt in chair, agreeable to OT Tx. Mental Status/Objective Attachments: IV ADL-Treatment Therapy Code Descriptions/Definitions Functional [place] Measure: 0=Not Assessed/NA 4=Minimal Assistance 1=Total Assistance 5=Supervision or Setup 2=Maximal Assistance 6=Modified [place] 3=Moderate Assistance 7=Complete IndependenceSCALE: Activities may be completed with or without assistive devices. 1-Wujvlwhdkj-jvmjkpk completes the activity by him/herself with no assistance from a helper. 5-Set-up or Clean-up Assistance-helper sets up or cleans up; patient completes activity. [place] assists only prior to or following the activity. 4-Supervision or Touching Assistance-helper provides verbal cues and/or touching/steadying and/or contact guard assistance as patient completes activity. Assistance may be provided throughout the activity or intermittently. 3-Partial/Moderate Assistance-helper does LESS THAN HALF the effort. [place] lifts, holds or supports trunk or limbs, but provides less than half the effort. 2-Substantial/Maximal Assistance-helper does MORE THAN HALF the effort. [place] lifts or holds trunk or limbs and provides more than half the effort. 5-Mobzqsjqw-zfhxqf does ALL the effort. Patient does none of the effort to complete the activity. Or, the assistance of 2 or more helpers is required for the patient to complete the activity. If activity was not attempted, code reason: 7-Patient Refused. 9-Not Applicable-not attempted and the patient did not perform the activity before the current illness, exacerbation or injury. 10-Not Attempted due to Environmental Limitations-(lack of equipment, weather restraints, etc.). 88-Not Attempted due to Medical Conditions or Safety Concerns. Eating (QC): 6 (Per pt report) Oral Hygiene (QC): 4 (SBA standing at sink.) Lower Body Dressing (QC): 4 (SBA, pt able to don LE clothing and perform pant hike.) Toileting Hygiene (QC): 4 (SBA) Toilet Transfer (QC): 4 (SBA) Other Treatment Pt in recliner, used FWW to perform functional mobility into bathroom, CGA as OT managed IV pole. Pt transferred onto toilet, SBA, completed toileting and LE dressing, then stood at sink for oral care. Pt returned to recliner, SBA. Post tx, pt up in chair, call light in reach and all needs met. Education OT Patient Education: Correct positioning, Modified ADL techniques, Progress toward Goal/Update tx plan, Purpose of tx/functional activities, Rehab process Teaching Recipient: Patient Teaching Methods: Discussion Response to Teaching: Verbalize Understanding OT Ecosystem Ecology Professor Goals Ecosystem Ecology Professor Goals Time Frame: Oct 01, 2021 Eating (QC): 6 Oral Hygiene (QC): 6 Toileting Hygiene (QC): 6 Shower/Bathe Self (QC): 6 Upper Body Dressing (QC): 6 Lower Body Dressing (QC): 6 On/Off Footwear (QC): 6 Additional Goals: 1-Demonstrate ADL Tasks, 2-Verbalize Understanding, 3- ImproveStrength/Carlita 1=Demonstrate adherence to instructed precautions during ADL tasks. 2=Patient will verbalize/demonstrate understanding of assistive devices/modifications for ADL. 3=Patient will improve strength/tolerance for activity to enable patient to perform ADL's. OT Education/Plan Problem List/Assessment Assessment: Decreased Activ Tolerance, Decreased UE Strength, Impaired Funct Balance, Impaired I ADL's, Impaired Self-Care Skills Discharge Recommendations Plan/Recommendations: Continue POC Treatment Plan/Plan of Care Patient would benefit from OT for education, treatment and training to promote independence in ADL's, mobility, safety and/or upper extremity function for ADL's. Plan of Care: ADL Retraining, Functional Mobility, UE Funct Exercise/Act Treatment Duration: Oct 01, 2021 Frequency: 5 times per week Estimated Hrs Per Day: .25 hour per day Rehab Potential: Fair Time/GCodes Start Time: 11:00 Stop Time: 11:16 Total Time Billed (hr/min): 16 Billed Treatment Time 1, ADL MISAEL LAINEZ OT Sep 23, 2021 11:33
--- NOTE | 2021-09-23 14:08 | Progress Note - Hospitalist ---
Subjective HPI/CC On Admission Date Seen by Provider: Sep 23, 2021 Time Seen by Provider: 09:45 Patient is a 75-year-old male with past medical history of seizure disorder chronic back pain who presented to the emergency department due to worsening back pain, chills and urinary incontinence. He states that his symptoms started on the fourth of the fifth when he was chilling profusely. He states he was unable to get warm. He had just seen his primary care doctor but had not told him about any other symptoms besides his back pain. Over the weekend this continued and he started to feel weak. Yesterday he fell prompting his evaluation in the emergency department. He was found to have a urinary tract infection and meets severe sepsis criteria. He was admitted for IV antibiotics. This morning he states that he is feeling better though he still has back pain. Subjective/Events-last exam Pt reports doing well. Was up ambulating with PT. We discussed how well he did and that if he continues on he may be able to DC straight home. His preference is still to go to IRF. I called and spoke with SW from IRF to inform them of his desire. Focused Exam Time of Focused Exam: 15:00 Objective Exam Vital Signs Vital Signs Date Time Temp Pulse Resp B/P (MAP) Pulse Ox O2 Delivery O2 Flow Rate FiO2 09/23/21 13:00 97 09/23/21 08:00 36.7 18 152/78 (102) 93 Room Air Capillary Refill : Less Than 3 Seconds General Appearance: No Apparent Distress, WD/WN Respiratory: Lungs Clear, No Respiratory Distress Cardiovascular: Regular Rate, Rhythm, No Murmur Neurologic/Psychiatric: Alert, Oriented x3 Results/Procedures Lab Laboratory Tests 09/22/21 18:50 09/23/21 05:27 Patient resulted labs reviewed. Imaging: Reviewed Imaging Report Assessment/Plan Assessment and Plan Assess & Plan/Chief Complaint Severe Sepsis- POA- improving UTI GNR bacteremia Continue Rocephin e coli on urine culture and blood culture, sensitive to Rocephin Tachycardia Sounded regular on exam, documented as regular on vital checks Telemetry reports he is in a fib but spoke with television installer and they could not confirm if a fib or just noisy pattern EKG ordered Rate controlled HTN Hypokalemia Hypomagnesemia DC HCTZ as BP well controlled- BP well controlled with just lisinopril replace per protocol Reviewed records, chronically hypokalemic Continue daily potassium Chronic back pain Debility Patient relays multiple falls at home PT/OT Continue lortab for pain IRF evaluated and accepted, awaiting insurance approval DVT ppx: Lovenox Diagnosis/Problems Diagnosis/Problems (1) Severe sepsis Status: Acute (2) Bacteremia Status: Acute (3) Lumbar spinal stenosis Status: Acute Qualifiers: Neurogenic claudication status: unspecified Qualified Codes: M48.061 - Spinal stenosis, lumbar region without neurogenic claudication (4) Frequent falls Status: Acute (5) Urinary tract infection Status: Acute Qualifiers: Urinary tract infection type: acute cystitis Hematuria presence: with hematuria Qualified Codes: N30.01 - Acute cystitis with hematuria (6) Hypokalemia Status: Chronic (7) Essential (primary) hypertension Status: Chronic (8) Low back pain Status: Acute Qualifiers: Chronicity: chronic Back pain laterality: midline Sciatica presence: with sciatica Sciatica laterality: bilateral sciatica Qualified Codes: M54.41 - Lumbago with sciatica, right side; M54.42 - Lumbago with sciatica, left side; G89.29 - Other chronic pain HERVE MENESES MD Sep 23, 2021 14:08
[2021-09-23] MEDS ORDERED: BISACODYL 5 MG (DULCOLAX) TABLET PO PRN (15:30)
[2021-09-23] MEDS: CEFTRIAXONE IV SCH (15:32)
[2021-09-23] MEDS: [UNRECOGNIZED DRUG - OTHER] IV SCH (15:32)
[2021-09-23 16:00] VITALS: BP 133/76
--- NOTE | 2021-09-23 17:05 | Consultation-Cardiology ---
HPI-Cardiology Cardiology Consultation Date of Consultation 09/23/21 Date of Admission Time Seen by Provider: 16:58 Indication: Atrial fibrillation HPI 75-year-old gentleman with history of hypertension, obesity, lumbar stenosis, admitted with UTI and sepsis, was receiving antibiotic, he was noted to have irregular heartbeat. He denied any chest pain or shortness of breath. No palpitation but he has frequent falls. Did not hit his head recently. On my evaluation was sitting comfortably in a chair. Does not recall having any similar event in the past. Home Medications & Allergies Allergies: Coded Allergies: No Known Drug Allergies (Unverified , 09/19/21) Home Medication List Reviewed: Yes PVL-Yxuyee-Vatqlg Hx Patient Social History Employed/Student: retired Type Used: [employer] Smoke Exposure: No Recent Hopitalizations: No Have you traveled recently?: No Alcohol Use?: No Immunizations Up To Date Tetanus Booster (TDap): Unknown Date of Pneumonia Vaccine: Sep 01, 2008 Date of Influenza Vaccine: Sep 16, 2021 Past Medical History Discussed below Family Medical History Significant Family History: No Pertinent Family Hx Family History: Dementia 19 MOTHER, Onset:Unknown FHx: leukemia 19 FATHER, Onset:Unknown Review of Systems-General Review of Systems Constitutional: chills, fever, malaise, weakness EENTM: no symptoms reported Respiratory: no symptoms reported, see HPI; No cough; dyspnea on exertion; No hemoptysis, No orthopnea, No phlegm, No short of breath, No stridor, No wheezing, No other Cardiovascular: see HPI; No chest pain, No edema, No palpitations Gastrointestinal: no symptoms reported, see HPI, constipation Genitourinary: see HPI; No dysuria; frequency, hesitancy, incontinence Musculoskeletal: back pain, muscle weakness Skin: see HPI Psychiatric/Neurological: No Symptoms Reported, See HPI All Other Systems Reviewed Negative Unless Noted: Yes Reviewed Test Results Reviewed Test Results Lab Laboratory Tests Test 09/22/21 18:50 09/23/21 05:27 09/23/21 14:14 Range/Units Sodium Level 134 L 135 135-145 MMOL/L Potassium Level 3.7 3.0 L 3.6 3.6-5.0 MMOL/L Chloride Level 100 100 98-107 MMOL/L Carbon Dioxide Level 22 22 21-32 MMOL/L Anion Gap 12 13 5-14 MMOL/L Blood Urea Nitrogen 13 11 7-18 MG/DL Creatinine 0.76 0.62 0.60-1.30 MG/DL Estimat Glomerular Filtration Rate 100 126 BUN/Creatinine Ratio 17 18 Glucose Level 133 H 106 H 70-105 MG/DL Calcium Level 8.6 8.6 8.5-10.1 MG/DL Magnesium Level 1.6 1.6-2.4 MG/DL Physical Exam Physical Exam Vital Signs Vital Signs - First Documented 09/19/21 12:20 Temp 37.5 Pulse 124 Resp 22 B/P (MAP) 162/73 (102) Pulse Ox 94 O2 Delivery Room Air Capillary Refill : Less Than 3 Seconds Height, Weight, BMI Height: 5'10.00" Weight: 227lbs. 7.0oz. 103.637752ut; 34.57 BMI Method:Stated General Appearance: No Apparent Distress, WD/WN HEENT: PERRL/EOMI, Moist Mucous Membranes Neck: Normal Inspection, Supple Respiratory: Lungs Clear, No Respiratory Distress Cardiovascular: No Murmur, Irregularly Irregular Gastrointestinal: Normal Bowel Sounds, Non Tender, Soft Extremity: No Calf Tenderness, No Pedal Edema Neurologic/Psychiatric: Alert, Oriented x3 Skin: Normal Color, Warm/Dry A/P-Cardiology Admission Diagnosis Atrial fibrillation Sepsis UTI Hypertension Assessment/Plan New onset atrial fibrillation, patient was in sinus rhythm on admission then turned to atrial fibrillation during this hospital stay. Has been in atrial fibrillation at least for the past 24 to 48 hours on telemetry. It could be secondary to sepsis versus hypokalemia or combination in addition to q uestionable underlying sleep apnea. He is rate controlled but I will add low- dose beta-blockers to his medication and planning to evaluate DEBRA and cardioversion in the morning [id number] score of 3, started on Eliquis 5 mg twice daily today. Would dagoberto nue monitoring and planning to evaluate DEBRA UTI, sepsis, receiving Rocephin and improving Spinal stenosis, lumbar stenosis, having lower back pain and weakness in his lower extremities with multiple falls which increases the risk of bleeding while on anticoagulation Hypertension, maintained on lisinopril and hydrochlorothiazide, I will stop hydrochlorothiazide due to his recurrent hypokalemia and starting beta-blockers and evaluate tolerance and response Obesity, BMI 34, we discussed weight loss and exercise High risk for sleep apnea, recommend sleep study as an outpatient NAZANIN MIRANDA MD Sep 23, 2021 17:05
[2021-09-23] MEDS ORDERED: APIXABAN 5 MG (ELIQUIS) TABLET PO NR (17:15)
[2021-09-23] MEDS: APIXABAN 5 MG (ELIQUIS) TABLET PO SCH (20:10)
[2021-09-24] VITALS (8 sets, daily range): BP systolic 14–148; BP diastolic 65–110
[2021-09-24] MEDS: NS IV 1000 ML 1,000 ML IV SCH ×3 (02:38→19:53)
[2021-09-24] MEDS: POTASSIUM CL 10MEQ/50ML IVPB 50 ML IV SCH (05:26)
[2021-09-24] MEDS: KCL 20 MEQ TAB (K-DUR) PO SCH ×2 (05:26)
[2021-09-24] MEDS: MAGNESIUM 1 GM/100 ML IVPB 100 ML IV SCH (05:26)
[2021-09-24 06:01] LABS: HEMATOCRIT 36 % (40-54); MEAN CORPUSCULAR HEMOGLOBIN 32 pg (25-34); MEAN CORPUSCULAR HGB CONC 33 g/dL (32-36); MEAN CORPUSCULAR VOLUME 95 fL (80-99); MEAN PLATELET VOLUME 10.2 fL (9.0-12.2); PLATELET COUNT 311 10^3/uL (130-400); WHITE BLOOD COUNT 9.6 10^3/uL (4.3-11.0)
[2021-09-24 06:11] LABS: ALBUMIN 2.7 GM/DL (3.2-4.5); POTASSIUM 3.7 MMOL/L (3.6-5.0)
[2021-09-24 06:12] LABS: CALCIUM 8.4 MG/DL (8.5-10.1)
[2021-09-24 06:13] LABS: TOTAL PROTEIN 6.1 GM/DL (6.4-8.2)
[2021-09-24 06:15] LABS: BILIRUBIN,TOTAL 0.4 MG/DL (0.1-1.0)
[2021-09-24 06:17] LABS: CREATININE SERUM 0.64 MG/DL (0.60-1.30)
[2021-09-24 06:19] LABS: MAGNESIUM 1.7 MG/DL (1.6-2.4)
[2021-09-24] MEDS ORDERED: LIDOCAINE 2% VISCOUS 15 ML UDC ONE (08:00)
[2021-09-24] MEDS ORDERED: NS IV 1000 ML 0 ML ONE (08:00)
--- NOTE | 2021-09-24 08:10 | Occ Therapy Progress Note ---
Therapy Progress Note OT tx attempted, pt is in the process of leaving his room for a procedure. OT will attempt tx this afternoon 804 MISAEL LAINEZ OT Sep 24, 2021 08:10
[2021-09-24] MEDS ORDERED: MIDAZOLAM 2 MG/2 ML (VERSED) VIAL ONE (08:16)
[2021-09-24] MEDS ORDERED: proPOfol 200 MG/20 ML (DIPRIVAN) VIAL IV ONE (08:16)
[2021-09-24] MEDS ORDERED: LIDOCAINE 2% VISCOUS 15 ML UDC PO ONE (08:30)
--- NOTE | 2021-09-24 09:04 | Cardiology Post Procedure Note ---
Post-Procedure Note Physician (s)/Dog Daycare Provider (s) Physician NAZANIN MIRANDA MD Pre-Procedure Diagnosis Pre-Procedure Diagnosis: Attempt for DEBRA Post-Procedure Note Procedure Start Date: Sep 24, 2021 Name of Procedure: Attempt for DEBRA Findings/Procedure Note Patient was scheduled with DEBRA and electrical cardioversion. After explaining the procedure to the patient, all pros and cons were explained. Patient signed a consent then anesthesia were called for conscious sedation. During induction of anesthesia patient became hypoxemic for short period of time required additional oxygen. I attempted multiple times to advance the DEBRA probe without success to go beyond the mid esophagus. I was able to see portion of the aorta. The heart was not visualized. Patient was unstable. I decided to terminate the procedure. Conclusion Failed attempt for DEBRA due to probable underlying stricture Recommendation I recommend continuous oral anticoagulation using Eliquis 5 mg twice daily and possible attempt for cardioversion in 6 weeks. Consider referring the patient for EGD and evaluation for stricture Anesthesia Type: Conscious Sedation Estimated blood loss (mL): 2 ml Contrast Amount: 0 ml Post-Procedure Diagnosis Post-operative diagnosis: Atrial fibrillation NAZANIN MIRANDA MD Sep 24, 2021 09:04
--- NOTE | 2021-09-24 09:05 | Cardiology Progress Note ---
Subjective Date Seen by Provider: Sep 24, 2021 Time Seen by Provider: 09:04 Subjective/Events-last exam Patient was seen and evaluated, was feeling well, still in atrial fibrillation Review of Systems General: No Chills, No Night Sweats, No Fatigue, No Malaise, No Appetite, No Other HEENT: No Head Aches, No Visual Changes, No Eye Pain, No Ear Pain, No Dysphasia, No Sinus Congestion, No Post Nasal Drip, No Sore Throat, No Other Pulmonary: No Dyspnea, No Cough, No Pleuritic Chest Pain, No Other Cardiovascular: No: Chest Pain, Palpitations, Orthopnea, Paroxysmal Noc. Dyspnea, Edema, Lt Headedness, Other Focused Exam Time of Focused Exam: 15:00 Objective-Cardiology Exam Last Set of Vital Signs Vital Signs 09/24/21 09/24/21 00:00 07:00 Temp 35.8 Pulse 95 Resp 18 B/P (MAP) 129/72 (91) Pulse Ox 95 O2 Delivery Room Air I&O Intake and Output 09/24/21 00:00 Intake Total 3105 ml Output Total 2750 ml Balance 355 ml Intake Oral 1905 ml IV Total 1200 ml Output Urine Total 2750 ml # Voids 3 General: Alert, Oriented X3, Cooperative HEENT: Atraumatic, PERRLA Neck: Supple, No JVD, No Thyromegaly Lungs: Clear to Auscultation, Normal Air Movement Heart: Normal S1, Normal S2, No Murmurs, Other (Atrial fibrillation) Abdomen: Normal Bowel Sounds, Soft, No Tenderness, No Hepatosplenomegaly, No Masses Extremities: No Clubbing, No Cyanosis, No Edema, Normal Pulses, No Ten derness/Swelling Skin: No Rashes, No Breakdown, No Significant Lesion Neuro: Normal Gait, Normal Speech, Strength at 5/5 X4 Ext, Normal Tone, Sensation Intact Psych/Mental Status: Mental Status NL, Mood NL Results Lab Laboratory Tests 09/23/21 14:14 09/24/21 05:46 A/P-Cardiology Admission Diagnosis Atrial fibrillation Sepsis UTI Hypertension Assessment/Plan Atrial fibrillation with controlled ventricular response. Failed attempt for DEBRA, questionable underlying esophageal stricture. Recommend continuous uninterrupted oral anticoagulation for 6 weeks then attempt for cardioversion Consider referring the patient for EGD for evaluation for stricture [id number] score of 3, started on Eliquis 5 mg twice daily, continue to monitor Questionable esophageal stricture, recommend EGD that can be done as an outpatient UTI, sepsis, receiving Rocephin and improving Spinal stenosis, lumbar stenosis, having lower back pain and weakness in his lower extremities with multiple falls which increases the risk of bleeding while on anticoagulation Hypertension, maintained on lisinopril and hydrochlorothiazide, I will stop hydrochlorothiazide due to his recurrent hypokalemia and starting beta-blockers and evaluate tolerance and response Obesity, BMI 34, we discussed weight loss and exercise High risk for sleep apnea, recommend sleep study as an outpatient NAZANIN MIRANDA MD Sep 24, 2021 09:05
[2021-09-24] MEDS: LACTOBACILLUS ACIDOPHILUS (PROBIOTIC) CAPSULE PO SCH ×3 (09:45→17:38)
--- NOTE | 2021-09-24 10:06 | Diagnostic Imaging Report ---
EXAMINATION: Chest 2 view HISTORY: UTI, hypokalemia COMPARISON: 01/09/2020 FINDINGS: Heart size and pulmonary vasculature are normal. Patchy interstitial opacities within the lung bases. No pleural effusion or pneumothorax. The osseous structures are intact. IMPRESSION: 1. Patchy interstitial opacities in the lung bases which could be seen with atelectasis, pleural effusion, or pulmonary edema. Dictated by: Dictated on workstation # [id number]
--- NOTE | 2021-09-24 11:55 | Progress Note - Hospitalist ---
Subjective HPI/CC On Admission Date Seen by Provider: Sep 24, 2021 Time Seen by Provider: 10:20 Patient is a 75-year-old male with past medical history of seizure disorder chronic back pain who presented to the emergency department due to worsening back pain, chills and urinary incontinence. He states that his symptoms started on the fourth of the fifth when he was chilling profusely. He states he was unable to get warm. He had just seen his primary care doctor but had not told him about any other symptoms besides his back pain. Over the weekend this continued and he started to feel weak. Yesterday he fell prompting his evaluation in the emergency department. He was found to have a urinary tract infection and meets severe sepsis criteria. He was admitted for IV antibiotics. This morning he states that he is feeling better though he still has back pain. Subjective/Events-last exam He is doing better today. He denies any chest pain. He has a sore throat from his procedure. He is not having any palpitations. He would like a drink. Focused Exam Time of Focused Exam: 15:00 Objective Exam Vital Signs Vital Signs Date Time Temp Pulse Resp B/P (MAP) Pulse Ox O2 Delivery O2 Flow Rate FiO2 09/24/21 09:23 112 16 148/93 (111) 92 Room Air 09/24/21 09:07 2.00 09/24/21 00:00 35.8 Capillary Refill : Less Than 3 Seconds General Appearance: No Apparent Distress, Obese Respiratory: Lungs Clear, Normal Breath Sounds, No Respiratory Distress Cardiovascular: Regular Rate, Rhythm, No Edema, No Murmur Gastrointestinal: Normal Bowel Sounds, Non Tender, Soft Extremity: Normal Inspection, Non Tender, No Pedal Edema Neurologic/Psychiatric: Alert, Oriented x3, Normal Mood/Affect Skin: Normal Color, Warm/Dry Results/Procedures Lab Laboratory Tests 09/23/21 14:14 09/24/21 05:46 Patient resulted labs reviewed. Imaging: Reviewed Imaging Report Assessment/Plan Assessment and Plan Assess & Plan/Chief Complaint E coli UTI and bacteremia Continue Rocephin New onset atrial fibrillation Cardiology following DEBRA cardioversion unsuccessful this morning Continue Metoprolol Continue Eliquis HTN Hypokalemia Hypomagnesemia HCTZ discontinued Continue Lisinopril Reviewed records, chronically hypokalemic Continue daily potassium Monitor and replace as needed Chronic back pain Debility Patient relays multiple falls at home PT/OT Continue lortab for pain Evaluate for swing bed DVT ppx: already receiving therapeutic anticoagulation Severe sepsis, resolved Diagnosis/Problems Diagnosis/Problems (1) Urinary tract infection Status: Acute Qualifiers: Urinary tract infection type: acute cystitis Hematuria presence: with hematuria Qualified Codes: N30.01 - Acute cystitis with hematuria (2) Bacteremia Status: Acute (3) Severe sepsis Status: Resolved Resolution Date/Time: 09/24/21 @ 11:57 (4) Essential (primary) hypertension Status: Chronic (5) Hypokalemia Status: Resolved Resolution Date/Time: 09/24/21 @ 11:57 (6) Frequent falls Status: Acute (7) Lumbar spinal stenosis Status: Acute Qualifiers: Neurogenic claudication status: unspecified Qualified Codes: M48.061 - Spinal stenosis, lumbar region without neurogenic claudication (8) New onset a-fib Status: Acute RAMIRO STYLES MD Sep 24, 2021 11:55
--- NOTE | 2021-09-24 12:01 | Physical Therapy Daily Note ---
PT Daily Note-Current Subjective Patient agrees to PT. Patient reports he has not had anything to eat or drink since last night due to procedure this a.m and feels weak this a.m. RN aware and is to check patient's gag reflex to resume nourishment. Appearance incontinence of urine Mental Status Patient Orientation: Normal For Age Attachments: IV Transfers SCALE: Activities may be completed with or without assistive devices. 1-Inmyelklif-hrpoygt completes the activity by him/herself with no assistance from a helper. 5-Set-up or Clean-up Assistance-helper sets up or cleans up; patient completes activity. [place] assists only prior to or following the activity. 4-Supervision or Touching Assistance-helper provides verbal cues and/or touchi ng/steadying and/or contact guard assistance as patient completes activity. Assistance may be provided throughout the activity or intermittently. 3-Partial/Moderate Assistance-helper does LESS THAN HALF the effort. [place] lifts, holds or supports trunk or limbs, but provides less than half the effort. 2-Substantial/Maximal Assistance-helper does MORE THAN HALF the effort. [place] lifts or holds trunk or limbs and provides more than half the effort. 4-Yldazpkcm-rkyrsz does ALL the effort. Patient does none of the effort to complete the activity. Or, the assistance of 2 or more helpers is required for the patient to complete the activity. If activity was not attempted, code reason: 7-Patient Refused. 9-Not Applicable-not attempted and the patient did not perform the activity before the current illness, exacerbation or injury. 10-Not Attempted due to Environmental Limitations-(lack of equipment, weather restraints, etc.). 88-Not Attempted due to Medical Conditions or Safety Concerns. Lying to Sitting/Side of Bed(Q: 6 Sit to Stand (QC): 4 (CGA with use of gait belt for safety due to increase c/o weakness) Chair/Sup-vf-Imruq Xfer(QC): 4 (CGA with use of gait belt for safety due to increase c/o weakness) Gait Training Does the Patient Walk?: Yes Distance: 150' Walk 10 feet (QC): 4 (CGA) Walk 50 ft with 2 Turns(QC): 4 (CGA) Walk 150 ft (QC): 4 (CGA) Gait Assistive Device: FWW Patient had episode of a "sharp" pain in his back causing his bilateral knees to buckle. Patient was able to catch self with minimal assist of PT and remain upright. Patient reports this happens occasionally at home. Exercises Seated Therapy Exercises: Ankle pumps, Long arc quads Seated Reps: 15 Standing: Marching, Sit to Stand (x 3 sets SBA) Standing Reps: 10 (x 2 sets) Assessment Noted increase in weakness on this date with noted SAO2 with activity. SAO2 remains 98% RA. Patient's HR with activity 141 and BP 163/84. PT to increase activity to ensure safe return to home. PT Agricultural Loan Officer Goals Agricultural Loan Officer Goals PT Half-Way Goals Time Frame: Oct 06, 2021 Roll Left & Right (QC): 6 Sit to Lying (QC): 6 Lying-Sitting on Side/Bed(QC): 6 Sit to Stand (QC): 6 Chair/Sgu-jr-Gxmwb Xfer(QC): 6 Toilet Transfer (QC): 6 Does the Patient Walk: Yes Walk 10 feet (QC): 5 Walk 50ft with 2 Turns (QC): 5 Walk 150 ft (QC): 5 Walking 10ft on Uneven Surface: 5 1 Step (curb) (QC): 5 4 Steps (QC): 5 12 Steps (QC): 5 Picking up an Object (QC): 5 Does the Pt use WC or Scooter?: No PT Plan Treatment/Plan Treatment Plan: Continue Plan of Care Treatment Plan: Bed Mobility, Education, Functional Activity Carlita, Functional Strength, Group Therapy, Gait, Safety, Therapeutic Exercise, Transfers Treatment Duration: Nov 10, 2021 Frequency: 6 times per week Estimated Hrs Per Day: .25 hour per day Patient and/or Family Agrees t: Yes Time/GCodes Time In: 1125 Time Out: 1143 Total Billed Treatment Time: 18 Total Billed Treatment 1 visit FA 18 min GALINA PICKARD PT Sep 24, 2021 12:01
[2021-09-24] MEDS: APIXABAN 5 MG (ELIQUIS) TABLET PO SCH ×2 (12:47→19:53)
[2021-09-24] MEDS: PHENYTOIN 100 MG (DILANTIN) CAP PO SCH (12:47)
[2021-09-24] MEDS: lisINopril 20 MG (PRINIVIL) TABLET PO SCH (12:47)
--- NOTE | 2021-09-24 13:52 | Occupational Ther Daily Note ---
OT Current Status-Daily Note Subjective Pt up in recliner, agreeable to OT Tx. Mental Status/Objective Patient Orientation: Person, Place, Situation Attachments: IV ADL-Treatment Therapy Code Descriptions/Definitions Functional [place] Measure: 0=Not Assessed/NA 4=Minimal Assistance 1=Total Assistance 5=Supervision or Setup 2=Maximal Assistance 6=Modified [place] 3=Moderate Assistance 7=Complete IndependenceSCALE: Activities may be completed with or without assistive devices. 1-Vzmqfykruz-uevhhcz completes the activity by him/herself with no assistance from a helper. 5-Set-up or Clean-up Assistance-helper sets up or cleans up; patient completes activity. [place] assists only prior to or following the activity. 4-Supervision or Touching Assistance-helper provides verbal cues and/or touching/steadying and/or contact guard assistance as patient completes activity. Assistance may be provided throughout the activity or intermittently. 3-Partial/Moderate Assistance-helper does LESS THAN HALF the effort. [place] lifts, holds or supports trunk or limbs, but provides less than half the effort. 2-Substantial/Maximal Assistance-helper does MORE THAN HALF the effort. [place] lifts or holds trunk or limbs and provides more than half the effort. 3-Rrbdvyzxl-otgvyt does ALL the effort. Patient does none of the effort to complete the activity. Or, the assistance of 2 or more helpers is required for the patient to complete the activity. If activity was not attempted, code reason: 7-Patient Refused. 9-Not Applicable-not attempted and the patient did not perform the activity before the current illness, exacerbation or injury. 10-Not Attempted due to Environmental Limitations-(lack of equipment, weather restraints, etc.). 88-Not Attempted due to Medical Conditions or Safety Concerns. Eating (QC): 6 (IND with lunch) Lower Body Dressing (QC): 4 (CGA in stand for pant hike. Pt required cue to th read LLE first as this is is "bad" leg. ) On/Off Footwear: 6 (Pt able to adjust gripper socks. ) Toileting Hygiene (QC): 4 (CGA in stand for pant hike, pt able to complete hygiene and clothing management.) Toilet Transfer (QC): 4 (CGA on/off toilet.) Other Treatment Pt seated in recliner, used FWW to perform functional mobility to bathroom with CGA. Pt completed toileting, and changed his underwear, requiring CGA in stand for clothing management. Pt returned to recliner. OT reeducated pt on UE exercises using minimal resistance theraband. Pt recalled 0/5 exercises, states he is unable to read the hand out. OT reintroduced exercises to pt, he was able to complete x5 reps BUEs, states he will continue to perform exercises during the day. Post tx, pt up in recliner, call light in reach and all needs met. Education OT Patient Education: Correct positioning, Energy conservation, Exercise progra m, Home exercise program, Modified ADL techniques, Progress toward Goal/Update tx plan, Purpose of tx/functional activities Teaching Recipient: Patient Teaching Methods: Discussion Response to Teaching: Verbalize Understanding, Reinforcement Needed OT Mcfp Goals Broke Man Goals Time Frame: Oct 01, 2021 Eating (QC): 6 Oral Hygiene (QC): 6 Toileting Hygiene (QC): 6 Shower/Bathe Self (QC): 6 Upper Body Dressing (QC): 6 Lower Body Dressing (QC): 6 On/Off Footwear (QC): 6 Additional Goals: 1-Demonstrate ADL Tasks, 2-Verbalize Understanding, 3- ImproveStrength/Carlita 1=Demonstrate adherence to instructed precautions during ADL tasks. 2=Patient will verbalize/demonstrate understanding of assistive devices/modifications for ADL. 3=Patient will improve strength/tolerance for activity to enable patient to perform ADL's. OT Education/Plan Problem List/Assessment Assessment: Decreased Activ Tolerance, Decreased UE Strength, Impaired Funct Ba lena, Impaired I ADL's, Impaired Self-Care Skills Discharge Recommendations Plan/Recommendations: Continue POC Treatment Plan/Plan of Care Patient would benefit from OT for education, treatment and training to promote independence in ADL's, mobility, safety and/or upper extremity function for ADL's. Plan of Care: ADL Retraining, Functional Mobility, UE Funct Exercise/Act Treatment Duration: Oct 01, 2021 Frequency: 5 times per week Estimated Hrs Per Day: .25 hour per day Rehab Potential: Fair Time/GCodes Start Time: 13:20 Stop Time: 13:43 Total Time Billed (hr/min): 23 Billed Treatment Time 1, ADL (15'), EX (8') MISAEL LAINEZ OT Sep 24, 2021 13:52
[2021-09-24] MEDS: [UNRECOGNIZED DRUG - OTHER] IV SCH (16:40)
[2021-09-24] MEDS: CEFTRIAXONE IV SCH (16:40)
[2021-09-24] MEDS: SENNA W/DOCUSATE (SENOKOT S) TABLET PO PRN (18:38)
[2021-09-25 04:04] VITALS: BP 133/60
[2021-09-25] MEDS: NS IV 1000 ML 1,000 ML IV SCH ×2 (04:10→17:33)
[2021-09-25] MEDS: POTASSIUM CL 10MEQ/50ML IVPB 50 ML IV SCH (06:00)
[2021-09-25] MEDS: KCL 20 MEQ TAB (K-DUR) PO SCH ×2 (06:00→06:43)
[2021-09-25] MEDS: MAGNESIUM 1 GM/100 ML IVPB 100 ML IV SCH ×3 (06:00→08:16)
[2021-09-25 06:14] LABS: POTASSIUM 3.5 MMOL/L (3.6-5.0)
[2021-09-25 06:16] LABS: CALCIUM 8.1 MG/DL (8.5-10.1)
[2021-09-25 06:20] LABS: CREATININE SERUM 0.64 MG/DL (0.60-1.30)
[2021-09-25 06:22] LABS: MAGNESIUM 1.6 MG/DL (1.6-2.4)
[2021-09-25 07:19] VITALS: BP 152/70
[2021-09-25] MEDS: APIXABAN 5 MG (ELIQUIS) TABLET PO SCH ×2 (08:20→20:27)
[2021-09-25] MEDS: lisINopril 20 MG (PRINIVIL) TABLET PO SCH (08:20)
[2021-09-25] MEDS: PHENYTOIN 100 MG (DILANTIN) CAP PO SCH (08:20)
[2021-09-25] MEDS: LACTOBACILLUS ACIDOPHILUS (PROBIOTIC) CAPSULE PO SCH ×3 (08:21→17:34)
[2021-09-25] MEDS: SENNA W/DOCUSATE (SENOKOT S) TABLET PO PRN (08:25)
--- NOTE | 2021-09-25 09:15 | Physical Therapy Daily Note ---
PT Daily Note-Current Subjective Pt. in bed, agrees to therapy. Says "I just have to warn you, I can get a sharp pain in my back and it makes my legs give out." Pt. has no pain at present time. Mental Status Patient Orientation: Person, Place, Time, Situation Attachments: IV Transfers SCALE: Activities may be completed with or without assistive devices. 4-Iumaulwlrs-fjmqcke completes the activity by him/herself with no assistance from a helper. 5-Set-up or Clean-up Assistance-helper sets up or cleans up; patient completes activity. [place] assists only prior to or following the activity. 4-Supervision or Touching Assistance-helper provides verbal cues and/or touching/steadying and/or contact guard assistance as patient completes activity. Assistance may be provided throughout the activity or intermittently. 3-Partial/Moderate Assistance-helper does LESS THAN HALF the effort. [place] lifts, holds or supports trunk or limbs, but provides less than half the effort. 2-Substantial/Maximal Assistance-helper does MORE THAN HALF the effort. [place] lifts or holds trunk or limbs and provides more than half the effort. 4-Ugmmhfkrb-ifybwk does ALL the effort. Patient does none of the effort to complete the activity. Or, the assistance of 2 or more helpers is required for the patient to complete the activity. If activity was not attempted, code reason: 7-Patient Refused. 9-Not Applicable-not attempted and the patient did not perform the activity before the current illness, exacerbation or injury. 10-Not Attempted due to Environmental Limitations-(lack of equipment, weather restraints, etc.). 88-Not Attempted due to Medical Conditions or Safety Concerns. Lying to Sitting/Side of Bed(Q: 6 Sit to Stand (QC): 4 Gait Training Does the Patient Walk?: Yes Distance: 150 ft Walk 150 ft (QC): 4 Gait Persons Needed: 1 Gait Assistive Device: FWW leans heavily on walker Treatments gait training Assessment Current Status: Good Progress Pt. is steady with gait but flexed posture on walker. He had no c/o sharp pains in the back during ambulation today. Pt. up in chair post session with call light and all needs met. PT Environmental Planner Goals Jail Goals PT Jail Goals Time Frame: Oct 06, 2021 Roll Left & Right (QC): 6 Sit to Lying (QC): 6 Lying-Sitting on Side/Bed(QC): 6 Sit to Stand (QC): 6 Chair/Yos-ua-Rapwy Xfer(QC): 6 Toilet Transfer (QC): 6 Does the Patient Walk: Yes Walk 10 feet (QC): 5 Walk 50ft with 2 Turns (QC): 5 Walk 150 ft (QC): 5 Walking 10ft on Uneven Surface: 5 1 Step (curb) (QC): 5 4 Steps (QC): 5 12 Steps (QC): 5 Picking up an Object (QC): 5 Does the Pt use WC or Scooter?: No PT Plan Treatment/Plan Treatment Plan: Continue Plan of Care Treatment Plan: Bed Mobility, Education, Functional Activity Carlita, Functional Strength, Group Therapy, Gait, Safety, Therapeutic Exercise, Transfers Treatment Duration: Nov 10, 2021 Frequency: 6 times per week Estimated Hrs Per Day: .25 hour per day Patient and/or Family Agrees t: Yes Time/GCodes Time In: 0836 Time Out: 0852 Total Billed Treatment Time: 16 Total Billed Treatment 1, GT 16' [facility] MEI PT Sep 25, 2021 09:15
--- NOTE | 2021-09-25 10:44 | Cardiology Progress Note ---
Subjective Date Seen by Provider: Sep 25, 2021 Time Seen by Provider: 10:43 Subjective/Events-last exam Patient is sitting in a chair, comfortable, feeling better. No new complaint Review of Systems General: No Chills, No Night Sweats, No Fatigue, No Malaise, No Appetite, No Other HEENT: No Head Aches, No Visual Changes, No Eye Pain, No Ear Pain, No Dysphasia, No Sinus Congestion, No Post Nasal Drip, No Sore Throat, No Other Pulmonary: No Dyspnea, No Cough, No Pleuritic Chest Pain, No Other Cardiovascular: No: Chest Pain, Palpitations, Orthopnea, Paroxysmal Noc. Dyspnea, Edema, Lt Headedness, Other Focused Exam Time of Focused Exam: 15:00 Objective-Cardiology Exam Last Set of Vital Signs Vital Signs 09/24/21 09/25/21 09/25/21 09:07 07:19 08:00 Temp 36.1 Pulse 80 Resp 22 B/P (MAP) 152/70 (97) Pulse Ox 96 O2 Delivery Room Air O2 Flow Rate 2.00 I&O Intake and Output 09/25/21 00:00 Intake Total 3970 ml Output Total 3150 ml Balance 820 ml Intake Oral 1920 ml IV Total 2050 ml Output Urine Total 3150 ml General: Alert, Oriented X3, Cooperative HEENT: Atraumatic, PERRLA Neck: Supple, No JVD, No Thyromegaly Lungs: Clear to Auscultation, Normal Air Movement Heart: Normal S1, Normal S2, No Murmurs, Other (Atrial fibrillation) Abdomen: Normal Bowel Sounds, Soft, No Tenderness, No Hepatosplenomegaly, No Masses Extremities: No Clubbing, No Cyanosis, No Edema, Normal Pulses, No Tenderness/Swelling Skin: No Rashes, No Breakdown, No Significant Lesion Neuro: Normal Gait, Normal Speech, Strength at 5/5 X4 Ext, Normal Tone, Sensation Intact Psych/Mental Status: Mental Status NL, Mood NL Results Lab Laboratory Tests 09/25/21 05:49 A/P-Cardiology Admission Diagnosis Atrial fibrillation Sepsis UTI Hypertension Assessment/Plan Atrial fibrillation with controlled ventricular response. Failed attempt for DEBRA, questionable underlying esophageal stricture. Recommend continuous uninterrupted oral anticoagulation for 6 weeks then attempt for cardioversion Consider referring the patient for EGD for evaluation for stricture [id number] score of 3, started on Eliquis 5 mg twice daily, continue to monitor Questionable esophageal stricture, recommend EGD that can be done as an outpatient UTI, sepsis, receiving Rocephin and improving Spinal stenosis, lumbar stenosis, having lower back pain and weakness in his lower extremities with multiple falls which increases the risk of bleeding while on anticoagulation Hypertension, maintained on lisinopril and hydrochlorothiazide, I will stop hyd rochlorothiazide due to his recurrent hypokalemia and starting beta-blockers and evaluate tolerance and response Obesity, BMI 34, we discussed weight loss and exercise High risk for sleep apnea, recommend sleep study as an outpatient NAZANIN MIRANDA MD Sep 25, 2021 10:44
[2021-09-25 11:38] VITALS: BP 146/69
[2021-09-25 15:30] VITALS: BP 141/76
[2021-09-25] MEDS: CEFTRIAXONE IV SCH (17:33)
[2021-09-25] MEDS: [UNRECOGNIZED DRUG - OTHER] IV SCH (17:33)
--- NOTE | 2021-09-25 18:13 | Progress Note - Hospitalist ---
Subjective HPI/CC On Admission Date Seen by Provider: Sep 25, 2021 Time Seen by Provider: 11:15 Patient is a 75-year-old male with past medical history of seizure disorder chronic back pain who presented to the emergency department due to worsening back pain, chills and urinary incontinence. He states that his symptoms started on the fourth of the fifth when he was chilling profusely. He states he was unable to get warm. He had just seen his primary care doctor but had not told him about any other symptoms besides his back pain. Over the weekend this continued and he started to feel weak. Yesterday he fell prompting his evaluation in the emergency department. He was found to have a urinary tract infection and meets severe sepsis criteria. He was admitted for IV antibiotics. This morning he states that he is feeling better though he still has back pain. Subjective/Events-last exam He is feeling fine today. He has no complaints or concerns. He got up and worked with therapy without any problems. He is sitting in his bedside chair. Focused Exam Time of Focused Exam: 15:00 Objective Exam Vital Signs Vital Signs Date Time Temp Pulse Resp B/P (MAP) Pulse Ox O2 Delivery O2 Flow Rate FiO2 09/25/21 15:30 36.4 97 22 141/76 (97) 97 Room Air 09/24/21 09:07 2.00 Capillary Refill : Less Than 3 Seconds General Appearance: No Apparent Distress, Obese Respiratory: Lungs Clear, Normal Breath Sounds, No Respiratory Distress Cardiovascular: Regular Rate, Rhythm, No Edema, No Murmur Gastrointestinal: Normal Bowel Sounds, Non Tender, Soft Extremity: Normal Inspection, Non Tender, No Pedal Edema Neurologic/Psychiatric: Alert, Oriented x3, No Motor/Sensory Deficits, Normal Mood/Affect Skin: Normal Color, Warm/Dry Results/Procedures Lab Laboratory Tests 09/25/21 05:49 Patient resulted labs reviewed. Imaging: Reviewed Imaging Report Assessment/Plan Assessment and Plan Assess & Plan/Chief Complaint E coli UTI and bacteremia Continue Rocephin New onset atrial fibrillation Cardiology following DEBRA cardioversion unsuccessful 09/24 Continue Metoprolol Continue Eliquis HTN Hypokalemia Hypomagnesemia HCTZ discontinued Continue Lisinopril Reviewed records, chronically hypokalemic Continue daily potassium Monitor and replace as needed Chronic back pain Debility Patient relays multiple falls at home PT/OT Continue lortab for pain Lives alone, no support available at home Evaluating for swing bed DVT ppx: already receiving therapeutic anticoagulation Severe sepsis, resolved Diagnosis/Problems Diagnosis/Problems (1) Urinary tract infection Status: Acute Qualifiers: Urinary tract infection type: acute cystitis Hematuria presence: with hematuria Qualified Codes: N30.01 - Acute cystitis with hematuria (2) Bacteremia Status: Acute (3) Severe sepsis Status: Resolved Resolution Date/Time: 09/24/21 @ 11:57 (4) Essential (primary) hypertension Status: Chronic (5) Hypokalemia Status: Resolved Resolution Date/Time: 09/24/21 @ 11:57 (6) Frequent falls Status: Acute (7) Lumbar spinal stenosis Status: Acute Qualifiers: Neurogenic claudication status: unspecified Qualified Codes: M48.061 - Spinal stenosis, lumbar region without neurogenic claudication (8) New onset a-fib Status: Acute RAMIRO STYLES MD Sep 25, 2021 18:13
[2021-09-25 19:35] VITALS: BP 136/70
[2021-09-26 00:41] VITALS: BP 134/74
[2021-09-26] MEDS: NS IV 1000 ML 1,000 ML IV SCH ×2 (04:04→14:07)
[2021-09-26 04:10] VITALS: BP 137/78
[2021-09-26 05:39] LABS: POTASSIUM 3.3 MMOL/L (3.6-5.0)
[2021-09-26 05:45] LABS: CREATININE SERUM 0.59 MG/DL (0.60-1.30)
[2021-09-26] MEDS: POTASSIUM CL 10MEQ/50ML IVPB 50 ML IV SCH (05:46)
[2021-09-26 05:47] LABS: MAGNESIUM 1.8 MG/DL (1.6-2.4)
[2021-09-26] MEDS: KCL 20 MEQ TAB (K-DUR) PO SCH ×2 (05:47→06:16)
[2021-09-26] MEDS: MAGNESIUM 1 GM/100 ML IVPB 100 ML IV SCH (05:50)
[2021-09-26] MEDS ORDERED: KCL 20 MEQ TAB (K-DUR) PO ONE ×2 (06:00→08:00)
[2021-09-26] MEDS: LACTOBACILLUS ACIDOPHILUS (PROBIOTIC) CAPSULE PO SCH ×3 (07:58→17:41)
[2021-09-26] MEDS: SENNA W/DOCUSATE (SENOKOT S) TABLET PO PRN (07:58)
[2021-09-26 07:59] VITALS: BP 127/86
[2021-09-26] MEDS: PHENYTOIN 100 MG (DILANTIN) CAP PO SCH (08:00)
[2021-09-26] MEDS: APIXABAN 5 MG (ELIQUIS) TABLET PO SCH ×2 (08:00→20:55)
[2021-09-26] MEDS: lisINopril 20 MG (PRINIVIL) TABLET PO SCH (08:00)
--- NOTE | 2021-09-26 10:37 | Cardiology Progress Note ---
Subjective Date Seen by Provider: Sep 26, 2021 Time Seen by Provider: 10:36 Subjective/Events-last exam Patient was seen at bedside, sitting comfortably, no new complaint. Review of Systems General: No Chills, No Night Sweats; Fatigue; No Malaise, No Appetite, No Other HEENT: No Head Aches, No Visual Changes, No Eye Pain, No Ear Pain, No Dysphasia, No Sinus Congestion, No Post Nasal Drip, No Sore Throat, No Other Pulmonary: No Dyspnea, No Cough, No Pleuritic Chest Pain, No Other Cardiovascular: No: Chest Pain, Palpitations, Orthopnea, Paroxysmal Noc. Dyspnea, Edema, Lt Headedness, Other Focused Exam Time of Focused Exam: 15:00 Objective-Cardiology Exam Last Set of Vital Signs Vital Signs 09/25/21 09/26/21 20:25 07:59 Temp 36.5 Pulse 79 Resp 22 B/P (MAP) 127/86 (100) Pulse Ox 96 O2 Delivery Room Air O2 Flow Rate 0.00 I&O Intake and Output 09/26/21 00:00 Intake Total 3840 ml Output Total 2410 ml Balance 1430 ml Intake Oral 1540 ml IV Total 2300 ml Output Urine Total 2410 ml # Voids 1 General: Alert, Oriented X3, Cooperative HEENT: Atraumatic, PERRLA Neck: Supple, No JVD, No Thyromegaly Lungs: Clear to Auscultation, Normal Air Movement Heart: Normal S1, Normal S2, No Murmurs, Other (Atrial fibrillation) Abdomen: Normal Bowel Sounds, Soft, No Tenderness, No Hepatosplenomegaly, No Masses Extremities: No Clubbing, No Cyanosis, No Edema, Normal Pulses, No Tenderness/Swelling Skin: No Rashes, No Breakdown, No Significant Lesion Neuro: Normal Gait, Normal Speech, Strength at 5/5 X4 Ext, Normal Tone, Sensa tion Intact Psych/Mental Status: Mental Status NL, Mood NL Results Lab Laboratory Tests 09/26/21 05:07 A/P-Cardiology Admission Diagnosis Atrial fibrillation Sepsis UTI Hypertension Assessment/Plan Atrial fibrillation with controlled ventricular response. Failed attempt for DEBRA, questionable underlying esophageal stricture. Recommend continuous uninterrupted oral anticoagulation for 6 weeks then attempt for cardioversion Consider referring the patient for EGD for evaluation for stricture [id number] score of 3, started on Eliquis 5 mg twice daily, continue to monitor Questionable esophageal stricture, recommend EGD that can be done as an outpatient UTI, sepsis, receiving Rocephin and improving Spinal stenosis, lumbar stenosis, having lower back pain and weakness in his l ower extremities with multiple falls which increases the risk of bleeding while on anticoagulation Hypertension, maintained on lisinopril and hydrochlorothiazide, I will stop hydrochlorothiazide due to his recurrent hypokalemia and starting beta-blockers and evaluate tolerance and response Obesity, BMI 34, we discussed weight loss and exercise High risk for sleep apnea, recommend sleep study as an outpatient NAZANIN MIRANDA MD Sep 26, 2021 10:37
--- NOTE | 2021-09-26 11:28 | Progress Note - Hospitalist ---
Subjective HPI/CC On Admission Date Seen by Provider: Sep 26, 2021 Time Seen by Provider: 10:20 Patient is a 75-year-old male with past medical history of seizure disorder chronic back pain who presented to the emergency department due to worsening back pain, chills and urinary incontinence. He states that his symptoms started on the fourth of the fifth when he was chilling profusely. He states he was unable to get warm. He had just seen his primary care doctor but had not told him about any other symptoms besides his back pain. Over the weekend this continued and he started to feel weak. Yesterday he fell prompting his evaluation in the emergency department. He was found to have a urinary tract infection and meets severe sepsis criteria. He was admitted for IV antibiotics. This morning he states that he is feeling better though he still has back pain. Subjective/Events-last exam He is feeling okay today. He continues to have some back pain. He was able to get over to his bedside chair. Focused Exam Time of Focused Exam: 15:00 Objective Exam Vital Signs Vital Signs Date Time Temp Pulse Resp B/P (MAP) Pulse Ox O2 Delivery O2 Flow Rate FiO2 09/26/21 07:59 36.5 79 22 127/86 (100) 96 Room Air 09/25/21 20:25 0.00 Capillary Refill : Less Than 3 Seconds General Appearance: No Apparent Distress, Obese Respiratory: Lungs Clear, Normal Breath Sounds, No Respiratory Distress Cardiovascular: No Murmur, Irregularly Irregular Gastrointestinal: Normal Bowel Sounds, Non Tender, Soft Extremity: Normal Inspection, Non Tender, No Pedal Edema Neurologic/Psychiatric: Alert, Oriented x3, Normal Mood/Affect Skin: Normal Color, Warm/Dry Results/Procedures Lab Laboratory Tests 09/26/21 05:07 Patient resulted labs reviewed. Imaging: Reviewed Imaging Report Assessment/Plan Assessment and Plan Assess & Plan/Chief Complaint E coli UTI and bacteremia Continue Rocephin New onset atrial fibrillation Cardiology following DEBRA cardioversion unsuccessful 09/24 Continue Metoprolol Continue Eliquis HTN Hypokalemia Hypomagnesemia HCTZ discontinued Continue Lisinopril Reviewed records, chronically hypokalemic Continue daily potassium Monitor and replace as needed Chronic back pain Debility Patient relays multiple falls at home PT/OT Continue lortab for pain Lives alone, no support available at home Evaluating for swing bed DVT ppx: already receiving therapeutic anticoagulation Severe sepsis, resolved Diagnosis/Problems Diagnosis/Problems (1) Urinary tract infection Status: Acute Qualifiers: Urinary tract infection type: acute cystitis Hematuria presence: with hematuria Qualified Codes: N30.01 - Acute cystitis with hematuria (2) Bacteremia Status: Acute (3) Severe sepsis Status: Resolved Resolution Date/Time: 09/24/21 @ 11:57 (4) Essential (primary) hypertension Status: Chronic (5) Hypokalemia Status: Resolved Resolution Date/Time: 09/24/21 @ 11:57 (6) Frequent falls Status: Acute (7) Lumbar spinal stenosis Status: Acute Qualifiers: Neurogenic claudication status: unspecified Qualified Codes: M48.061 - Spinal stenosis, lumbar region without neurogenic claudication (8) New onset a-fib Status: Acute RAMIRO STYLES MD Sep 26, 2021 11:28
[2021-09-26 11:51] VITALS: BP 129/61
[2021-09-26 16:00] VITALS: BP_SYST 141; BP_SYST 155; BP_DIAS 72; BP_DIAS 78
[2021-09-26] MEDS: CEFTRIAXONE IV SCH (16:08)
[2021-09-26] MEDS: [UNRECOGNIZED DRUG - OTHER] IV SCH (16:08)
[2021-09-26 19:26] VITALS: BP 156/76
[2021-09-27] MEDS: NS IV 1000 ML 1,000 ML IV SCH ×2 (00:29→09:51)
[2021-09-27 00:40] VITALS: BP 136/75
[2021-09-27 04:29] VITALS: BP 142/87
[2021-09-27 06:30] LABS: POTASSIUM 4.1 MMOL/L (3.6-5.0)
[2021-09-27 06:32] LABS: CALCIUM 8.2 MG/DL (8.5-10.1)
[2021-09-27 06:36] LABS: CREATININE SERUM 0.62 MG/DL (0.60-1.30)
[2021-09-27 06:38] LABS: MAGNESIUM 1.8 MG/DL (1.6-2.4)
[2021-09-27] MEDS: POTASSIUM CL 10MEQ/50ML IVPB 50 ML IV SCH (06:39)
[2021-09-27] MEDS: MAGNESIUM 1 GM/100 ML IVPB 100 ML IV SCH (06:39)
[2021-09-27] MEDS: KCL 20 MEQ TAB (K-DUR) PO SCH ×2 (06:40→06:48)
[2021-09-27 08:00] VITALS: BP 165/72
--- NOTE | 2021-09-27 08:38 | Cardiology Progress Note ---
Subjective Date Seen by Provider: Sep 27, 2021 Time Seen by Provider: 08:33 Subjective/Events-last exam Patient is sitting up in bed, denies any chest pain. Review of Systems General: No Chills, No Night Sweats, No Fatigue, No Malaise, No Appetite, No Other HEENT: No Head Aches, No Visual Changes, No Eye Pain, No Ear Pain, No Dysphasia, No Sinus Congestion, No Post Nasal Drip, No Sore Throat, No Other Pulmonary: No Dyspnea, No Cough, No Pleuritic Chest Pain, No Other Cardiovascular: No: Chest Pain, Palpitations, Orthopnea, Paroxysmal Noc. Dyspnea, Edema, Lt Headedness, Other Focused Exam Time of Focused Exam: 15:00 Objective-Cardiology Exam Last Set of Vital Signs Vital Signs 09/26/21 09/27/21 09/27/21 19:50 08:00 09:33 Temp 36.5 Pulse 79 Resp 20 B/P (MAP) 165/72 (103) Pulse Ox 93 O2 Delivery Room Air O2 Flow Rate 0.00 I&O Intake and Output 09/27/21 00:00 Intake Total 4142 ml Output Total 2575 ml Balance 1567 ml Intake Oral 2092 ml IV Total 2050 ml Output Urine Total 2575 ml General: Alert, Oriented X3, Cooperative HEENT: Atraumatic, PERRLA Neck: Supple, No JVD, No Thyromegaly Lungs: Clear to Auscultation, Normal Air Movement Heart: Normal S1, Normal S2, No Murmurs, Other (Atrial fibrillation) Abdomen: Normal Bowel Sounds, Soft, No Tenderness, No Hepatosplenomegaly, No Masses Extremities: No Clubbing, No Cyanosis, No Edema, Normal Pulses, No Tenderness/Swelling Skin: No Rashes, No Breakdown, No Significant Lesion Neuro: Normal Gait, Normal Speech, Strength at 5/5 X4 Ext, Normal Tone, Sensati on Intact Psych/Mental Status: Mental Status NL, Mood NL Results Lab Laboratory Tests 09/27/21 05:16 A/P-Cardiology Admission Diagnosis Atrial fibrillation Sepsis UTI Hypertension Assessment/Plan Atrial fibrillation with controlled ventricular response. Failed attempt for DEBRA, questionable underlying esophageal stricture. Recommend continuous uninterrupted oral anticoagulation for 6 weeks then attempt for cardioversion Consider referring the patient for EGD for evaluation for stricture [id number] score of 3, started on Eliquis 5 mg twice daily, continue to monitor Questionable esophageal stricture, recommend EGD that can be done as an outpatient UTI, sepsis, receiving Rocephin and improving Spinal stenosis, lumbar stenosis, having lower back pain and weakness in his low er extremities with multiple falls which increases the risk of bleeding while on anticoagulation Hypertension, mildly elevated, on lisinopril 20mg, Toprol XL 25mg, conitnue to monitor. Hypokalemia- HCTZ discontinued, improved, continue to monitor Obesity, BMI 34, we discussed weight loss and exercise High risk for sleep apnea, recommend sleep study as an outpatient Supervisory-Addendum Brief Supervisory Addendum Participated in pt care: history, MDM, physical Personally performed: exam, history, MDM Care discussed with: MAUREEN Results interpretation: Verified all documentation Notes: Patient was seen and evaluated with Missy, examination performed, management plan was discussed, agree with the current scribed note, I made few changes to the note using Italic font Patient was seen at bedside, sitting comfortably No new complaint Reporting improvement in his symptoms Okay for discharge and follow-up as an outpatient We discussed oral anticoagulation to be continued and will consider doing electrical cardioversion in 6 weeks Recommend EGD evaluation as an outpatient MISSY TRACY Sep 27, 2021 08:38 NAZANIN MIRANDA MD Sep 27, 2021 10:26
[2021-09-27] MEDS: LACTOBACILLUS ACIDOPHILUS (PROBIOTIC) CAPSULE PO SCH (09:27)
[2021-09-27] MEDS: lisINopril 20 MG (PRINIVIL) TABLET PO SCH (09:27)
[2021-09-27] MEDS: PHENYTOIN 100 MG (DILANTIN) CAP PO SCH (09:28)
[2021-09-27] MEDS: SENNA W/DOCUSATE (SENOKOT S) TABLET PO PRN (09:49)
[2021-09-27] MEDS: APIXABAN 5 MG (ELIQUIS) TABLET PO SCH (09:50)
[2021-09-27] MEDS ORDERED: MTP25TSR PO ×2 (10:27→13:20)
[2021-09-27] MEDS ORDERED: APIX5TAB PO (10:27)
[2021-09-27] MEDS ORDERED: CEFD300C3 PO (10:27)
--- NOTE | 2021-09-27 10:28 | Physical Therapy Daily Note ---
PT Daily Note-Current Subjective Patient agrees to PT. Unrated back pain. Mental Status Patient Orientation: Normal For Age Attachments: IV Transfers SCALE: Activities may be completed with or without assistive devices. 4-Rkoltecyrd-vhbeikr completes the activity by him/herself with no assistance from a helper. 5-Set-up or Clean-up Assistance-helper sets up or cleans up; patient completes activity. [place] assists only prior to or following the activity. 4-Supervision or Touching Assistance-helper provides verbal cues and/or touching/steadying and/or contact guard assistance as patient completes activity. Assistance may be provided throughout the activity or intermittently. 3-Partial/Moderate Assistance-helper does LESS THAN HALF the effort. [place] l ifts, holds or supports trunk or limbs, but provides less than half the effort. 2-Substantial/Maximal Assistance-helper does MORE THAN HALF the effort. [place] lifts or holds trunk or limbs and provides more than half the effort. 8-Gttvvrspb-kuwyed does ALL the effort. Patient does none of the effort to complete the activity. Or, the assistance of 2 or more helpers is required for t he patient to complete the activity. If activity was not attempted, code reason: 7-Patient Refused. 9-Not Applicable-not attempted and the patient did not perform the activity before the current illness, exacerbation or injury. 10-Not Attempted due to Environmental Limitations-(lack of equipment, weather restraints, etc.). 88-Not Attempted due to Medical Conditions or Safety Concerns. Lying to Sitting/Side of Bed(Q: 6 Sit to Stand (QC): 4 Chair/Jmk-gh-Sfyvv Xfer(QC): 4 Gait Training Does the Patient Walk?: Yes Distance: 175' Walk 10 feet (QC): 4 Walk 50 ft with 2 Turns(QC): 4 Walk 150 ft (QC): 4 Gait Assistive Device: FWW noted bilateral UE tremors/VC to stand erect and to use body to stand and not rely on FWW. Functional gait sequence Exercises Seated Therapy Exercises: Ankle pumps, Long arc quads, Hip flexion Seated Reps: 15 (x 2 sets) Standing: Sit to Stand (x 4 sets to FWW SBA) Assessment Patient tolerated treatment well and is up in recliner. Patient voices concern with dismissing to home due to minimal to no support in home. Physician aware. Patient would benefit from continued skilled PT to increase strength and mobility and for home safety concerns. PT Commercial Construction Estimator Goals Commercial Construction Estimator Goals PT Mcfp Goals Time Frame: Oct 06, 2021 Roll Left & Right (QC): 6 Sit to Lying (QC): 6 Lying-Sitting on Side/Bed(QC): 6 Sit to Stand (QC): 6 Chair/Sbt-dx-Jckuw Xfer(QC): 6 Toilet Transfer (QC): 6 Does the Patient Walk: Yes Walk 10 feet (QC): 5 Walk 50ft with 2 Turns (QC): 5 Walk 150 ft (QC): 5 Walking 10ft on Uneven Surface: 5 1 Step (curb) (QC): 5 4 Steps (QC): 5 12 Steps (QC): 5 Picking up an Object (QC): 5 Does the Pt use WC or Scooter?: No PT Plan Treatment/Plan Treatment Plan: Continue Plan of Care Treatment Plan: Bed Mobility, Education, Functional Activity Carlita, Functional Strength, Group Therapy, Gait, Safety, Therapeutic Exercise, Transfers Treatment Duration: Nov 10, 2021 Frequency: 6 times per week Estimated Hrs Per Day: .25 hour per day Patient and/or Family Agrees t: Yes Time/GCodes Time In: 901 Time Out: 926 Total Billed Treatment Time: 25 Total Billed Treatment 1 visit EX 10 min GT 15 min GALINA PICKARD PT Sep 27, 2021 10:27
--- NOTE | 2021-09-27 10:35 | Discharge Summary ---
Discharge Summary Reconcile Patient Problems Problems Reviewed?: Yes Instructions for Patient Via Hortencia [employer], Assessment/Instructions Take medications as prescribed. Follow up with your PCP. Return with worsening confusion, pain, or if you feel like you are getting worse. Physician to follow Patient: Krystian Discharge Diet for Home: Low Sodium Diet Hospital Course Date of Admission: Sep 19, 2021 at 19:00 Admission Diagnosis : Sepsis due to UTI Family Physician/Provider: Santo Boland MD Date of Discharge: 09/27/21 Discharge Diagnosis: Sepsis due to E coli UTI and bacteremia, new onset atrial fibrillation Hospital Course: Ebenezer Allen is a 75 year old male who was admitted with sepsis due to UTI. His urine and blood cultures both grew E coli. He was treated with IV Rocephin while inpatient. He was transitioned to oral Omnicef and will complete a course as an outpatient. His course was complicated by new onset atrial fibrillation. Cardiology was consulted and assisted with his care. A DEBRA cardioversion was attempted but unsuccessful. He was treated with Metoprolol and Eliquis. He also had issues with electrolyte abnormalities which were improved on discharge. He was also debilitated and worried about going home because he lives alone without support. He was not accepted for inpatient rehab. An attempt was made to admit to swing bed for ongoing therapies but he improved to the point that he would be able to take care of himself at home. He was discharged home in stable condition and set up with home health care. Labs and Pending Lab Test: Laboratory Tests 09/27/21 05:16: Sodium Level 139, Potassium Level 4.1, Chloride Level 105, Carbon Dioxide Level 23, Anion Gap 11, Blood Urea Nitrogen 9, Creatinine 0.62, Estimat Glomerular Filtration Rate 126, BUN/Creatinine Ratio 15, Glucose Level 87, Calcium Level 8.2L, Magnesium Level 1.8 Microbiology 09/19/21 Blood Culture - Final, Complete Escherichia coli 09/19/21 Urine Culture - Final, Complete Escherichia coli Home Meds Active Cefdinir 300 Mg Capsule 300 Mg PO BID 7 Days Metoprolol Succinate 25 Mg Tab.er.24h 25 Mg PO DAILY 30 Days Eliquis (Apixaban) 5 Mg Tablet 5 Mg PO BID 30 Days Reported Ibuprofen 200 Mg Capsule 400-600 Mg PO Q8H PRN Atorvastatin Calcium 20 Mg Tablet 10 Mg PO DAILY TAKES OF A 20MG TAB LAST FILLED 01-05-2021 #45/90 DAY SUPPLY Laxative (Bisacodyl) 5 Mg Tablet 5 Mg PO DAILY PRN Stool Softener (Docusate Sodium) 100 Mg Tablet 100-200 Mg PO BID PRN Lisinopril-Hctz 20-25 mg Tab (Lisinopril/Hydrochlorothiazide) 1 Each Tablet 1 Tab PO DAILY LAST FILLED 02-25-2021 #90/90 DAY SUPPLY Phenytoin Sodium Extended 100 Mg Capsule 400 Mg PO DAILY TAKES 4 (100MG) CAPSULES LAST FILLED 04-29-2021 #360/90 DAY SUPPLY Consulations Cardiology Patient Allergies: Coded Allergies: No Known Drug Allergies (Unverified , 09/19/21) Height (Feet): 5 Height (Inches): 10.00 Weight (Pounds): 227 Weight (Ounces): 7.0 Home Health Need/Face to Face Date of Face to Face: Sep 27, 2021 Clinical Findings: Generalized weakness and fatigue, Instability, Muscle weakness, Unsteady gait I have seen Pt [id number]: Yes Discharged To: Home Diagnosis/Conditions: E coli UTI and bacteremia Atrial fibrillation hypertension Debility Problems/Diagnosis/Condition: (1) Urinary tract infection (2) Bacteremia (3) New onset a-fib (4) Essential (primary) hypertension (5) Lumbar spinal stenosis (6) Frequent falls (7) Lives alone without help available Patient is Homebound due to: René fall risk due to instabilty, Muscle weakness Homebound Status Due to the above stated illness, injury or surgical procedure (medical condition or diagnosis) and associated clinical findings, the patient is homebound because of his/her inability to leave home except with aid of a supportive device and/or person AND leaving the home requires a considerable and taxing effort or is medically contraindicated. Pt req the following assistanc: Aid of another person, [facility] Health Nursing Orders Home Health Services Order: Nursing Services, Enterprise Application Analyst-Evaluate & Tr eat, Physical Therapy-Evaluate & Treat Home Health Infusion Therapy Line Start Date: Sep 19, 2021 Therapy Orders Therapy Orders: OT (must have SN or PT order), Physical Therapy Therapy Specific Orders: Eval assistive deivces, Teach enviro modifications/safety, Gait training, Increase strength/endurance Certify Stmt I certify that this patient is under my care and that I, a nurse practitioner or a physician; a entry level marketing assistant working with me, had a face to face encounter that - meets the physician face to face encounter requirements with this patient as dated. Discharge Physical Exam General: Alert, Oriented X3, Cooperative, No Acute Distress HEENT: Atraumatic, EOMI, Mucous Memb Moist/[place] Lungs: Clear to Auscultation, Normal Air Movement Heart: Normal S1, Normal S2, No Murmurs, Other (irregularly irregular) Abdomen: Normal Bowel Sounds, Soft, No Tenderness Extremities: No Edema, No Tenderness/Swelling Skin: No Rashes, No Significant Lesion Neuro: Normal Speech, Normal Tone Psych/Mental Status: Mental Status NL, Mood NL RAMIRO STYLES MD Sep 27, 2021 10:35
[2021-09-27 11:55] VITALS: BP 162/74
[2021-09-27 13:07] VITALS: BP 168/91
[2021-09-27 13:13] VITALS: BP 168/91
--- NOTE | 2021-09-27 13:29 | Occupational Ther Daily Note ---
OT Current Status-Daily Note Subjective Pt reports discomfort in back but does not give numerical value. He states that it is the same amount of pain that he came in with. Appearance Pt left sitting in chair, all needs within reach, RN informed. ADL-Treatment Therapy Code Descriptions/Definitions Functional [place] Measure: 0=Not Assessed/NA 4=Minimal Assistance 1=Total Assistance 5=Supervision or Setup 2=Maximal Assistance 6=Modified [place] 3=Moderate Assistance 7=Complete IndependenceSCALE: Activities may be completed with or without assistive devices. 5-Takxfvvmjz-jgdwwtu completes the activity by him/herself with no assistance from a helper. 5-Set-up or Clean-up Assistance-helper sets up or cleans up; patient completes activity. Abbott assists only prior to or following the activity. 4-Supervision or Touching Assistance-helper provides verbal cues and/or touching/steadying and/or contact guard assistance as patient completes activity. Assistance may be provided throughout the activity or intermittently. 3-Partial/Moderate Assistance-helper does LESS THAN HALF the effort. Abbott lifts, holds or supports trunk or limbs, but provides less than half the effort. 2-Substantial/Maximal Assistance-helper does MORE THAN HALF the effort. Abbott lifts or holds trunk or limbs and provides more than half the effort. 7-Fetkililf-npzdxh does ALL the effort. Patient does none of the effort to complete the activity. Or, the assistance of 2 or more helpers is required for the patient to complete the activity. If activity was not attempted, code reason: 7-Patient Refused. 9-Not Applicable-not attempted and the patient did not perform the activity before the current illness, exacerbation or injury. 10-Not Attempted due to Environmental Limitations-(lack of equipment, weather restraints, etc.). 88-Not Attempted due to Medical Conditions or Safety Concerns. Other Treatment At start of session, pt reports elevated HR/BP and that he did not think that he would d/c today. HR: 98 bpm. Reluctant to participate, agreeable with encouragement. Exercises performed with yellow theraband. Pt unable to recall any exercise performed in past sessions. He required several cues for pacing, form, and purpose. Pt often stopping after 5 reps and requires encouragement to perform at least 10 reps as he shows no fatigue or difficulty performing 5 reps. HR following exercises: 100 bpm. Education OT Patient Education: Correct positioning, Energy conservation, Exercise program, Progress toward Goal/Update tx plan, Purpose of tx/functional activities, Rehab process Teaching Recipient: Patient Teaching Methods: Demonstration, Discussion Response to Teaching: Reinforcement Needed OT Adult Parole Officer Goals Adult Parole Officer Goals Time Frame: Oct 01, 2021 Eating (QC): 6 Oral Hygiene (QC): 6 Toileting Hygiene (QC): 6 Shower/Bathe Self (QC): 6 Upper Body Dressing (QC): 6 Lower Body Dressing (QC): 6 On/Off Footwear (QC): 6 Additional Goals: 1-Demonstrate ADL Tasks, 2-Verbalize Understanding, 3- ImproveStrength/Carlita 1=Demonstrate adherence to instructed precautions during ADL tasks. 2=Patient will verbalize/demonstrate understanding of assistive devices/modifications for ADL. 3=Patient will improve strength/tolerance for activity to enable patient to perform ADL's. OT Education/Plan Problem List/Assessment Assessment: Decreased Activ Tolerance, Decreased UE Strength, Impaired Cognitio n Discharge Recommendations Plan/Recommendations: Continue POC Treatment Plan/Plan of Care Treatment,Training & Education: Yes Patient would benefit from OT for education, treatment and training to promote independence in ADL's, mobility, safety and/or upper extremity function for ADL's. Plan of Care: ADL Retraining, Functional Mobility, UE Funct Exercise/Act Treatment Duration: Oct 01, 2021 Frequency: 5 times per week Estimated Hrs Per Day: .25 hour per day Rehab Potential: Fair Time/GCodes Start Time: 13:08 Stop Time: 13:22 Total Time Billed (hr/min): 14 Billed Treatment Time 1 visit, EX Eri Kendall OT Sep 27, 2021 13:29
[2021-09-28] MEDS ORDERED: meTOproloL SUCCINATE 50 MG (TOPROL XL) TAB PO SCH (09:00)
--- NOTE | 2021-09-30 10:29 | Anesthesia-General Post-Op ---
MAC Patient Condition Mental Status/LOC: Same as Preop Cardiovascular: Satisfactory Nausea/Vomiting: Absent Respiratory: Satisfactory Pain: Controlled Complications: Absent Post Op Complications Complications None Follow Up Care/Instructions Patient Instructions None needed. Anesthesiology Discharge Order Discharge Order Patient is doing well, no complaints, stable vital signs, no apparent adverse anesthesia problems. No complications reported per nursing. RACHEL PICHARDO CRNA Sep 30, 2021 10:29
== END 2021-09-27 15:04 | disposition home health service (06) | DRG 872 ==
LOC: EDUNIT# 12:20 → ER 12:20 → 4TH 15:30 → OBSVTOIN 19:00
PROVIDERS: ADMIT Family Medicine; ATTEND Internal Medicine
DX: A41.51 Sepsis due to Escherichia coli [E. coli] (principal); N30.01 Acute cystitis with hematuria; R65.20 Severe sepsis without septic shock; I48.91 Unspecified atrial fibrillation; M51.36 Other intervertebral disc degeneration, lumbar region; M48.061 Spinal stenosis, lumbar region without neurogenic claudication; E78.00 Pure hypercholesterolemia, unspecified; I10 Essential (primary) hypertension; Z66 Do not resuscitate; G40.909 Epilepsy, unspecified, not intractable, without status epilepticus; K59.09 Other constipation; E87.6 Hypokalemia; M54.41 Lumbago with sciatica, right side; G89.29 Other chronic pain; E83.42 Hypomagnesemia; K22.2 Esophageal obstruction; R09.02 Hypoxemia; E66.9 Obesity, unspecified; M54.42 Lumbago with sciatica, left side; Z79.891 Long term (current) use of opiate analgesic; Z79.899 Other long term (current) drug therapy; Z91.81 History of falling; Z68.34 Body mass index [BMI] 34.0-34.9, adult; Z60.2 Problems related to living alone; Z53.09 Procedure and treatment not carried out because of other contraindication
CPT/HCPCS: 36415; 71045; 71046; 74176; 80048; 80053; 80185; 81000; 83605; 83735; 84132; 84484; 85007; 85025; 85027; 85610; 85730; 87040; 87077; 87088; 87186; 92960; 93005; 93041; 93312; 96361; 96374; 96375; G0378

== ENCOUNTER 2021-10-20 05:37 | Outpatient (RCR) | payer MEDICARE ==
[~2021-10-20] VITALS: Ht 177.8 cm; Wt 102.5 kg
[~2021-10-20 05:37] MED LIST changes: +APIX5TAB PO; +ATOR20TA66 PO; +BISA5TAB49 PO; +CEFD300C3 PO; +CYCL10TA25 PO; -CYCL10TA9 PO; +DOCU100T7 PO; +IBUP-2185 PO; -LISI1TAB26 PO; +LISI1TAB48 PO; +MTP25TSR PO
== END 2021-10-20 08:49 | disposition home or self-care (01) ==
LOC: PREOP 05:37
PROVIDERS: ATTEND Internal Medicine
DX: Z01.82 Encounter for allergy testing (principal); K22.2 Esophageal obstruction; Z20.822 Contact with and (suspected) exposure to COVID-19
CPT/HCPCS: 87635

== ENCOUNTER → 2021-10-22 | Day surgery (SDC) | payer MEDICARE ==
[~2021-10-22] VITALS: Ht 177.8 cm; Wt 102.5 kg
[~2021-10-22] MED LIST changes: +HURRICAINE EXT TUBE (BENZOCAINE) XX PRN; +LACTATED RINGERS 1,000 ML IV ONE; +LACTATED RINGERS 1,000 ML IV STA; +LIDOCAINE JELLY 2% 6 ML SYRINGE MM PRN; +proPOfol 200 MG/20 ML (DIPRIVAN) VIAL IV ONE
--- NOTE | 2021-10-22 09:45 | Pre-Op Note & Conscious Sedat ---
Pre-Operative Progress Note H&P Reviewed The H&P was reviewed, patient examined and no changes noted. Date H&P Reviewed: Oct 22, 2021 Time H&P Reviewed: 09:44 Conscious Sedation Pre-Proced ASA Score 3 For ASA 3 and 4: Consider anesthesia and medical clearance. Also, for patients with a history of failed moderate sedation consider anesthesia. Airway Lungs Heart ASA score ASA 1: a normal healthy patient ASA 2: a patient with a mild systemic disease (mid diabetes, controlled hypertension, obesity ASA 3: a patient with a severe systemic disease that limits activity (angina, COPD, prior Myocardial infarction) ASA 4: a patient with an incapacitating disease that is a constant threat to life (CHF, renal failure) ASA 5: a moribund patient not expected to survive 24 hrs. (ruptured aneurysm) ASA 6: a declared brain- patient whose organs are being harvested. For emergent operations, add the letter E after the classification Mallampati Classification Grade 3 Sedation Plan Analgesia, Amnesia, Plan communicated to team members, Discussed options with patient/fam, Discussed risks with patient/fam The patient is an appropriate candidate to undergo the planned procedure, sedation, and anesthesia. The patient immediately re-assessed prior to indication. GEOFFREY ESCALERA MD Oct 22, 2021 09:45
[2021-10-22 09:49] VITALS: BP 133/83
[2021-10-22 11:10] VITALS: BP 136/74
--- NOTE | 2021-10-22 11:10 | Anesthesia-General Post-Op ---
MAC Patient Condition Mental Status/LOC: Same as Preop Cardiovascular: Satisfactory Nausea/Vomiting: Absent Respiratory: Satisfactory Pain: Controlled Complications: Absent Post Op Complications Complications None Follow Up Care/Instructions Patient Instructions None needed. Anesthesiology Discharge Order Discharge Order Patient is doing well, no complaints, stable vital signs, no apparent adverse anesthesia problems. No complications reported per nursing. SHANEKA SHELL CRNA Oct 22, 2021 11:10
--- NOTE | 2021-10-22 15:53 | OPERATIVE REPORT ---
DATE OF SERVICE: EGD SUMMARY EGD is performed for stricture evaluation. There was inability to pass the DEBRA scope during the recent hospitalization for evaluation of paroxysmal atrial fibrillation. The patient reports intermittent occasional dysphagia to solids. The patient was placed in the left lateral decubitus position. The endoscope was inserted in the oral cavity and under direct visualization, the esophagus was intubated. The endoscope was passed down the esophagus through the stomach and second portion of the duodenum. Careful inspection was made as the endoscope was withdrawn. FINDINGS: The patient does have neck fusion with no range of motion secondary to severe cervical arthritis. The oropharynx, the epiglottis, the arytenoid aperture and true and false vocal folds were unremarkable. There is some tortuosity of the upper esophagus, likely due to neck fusion. There was no obvious evidence to suggest external compression and external neck examination was unremarkable in the office. There was no evidence for stricture formation. The mid and distal esophagus were normal except for a minimal amount of erythema noted at the Z- line. No evidence for hiatal hernia was noted. The cardia, fundus, antrum, pylorus, pyloric channel, and duodenal bulb were unremarkable. ASSESSMENT: No evidence for stricture formation was noted, likely DEBRA difficulty due to severe cervical arthritis with some resultant tortuosity of the upper esophagus. There was minimal erythema at the Z line, but no evidence for erosive esophagitis. No other abnormalities were noted on today's procedure. The patient reassured by today's findings. Job ID: [id number] DocumentID: [id number] Dictated Date: 10/22/2021 11:09:29 Computer Aided Design Operator Date: 10/22/2021 15:53:36 Dictated By: GEOFFREY ESCALERA MD [facility]
== END ==
LOC: ENDO 08:54
PROVIDERS: ATTEND Internal Medicine
DX: R13.10 Dysphagia, unspecified (principal); K22.89 Other specified disease of esophagus; I10 Essential (primary) hypertension; I48.0 Paroxysmal atrial fibrillation; E78.5 Hyperlipidemia, unspecified; Z79.899 Other long term (current) drug therapy

== ENCOUNTER → 2022-01-12 | Day surgery (SDC) | payer MEDICARE ==
[~2022-01-12] MED LIST changes: +BISA-89 PO; -BISA5TAB49 PO; -HURRICAINE EXT TUBE (BENZOCAINE) XX PRN; -LACTATED RINGERS 1,000 ML IV ONE; -LACTATED RINGERS 1,000 ML IV STA; +LIDOCAINE 2% VISCOUS 15 ML UDC PO ONE; -LIDOCAINE JELLY 2% 6 ML SYRINGE MM PRN; +NS IV 1000 ML 1,000 ML IV SCH; +NS IV 1000 ML 1,000 ML ONE; -proPOfol 200 MG/20 ML (DIPRIVAN) VIAL IV ONE
== END ==
LOC: SDC 09:51
PROVIDERS: ATTEND Internal Medicine Cardiovascular Disease
DX: I48.19 Other persistent atrial fibrillation (principal); M48.061 Spinal stenosis, lumbar region without neurogenic claudication; I10 Essential (primary) hypertension; E87.6 Hypokalemia; E66.9 Obesity, unspecified; I65.23 Occlusion and stenosis of bilateral carotid arteries; Z79.01 Long term (current) use of anticoagulants; Z68.34 Body mass index [BMI] 34.0-34.9, adult; Z53.9 Procedure and treatment not carried out, unspecified reason
CPT/HCPCS: 93005

== ENCOUNTER → 2022-01-12 | Outpatient (CLI) | payer MEDICARE ==
[~2022-01-12] MED LIST changes: +CATHETER FLUSH 10 ML SYR IVP PRN; -LIDOCAINE 2% VISCOUS 15 ML UDC PO ONE; -NS IV 1000 ML 1,000 ML IV SCH; -NS IV 1000 ML 1,000 ML ONE; +REGADENOSON 0.4 MG/5 ML SYR (LEXISCAN) IV ONE
[2022-01-12 13:30] VITALS: BP 151/69
--- NOTE | 2022-01-12 15:59 | Cardiology Stress Test Report ---
Stress Test Report Date of Procedure/Referring: Date of Procedure: Jan 12, 2022 Missy Moses Admitting Physician Santo Boland MD Indications: A Fib Baseline Heart Rate: 75 Baseline Blood Pressure: Blood Pressure Systolic: 151 Blood Pressure Diastolic: 69 Baseline Vitals Vital Signs Date Time Temp Pulse Resp B/P (MAP) Pulse Ox O2 Delivery O2 Flow Rate FiO2 01/12/22 13:30 75 151/69 (96) Baseline EKG: Baseline EKG: NSR Summary After explaining the procedure to the patient, he signed a consent and then brought to the stress nuclear laboratory. Patient received 0.4 mg Lexiscan for stress test, ECG, heart rate and blood pressure were monitored continuously. Resting and stress dose of radio tracer w ere injected, imaging was acquired and reviewed in short axis, horizontal long axis and vertical long axis views. TID: 1 SSS: 2 SDS: 2 EF: 77 1. Patient tolerated Lexiscan well 2. Baseline rhythm is sinus rhythm with first-degree AV block and frequent atrial premature contractions, patient was scheduled for cardioversion today and on arrival to the hospital and was noted to be in sinus rhythm with first-degree AV block. 3. No significant ischemia or infarction on SPECT images, diaphragmatic attenuation. 4. Normal left ventricular size, EF 77% NAZANIN MIRANDA MD Jan 12, 2022 15:59
== END ==
LOC: CARD 12:00
PROVIDERS: ATTEND Physician Assistant
DX: I48.91 Unspecified atrial fibrillation (principal); I11.9 Hypertensive heart disease without heart failure; I08.0 Rheumatic disorders of both mitral and aortic valves
CPT/HCPCS: 78452; 93017; 93306; A9502

== ENCOUNTER 2022-02-09 08:50 | Outpatient (CLI) | payer MEDICARE ==
[~2022-02-09 08:50] MED LIST changes: -CATHETER FLUSH 10 ML SYR IVP PRN; -REGADENOSON 0.4 MG/5 ML SYR (LEXISCAN) IV ONE
== END 2022-02-09 09:10 ==
LOC: SLEEP 08:50
PROVIDERS: ATTEND Internal Medicine Cardiovascular Disease
DX: G47.33 Obstructive sleep apnea (adult) (pediatric) (principal); G47.10 Hypersomnia, unspecified; I49.9 Cardiac arrhythmia, unspecified; I10 Essential (primary) hypertension; I48.0 Paroxysmal atrial fibrillation
CPT/HCPCS: G0399

== ENCOUNTER 2023-03-10 08:44 | Outpatient (RCR) | payer OTHER | END 2023-03-12 | disposition home or self-care (01) | PROVIDERS: ATTEND Nurse Practitioner Family | DX: M54.2 Cervicalgia (principal); R53.1 Weakness; M25.519 Pain in unspecified shoulder ==

== ENCOUNTER 2023-04-11 09:48 | Outpatient (RCR) | payer OTHER | END 2023-04-12 | disposition home or self-care (01) | PROVIDERS: ATTEND Nurse Practitioner Family | DX: M54.2 Cervicalgia (principal); R53.1 Weakness; M25.519 Pain in unspecified shoulder ==

== ENCOUNTER 2023-04-18 10:28 | Outpatient (RCR) | payer OTHER | END 2023-04-18 11:19 | disposition home or self-care (01) | PROVIDERS: ATTEND Nurse Practitioner Family | DX: M54.2 Cervicalgia (principal); R53.1 Weakness; M25.519 Pain in unspecified shoulder ==

== ENCOUNTER 2023-09-20 06:05 | Outpatient (CLI) | payer MEDICARE ==
[~2023-09-20] VITALS: Ht 177.8 cm; Wt 109.3 kg
== END 2023-09-26 13:47 | disposition home or self-care (01) ==
LOC: PREOP 06:05
PROVIDERS: ATTEND Internal Medicine
DX: Z01.818 Encounter for other preprocedural examination (principal)

== ENCOUNTER 2023-09-29 09:48 | Day surgery (SDC) | payer MEDICARE, OTHER ==
--- NOTE | 2023-09-18 18:40 | HISTORY AND PHYSICAL ---
COLONOSCOPY HISTORY AND PHYSICAL HISTORY OF PRESENT ILLNESS: The patient is a 77-year-old white male with a past history for colon polyps. 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 He reports no change in bowel habit. No bright red blood per rectum or melena and has had no abdominal pain. 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 He reports no change in mental status. He denies headaches and has had no seizures for many years. He has been maintained on Dilantin, typically runs a level around 5 but has had no seizures with this, so we did not push the dose. He has had no reported vertigo or gait imbalance. He has not been getting any regular physical activity except for some occasional yard work. PHYSICAL EXAMINATION: GENERAL: Reveals a pleasant, overweight white male in no acute distress. VITAL SIGNS: His weight was up 7.6 pounds from 6 months ago, blood pressure 140/52. CHEST: Clear. CARDIOVASCULAR: Reveals regular rate and rhythm without significant murmur, S3, or S4. EXTREMITIES: Revealed trace bilateral edema at the mid tibia. ASSESSMENT AND PLAN: 1. The patient is being set up for surveillance colonoscopy. Past history of tubulovillous adenoma, removed from the transverse colon. Prep instructions were given and questions were answered. 2. Hypertension, under reasonable control. 3. Obesity with deconditioning. Discussed the importance of regular physical activity, walking, exercise stationary bike, etc. 4. Traumatic brain injury, past history. Clinically, stable. No change in mentation reported with secondary generalized seizure disorder. No interval seizures. Continue Dilantin. We will see him back in 6 months. Flu shot was given and strongly advocated for shingles vaccination and COVID vaccination. Job ID: [id number] DocumentID: [id number] Dictated Date: 09/18/2023 17:32:04 Flat Folding Machine Operator Date: 09/18/2023 18:39:00 Dictated By: GEOFFREY ESCALERA MD [facility]
[~2023-09-29] VITALS: Ht 177.8 cm; Wt 109.3 kg
[2023-09-29] MEDS ORDERED: LACTATED RINGERS 1,000 ML 1,000 ML IV STA (09:50)
[2023-09-29 10:14] VITALS: BP 155/70
--- NOTE | 2023-09-29 10:25 | Pre-Op Note & Conscious Sedat ---
Pre-Operative Progress Note Date H&P Reviewed: Sep 29, 2023 Time H&P Reviewed: 10:00 History & Physical: H&P Reviewed, Patient Examed, No changes noted Pre-Op Diagnosis: Polyp surviellance Moderate Sedation PreProcedure ASA Score 3 Airway Lungs Heart ASA score ASA 1: a normal healthy patient ASA 2: a patient with a mild systemic disease (mid diabetes, controlled hypertension, obesity ASA 3: a patient with a severe systemic disease that limits activity (angina, COPD, prior Myocardial infarction) ASA 4: a patient with an incapacitating disease that is a constant threat to life (CHF, renal failure) ASA 5: a moribund patient not expected to survive 24 hrs. (ruptured aneurysm) ASA 6: a declared brain- patient whose organs are being harvested. For emergent operations, add the letter E after the classification Mallampati Classification Grade 2 Sedation Plan Analgesia, Amnesia, Plan communicated to team members, Discussed options with patient/fam, Discussed risks with patient/fam The patient is an appropriate candidate to undergo the planned procedure, sedation, and anesthesia. The patient immediately re-assessed prior to indication. GEOFFREY ESCALERA MD Sep 29, 2023 10:25
[2023-09-29 11:08] VITALS: BP 114/55
[2023-09-29 11:15] VITALS: BP 114/55
--- NOTE | 2023-09-29 11:21 | Progress Note-Post Operative ---
Post-Procedure Note Physician (s)/Colon And Rectal Surgeon (s) Physician GEOFFREY ESCALERA MD Pre-Procedure Diagnosis Pre-Procedure Diagnosis: Polyp surviellance Post-Procedure Diagnosis Post-operative diagnosis: Prior to undergoing colonoscopy digital rectal evaluation was performed. Anal sphincter tone was normal and the perianal reflexes intact. Prostate is normal in size and a nodular on digital inspection. No abnormalities noted on digital inspection anal canal or distal rectal vault. The colonoscope was then inserted into the rectum and under direct visualization advanced to the cecum. The cecum was identified by the indication of the valve cecal strap and appendiceal orifice. Photographic documentation was obtained. A careful inspection was made as the colonoscope was withdrawn. Quality the prep was good. Findings there are no evidence for internal or external hemorrhoids and the rectum was unremarkable. Present the proximal sigmoid colon was a 1 cm sessile adenomatous appearing polyp without ulceration it was photographed and biopsied and ablated there is little more than usual blood loss considering this and the patient is on Eliquis for paroxysmal atrial fibrillation Endo Clip was deployed with no further subsequent blood loss. No diverticular disease was noted. The descending colon splenic flexure transverse colon hepatic flexure ascending colon and cecum were unremarkable. No evidence for any remnant of previous villous adenoma removed from the distal transverse colon was noted. A/P 1. A 1 cm sessile adenomatous appearing polyp was removed from the proximal sigmoid colon with deployment of Endo Clip considering the patient is on Eliquis for postoperative hemorrhage reduction risk. Considering patient age and medical comorbidities as long as there are no surprises on histopathology report will not likely recommend a future surveillance colonoscopy. GEOFFREY ESCALERA MD Sep 29, 2023 11:21
[2023-09-29 11:45] VITALS: BP 138/64
[2023-09-29 12:20] VITALS: BP 138/64
--- NOTE | 2023-09-29 12:26 | Anesthesia-General Post-Op ---
MAC Patient Condition Mental Status/LOC: Same as Preop Cardiovascular: Satisfactory Nausea/Vomiting: Absent Respiratory: Satisfactory Pain: Controlled Complications: Absent Post Op Complications Complications None Follow Up Care/Instructions Patient Instructions None needed. Anesthesiology Discharge Order Discharge Order Patient is doing well, no complaints, stable vital signs, no apparent adverse anesthesia problems. No complications reported per nursing. AMARILIS WATSNO CRNA Sep 29, 2023 12:26
== END 2023-09-29 12:20 | disposition home or self-care (01) ==
LOC: ENDO 09:48
PROVIDERS: ATTEND Internal Medicine
DX: Z12.11 Encounter for screening for malignant neoplasm of colon (principal); D12.5 Benign neoplasm of sigmoid colon; I10 Essential (primary) hypertension; I48.0 Paroxysmal atrial fibrillation; E66.9 Obesity, unspecified; Z68.35 Body mass index [BMI] 35.0-35.9, adult; Z79.01 Long term (current) use of anticoagulants; Z87.820 Personal history of traumatic brain injury